=== PATIENT | female | born 1960 | race Caucasian/White ===

== ENCOUNTER 2023-01-17 09:22 | Outpatient (OUT) | payer OTHER, SELFPAY ==
--- NOTE | 2023-01-17 09:57 | XR_ITS ---
[address] [address] Patient Name: PRINCESS LOPEZ MRN: [id number] date: 1960 Sex: F Assigned Patient Location: [facility] Current Patient Location: [facility] Accession/Order Number: [id number] Exam Date: 01/17/2023 09:45 Report Date: 01/17/2023 10:08 At the request of: TINO MCGUIRE Procedure: XR DEXA axial skeleton EXAMINATION: XR DEXA axial skeleton, 01/17/2023 9:45 AM EDT HISTORY: Screening For Osteoporosis Z13.820 COMPARISON: None. TECHNIQUE: Dual-energy X-ray absorptiometry (DEXA) bone density study performed for the axial skeleton. HISTORY: Screening For Osteoporosis Z13.820 FINDINGS: Bone mineral density AP spine L1-L4 measures 0.905 g/sq cm. T score -2.3. WHO classification: Osteopenia Bone mineral density total femurs measures 0.804 g/sq cm. T score -1.6. WHO classification: Osteopenia XR/XR DEXA axial skeleton IMPRESSION: Osteopenia. Moderate fracture risk Electronically authenticated by: PAVITHRA ARTEAGA Date: 01/17/2023 10:08
== END 2023-01-17 09:23 | disposition home or self-care (01) ==
LOC: RAD 09:23
PROVIDERS: PCP Family Medicine; Visit Provider Nurse Practitioner Family
DX: Z13.820 Encounter for screening for osteoporosis (principal); M85.852 Other specified disorders of bone density and structure, left thigh; M85.851 Other specified disorders of bone density and structure, right thigh; C50.919 Malignant neoplasm of unspecified site of unspecified female breast; Z15.01 Genetic susceptibility to malignant neoplasm of breast; Z15.09 Genetic susceptibility to other malignant neoplasm; I82.90 Acute embolism and thrombosis of unspecified vein; L98.9 Disorder of the skin and subcutaneous tissue, unspecified
CPT/HCPCS: 77080

== ENCOUNTER 2023-08-12 16:24 | Emergency (ER) | payer MEDICARE, OTHER, SELFPAY ==
[2023-08-12 16:26] VITALS: BP 137/72; PULSE 84; RESP 20; TEMP 36.6; O2SAT 95; BMI 29.1
--- NOTE | 2023-08-12 16:39 | XR_ITS ---
The [address] [address] Patient Name: PRINCESS LOPEZ MRN: [id number] date: 1960 Sex: F Assigned Patient Location: ER Current Patient Location: Accession/Order Number: [id number] Exam Date: 08/12/2023 17:00 Report Date: 08/12/2023 17:48 At the request of: AMANDA GARVIN Procedure: XR ribs LT min 3V w CXR1V EXAM: XR ribs LT min 3V w CXR1V HISTORY: Fall COMPARISON: No prior chest x-ray or rib x-ray. CT chest 03/04/2022 and earlier TECHNIQUE: PA chest x-ray, AP, oblique x-ray left ribs FINDINGS: Lungs are stable with some minimal scars but no consolidation or edema. Increased density projects over the lower chest from the patient's implants. Normal heart size. No pleural effusion or pneumothorax. Left rib films do not demonstrate evidence of displaced fracture. There is deformity consistent with old fracture in the area of the left sixth rib.. Lower ribs difficult to visualize due to overlying soft tissues. No focal bone lesion. XR/XR ribs LT min 3V w CXR1V IMPRESSION: 1. Chest x-ray without acute abnormality. 2. No acute displaced left rib fracture. Electronically authenticated by: FABI HULL Date: 08/12/2023 17:48
--- NOTE | 2023-08-12 16:39 | ED.FALL1 ---
HPI - Fall General Chief Complaint: Fall Stated Complaint: rib pain, fall on Monday Time Seen by Provider: 08/12/23 16:39 Source: patient Mode of arrival: walk-in Limitations: no limitations History of Present Illness HPI Narrative: This patient is here for evaluation of left sided rib pain. She states earlier this week on Monday she fell onto the floor after stumbling. There is no loss of consciousness or preceding lightheadedness. She did not injure her head or neck. She says she just wanted to come in to get checked today because she is getting increasing pain. She does have a history of COPD but she does not use oxygen or breathing treatments and only occasionally uses a rescue inhaler. She has not had bloody sputum or shortness of breath but it hurts a little bit to twist turn or move or take a deep breath. She has never had previous rib fractures. She has no abdominal injury. She denies specifically any other injuries or head Neck/Thyoid: Given or lower extremities. Related Data Home Medications Medication Instructions Recorded Confirmed sertraline 100 mg tablet 100 mg PO DAILY 08/12/23 08/12/23 Allergies Allergy/AdvReac Type Severity Reaction Status Date / Time Penicillins Allergy Intermediate Verified 08/12/23 16:33 PFSH PFSH Social History Smoking status: Former smoker Exam Narrative Exam Narrative: Awake alert pleasant moving about pulse oximetry and respiratory pattern are normal. Skin are warm and dry there is no pallor or diaphoresis. No evidence of scleral icterus or anemia. Examination lungs discloses both sides have good aeration. There is no pleural rub. There is no rales or rhonchi. There is no subcutaneous emphysema. There is no hematoma. There is no paradoxical movement of the chest wall with palpation. She has no abdominal pain. Heart sounds are normal. Constitutional Vital Signs, click to edit/add: Last Vital Signs Temp 98 F 08/12/23 16:26 Pulse 84 08/12/23 16:26 Resp 20 08/12/23 16:26 BP 137/72 08/12/23 16:26 Pulse Ox 95 08/12/23 16:26 O2 Del Method Room Air 08/12/23 16:26 Course Vital Signs Vital signs: Vital Signs Temperature 98 F 08/12/23 16:26 Pulse Rate 84 08/12/23 16:26 Respiratory Rate 20 08/12/23 16:26 Blood Pressure 137/72 08/12/23 16:26 Pulse Oximetry 95 08/12/23 16:26 Oxygen Delivery Method Room Air 08/12/23 16:26 Temperature 98 F 08/12/23 16:26 Pulse Rate 84 08/12/23 16:26 Respiratory Rate 20 08/12/23 16:26 Blood Pressure 137/72 08/12/23 16:26 Pulse Oximetry 95 08/12/23 16:26 Oxygen Delivery Method Room Air 08/12/23 16:26 MDM - Fall MDM Narrative Medical decision making narrative: Clinically most of his discomfort was over the left lateral fifth rib and that is indeed fractured on her x-ray. I am awaiting radiologist final interpretation see if there is any other injuries. I do not see a pneumothorax. Discharge Plan Discharge Chief Complaint: Fall Clinical Impression: Rib fracture Patient Disposition: Home, Self-Care Time of Disposition Decision: 17:15 Prescriptions / Home Meds: No Action sertraline 100 mg tablet 100 mg PO DAILY Additional Instructions: May use [id number] analgesics or [place] if necessary. Return for any trouble breathing Stand Alone Forms: Portal Instructions Referrals: JOSUE AGUIRRE [Primary Care Provider] - 1 week
[2023-08-12 17:47] VITALS: BP 128/78; PULSE 88; RESP 16; TEMP 36.8; O2SAT 98
== END 2023-08-12 17:35 | disposition home or self-care (01) ==
PROVIDERS: Emergency Provider Emergency Medicine Emergency Medical Services; PCP Family Medicine
DX: S22.32XA Fracture of one rib, left side, initial encounter for closed fracture (principal); W01.198A Fall on same level from slipping, tripping and stumbling with subsequent striking against other object, initial encounter; J44.9 Chronic obstructive pulmonary disease, unspecified; Z87.891 Personal history of nicotine dependence; Z79.899 Other long term (current) drug therapy
CPT/HCPCS: 71101; 99283

== ENCOUNTER 2024-11-19 11:11 | Outpatient (OUT) | payer MEDICARE, OTHER, SELFPAY ==
--- NOTE | 2024-11-19 11:21 | XR_ITS ---
The [place] [id number] Patient Name: PRINCESS LOPEZ MRN: [id number] date: 1960 Sex: F Assigned Patient Location: [facility] Current Patient Location: [facility] Accession/Order Number: [id number] Exam Date: 11/19/2024 12:39 Report Date: 11/19/2024 12:40 At the request of: DUY JETER Procedure: XR knee RT 4V RIGHT KNEE - 4 views COMPARISON: None CLINICAL DATA: Knee pain for the past month with patella and posteriorly. Patient recently gardening. AP, lateral, internal oblique and patellar views were obtained. There is osteopenia. No acute fracture or dislocation is identified. There is slight lateral subluxation of patella. There is mild tricompartment marginal spurring. There is no significant knee effusion or soft tissue swelling. XR/XR knee RT 4V IMPRESSION: OSTEOPENIA AND MILD DEGENERATIVE CHANGES. NO ACUTE BONY FINDINGS. Impression dictated by: Tiffany Thompson M.D. 11/19/2024 12:40 PM Dictation Location: [place] [address] Electronically authenticated by: [id number] Y Date: 11/19/2024 12:40
== END 2024-11-19 11:12 | disposition home or self-care (01) ==
LOC: RAD 11:14
PROVIDERS: PCP Family Medicine; Visit Provider Nurse Practitioner
DX: M25.561 Pain in right knee (principal); M85.80 Other specified disorders of bone density and structure, unspecified site
CPT/HCPCS: 73564

== ENCOUNTER 2024-11-20 13:16 | Inpatient (IN) | payer MEDICARE, OTHER, SELFPAY ==
--- OUTSIDE RECORDS SUMMARY | 2024-11-18 23:59 | XMS_ITS | Continuity of Care Document ---
Author Organization [facility] Address [address] [place] [id number] Care Team Providers Care Sales Support Consultant Name Role Phone Isidra Mota Primary Care Physician Encounter FT_AMBFIN [id number] Date(s): 11/18/24 - 11/18/[address] [address]- Encounter Diagnosis Fatigue(Discharge Diagnosis) - 11/18/24 BMI 28.0-28.9,adult(Discharge Diagnosis) - 11/18/24 Seasonal allergies(Discharge Diagnosis) - 11/18/24 Elevated fasting glucose(Discharge Diagnosis) - 11/18/24 Excessive thirst(Discharge Diagnosis) - 11/18/24 Discharge Disposition: Home (Routine DC) Attending Physician: Isidra Polanco Encounter Type: Clinic Allergies, Adverse Reactions, Alerts Substance Criticality Severity Reaction Reaction Severity Status penicillin Unknown Active Assessment and Plan Future Appointments Appointment Date:12/09/2024 09:40:00 AM Scheduled Provider:Isidra Polanco Location:[facility] Appointment Type: Open Appointment Date:01/13/2025 03:00:00 PM Scheduled Provider:Isidra Polanco Location:[facility] Appointment Type: Open Appointment Date:09/18/2025 11:00:00 AM Scheduled Provider: Location:[facility] Appointment Type:FM Medicare Wellness Subsequent Future Scheduled Tests Radiology* CT Chest, Low Dose Screening 10/28/24 Immunizations Given and Recorded Vaccine Date Status Refusal Reason influenza virus vaccine, inactivated 03/28/24 Arron rded influenza virus vaccine, inactivated 03/23/22 Arron rded influenza virus vaccine, inactivated 04/29/21 Arron rded influenza virus vaccine, inactivated 03/01/20 Arron rded SARS-CoV-2 (COVID-19) Ad26 vaccine 01/18/22 Record ed SARS-CoV-2 (COVID-19) Ad26 vaccine 09/13/20 Record ed zoster vaccine, inactivated 03/01/20 Recorded pneumococcal 23-valent vaccine 03/01/20 Recorded Medications Albuterol (Eqv-ProAir HFA) 90 mcg/inh inhalation aerosol 2 puff(s), Inhalation, q6hr Wheezing, 8.5 gm, Refill(s) 5, [facility], 156, cm, 08/12/24 11:27:00 EST, Height/Length Dosing, 76, kg, 08/12/24 11:27:00 EST, Weight Dosing Start Date: 08/12/24 Status: Ordered Quantity: 8.5 Unit: g Repeat number: 6 alendronate 35 mg Tab 35 mg = 1 tab(s), Oral, q7day, with 6-8 oz plain water, at least 30 minutes before first food, beverage, or medication of the day. Sit up right for 30 minutes after taking medication ( do not lay down), # 4 tab(s), Refills(s) 5, Pharmacy: [facility], 156, cm, 08/12/24 11:27:00 EST, Height/Length Dosing, 76, kg, 08/12/24 11:27:00 EST, Weight Dosing Start Date: 08/12/24 Status: Ordered Quantity: 4.0 Unit: tab(s) Repeat number: 6 Indications: Other specified disorders of bone density and structure, unspecified site; Aspir 81 81 mg, Oral, Daily, Refills(s) 0 Start Date: 04/20/23 Status: Ordered Repeat number: 1 cetirizine 10 mg oral capsule 10 mg = 1 cap(s), Oral, Daily, PRN for allergy symptoms, # 90 cap(s), Refills(s) 0, Pharmacy: [facility], 156, cm, 06/02/23 10:31:00 EST, Height/Length Dosing, 68.6, kg, 06/02/23 10:31:00 EST, Weight Dosing Start Date: 12/07/23 Status: Ordered Quantity: 90.0 Unit: cap(s) Repeat number: 1 Indications: Other seasonal allergic rhinitis; Other specified disorders of bone density and structure, unspecified site; Flonase 0.05 mg/inh [place] 2 spray(s), Nasal, Daily, 16 gram, Refill(s) 0, each nostril, [facility], 156, cm, 11/18/24 8:48:00 EDT, Height/Length Dosing, 69.2, kg, 11/18/24 8:48:00 EDT, Weight Dosing Start Date: 11/18/24 Status: Ordered Quantity: 16.0 Unit: g Repeat number: 1 Indications: Other fatigue; Body mass index [BMI] 28.0-28.9, adult; Glucose Kit Glucose Kit, See Instructions, 1 EA, 0, Glucose meter. Include autolet, matching test strips, lancets, & alcohol wipes, #100 or as allowed by insurance; DX: E11.9, [facility], [facility], 156, cm, 11/18/24 8:48:00 EDT, Height/Length Dosing, 69.2, kg, 11/18/24 8:48:00 EDT, Weight Dosing Start Date: 11/18/24 Status: Ordered Quantity: 1.0 Unit: EA Repeat number: 1 Indications: Other fatigue; Body mass index [BMI] 28.0-28.9, adult; phentermine 37.5 mg oral capsule 37.5 mg = 1 cap(s), Oral, Daily, # 30 cap(s), Refills(s) 0, Pharmacy: [facility], 156, cm, 10/14/24 10:06:00 EDT, Height/Length Dosing, 72.2, kg, 10/14/24 10:06:00 EDT, Weight Dosing Start Date: 10/14/24 Status: Ordered Quantity: 30.0 Unit: cap(s) Repeat number: 1 Indications: Body mass index [BMI] 31.0-31.9, adult; Persons encountering health services in other specified circumstances; Major depressive disorder, recurrent, moderate; sertraline 100 mg Tab 100 mg = 1 tab(s), Oral, Daily, X 90 day(s), # 90 tab(s), Refills(s) 3, Pharmacy: [facility], 156, cm, 08/12/24 11:27:00 EST, Height/Length Dosing, 76, kg, 08/12/24 11:27:00 EST, Weight Dosing Start Date: 08/12/24 Stop Date: 08/07/25 Status: Ordered Quantity: 90.0 Unit: tab(s) Repeat number: 4 Vitamin D3 50,000 intl units oral capsule 1,250 mcg = 1 cap(s), Oral, qWeek, # 12 cap(s), Refills(s) 1, Pharmacy: [facility], 156, cm, 12/14/23 8:07:00 EDT, Height/Length Dosing, 72.9, kg, 12/14/23 8:07:00 EDT, Weight Dosing Start Date: 12/18/23 Status: Ordered Quantity: 12.0 Unit: cap(s) Repeat number: 2 Problem List Condition Confirmation Course Effective Dates Status H ealth Status Informant Asthma Confirmed Active Adult BMI 30.0-30.9 kg/sq m Confirmed Active BMI 30.0-30.9,adult Confirmed Active Breast cancer Confirmed Resolved Excessive dietary caloric intake Confirmed Active Excessive thirst Confirmed Active Fatigue Confirmed Active Elevated fasting glucose Confirmed Active Hyperlipemia Confirmed Active Moderate recurrent major depression Confirmed Active Neuropathy Confirmed Active Osteopenia Confirmed Active Encounter for weight management Confirmed Active Breast cancer, stage 3 Confirmed Active COPD with emphysema Confirmed Active Seasonal allergies Confirmed Active Smoker 1 Confirmed Resolved Low TSH level Confirmed Active 1Added secondary to documentation in Social History. Procedures Procedure Date Related Diagnosis Body Site Status Hysterectomy and bilateral salpingo-oophorectomy sample 01/17/21 Com pleted Colonoscopy normal 2016 Comple ion Cholecystectomy Completed [place] hernia repair Comp leted Mastectomy 1 Completed 1Bilateral Mastectomies Social History Social History Type Response Smoking Status Former smoker, quit more than 30 days ago; Smokeless tobacco use: Former vaping or e-cigarette use; Type: Cigarettes; Type: Vaping; Previous treatment: Hypnosis; Previous treatment: cold turkey; Smoking Cessation Yes 1, 2 entered on: 09/16/24 Sex Female Sex Representation Female (finding) 1quit smoking 2020. Smoked about 1.5 ppd. 2Quit 07/2020 Patient Care team information Care Team Personnel Name: Isidra Polanco Position: FT Ambulatory - Primary Care - [facility] Member Role: Primary Care Physician Address: [address] [place] [address]- Telecom: Care Team Related Persons Name: BRIELLE CABELLO Name: BRIELLE CABELLO Name: BRIELLE CABELLO Name: BRIELLE CABELLO Name: BRIELLE CABELLO Name: JANEL VAUGHAN Insurance Providers Guarantor name: PRINCESS LOPEZ [employer] Plan Information #: 1 Payer: NA Payer Identifier: [id number] Member Number: [id number] Group Number: Part Subscriber Identifier: [id number] Relationship to Subscriber: Self Coverage Type: MEDICARE Coverage Verification Date: 24 Telecom: NA Address: Health Plan Information #: 2 Payer: NA Payer Identifier: [id number] Member Number: [id number] Group Number: Plan Subscriber Identifier: [id number] Relationship to Subscriber: Self Coverage Type: PRIVATE HEALTH INSURANCE Coverage Verification Date: 24 Telecom: NA Address:
--- OUTSIDE RECORDS SUMMARY | 2024-11-19 23:59 | XMS_ITS | Continuity of Care Document ---
Author Organization [facility] Address [address] [place] [address] Care Team Providers Care Telephoto Installer Name Role Phone Isidra Mota Primary Care Physician Encounter FT_AMBFIN [id number] Date(s): 11/19/24 - 11/19/[address] [address]- Encounter Diagnosis BMI 28.0-28.9,adult(Discharge Diagnosis) - 11/19/24 Right knee pain(Discharge Diagnosis) - 11/19/24 Swelling of right knee joint(Discharge Diagnosis) - 11/19/24 Discharge Disposition: Home (Routine DC) Attending Physician: Isidra Polanco Encounter Type: Clinic Allergies, Adverse Reactions, Alerts Substance Criticality Severity Reaction Reaction Severity Status penicillin Unknown Active Assessment and Plan Future Appointments Appointment Date:12/09/2024 09:40:00 AM Scheduled Provider:Isidra Polanco Location:[facility] Appointment Type:FM Open Appointment Date:01/13/2025 03:00:00 PM Scheduled Provider:Isidra Polanco Location:[facility] Appointment Type:FM Open Appointment Date:09/18/2025 11:00:00 AM Scheduled Provider: Location:[facility] Appointment Type:FM Medicare Wellness Subsequent Future Scheduled [...] down), # 4 tab(s), Refills(s) 5, Pharmacy: [facility], 156, cm, 08/12/24 11:27:00 EST, Height/Length [...] symptoms, # 90 cap(s), Refills(s) 0, Pharmacy: [facility], 156, cm, 06/02/23 10:31:00 EST, Height/Length Dosing, 68.6, kg, 06/02/23 10:31:00 EST, Weight Dosing Start Date: 12/07/23 Status: Ordered Quantity: 90.0 Unit: cap(s) Repeat number: 1 Indications: Other seasonal allergic rhinitis; Other specified disorders of bone density and structure, unspecified site; Flonase 0.05 mg/inh [place] 2 spray(s), Nasal, Daily, 16 gram, Refill(s) 0, each nostril, [facility], 156, cm, 11/18/24 8:48:00 EDT, Height/Length [...] as allowed by insurance; DX: E11.9, [facility], Supply, 156, cm, 11/18/24 8:48:00 EDT, Height/Length Dosing, 69.2, kg, 11/18/24 8:48:00 EDT, Weight Dosing Start Date: 11/18/24 Status: Ordered Quantity: 1.0 Unit: EA Repeat number: 1 Indications: Other fatigue; Body mass index [BMI] 28.0-28.9, adult; meloxicam 15 mg Tab 15 mg = 1 tab(s), Oral, Daily, # 30 tab(s), Refills(s) 0, Pharmacy: [facility], 156, cm, 11/19/24 10:12:00 EDT, Height/Length Dosing, 69.4, kg, 11/19/24 10:12:00 EDT, Weight Dosing Start Date: 11/19/24 Status: Ordered Quantity: 30.0 Unit: tab(s) Repeat number: 1 Indications: Pain in right knee; Body mass index [BMI] 28.0-28.9, adult; Effusion, right knee; phentermine 37.5 mg oral capsule 37.5 mg = 1 cap(s), Oral, Daily, # 30 cap(s), Refills(s) 0, Pharmacy: [facility], 156, cm, 10/14/24 10:06:00 EDT, Height/Length Dosing, 72.2, kg, 10/14/24 10:06:00 EDT, Weight Dosing Start Date: 10/14/24 Status: Ordered Quantity: 30.0 Unit: cap(s) Repeat number: 1 Indications: Body mass index [BMI] 31.0-31.9, adult; Persons encountering health services in other specified circumstances; Major depressive disorder, recurrent, moderate; right knee compression brace with velcro right knee compression brace with velcro, See Instructions, 1 EA, 0, use daily on right knee when walking, working, active, [facility], [facility], 156, cm, 11/19/24 10:12:00 EDT, Height/LengthDosing, 69.4, kg, 11/19/24 10:12:00 EDT, Weight Dosing Start Date: 11/19/24 Status: Ordered Quantity: 1.0 Unit: EA Repeat number: 1 Indications: Pain in right knee; Effusion, right knee; sertraline 100 mg Tab 100 mg = 1 tab(s), Oral, Daily, X 90 day(s), # 90 tab(s), Refills(s) 3, Pharmacy: [facility], 156, cm, 08/12/24 11:27:00 EST, Height/Length Dosing, 76, kg, 08/12/24 11:27:00 EST, Weight Dosing Start Date: 08/12/24 Stop Date: 08/07/25 Status: Ordered Quantity: 90.0 Unit: tab(s) Repeat number: 4 Tylenol 325 mg Tab = 1 tab(s), Oral, q4hr, PRN for pain, # 60 tab(s), Refills(s) 0 Start Date: 11/19/24 Status: Ordered Quantity: 60.0 Unit: tab(s) Repeat number: 1 Vitamin D3 50,000 intl units oral capsule 1,250 mcg = 1 cap(s), Oral, qWeek, # 12 cap(s), Refills(s) 1, Pharmacy: [facility], 156, cm, 12/14/23 8:07:00 EDT, Height/Length [...] Active Neuropathy Confirmed Active Osteopenia Confirmed Active BMI 28.0-28.9,adult Confirmed Active Right knee pain Confirmed Active Encounter for weight management Confirmed Active Breast cancer, stage 3 Confirmed Active COPD with emphysema Confirmed Active Seasonal allergies Confirmed Active Smoker 1 Confirmed Resolved Swelling of right knee joint Confirmed Active Low TSH level Confirmed Active 1Added secondary to documentation in Social History. Procedures Procedure Date Related Diagnosis Body Site Status Hysterectomy and bilateral salpingo-oophorectomy sample 01/17/21 Com pleted Colonoscopy normal 2015 Comple ion Cholecystectomy Completed [place] hernia repair Comp leted Mastectomy 1 Completed 1Bilateral Mastectomies Social History Social History Type Response Smoking Status Former smoker, quit more than 30 days ago; Smokeless tobacco use: Former vaping or e-cigarette use; Type: Cigarettes; Type: Vaping; Previous treatment: Hypnosis; Previous treatment: cold turkey; Smoking Cessation Yes 1, 2 entered on: 11/19/24 Sex Female Sex Representation Female (finding) 1quit smoking 2020. Smoked about 1.5 ppd. 2Quit 07/2020 Patient Care team information Care Team Personnel Name: Isidra Polanco Position: FT Ambulatory - Primary Care - [facility] Member Role: Primary Care Physician Address: [address] [place] [address]- Telecom: Care Team Related Persons Name: BRIELLE CABELLO Name: BRIELLE CABELLO Name: BRIELLE CABELLO Name: BRIELLE CABELLO Name: BRIELLE CABELLO Name: JANEL VAUGHAN Insurance Providers Guarantor name: PRINCESS HALLRUFF [employer] Social Plan Information #: 1 Payer: NA Payer Identifier: [id number] Member Number: [id number] Group Number: [id number] Subscriber Identifier: [id number] Relationship to Subscriber: Self Coverage Type: MEDICARE Coverage Verification Date: 24 Telecom: NA Address: [facility] Plan Information #: 2 Payer: NA Payer Identifier: [id number] Member Number: [id number] Group Number: PlanG Subscriber Identifier: [id number] Relationship to Subscriber: Self Coverage Type: PRIVATE HEALTH INSURANCE Coverage Verification Date: 24 Telecom: NA Address:
[2024-11-20] VITALS (22 sets, daily range): BP systolic 97–123; BP diastolic 59–72; PULSE 72–109; TEMP 36.6–37; O2SAT 85–94; BMI 28.0; BMI 28.2
--- OUTSIDE RECORDS SUMMARY | 2024-11-20 13:23 | XMS_ITS | Encounter Summary ---
Author Organization [facility] Address [address] [place] [address] Care Team Providers Care Front End Wheel Loader Operator Name Role Phone Geraldo Pandya MD Unavailable [phone] Mirian Willett RECREATION SPECIALIST.COURT CLERK Unavailable [phone] Lyle Rodriguez MD Primary Care Provider [phone] Source Comments In the event this information is protected by the Federal Confidentiality of Alcohol and Drug AbusePatient Records regulations: The Federal rules restrict any use of the information to criminally investigate or prosecute any alcohol or drug abuse patient.[facility] Encounter Details Date Type Department Care Team (Late st Contact Info) Description 11/17/2024 Patient Msg General Surgery [address] [place] [address] Inessa Bermudez APRN.COURT CLERK [address] [place] [address] Appointment Request Social History Tobacco Use Types Packs/Day Years Used Date Smoking Tobacco: Former Cigarettes 1 43 0 10/26/1977 - 10/26/2020 Smokeless Tobacco: Never Alcohol Use Standard Drinks/Week Comments Not Currently 0 (1 standard drink = 0.6 oz pur e alcohol) PHQ-2 Answer Date Recorded PHQ-2 score 0 03/28/2024 Area Deprivation Index Answer Date Arron rded National Score (1-100), lower number is lower ri sk 61 11/15/2022 State Score (1-10), lower number is lower risk 4 11/15/2022 Data from: https://www.neighborhoodatlas.medicine.[facility]/. Last address used for calculation [address] 11/15/2022 Comments No Sex and Gender Information Value Date Recorded Sex Assigned at Not on file Legal Sex Female 10:12 AM EST Gender Identity Not on file Sexual Orientation Not on file documented as of this encounter Functional Status * Are you deaf or do you have serious difficulty hearing? Answer Date of Assessment Author No 10/23/2013 2:49 PM EDT Pawan Diaz * Are you blind or do you have serious difficulty seeing, even when wearing glasses? Answer Date of Assessment Author No 10/23/2013 2:49 PM EDT Pawan Diaz * Do you have serious difficulty walking or climbing stairs? Answer Date of Assessment Author No 10/23/2013 2:49 PM EDT Pawan Diaz ise * Do you have difficulty dressing or bathing? Answer Date of Assessment Author No 10/23/2013 2:49 PM EDT Pawan Diaz ise * Because of a physical, mental, or emotional condition, do you have difficulty doing errands alone such as visiting a doctor's office or shopping? Answer Date of Assessment Author No 10/23/2013 2:49 PM EDT Pawan Diaz documented as of this encounter Mental Status * Because of a physical, mental, or emotional condition, do you have serious difficulty concentrating, remembering, or making decisions? Answer Entry Date Author No 10/23/2013 2:49 PM EDT Pawan Diaz documented in this encounter Plan of Treatment Upcoming Encounters Date Type Department Care Team (Latest Contact Info) Description 12/26/2024 2:30 PM EDT Office Visit General Surgery [address] [place] [address] Inessa Bermudez APRN.COURT CLERK [address] [place] [address] annual f/u 03/27/2025 10:00 AM EDT Office Visit [facility] Laboratory [address] [place] [address] 1 year follow up with lab 03/27/2025 10:20 AM EDT Visit (SP) Office Hematology/Oncology [address] [place] [address] Geraldo Pandya MD [facility] [place] [address] [place] [address] 1 year follow up with lab documented as of this encounter Visit Diagnoses Not on filedocumented in this encounter Care Teams Front End Wheel Loader Operator Relationship Specialty Start Date End Date Lyle Rodriguez MD [address] [place] [address] PCP - General Family Medicine 03/23/23 Geraldo Pandya MD [facility] [address] [address] Physician Hematology/Oncology 05/20/20 Mirian Willett APRN.COURT CLERK [facility] [place] [address] Nurse Practitioner Hematology/Oncology 05/20/20 documented as of this encounter
--- OUTSIDE RECORDS SUMMARY | 2024-11-20 13:23 | XMS_ITS | Encounter Summary ---
Author Organization [facility] Address [address] [place] [address] Care Team Providers Care Costumed Character Entertainer Name Role Phone Geraldo Pandya MD Unavailable [phone] Mirian Willett APRN.BUS BOY Unavailable [phone] Lyle Rodriguez MD Primary Care Provider [phone] Source Comments In the event this information is protected by the Federal Confidentiality of Alcohol and Drug AbusePatient Records regulations: The Federal rules restrict any use of the information to criminally investigate or prosecute any alcohol or drug abuse patient.[facility] Encounter Details Date Type Department Care Team (Late st Contact Info) Description 11/18/2024 Patient Msg General Surgery [address] [place] [address] Provider, [facility] Breast Health appointment reminder Social History Tobacco Use Types Packs/Day Years [...] is lower risk 4 11/15/2022 Data from: https://www.neighborhoodatlas.[facility]/. Last address used for calculation [address] 11/15/2022 Comments No Sex and Gender Information [...] EDT Pawan Diaz * Do you have difficulty dressing or bathing? Answer Date of Assessment Author No 10/23/2013 2:49 PM EDT Pawan Diaz * Because of a physical, mental, or emotional condition, do you have difficulty doing errands alone such as visiting a doctor's office or shopping? Answer Date of Assessment Author No 10/23/2013 2:49 PM MARCELINOT Pawan Diaz documented as of this encounter [...] 2:30 PM EDT Office Visit General Surgery [address] [place] [address] Inessa Bermudez APRN.BUS BOY [address] [place] [address] annual f/u 03/27/2025 10:00 AM EDT Office Visit [facility] Laboratory [address] [place] [address] [place] [address] 1 year follow up with lab 03/27/2025 10:20 AM EDT Visit (SP) Office Hematology/Oncology [address] [place] [address] [place] [address] Geraldo Pandya MD [address] [place] [address] [place] [address] 1 year follow up with lab documented as of this encounter Visit Diagnoses Not on filedocumented in this encounter Care Teams Costumed Character Entertainer Relationship Specialty Start Date End Date Lyle Rodriguez MD [address] [place] [address] PCP - General Family Medicine 03/23/23 Geraldo Pandya MD [address] [place] [address] [place] [address] Physician Hematology/Oncology 05/20/20 Mirian Willett APRN.BUS BOY [address] [place] [address] [place] [address] Nurse Practitioner Hematology/Oncology 05/20/20 documented as of this encounter
--- OUTSIDE RECORDS SUMMARY | 2024-11-20 13:23 | XMS_ITS | Encounter Summary ---
Author Organization [facility] Address [address] [place] [address] Care Team Providers Care Container Washer Name Role Phone Toña Villagran MD Primary Care Provider [phone] Geraldo Pandya MD Unavailable [phone] Mirian Willett AIR DEFENSE ARTILLERY OFFICER.CAR INSTALLATIONS SUPERVISOR Unavailable [phone] Jo Juarez RN Unavailable [phone] Toña Villagran MD Primary Care Provider [phone] Lyle Rodriguez MD Primary Care Provider [phone] Source Comments In the event this information is protected by the Federal Confidentiality of Alcohol and Drug AbusePatient Records regulations: The Federal rules restrict any use of the information to criminally investigate or prosecute any alcohol or drug abuse patient.[facility] Encounter Details Date Type Department Care Team (Late st Contact Info) Description 04/02/2020 Patient Msg Genetic Healthcare [address] [place] [address] Provider, [facility] Genetic Consult Referral Social History Tobacco Use Types Packs/Day Years Used Date Smoking Tobacco: Every Day Cigarettes 1 25 Smokeless Tobacco: Never Alcohol Use Standard Drinks/Week Comments No 0 (1 standard drink = 0.6 oz pur e alcohol) Comments No Sex and Gender Information Value Date Recorded Sex Assigned at Not on file Legal Sex Female 10:12 AM EST Gender Identity Not on file Sexual Orientation Not on file COVID-19 Exposure Response Date Recorded In the last month, have you been in contact with someone who was confirmed or suspected to have Coronavirus / COVID-19? No / Unsure 04/02/2020 2:07 PM EDT documented as of this encounter Functional Status [...] 2:30 PM EDT Office Visit General Surgery [address] [place] [address] Inessa Bermudez APRN.CAR INSTALLATIONS SUPERVISOR [address] [place] [address] annual f/u 03/27/2025 10:00 AM EDT Office Visit [facility] Laboratory [address] [place] [address] [place] [address] 1 year follow up with lab 03/27/2025 10:20 AM EDT Visit (SP) Office Hematology/Oncology [address] [place] [address] Geraldo Pandya MD [address] [place] [address] [place] [address] 1 year follow up with lab documented as of this encounter Visit Diagnoses Not on filedocumented in this encounter Care Teams Container Washer Relationship Specialty Start Date End Date Toña Villagran MD [address] [place] [address] PCP - General Family Medicine 06/16/11 12/17/20 Toña Villagran MD [address] [place] [address] PCP - General Family Medicine 12/18/20 03/22/23 Lyle Rodriguez MD [address] [place] [address] PCP - General Family Medicine 03/23/23 Geraldo Pandya MD [address] [place] [address] [place] [address] Physician Hematology/Oncology 05/20/20 Mirian Willett APRN.CAR INSTALLATIONS SUPERVISOR [address] [facility] [place] [address] Nurse Practitioner Hematology/Oncology 05/20/20 Jo Juarez, SANDRO [address] [place] [address] Specialty Instructor Warper Hematology/Oncology 05/20/20 04/27/21 documented as of this encounter
--- OUTSIDE RECORDS SUMMARY | 2024-11-20 13:23 | XMS_ITS | Encounter Summary ---
Author Organization [facility] Address [address] [place] [address] Care Team Providers Care Corrosion Control Fitter Name Role Phone Geraldo Pandya MD Unavailable [phone] Mirian Willett APRN.SOFTWARE QUALITY AUTOMATION ENGINEER Unavailable [phone] Lyle Rodriguez MD Primary Care Provider [phone] Source Comments In the event this information is protected by the Federal Confidentiality of Alcohol and Drug AbusePatient Records regulations: The Federal rules restrict any use of the information to criminally investigate or prosecute any alcohol or drug abuse patient.[facility] Encounter Details Date Type Department Care Team (Late st Contact Info) Description 2023 [place] [address] Provider, [facility] Medicare Coverage of Physical Exams Social History Tobacco Use Types Packs/Day Years Used Date Smoking Tobacco: Former Cigarettes 1 43 0 10/26/1977 - 10/26/2020 Smokeless Tobacco: Never Alcohol Use Standard Drinks/Week Comments Not Currently 0 (1 standard drink = 0.6 oz pur e alcohol) PHQ-2 Answer Date Recorded PHQ-2 score 0 03/07/2023 Area Deprivation Index Answer Date Arron rded National Score (1-100), lower number is lower ri sk 61 11/15/2022 State Score (1-10), lower number is lower risk 4 11/15/2022 Data from: https://www.neighborhoodatlas.[facility]/. Last address used for calculation [address] 11/15/2022 Comments No Sex and Gender Information [...] 2:30 PM EDT Office Visit General Surgery [address] [place] [address] Inessa Bermudez APRN.SOFTWARE QUALITY AUTOMATION ENGINEER [address] [place] [address] annual f/u 03/27/2025 10:00 AM EDT Office Visit [facility] Laboratory [address] [place] [address] [place] [address] 1 year follow up with lab 03/27/2025 10:20 AM EDT Visit (SP) Office Hematology/Oncology [address] [place] [address] [place] [address] Geraldo Pandya MD [address] [place] [address] [place] [address] 1 year follow up with lab documented as of this encounter Visit Diagnoses Not on filedocumented in this encounter Care Teams Corrosion Control Fitter Relationship Specialty Start Date End Date Lyle Rodriguez MD [address] [place] [address] PCP - General Family Medicine 03/23/23 Geraldo Pandya MD [facility] [place] [address] Physician Hematology/Oncology 05/20/20 Mirian Willett APRN.SOFTWARE QUALITY AUTOMATION ENGINEER [facility] [place] [address] Nurse Practitioner Hematology/Oncology 05/20/20 documented as of this encounter
--- OUTSIDE RECORDS SUMMARY | 2024-11-20 13:23 | XMS_ITS | Encounter Summary ---
Author Organization [facility] Address [address] [place] [address] Care Team Providers Care Call Or Contact Centre Manager Name Role Phone Toña Villagran MD Primary Care Provider [phone] Geraldo Pandya MD Unavailable [phone] Mirian Willett SKI TOW OPERATOR.PERFORMANCE MAKEUP ARTIST Unavailable [phone] Jo Juarez RN Unavailable [phone] Toña Villagran MD Primary Care Provider [phone] Lyle Rodriguez MD Primary Care Provider [phone] Source Comments In the event this information is protected by the Federal Confidentiality of Alcohol and Drug AbusePatient Records regulations: The Federal rules restrict any use of the information to criminally investigate or prosecute any alcohol or drug abuse patient.[facility] Encounter Details Date Type Department Care Team (Latest Contact Info) Description 03/20/2020 H&P External-NonCCF Provider, External, PAMaiaC Do not enter address information under generic External Provider. Social History Tobacco Use Types Packs/Day Years [...] have Coronavirus / COVID-19? No / Unsure 03/23/2020 1:46 PM EDT documented as of this encounter Functional Status * Are you deaf or do you have serious difficulty hearing? Answer Date of Assessment Author No 10/23/2013 2:49 PM EDT Pawan Diaz isshanon * Are you blind or do you have serious difficulty seeing, even when wearing glasses? Answer Date of Assessment Author No 10/23/2013 2:49 PM EDT Pawan Diaz isshanon * Do you have serious difficulty walking or climbing stairs? Answer Date of Assessment Author No 10/23/2013 2:49 PM EDT Pawan Diaz isshanon * Do you have difficulty dressing or bathing? Answer Date of Assessment Author No 10/23/2013 2:49 PM EDT Pawan Diaz isshanon * Because of a physical, mental, or [...] 2:30 PM EDT Office Visit General Surgery [address] [place] [address] Inessa Bermudez APRN.PERFORMANCE MAKEUP ARTIST [address] [place] [address] annual f/u 03/27/2025 10:00 AM EDT Office Visit [facility] Laboratory [address] [place] [address] [place] [address] 1 year follow up with lab 03/27/2025 10:20 AM EDT Visit (SP) Office Hematology/Oncology [address] [place] [address] [place] [address] Geraldo Pandya MD [address] [place] [address] [place] [address] 1 year follow up with lab documented as of this encounter Visit Diagnoses Not on filedocumented in this encounter Care Teams Call Or Contact Centre Manager Relationship Specialty Start Date End Date Toña Villagran MD [address] [address] [place] [address] PCP - General Family Medicine 06/16/11 12/17/20 Toña Villagran MD [facility] [place] [address] PCP - General Family Medicine 12/18/20 03/22/23 Lyle Rodriguez MD [facility] [place] [address] PCP - General Family Medicine 03/23/23 Geraldo Pandya MD [address] [place] [address] [place] [address] Physician Hematology/Oncology 05/20/20 Mirian Willett APRN.PERFORMANCE MAKEUP ARTIST [address] [place] [address] [place] [address] Nurse Practitioner Hematology/Oncology 05/20/20 Jo Juarez, SANDRO [address] [place] [address] [place] [address] Specialty Corporate Affairs Manager Hematology/Oncology 05/20/20 04/27/21 documented as of this encounter
--- OUTSIDE RECORDS SUMMARY | 2024-11-20 13:23 | XMS_ITS | Encounter Summary ---
Author Organization [facility] Address [address] [place] [address] Care Team Providers Care Broacher Name Role Phone Geraldo Pandya MD Unavailable [phone] Mirian Willett SKATING RINK MANAGER.INSPECTOR WATCH TRAIN Unavailable [phone] Toña Villagran MD Primary Care Provider [phone] Lyle Rodriguez MD Primary Care Provider [phone] Source Comments In the event this information is protected by the Federal Confidentiality of Alcohol and Drug AbusePatient Records regulations: The Federal rules restrict any use of the information to criminally investigate or prosecute any alcohol or drug abuse patient.[facility] Encounter Details Date Type Department Care Team (Late st Contact Info) Description 04/29/2021 Patient Msg Plastic Surgery [address] [id number] Angel Macias MD [address] [place] [address] Questionnaire Submission Social History Tobacco Use Types Packs/Day Years Used Date Smoking Tobacco: Former Cigarettes 1 43 0 10/26/1977 - 10/26/2020 Smokeless Tobacco: Never Alcohol Use Standard Drinks/Week Comments Yes 0 (1 standard drink = 0.6 oz pur e alcohol) rarely PHQ-2 Answer Date Recorded PHQ-2 score 0 03/23/2021 Area Deprivation Index Answer Date Arron rded National Score (1-100), lower number is lower ri sk Not on file 2020 State Score (1-10), lower number is lower risk N ot on file 2020 Data from: https://www.neighborhoodatlas.medicine.[facility]/. Last address used for calculation Not on file 2020 Comments No Sex and Gender Information Value Date Recorded Sex Assigned at Not on file Legal Sex Female 10:12 AM EST Gender Identity Not on file Sexual Orientation Not on file COVID-19 Exposure Response Date Recorded In the last month, have you been in contact with someone who was confirmed or suspected to have Coronavirus / COVID-19? No / Unsure 04/19/2021 1:47 PM EDT documented as of this encounter [...] Assessment Author No 10/23/2013 2:49 PM EDT [place] documented as of this encounter Mental Status * Because of a physical, mental, or emotional condition, do you have serious difficulty concentrating, remembering, or making decisions? Answer Entry Date Author No 10/23/2013 2:49 PM EDT Pawan Diaz documented in this encounter Plan of Treatment Upcoming Encounters Date Type Department Care Team (Latest Contact Info) Description 12/26/2024 2:30 PM EDT Office Visit General Surgery [address] [place] [address] Inessa Bermudez APRN.INSPECTOR WATCH TRAIN [address] [place] [address] annual f/u 03/27/2025 10:00 AM EDT Office Visit [facility] Laboratory [address] [place] [address] 1 year follow up with lab 03/27/2025 10:20 AM EDT Visit (SP) Office Hematology/Oncology [address] [place] [address] Geraldo Pandya MD [address] [place] [address] 1 year follow up with lab documented as of this encounter Visit Diagnoses Not on filedocumented in this encounter Care Teams Broacher Relationship Specialty Start Date End Date Toña Villagran MD [address] [place] [address] PCP - General Family Medicine 12/18/20 03/22/23 Lyle Rodriguez MD [address] [place] [address] PCP - General Family Medicine 03/23/23 Geraldo Pandya MD [address] [place] [address] Physician Hematology/Oncology 05/20/20 Mirian Willett APRN.INSPECTOR WATCH TRAIN [address] [place] [address] Nurse Practitioner Hematology/Oncology 05/20/20 documented as of this encounter
--- OUTSIDE RECORDS SUMMARY | 2024-11-20 13:23 | XMS_ITS ---
Author Organization [facility] Address [address] [place] [address] Care Team Providers Care Cash Management Coordinator Name Role Phone Geraldo Pandya MD Unavailable [phone] Mirian Willett DIETITIAN RESEARCH.AVIATION SUPPORT EQUIPMENT REPAIRER Unavailable [phone] Lyle Rodriguez MD Primary Care Provider [phone] Active Problems Problem Noted Date Diagnosed Date Breast asymmetry following reconstructive surger y 08/12/2021 Assessment & Plan (08/12/2021 9:17 AM EST): -scheduled for surgery History of breast cancer 04/19/2021 Assessment & Plan (04/19/2021 1:40 PM EDT): Assessment: left s/p lumpectomy 2005 and chemo. Right breast 04/2020 that had lumpectomy and chemo. Patient found to have BRCA gene. Then had bilateral mastectomy 12/2020 and MADHAVI 01/2021 Type 2 diabetes 04/19/2021 Assessment & Plan (08/12/2021 9:18 AM EST): -diet and exercise controlled -last A1c 6.3% Assessment & Plan (04/19/2021 1:39 PM EDT): Assessment: diet controlled. A1C 6.5 on labs 12/2020. Will update today Anxiety 04/19/2021 Assessment & Plan (04/19/2021 1:39 PM EDT): Assessment: stable on sertraline daily Emphysema of lung 01/27/2021 Assessment & Plan (08/12/2021 9:17 AM EST): -does not use any inhalers -denies cough or SOB Assessment & Plan (04/19/2021 1:38 PM EDT): Assessment: Noted on CT scan 09/2020. Patient asymptomatic. Lungs clear. Assessment & Plan (01/27/2021 10:55 AM EDT): Assessment per imaging 09/28/2020 No use of inhalers Stable. Former smoker 04/21/2020 Assessment & Plan (08/12/2021 9:18 AM EST): -quit 10/26/20 -43 pack year history Assessment & Plan (04/19/2021 1:38 PM EDT): Assessment: quit 10/2020 (1 ppd x 43 years) Assessment & Plan (01/27/2021 10:47 AM EDT): Assessment: 43 pack year former cigarette smoker Assessment & Plan (12/17/2020 2:30 PM EDT): Assessment: 43 pack year former cigarette smoker Assessment & Plan (04/21/2020 11:22 AM EST): Assessment: 1 ppd x 30 years Malignant neoplasm of upper- inner quadrant of right breast in female, estrogen receptor negative 04/02/2020 Assessment & Plan (08/12/2021 9:20 AM EST): -2006 s/p lumpectomy, chemo, and radiation with 1 year of Herceptin -2019 s/p lumpectomy and chemo -BRCA 1 positive s/p bilateral mastectomy 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 Past Treatment and Therapy Plans NON-CHEMO 1 Plan Name Start Date Discontinue Date Treatment Medications Discontinue Reason Plan Provider Cycles HYDRATION - ONCE 09/07/2020 01/21/2022 No medications scheduled. Other Geraldo Pandya MD 1 of 1 cycle started CENTRAL LINE FLUSH - Weekly x 24 weeks 06/27/2013 07/05/2016 No medications scheduled. Other Efrain Phillips 1 of 2 cycles started CENTRAL LINE FLUSH - ONE TIME 2 07/05/2016 No medications scheduled. Other Efrain Phillips 1 of 1 cycle started ONCOLOGY REGIMEN Plan Name Start Date Discontinue Date Treatment Medications Discontinue Reason Plan Provider Cycles TC - DOCETAXEL 75 CYCLOPHOSPHAMIDE 600 D1 - Q21D 020 09/07/2020 cyclophosphamide iv piggyback (CYTOXAN)DOCEtaxel iv piggyback (TaxoTERE)palonose patricia (ALOXI)pegfilgrast im (NEULASTA ONPRO)pegfilgrasti m (NEULASTA) Treatment Complete Geraldo Pandya MD 4 of 4 cycles started
--- OUTSIDE RECORDS SUMMARY | 2024-11-20 13:24 | XMS_ITS | Encounter Summary ---
Author Organization [facility] Address [address] [place] [address] Care Team Providers Care Rn Transitional Name Role Phone Toña Villagran MD Primary Care Provider [phone] Geraldo Pandya MD Unavailable [phone] Mirian Willett SENIOR TREASURY CONSULTANT.CONSULTING SME Unavailable [phone] Jo Juarez RN Unavailable [phone] Toña Villagran MD Primary Care Provider [phone] Lyle Rodriguez MD Primary Care Provider [phone] Source Comments In the event this information is protected by the Federal Confidentiality of Alcohol and Drug AbusePatient Records regulations: The Federal rules restrict any use of the information to criminally investigate or prosecute any alcohol or drug abuse patient.[facility] Encounter Details Date Type Department Care Team (Late st Contact Info) Description 11/30/2020 Patient Msg Psychology [address] [place] [address] Devika Buck, PhD [address] [place] [address] nicotine results Social History Tobacco Use Types Packs/Day Years Used Date Smoking Tobacco: Former Cigarettes 1 43 0 10/26/1977 - 10/26/2020 Smokeless Tobacco: Never Alcohol Use Standard Drinks/Week Comments Yes 0 (1 standard drink = 0.6 oz pur e alcohol) rarely PHQ-2 Answer Date Recorded PHQ-2 score 0 10/15/2020 Area Deprivation Index Answer Date Arron rded National Score (1-100), lower number is lower ri sk Not on file 2020 State Score (1-10), lower number is lower risk N ot on file 2020 Data from: https://www.neighborhoodatlas.medicine.[facility]/. Last address used for calculation Not [...] have Coronavirus / COVID-19? No / Unsure 11/26/2020 10:51 AM EDT documented as of this encounter Functional Status * Are you deaf or do you have serious difficulty hearing? Answer Date of Assessment Author No 10/23/2013 2:49 PM EDT Pawan Diaz * Are you blind or do you have serious difficulty seeing, even when wearing glasses? Answer Date of Assessment Author No 10/23/2013 2:49 PM MARCELINOT Pawan Diaz * Do you have serious difficulty walking or climbing stairs? Answer Date of Assessment Author No 10/23/2013 2:49 PM EDT Pawan Diaz * Do you have difficulty dressing or bathing? Answer Date of Assessment Author No 10/23/2013 2:49 PM MARCELINOT Pawan Diaz * Because of a physical, mental, or emotional condition, do you have difficulty doing errands alone such as visiting a doctor's office or shopping? Answer Date of Assessment Author No 10/23/2013 2:49 PM Pawan Morgan documented as of this encounter Mental Status * Because of a physical, mental, or emotional condition, do you have serious difficulty concentrating, remembering, or making decisions? Answer Entry Date Author No 10/23/2013 2:49 PM Pawan Morgan documented in this encounter Plan of Treatment Upcoming Encounters Date Type Department Care Team (Latest Contact Info) Description 12/26/2024 2:30 PM EDT Office Visit General Surgery [address] [place] [id number] Inessa Bermudez APRN.CONSULTING SME [address] [place] [address] annual f/u 03/27/2025 10:00 AM EDT Office Visit [facility] [address] [place] [address] 1 year follow up with lab 03/27/2025 10:20 AM EDT Visit (SP) Office Hematology/Oncology [address] [place] [address] Geraldo Pandya MD [address] [place] [address] 1 year follow up with lab documented as of this encounter Visit Diagnoses Not on filedocumented in this encounter Care Teams Rn Transitional Relationship Specialty Start Date End Date Toña Villagran MD [address] [place] [id number] PCP - General Family Medicine 06/16/11 12/17/20 Toña Villagran MD [address] [place] [id number] PCP - General Family Medicine 12/18/20 03/22/23 Lyle Rodriguez MD [address] [place] [id number] PCP - General Family Medicine 03/23/23 Geraldo Pandya MD [address] [place] [address] [place] [address] Physician Hematology/Oncology 05/20/20 Mirian Willett APRN.CONSULTING SME [address] [place] [address] Nurse Practitioner Hematology/Oncology 05/20/20 Jo Juarez, SANDRO [address] [place] [address] Specialty High Energy Forming Equipment Operator Hematology/Oncology 05/20/20 04/27/21 documented as of this encounter
--- OUTSIDE RECORDS SUMMARY | 2024-11-20 13:24 | XMS_ITS | Encounter Summary ---
Author Organization [facility] Address [address] [place] [address] Care Team Providers Care Athletic Events Scorer Name Role Phone Toña Villagran MD Primary Care Provider [phone] Geraldo Pandya MD Unavailable [phone] Mirian Willett AUTOMOTIVE DISMANTLER.SURGICAL DEVICE SALES REPRESENTATIVE Unavailable [phone] Jo Juarez RN Unavailable [phone] Toña Villagran MD Primary Care Provider [phone] Lyle Rodrgiuez MD Primary Care Provider [phone] Source Comments In the event this information is protected by the Federal Confidentiality of Alcohol and Drug AbusePatient Records regulations: The Federal rules restrict any use of the information to criminally investigate or prosecute any alcohol or drug abuse patient.[facility] Encounter Details Date Type Department Care Team (Late st Contact Info) Description 10/28/2020 Patient Msg Psychology [address] [place] [address] Devika Buck, PhD [address] [place] [address] summary Social History Tobacco Use Types Packs/Day Years Used Date Smoking Tobacco: Every Day Cigarettes 1 43 Smokeless Tobacco: Never Alcohol Use Standard Drinks/Week Comments Yes 0 (1 standard drink = 0.6 oz pur e alcohol) rarely PHQ-2 Answer Date Recorded PHQ-2 score 0 10/15/2020 Area Deprivation Index Answer Date Arron rded National Score (1-100), lower number is lower ri sk Not on file 2020 State Score (1-10), lower number is lower risk N ot on file 2020 Data from: https://www.neighborhoodatlas.medicine.[facility]/. Last address used for calculation Not [...] have Coronavirus / COVID-19? No / Unsure 10/22/2020 12:55 PM EDT documented as of this encounter [...] Date Author No 10/23/2013 2:49 PM EDT Pwaan Diaz documented in this encounter Plan of Treatment Upcoming Encounters Date Type Department Care Team (Latest Contact Info) Description 12/26/2024 2:30 PM EDT Office Visit General Surgery [address] [place] [address] Inessa Bermudez APRN.SURGICAL DEVICE SALES REPRESENTATIVE [address] [place] [address] annual f/u 03/27/2025 10:00 AM EDT Office Visit [facility] [address] [place] [address] 1 year follow up with lab 03/27/2025 10:20 AM EDT Visit (SP) Office Hematology/Oncology [address] [place] [place] [address] Geraldo Pandya MD [address] [place] [address] 1 year follow up with lab documented as of this encounter Visit Diagnoses Not on filedocumented in this encounter Care Teams Athletic Events Scorer Relationship Specialty Start Date End Date Toña Villagran MD [address] [place] [phone] PCP - General Family Medicine 06/16/11 12/17/20 Toña Villagran MD [address] [place] [address] PCP - General Family Medicine 12/18/20 03/22/23 Lyle Rodriguez MD [address] [place] [address] PCP - General Family Medicine 03/23/23 Geraldo Pandya MD [address] [place] [address] Physician Hematology/Oncology 05/20/20 Mirian Willett APRN.SURGICAL DEVICE SALES REPRESENTATIVE [address] [place] [address] Nurse Practitioner Hematology/Oncology 05/20/20 Jo Juarez, SANDRO [address] [place] [address] Specialty Strike On Machine Operator Hematology/Oncology 05/20/20 04/27/21 documented as of this encounter
--- OUTSIDE RECORDS SUMMARY | 2024-11-20 13:24 | XMS_ITS | Encounter Summary ---
Author Organization [facility] Address [address] [place] [address] Care Team Providers Care Bush And Vine Farmer Fruit Crops Name Role Phone Toña Villagran MD Primary Care Provider [phone] Geraldo Pandya MD Unavailable [phone] Mirian Willett WEB METHODS DEVELOPER.CONFECTIONERY MAKER Unavailable [phone] Jo Juarez RN Unavailable [phone] Toña Villagran MD Primary Care Provider [phone] Lyle Rodriguez MD Primary Care Provider [phone] Source Comments In the event this information is protected by the Federal Confidentiality of Alcohol and Drug AbusePatient Records regulations: The Federal rules restrict any use of the information to criminally investigate or prosecute any alcohol or drug abuse patient.[facility] Encounter Details Date Type Department Care Team (Late st Contact Info) Description 10/07/2020 Patient Msg Psychology [address] [place] [address] Devika Buck, PhD [address] [place] [address] summary Social History Tobacco Use Types Packs/Day Years Used Date Smoking Tobacco: Every Day Cigarettes 1 43 Smokeless Tobacco: Never Alcohol Use Standard Drinks/Week Comments Yes 0 (1 standard drink = 0.6 oz pur e alcohol) rarely PHQ-2 Answer Date Recorded PHQ-2 score 4 10/06/2020 Area Deprivation Index Answer Date Arron rded National Score (1-100), lower number is lower ri sk Not on file 2020 State Score (1-10), lower number is lower risk N ot on file 2020 Data from: https://www.neighborhoodatlas.medicine.[facility]/. Last address used for calculation Not [...] have Coronavirus / COVID-19? No / Unsure 10/07/2020 9:22 AM EDT documented as of this encounter Functional Status * Are you deaf or do you have serious difficulty hearing? Answer Date of Assessment Author No 10/23/2013 2:49 PM EDT Pawan Diaz * Are you blind or do you have serious difficulty seeing, even when wearing glasses? Answer Date of Assessment Author No 10/23/2013 2:49 PM Pawan Morgan * Do you have serious difficulty walking [...] 2:30 PM EDT Office Visit General Surgery [address] [place] [address] Inessa Bermudez APRN.CONFECTIONERY MAKER [address] [place] [address] annual f/u 03/27/2025 10:00 AM EDT Office Visit [facility] [address] [place] [address] 1 year follow up with lab 03/27/2025 10:20 AM EDT Visit (SP) Office Hematology/Oncology [address] [place] [address] Geraldo Pandya MD [address] [place] [address] 1 year follow up with lab documented as of this encounter Visit Diagnoses Not on filedocumented in this encounter Care Teams Bush And Vine Farmer Fruit Crops Relationship Specialty Start Date End Date Toña Villagran MD [address] [place] [phone] PCP - General Family Medicine 06/16/11 12/17/20 Toña Villagran MD [address] [place] [address] PCP - General Family Medicine 12/18/20 03/22/23 Lyle Rodriguez MD [address] [place] [address] PCP - General Family Medicine 03/23/23 Geraldo Pandya MD [address] [address] Physician Hematology/Oncology 05/20/20 Mirian Willett APRN.CONFECTIONERY MAKER [address] [place] [address] Nurse Practitioner Hematology/Oncology 05/20/20 Jo Juarez, SANDRO [address] [address] Specialty Metal Products Fabricator Assembler Hematology/Oncology 05/20/20 04/27/21 documented as of this encounter
--- OUTSIDE RECORDS SUMMARY | 2024-11-20 13:24 | XMS_ITS | Clinical Summary ---
Author Organization [facility] Address [address] [place] [address] Care Team Providers Care Community Coordinator Name Role Phone Geraldo Pandya MD Unavailable [phone] Mirian Willett SANDWICH ARTIST.INSTRUMENT REPAIR TECHNICIAN Unavailable [phone] Lyle Rodriguez MD Primary Care Provider [phone] Allergies Active Allergy Reactions Criticality Noted Date Comments Penicillins Unknown 04/25/2012 Medications acetaminophen (TYLENOL) 325 mg tablet Take 650 mg by mouth. 7 Active sertraline (ZOLOFT) 100 mg tablet Take 1 tablet by mouth once daily. 90 tablet 3 1 Active acetaminophen/di phenhydramine (TYLENOL PM ORAL) Take by mouth. Activ e cholecalciferol (VITAMIN D3) 50 mcg (2,000 unit) tablet Take 2,000 Units by mouth once daily. Active cyanocobalamin (VITAMIN B-12) 1,000 mcg tab Take 1,000 mcg by mouth once daily. Active Lactobacillus acidophilus (PROBIOTIC) 10 billion cell cap Take by mouth once daily. Active acetaminophen (TYLENOL EXTRA STRENGTH) 500 mg tablet Take 2 tablets by mouth every 6 hours as needed for pain. Two (2) X 500 mg tablets = 1,000 mg 80 tablet 2 Active albuterol HFA (PROVENTIL HFA, VENTOLIN HFA) 90 mcg/actuation inhaler Inhale 2 Puffs as instructed every 4 hours as needed. 2 Active magnesium oxide 400 mg magnesium cap Take by mouth. Activ e Phentermine HCl 37.5 mg tablet Take 1 tablet by mouth every afternoon. 3 Active Active Problems Problem Noted Date Diagnosed Date [...] Assessment: left partial mastectomy, radiation, chemotherapy 2006 Encounters Date Type Department Care Team Description 11/18/2024 [facility] General Surgery [address] [place] [phone] Provider, [facility] Breast Health appointment reminder 11/17/2024 [facility] General Surgery [address] [place] [address] Inessa Bermudez APRN.INSTRUMENT REPAIR TECHNICIAN Appointment Request from Last 3 Months Immunizations Immunization Administration Dates Next Due COVID-19 vaccine (JUANCARLOS) 09/13/2020 influenza (HD-IIV3) vaccine, age 65+ yr, high dose, trivalent, PF (FLUZONE HIGH-DOSE) 03/28/2024 influenza (IIV4) vaccine, ag e 6 mo - 64 yr, quadrivalent, PF (AFLURIA, FLUARIX, FLULAVAL, FLUZONE) 03/01/2020 influenza (ccIIV4) vaccine, age 6+ mo, quadrivalent, PF (FLUCELVAX) 04/29/2021 pneumococcal polysaccharide (PPV23) vaccine, 23 valent (PNEUMOVAX 23) 03/01/2020 zoster (RZV) vaccine, recombinant (SHINGRIX) Family History Medical History Relation Comments Lung Cancer Father Ovarian cancer Maternal Grandmother Cancer Mother Diabetes Mother Stroke Mother Rectal cancer Paternal Grandmother Rectal cancer Paternal Uncle Anesthesia Problems No Family History Relation Status Comments Father (Age 66) Lung Maternal Grandmother ovarian Mother Paternal Grandfather Paternal Grandmother Colon Paternal Uncle Sister 1 Alive Sister 2 Alive Social History Tobacco Use Types Packs/Day Years Used Date Smoking Tobacco: Former Cigarettes 1 43 0 10/26/1977 - 10/26/2020 Smokeless Tobacco: Never Tobacco Cessation:Counseling Given: Not Answered Alcohol Use Standard Drinks/Week Comments Not Currently 0 (1 standard drink = 0.6 oz pur e alcohol) PHQ-2 Answer Date Recorded PHQ-2 score 0 03/28/2024 Area Deprivation Index Answer Date Arron rded National Score (1-100), lower number is lower ri sk 61 11/15/2022 State Score (1-10), lower number is lower risk 4 11/15/2022 Data from: https://www.neighborhoodatlas.medicine.[facility].edu/. Last address used for calculation [address] [place] [address] 11/15/2022 Comments No Sex and Gender Information Value Date Recorded Sex Assigned at Not on file Legal Sex Female 10:12 AM EST Gender Identity Not on file Sexual Orientation Not on file Last Filed Vital Signs Vital Sign Reading Time Taken Comments Blood Pressure 115/68 03/28/2024 9:57 AM EDT Pulse 65 03/28/2024 9:57 AM EDT Temperature 36.8 C (98.2 F) 03/28/2024 9:57 AM EDT Respiratory Rate 16 03/28/2024 9:57 AM EDT Oxygen Saturation 96% 03/28/2024 9:57 AM EDT Inhaled Oxygen Concentration - - Weight 70.8 kg (156 lb 1.4 oz) 03/28/2024 9:57 A M EDT Height 157.5 cm (5' 2.01 ) 03/28/2024 9:57 AM ED T Body Mass Index 28.54 03/28/2024 9:57 AM EDT Plan of Treatment Upcoming Encounters Date Type Department Care Team (Latest Contact Info) Description 12/26/2024 2:30 PM EDT Office Visit General Surgery [address] [place] [address] Inessa Bermudez APRN.INSTRUMENT REPAIR TECHNICIAN [address] [place] [address] annual f/u 03/27/2025 10:00 AM EDT Office Visit [facility] [address] [place] [address] [place] [address] 1 year follow up with lab 03/27/2025 10:20 AM EDT Visit (SP) Office Hematology/Oncology [address] [address] Geraldo Panyda MD [address] [address] 1 year follow up with lab Health Maintenance Due Date Last Done Comments Diabetic Foot Exam 1968 Dilated Retinal Exam 1968 Urine Albumin:Creatinine Ratio 1968 Annual PCP Team Chronic Dise ase Visit 1976 Depression Screening 1976 Hepatitis C Screening 1976 LDL Cholesterol 1976 DTaP,Tdap,Td Vaccine (1 - Tdap) 1977 CT Colonography 2003 Cologuard (FIT-DNA) 2003 Colonoscopy 2003 Colorectal Cancer Screening 2003 Fecal Occult Blood 2003 Sigmoidoscopy 2003 RSV Vaccine (1 - Risk 60-74 years 1-dose series) 2018 Shingrix Vaccine (2 of 2) 04/26/2020 03/01/2020 Pneumococcal Vaccine: 50+ (2 of 2 - PCV) 03/01/2021 03/01/2020 HbA1C 10/17/2021 04/19/2021, 12/17/2020 Bone Density Screening 2023 Covid-19 Vaccine (3 - 2023-2 5 season) 2024 01/18/2022, 09/13/2020 Advance Directive Discussion 06/19/2024 Mammogram Screening Discontinued 04/21/2020 Cervical Cancer Screening Discontinued 12/04/2020 Influenza Vaccine Completed 03/28/2024, , 04/29/2021, Additional history exists Medical Devices Implanted Type Area Men'S And Boys' Clothing Salesperson Device Identifier Shelf Expiration Date Model / Serial / Lot Exp Tiss th Brst 500cc Mv - [id number] Implanted:Qty: 1 on 12/29/2020 at [facility] Kettle Firer - Tissue Right: Breast [employer] 11/01/2024 133S-MV-14 -T / [id number] / Exp Tiss Smth Brst 500cc Mv - [id number] Implanted:Qty: 1 on 12/29/2020 at [facility] Kettle Firer - Tissue Left: Breast [employer] 07/23/2024 133S-MV-14 -T / [id number] / Imp Brst 605cc Ssf Katie Inspr - [id number] Implanted:Qty: 1 on 05/03/2021 by Angel Macias MD at [facility] Mammary / Breast Right: Breast [employer] 02/28/2026 SSF-605 / [id number] / Imp Brst 605cc Ssf Katie Inspr - [id number] Implanted:Qty: 1 on 05/03/2021 by Angel Macias MD at [facility] Mammary / Breast Left: Breast [employer] 02/28/2026 SSF-605 / [id number] / Matrix Alloderm Tissue Medium Rectangular [id number] - [id number] Implanted:Qty: 1 on 12/29/2020 by Angel Macias MD at [facility] Mesh Left: Breast [employer] 04/18/2022 [id number] / [id number] / [id number] Matrix Alloderm Tissue Medium Rectangular [id number] - [id number] Implanted:Qty: 1 on 12/29/2020 by Angel Macias MD at [facility] Mesh Left: Breast [employer] 06/18/2022 [id number] / [id number] / [id number] Procedures Procedure Name Priority Date/Time Associated Diagnosis Comments HEMOGLOBIN A1C Routine 04/19/2021 2:46 PM EDT Preoperative examination Type 2 diabetes (HCC) PAP FLUID CERVICAL SCREENING Routine 12/04/2020 10:10 AM EDT Encounter for Papanicolaou smear for cervical cancer screening from Last 3 Months or Most Recently Relevant to Health Maintenance Results * (ABNORMAL) HGB A1C (04/19/2021 2:46 PM EDT) Hemoglobin A1C 6.3(H) 4.3 - 5.6 % 04/19/2021 7:38 PM EDT [facility] Comment: [place] Diabetes [employer] guidelines indicate that patients with HgbA1c in the range 5.7-6.4% are at increased risk for development of diabetes, and intervention by lifestyle modification may be beneficial. HgbA1c greater or equal to 6.5% is considered diagnostic of diabetes. Estimated Average Glucose 134 mg/dL 04/19/2021 7:38 PM EDT [facility] Comment: eAG: (Estimated average glucose) is a calculated value from HgbA1c and is labor representative of the average blood glucose level in the last 2-3 month period. Blood WHOLE BLOOD SPECIMEN / Unknown 04/19/2021 2:46 PM EDT 04/19/2021 2:48 PM EDT Miranda Shaikh PA-C LABORATORY Final Result [facility] [address] [place] [address] [facility] [address] [place] [address] * PAP FLUID CERVICAL SCREENING (12/04/2020 10:10 AM EDT) Powder Cutting Operator Specimen originated from [facility] Specimen #: [id number] Submitting Physician: DIA DUFF CNP SPECIMEN SUBMITTED A: CERVICAL, SCREENING, FLUID FINAL DIAGNOSIS A. CERVICAL, SCREENING, FLUID Satisfactory for interpretation. No endocervical component. Negative for intraepithelial lesion or malignancy. This specimen has been analyzed by the ThinPrep Imaging System, an automated imaging and review system, which assists the laboratory in evaluating cells on ThinPrep Pap tests. Following automated imaging, selected adams from every slide are reviewed by a upper cutter. LENNY Barrera(ASCP) (Electronic Signature) CLINICAL DATA ROUTINE EXAM HPV TESTING: Yes, Reflex HPV for ASCUS Date of Last Menstrual Period: Postmenopausal STAINS A: CERVICAL, SCREENING, FLUID THIN PREP ROCKET TEST FIRE WORKER Luis A Norton M.D., Lay Out Worker Date of Report: 12/09/2020 Date of Procedure: 12/04/2020 Date of Receipt: 12/07/2020 Submitted by: DIA DUFF CNP Location: [facility] Diagnostic interpretation performed at [facility], [address] [place] [address]. CLIA Number: [id number] The Pap Smear is a screening test for cervical cancer. False negative results occur with all screening tests, emphasizing the need for rescreening at recommended intervals, and clinical correlation. [facility] Cervix SPECIMEN FROM CERVIX OR VAGINA / Unknown 12/04/2020 10:10 AM EDT 12/07/2020 11:54 AM EDT us Dia Duff SANDWICH ARTIST.INSTRUMENT REPAIR TECHNICIAN CYTOLOGY Final Result [facility] [address] [place] [address] from Last 3 Months or Most Recently Relevant to Health Maintenance Insurance MEDICARE [employer] Advance Directives Documents on File Type Date Recorded Patient Maintainability Engineer Expl anation Advance Directive(s) 06/30/2020 9:04 AM Ad amilcar Directives Care Teams Community Coordinator Relationship Specialty Start Date End Date Lyle Rodriguez MD [address] [place] [address] PCP - General Family Medicine 03/23/23 Geraldo Pandya MD [address] [place] [address] Physician Hematology/Oncology 05/20/20 Mirian Willett APRN.MADDIE [address] [place] [address] Nurse Practitioner Hematology/Oncology 05/20/20
--- OUTSIDE RECORDS SUMMARY | 2024-11-20 13:24 | XMS_ITS | Clinical Summary ---
Author Organization [facility] Address [address] [place] [address] Care Team Providers Care Pneumatic Deicer Inspector Name Role Phone Unavailable Primary Care Provider Unavailabl e Allergies Active Allergy Reactions Criticality Noted Date Comments Penicillins Unknown,Other 04/25/2012 Medications albuterol HFA 90 mcg/act inhaler Inhale 2 puffs every 4 (four) hours if needed. 03/04/2022 Active ammonium lactate (Amlactin) 12 % cream APPLY SMALL AMOUNT DAILY NEEDED 03/04/2022 Active cholecalciferol (Vitamin D-3) 50 MCG (2000 UT) tablet Take 2,000 Units by mouth in the morning. Active cyanocobalamin (Vitamin B-12) 1000 MCG tablet Take 1,000 mcg by mouth in the morning. Active Probiotic, Lactobacillus, capsule Take by mouth Daily. Active magnesium oxide 400 MG capsule Take by mouth. Active sertraline (Zoloft) 100 MG tablet Take 100 mg by mouth in the morning. 11/22/2022 Active Active Problems Problem Noted Date Diagnosed Date Current smoker 12/05/2022 Overview (12/05/2022): Added secondary to documentation in Social History. Breast asymmetry following reconstructive surger y 08/12/2021 Overview (12/05/2022): Last Assessment & Plan: -scheduled for surgery Anxiety 04/19/2021 Overview (12/05/2022): Last Assessment & Plan: Assessment: stable on sertraline daily History of breast cancer 04/19/2021 Overview (12/05/2022): Last Assessment & Plan: Assessment: left s/p lumpectomy 2005 and chemo. Right breast 04/2020 that had lumpectomy and chemo. Patient found to have BRCA gene. 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 05/02/2012 Overview (12/05/2022): Last Assessment & Plan: Assessment: left partial mastectomy, radiation, chemotherapy 2006 Family History Medical History Relation Name Comments No Known Problems Daughter 2 Cancer Father Colon cancer Maternal Grandmother Rectal cancer Maternal Grandmother Stroke Mother Colon cancer Mother's Brother Rectal cancer Mother's Brother Relation Name Status Comments Daughter 2 Alive Father Maternal Grandmother Mother Alive Mother's Brother Social History Tobacco Use Types Packs/Day Years Used Date Smoking Tobacco: Former Cigarettes Tobacco Cessation:Counseling Given: Not Answered Alcohol Use Standard Drinks/Week Comments Yes 0 (1 standard drink = 0.6 oz pure alcohol) Caffeine: 1-2 cups/day. Social alcohol consumption Comments Unknown Sex and Gender Information Value Date Recorded Sex Assigned at Female 12/05/2022 12:24 PM EDT Legal Sex Female 7:25 PM EDT Gender Identity Female 12/05/2022 12:24 PM EDT Sexual Orientation Choose not to disclose 2022 12:24 PM EDT Last Filed Vital Signs Vital Sign Reading Time Taken Comments Blood Pressure - - Pulse - - Temperature - - Respiratory Rate - - Oxygen Saturation - - Inhaled Oxygen Concentration - - Weight 67.1 kg (148 lb) 01/16/2020 12:00 PM EDT Height 160 cm (5' 3 ) 01/16/2020 12:00 PM EDT Body Mass Index 26.22 01/16/2020 12:00 PM EDT Plan of Treatment Health Maintenance Due Date Last Done Comments CT Colonography 1960 Colonoscopy 1960 Colorectal Cancer Screening 1960 FIT-DNA 1960 FIT 1960 FOBT 1960 Sigmoidoscopy 1960 Pneumococcal Vaccine: 65+ Ye ars (2 of 2 - PCV) 03/01/2021 03/01/2020 Mammogram 04/21/2021 04/21/2020 Influenza Vaccine (Season Ended) 2025 03/23/2022, 04/29/2021, 03/01/2020 Insurance GENERIC COMMERCIAL
--- OUTSIDE RECORDS SUMMARY | 2024-11-20 13:24 | XMS_ITS | Encounter Summary ---
Author Organization [facility] Address [address] [place] [id number] Care Team Providers Care Biostatistics Manager Name Role Phone Toña Villagran MD Primary Care Provider [phone] Geraldo Pandya MD Unavailable [phone] Mirian Willett PRODUCTION BOW MAKER.TOBACCO WAREHOUSE MANAGER Unavailable [phone] Jo Juarez RN Unavailable [phone] Toña Villagran MD Primary Care Provider [phone] Lyle Rodriguez MD Primary Care Provider [phone] Source Comments In the event this information is protected by the Federal Confidentiality of Alcohol and Drug AbusePatient Records regulations: The Federal rules restrict any use of the information to criminally investigate or prosecute any alcohol or drug abuse patient.[facility] Encounter Details Date Type Department Care Team (Late st Contact Info) Description 10/06/2020 [facility] [address] [place] [address] Devika Buck, PhD [address] [place] [address] virtual visit/consent Social History Tobacco Use Types Packs/Day Years [...] N ot on file 2020 Data from: https://www.neighborhoodatlas.medicine.[facility]/. Last address used for calculation Not on [...] No 10/23/2013 2:49 PM Pawan Morgan * Because of a physical, mental, or [...] 2:30 PM EDT Office Visit General Surgery [address] [place] [address] Inessa Bermudez APRN.TOBACCO WAREHOUSE MANAGER [address] [place] [address] annual f/u 03/27/2025 10:00 AM EDT Office Visit [facility] [address] [place] [address] 1 year follow up with lab 03/27/2025 10:20 AM EDT Visit (SP) Office Hematology/Oncology [address] [place] [address] Geraldo Pandya MD [address] [address] 1 year follow up with lab documented as of this encounter Visit Diagnoses Not on filedocumented in this encounter Care Teams Biostatistics Manager Relationship Specialty Start Date End Date Toña Villagran MD [address] [place] [id number] PCP - General Family Medicine 06/16/11 12/17/20 Toña Villagran MD [address] [place] [address] PCP - General Family Medicine 12/18/20 03/22/23 Lyle Rodriguez MD [address] [place], [place] [id number] PCP - General Family Medicine 03/23/23 Geraldo Pandya MD [address] [place] [address] Physician Hematology/Oncology 05/20/20 Mirian Willett APRN.TOBACCO WAREHOUSE MANAGER [address] [address] Nurse Practitioner Hematology/Oncology 05/20/20 Jo Juarez, RN [address] [address] Specialty Equipment Monitor Phototypesetting Hematology/Oncology 05/20/20 04/27/21 documented as of this encounter
--- NOTE | 2024-11-20 13:29 | XR_ITS ---
The [address] [address] Patient Name: PRINCESS LOPEZ MRN: [id number] date: 1960 Sex: F Assigned Patient Location: ER Current Patient Location: ER Accession/Order Number: [id number] Exam Date: 11/20/2024 14:49 Report Date: 11/20/2024 14:51 At the request of: KENRICK SOLIS NP Procedure: XR chest 1V Plain film chest Single view HISTORY: Acute shortness of breath. Hypoxia. COMPARISON: CT chest on 03/04/2022 FINDINGS: SUPPORT DEVICES: None POSTSURGICAL CHANGES: Breast implantation HEART: Within normal limits PULMONARY OFE: Within normal limits MEDIASTINUM: Unremarkable LUNGS AND PLEURA: Moderate right pleural-parenchymal changes. No pneumothorax. BONY STRUCTURES: Intact ADDITIONAL FINDINGS None XR/XR chest 1V IMPRESSION: Moderate right pleural-parenchymal changes. Consideration for infiltrate. Underlying other etiologies not excluded. follow-up assessment after therapy to ensure resolution recommended. Impression dictated by: Richard Sheriff M.D. 11/20/2024 2:51 PM Dictation Location: [place] [address] Electronically authenticated by: [id number] Y Date: 11/20/2024 14:51
[2024-11-20 13:39] LABS: Hematocrit 35.2 % (36.0-48.0); Mean Corpuscular HGB Conc 34.1 g/dL (29.9-35.2); Mean Corpuscular Hemoglobin 28.5 pg (26.7-34.0); Mean Corpuscular Volume 83.6 fL (81.0-99.0); Mean Platelet Volume 9.2 fL (9.5-13.5); Platelet Count 293 10^3/uL (150-450); Red Blood Count 4.21 10^6/uL (4.20-5.40); Red Cell Distribution Width 14.2 % (11.0-15.0); White Blood Count 19.1 10^3/uL (4.0-11.0)
[2024-11-20] MEDS: IPRATROPIUM/ALBUTEROL SULFATE 3 ML AMPUL.NEB IH ×3 (13:47→23:11)
--- NOTE | 2024-11-20 13:48 | ED.GENADUL1 ---
HPI HPI - General Adult General Chief complaint: Shortness of Breath/Dyspnea Stated complaint: ALLERGIC REACTION TO MEDICATION Time Seen by Provider: 11/20/24 13:28 Source: patient and friend Mode of arrival: Wheelchair History of Present Illness HPI narrative: The patient is a 64-year-old female who presents to the emergency department today for evaluation of concerns for what she believed to be an allergic reaction. She is here with her friend who endorses she has been more weak and short of breath over the past few days. On arrival to the ER nursing noted patient to have resting pulse oxygen of 85% on room air and she was subsequently placed on 3 L via nasal cannula which did normalize her saturations. Patient endorses she has a history of COPD and states she has been short of breath for the past few days and was seen by her primary care provider yesterday and reported normal oxygen saturations at that time. Patient reports tactile temperatures in the past week. She denies any chest pain. No abdominal pain or nausea/vomiting. She mention she used her albuterol inhaler today with no improvement in her shortness of breath so decided to come to the ER. She mentions she has had a rash to the suprapubic region underneath her abdominal fold that she believed to be an allergic reaction that has been ongoing over the past week in addition. Pain at this site. She denies any pruritus. Related Data Home Medications ?Medication ?Instructions ?Recorded ?Confirmed sertraline 100 mg tablet 100 mg PO DAILY 08/12/23 11/20/24 Allergies Allergy/AdvReac Type Severity Reaction Status Date / Time Penicillins Allergy Intermediate Rash Verified 11/20/24 13:21 Opioid HPI Opioid Management Most Recent Opioid Data: Last Pain Scale 8 08/12/23, 17:00 Review of Systems ROS Status of ROS 10 or more systems reviewed and unremarkable except as noted in history and below PFSH PFSH Social History Smoking status: Former smoker Little interest or pleasure in doing things: not at all Feeling down, depressed, or hopeless: not at all Exam Narrative Exam Narrative: Constituational: Awake/ alert, no apparent distress, well hydrated HENMT: normocephalic, external ears normal, moist oral mucous membranes and oropharynx normal Eyes: EOMI and conjunctivae normal Neck: ROM intact Chest: inspection of chest normal Respiratory: Normal respiratory effort, clear to auscultation breath sounds to lower lung adams bilaterally Cardio: regular rate and regular rhythm GI: soft to palpation and non-tender Back: nontender MSK: ROM intact, +NVI Skin: + approx 7cm diameter of circular beefy red erythema with satellite lesions under abdominal fold just above the suprapubic region Neuro: no focal deficits Psych: mental status grossly normal Constitutional Vital Signs, click to edit/add: Last Vital Signs Temp 98.3 F 11/20/24 13:21 Pulse 103 H 11/20/24 14:45 Resp 32 H 11/20/24 14:45 BP 123/61 11/20/24 14:45 Pulse Ox 91 L 11/20/24 14:45 O2 Del Method Nasal Cannula 11/20/24 13:49 O2 Flow Rate 4 11/20/24 13:49 Course Vital Signs Vital signs: Vital Signs Temperature 98.3 F 11/20/24 13:21 Pulse Rate 109 H 11/20/24 13:21 Respiratory Rate 20 11/20/24 13:21 Blood Pressure 116/72 11/20/24 13:21 Pulse Oximetry 85 L 11/20/24 13:21 Oxygen Delivery Method Room Air 11/20/24 13:21 Temperature 98.3 F 11/20/24 13:21 Pulse Rate 103 H 11/20/24 14:45 Respiratory Rate 32 H 11/20/24 14:45 Blood Pressure 123/61 11/20/24 14:45 Pulse Oximetry 91 L 11/20/24 14:45 Oxygen Delivery Method Nasal Cannula 11/20/24 13:49 Oxygen Delivery Flow Rate 4 11/20/24 13:49 Medical Decision Making [facility] Narrative Medical decision making narrative: Patient is a nontoxic appearing 64-year-old female who presented to the emergency department initially for evaluation concerns for an allergic reaction however was noted to be hypoxic with saturations of 85% on room air. Historically she had endorsed feeling short of breath over the past week with tactile temperatures with chills and bodyaches. She was immediately placed on 4 L of oxygen via nasal cannula and on reevaluation oxygen saturations had normalized including heart rate has down trended. X-ray does show right pleural effusion and concern for infiltrate. BNP 1800. patient received additional supportive measures of IV ceftriaxone and azithromycin, IVPB Lasix 40mg x 1 dose. Normal lactate. She otherwise does not appear to be exhibiting any ischemic symptoms and does appear euvolemic on exam. Labs significant for leukocytosis with WBCs 19 otherwise no significant anemia or thrombocytopenia. Labs additionally significant for hyponatremia with NA 129 otherwise electrolytes including renal. Mildly elevated LFTs. Area of concern for possible allergic reaction mother patient does have clinical evidence consistent with candidal infection of the abdomen -> will apply topical nystatin. Patient was reevaluated multiple times while in the emergency department and is otherwise remained stable without any significant changes following initial interventions. Clinical impression acute hypoxic respiratory failure in the setting of pneumonia and pleural effusion. Subsequently discussed patient's condition with Dr. Oshea (hospitalist) 1520p -> accepts patient for admission. Discussed the above findings and recommendations with the patient. She additionally is agreeable to plan to be mated for further care of the above. Medical Records Medical records reviewed: Yes I reviewed the patient's medical records Lab Data Lab results reviewed: Yes I reviewed the patient's lab results Labs: Lab Results 11/20/24 11/20/24 Range/Units 13:32 14:13 WBC 19.1 H (4.0-11.0) 10^3/uL RBC 4.21 (4.20-5.40) 10^6/uL Hgb 12.0 (12.0-16.0) g/dL Hct 35.2 L (36.0-48.0) % MCV 83.6 (81.0-99.0) fL MCH 28.5 (26.7-34.0) pg MCHC 34.1 (29.9-35.2) g/dL RDW 14.2 (11.0-15.0) % Plt Count 293 (150-450) 10^3/uL MPV 9.2 L (9.5-13.5) fL Seg Neuts % (Manual) 73.0 (43.0-75.0) Band Neutrophils % 12.0 H (0-5) % Lymphocytes % (Manual) 7.0 L (20.5-60.0) % Monocytes % (Manual) 7.0 (1.7-12.0) % Eosinophils % (Manual) 1.0 (0.9-7.0) % Basophils % (Manual) 0.0 L (0.2-2.0) % Neutrophils # (Manual) 13.94 H (1.4-6.5) 10^3/uL Band Neutrophils # 2.3 H (0.0-0.3) 10^3/uL Lymphocytes # (Manual) 1.33 (1.20-3.80) 10^3/uL Monocytes # (Manual) 1.33 H (0.30-0.80) 10^3/uL Eosinophils # (Manual) 0.19 (0.00-0.70) 10^3/uL Basophils # (Manual) 0.00 (0.00-0.10) 10^3/uL Sodium 129 L (136-145) mmol/L Potassium 3.6 (3.5-5.1) mmol/L Chloride 92 L (98-107) mmol/L Carbon Dioxide 26.4 (21.0-32.0) mmol/L Anion Gap 14.2 BUN 18.0 (7.0-18.0) mg/dL Creatinine 1.00 (0.55-1.02) mg/dL Est GFR ( Amer) >60 (>=60 mL/min/1.73m^2) Est GFR (Non-Af Amer) 55 L (>=60 mL/min/1.73m^2) BUN/Creatinine Ratio 18.0 Glucose 152 H (74-106) mg/dL Lactate 1.8 (0.4-2.0) mmol/L Calcium 9.0 (8.5-10.1) mg/dL Total Bilirubin 0.8 (0.2-1.0) mg/dL AST 38 H (15-37) U/L ALT 34 (14-59) U/L Alkaline Phosphatase 236 H (46-116) U/L Troponin I High Sens 13.1 (4.0-51.3) pg/mL NT-Pro-B Natriuret Pep 1841.0 H* (<=900.0) pg/mL Total Protein 6.7 (6.4-8.2) g/dL Albumin 1.9 L (3.4-5.0) g/dL Globulin 4.8 g/dL Albumin/Globulin Ratio 0.4 Imaging Data Chest x-ray: Attestation: I have reviewed the pertinent imaging results. Radiologist's impression: ITS Impressions Chest X-Ray 11/20/24 13:29 IMPRESSION: Moderate right pleural-parenchymal changes. Consideration for infiltrate. Underlying other etiologies not excluded. follow-up assessment after therapy to ensure resolution recommended. Impression dictated by: Richard Sheriff M.D. 11/20/2024 2:51 PM Dictation Location: [employer] Electronically authenticated by: [id number] Y Date: 11/20/2024 14:51 ECG Data Attestation: I personally reviewed and interpreted this ECG as follows: (Sinus tachycardia with HR 107, no acute/ischemic changes) Critical Care Time Critical Care Time Critical Care Time: Yes Total Critical Care Time: 31 Attestation: Given that the patient was critically ill and my immediate attention was required upon arrival. Also a significant time was spent directly at the bedside reevaluating the patient, discussing with consults/family, and with documentation. Discharge Plan Discharge Chief Complaint: Shortness of Breath/Dyspnea Clinical Impression: Acute and chronic respiratory failure with hypoxia, Pneumonia, Pleural effusion Patient Disposition: Admitted As Inpatient
[2024-11-20 13:54] LABS: Alanine Aminotransferase 34 U/L (14-59); Albumin Globulin Ratio 0.4; Albumin Level 1.9 g/dL (3.4-5.0); Alkaline Phosphatase 236 U/L (46-116); Anion Gap 14.2; Aspartate Amino Transferase 38 U/L (15-37); Bilirubin Total 0.8 mg/dL (0.2-1.0); Carbon Dioxide 26.4 mmol/L (21.0-32.0); Chloride 92 mmol/L (98-107); Estimated GFR (African America >60 (>=60 mL/min/1.73m^2); Estimated GFR (Non-African Ame 55 (>=60 mL/min/1.73m^2); Globulin 4.8 g/dL; Glucose 152 mg/dL (74-106); Potassium 3.6 mmol/L (3.5-5.1); Sodium 129 mmol/L (136-145); Total Protein 6.7 g/dL (6.4-8.2)
[2024-11-20 14:01] LABS: Troponin I High Sensitivity 13.1 pg/mL (4.0-51.3)
[2024-11-20 14:08] LABS: Band Neutrophils Absolute 2.3 10^3/uL (0.0-0.3); Eosinophils Absolute Manual 0.19 10^3/uL (0.00-0.70); Lymphocytes Absolute Manual 1.33 10^3/uL (1.20-3.80); Monocytes Absolute Manual 1.33 10^3/uL (0.30-0.80); Segmented Neut Absolute Manual 13.94 10^3/uL (1.4-6.5)
[2024-11-20] MEDS: CEFTRIAXONE 2,000 MG in 0.9 % SODIUM CHLORIDE 100 ML 200 MG IV (14:34)
[2024-11-20] MEDS: FUROSEMIDE 40 MG/4 ML VIAL IVP (14:35)
[2024-11-20 14:49] LABS: Lactate/Lactic Acid 1.8 mmol/L (0.4-2.0)
[2024-11-20] MEDS: AZITHROMYCIN 500 MG in 0.9 % SODIUM CHLORIDE 250 ML 250 MG IV (15:21)
--- NOTE | 2024-11-20 15:29 | PC.NURSE ---
assisted pt to bedside commode at this time -- tracking urine output at this time.
--- NOTE | 2024-11-20 17:20 | ECG_ITS ---
The [facility] Test Date: 2024-11-20 Pat Name: PRINCESS LOPEZ Department: Room: 2191 Gender: Female Yarn Dumper: : 1960 Requested By: 1030 Order Number: [id number] Reading MD: JULIENNE GUTHRIE M.D. Measurements Intervals [place] Rate: 107 P: 38 AR: 148 QRS: 61 QRSD: 84 T: 66 QT: 324 QTc: 387 Interpretive Statements 1120 Sinus tachycardia 1474 with frequent supraventricular premature complexes 9140 abnormal rhythm ECG Compared to ECG 08/31/2016 08:38:49 Supraventricular premature complexes are now present Right-axis deviation no longer present Electronically Signed On 11-20-2024 19:19:18 EDT by JULIENNE GUTHRIE M.D.
--- NOTE | 2024-11-20 18:22 | CT_ITS ---
The [address] [address] Patient Name: PRINCESS LOPEZ MRN: [id number] date: 1960 Sex: F Assigned Patient Location: Current Patient Location: Accession/Order Number: [id number] Exam Date: 11/20/2024 18:35 Report Date: 11/20/2024 18:39 At the request of: NUNO FLANAGAN MD Procedure: CT angio chest CTA Chest with PE protocol TECHNIQUE: Axial imaging with 2-D and 3-D reconstruction. 100 cc of Omnipaque [address] exam was performed using one or more the following dose reduction techniques: Automated exposure control, adjustment of the MA and/or Kv according to patient size, or use of the iterative reconstruction technique. History: Hypoxia. Shortness of breath COMPARISON: 03/04/2022 THYROID: Unremarkable TRACHEA AND BRONCHI: Patent ESOPHAGUS: Unremarkable. HEART: Within normal limits PERICARDIAL EFFUSION: None CORONARY ARTERY CALCIFICATION: Present MEDIASTINUM: No adenopathy. No pneumoperitoneum. No mediastinal hematoma. PULMONARY OFE: No hilar mass or adenopathy is seen. THORACIC AORTA Unremarkable PULMONARY EMBOLUS: None LUNG NODULE None LUNGS: The basilar predominant patchy right lung infiltrate. Tiny pleural effusion. PLEURAL EFFUSION: None PNEUMOTHORAX: No pneumothorax seen. CHEST WALL: Breast implantation AXILLA: Unremarkable BONY STRUCTURES Intact UPPER ABDOMEN: Images of the upper abdomen are noncontributory. CT/CT angio chest IMPRESSION: No acute pulmonary embolus. The basilar predominant patchy right lung infiltrate. A tiny layering low-density pleural effusion. Impression dictated by: Richard Sheriff M.D. 11/20/2024 6:39 PM Dictation Location: [employer] Electronically authenticated by: [id number] Y Date: 11/20/2024 18:39
[2024-11-20 18:24] LABS: Internal Control Within Normal Limits; Respiratory Syncytial Virus Not Detected (NOT DETECTE); SARS-CoV-2 Ag NEGATIVE (NEGATIVE)
[2024-11-20 18:25] LABS: Influenza Virus A Antigen Negative; Influenza Virus B Antigen Negative; Internal Control Within Normal Limits
[2024-11-20] MEDS: METHYLPREDNISOLONE SOD SUCC PF 125 MG/2 ML VIAL IVP (18:35)
[2024-11-20] MEDS: NYSTATIN 15 GM POWDER 1 APPLIC TOPICAL (18:36)
--- NOTE | 2024-11-20 19:56 | P.HP_ITS ---
HPI H&P: HPI History of Present Illness Chief complaint: HYPOXIC RESP FAILURE PNEUMONIA Narrative: Patient presented to the emergency room more for a rash but found to have acute hypoxic respiratory distress secondary to right lower lobe pneumonia suspected on chest x-ray and confirmed on CTA. CTA obtained because of the degree of hypoxia not consistent with the mild to moderate findings noted on chest x-ray I saw patient up in the medical surgical floor, mild conversational dyspnea and some cough throughout the evaluation, she has been sick over the last week that is progressively worse in the last 24 hours Opioid HPI Opioid Management Most Recent Pain and Opioid Data: Last Pain Scale 8 08/12/23, 17:00 Last Pain Assessment Today, 17:00 Last ORT Total Score 2 Today, 16:16 Last ORT Risk Category Low Risk Today, 16:16 Review of Systems ROS Status of ROS 10 or more systems reviewed and unremark able except as noted in history and below [facility] Medical History (Updated 11/20/24 @ 15:57 by Alexus Gregory RN) Depression ?F32.A - Depression, unspecified (ICD-10) Anxiety ?F41.9 - Anxiety disorder, unspecified (ICD-10) Breast cancer ?C50.919 - Malignant neoplasm of unspecified site of unspecified female breast (ICD-10) Surgical History (Updated 11/20/24 @ 15:57 by Alexus Gregory RN) H/O inguinal hernia repair ?Z98.890 - Other specified postprocedural states (ICD-10) ?Z87.19 - Personal history of other diseases of the digestive system (ICD-10) H/O bilateral mastectomy ?Z90.13 - Acquired absence of bilateral breasts and nipples (ICD-10) Social History Smoking status: Former smoker Highest level of school completed/degree received: high school graduate Little interest or pleasure in doing things: several days Feeling down, depressed, or hopeless: several days Meds Home Medications and Allergies Home Medications ?Medication ?Instructions ?Recorded ?Confirmed ?Type sertraline 100 mg tablet 100 mg PO DAILY 08/12/2310/11 History albuterol sulfate 90 mcg/actuation 2 inh inhalation Q6 H PRN shortness 11/20/24 11/20/24 History aerosol inhaler of breath or wheezing fluticasone propionate 50 2 spray intranasal Q12H 10/1111/20/24 History mcg/actuation nasal spray,suspension meloxicam 15 mg tablet 15 mg PO DAILY 11/20/24 06/10/11 History phentermine 37.5 mg tablet 37.5 mg PO DAILY 11/20/24 0 11/20/24 History Allergies Allergy/AdvReac Type Severity Reaction Status Date / Time Penicillins Allergy Intermediate Rash Verified 11/20/24 13:21 Exam Constitutional Vital Signs, click to edit/add: Last Vital Signs Temp 97.9 F 11/20/24 19:45 Pulse 98 H 11/20/24 19:45 Resp 20 11/20/24 19:45 BP 109/66 11/20/24 19:45 Pulse Ox 89 L 11/20/24 19:45 O2 Del Method Nasal Cannula 11/20/24 19:45 O2 Flow Rate 6 11/20/24 19:45 Documenting provider has reviewed patient's vital signs: yes Common normals: apparent distress (Mild conversational dyspnea) Chest Common normals: inspection of chest normal Respiratory Common normals: abnormal respiratory effort (Mild conversational dyspnea) Auscultation: rales (Minimally in bases), rhonchi and egophony right lower GI Common normals: Normal to inspection, nondistended, normoactive bowel sounds present Extremity Common normals: normal to inspection and full ROM Results Labs Labs: Short CBC 11/20/24 Range/Units 13:32 WBC 19.1 H (4.0-11.0) 10^3/uL Hgb 12.0 (12.0-16.0) g/dL Hct 35.2 L (36.0-48.0) % Plt Count 293 (150-450) 10^3/uL BMP 11/20/24 13:32 Sodium 129 L Potassium 3.6 Chloride 92 L Carbon Dioxide 26.4 BUN 18.0 Creatinine 1.00 Glucose 152 H Calcium 9.0 Liver Function 11/20/24 Range/Units 13:32 Total Bilirubin 0.8 (0.2-1.0) mg/dL AST 38 H (15-37) U/L ALT 34 (14-59) U/L Alkaline Phosphatase 236 H (46-116) U/L Albumin 1.9 L (3.4-5.0) g/dL Assessment and Plan Assessment and Plan (1) Pleural effusion: (2) Pneumonia: (3) Rib fracture: (4) Acute and chronic respiratory failure with hypoxia: Plan Admission findings: Sinus tachycardia, respiratory distress, acute hypoxia requiring supplemental oxygen, leukocytosis with bandemia secondary to right lower lobe pneumonia and resulting in acute exacerbation of COPD and sepsis Right lower lobe pneumonia resulting in acute exacerbation of COPD and sepsis-aerosol treatments, steroids, IV antibiotics, will try to obtain sputum culture blood cultures obtained, check patient for COVID, RSV, influenza Hyponatremia-May be related to the COPD-will repeat in a.m. consider urine sodium Hyperglycemia-in the past she has had drug-induced hyperglycemia so we will place patient on insulin sliding scale Mildly elevated LFTs repeat in a.m. Mildly elevated BNP with normal high-sensitivity troponin-check echocardiogram and repeat labs in a.m. Severe protein calorie malnutrition-diet supplement Admissions status: Patient evaluated in the emergency room with significant hypoxia and acute exacerbation of COPD with 3 right lower lobe pneumonia, medically necessary treatment will span 2 midnights to inpatient status
[2024-11-20] MEDS: FLUTICASONE PROPIONATE 50 MCG NASAL SPRAY 2 SPRAY NS (21:55)
[2024-11-20] MEDS: PROSTAT 15 GM PROTEIN/100 CAL 30 ML LIQUID PACKET PO (21:55)
[2024-11-20] MEDS: ENSURE HP 237 ML LIQUID PO (21:55)
[2024-11-20] MEDS: INSULIN ASPART 300 UNIT/3 ML PEN SUBQ (21:56)
[2024-11-20 21:58] LABS: Glucometer 220 mg/dL (74-106)
[2024-11-21] VITALS (28 sets, daily range): BP systolic 94–106; BP diastolic 53–66; PULSE 77–103; TEMP 35.8–36.5; O2SAT 76–93
[2024-11-21] MEDS: METHYLPREDNISOLONE SOD SUCC PF 125 MG/2 ML VIAL IVP ×5 (00:39→23:35)
[2024-11-21 00:54] LABS: Glucometer 214 mg/dL (74-106)
[2024-11-21 04:54] LABS: Basophils Percent Auto 0.3 % (0.2-2.0); Hemoglobin 11.5 g/dL (12.0-16.0); Immature Granulocytes Abs Auto 0.57 10^3/uL (0.00-0.03); Immature Granulocytes Pct Auto 3.8 % (0.0-0.5); Lymphocytes Absolute Auto 0.5 10^3/uL (1.2-3.8); Lymphocytes Percent Auto 3.4 % (20.5-60.0); Mean Corpuscular HGB Conc 33.8 g/dL (29.9-35.2); Mean Corpuscular Volume 82.9 fL (81.0-99.0); Monocytes Absolute Auto 0.4 10^3/uL (0.3-0.8); Monocytes Percent Auto 2.3 % (1.7-12.0); Neutrophils Absolute Auto 13.6 10^3/uL (1.4-6.5); Neutrophils Percent Auto 90.2 % (43.0-75.0); Platelet Count 292 10^3/uL (150-450); Red Cell Distribution Width 14.2 % (11.0-15.0)
[2024-11-21] MEDS: IPRATROPIUM/ALBUTEROL SULFATE 3 ML AMPUL.NEB IH ×4 (04:57→20:26)
[2024-11-21 05:23] LABS: Alanine Aminotransferase 38 U/L (14-59); Albumin Globulin Ratio 0.3; Albumin Level 1.7 g/dL (3.4-5.0); Alkaline Phosphatase 217 U/L (46-116); Anion Gap 14.6; Aspartate Amino Transferase 39 U/L (15-37); BUN Creatinine Ratio 23.7; Bilirubin Total 0.4 mg/dL (0.2-1.0); Calcium 9.4 mg/dL (8.5-10.1); Chloride 95 mmol/L (98-107); Estimated GFR (African America >60 (>=60 mL/min/1.73m^2); Estimated GFR (Non-African Ame >60 (>=60 mL/min/1.73m^2); Globulin 5.1 g/dL; Glucose 256 mg/dL (74-106); Potassium 3.6 mmol/L (3.5-5.1); Sodium 135 mmol/L (136-145); Total Protein 6.8 g/dL (6.4-8.2); Troponin I High Sensitivity 6.8 pg/mL (4.0-51.3)
--- NOTE | 2024-11-21 05:43 | P.PN_ITS ---
Progress Note: Subjective Subjective Interval history: Patient states her breathing feels about the same as previous day Exam Constitutional Vital Signs, click to edit/add: Last Vital Signs Temp 97.5 F L 11/21/24 04:00 Pulse 85 11/21/24 05:08 Resp 20 11/21/24 05:08 BP 95/60 11/21/24 04:00 Pulse Ox 92 L 11/21/24 05:08 O2 Del Method Nasal Cannula 11/21/24 05:08 O2 Flow Rate 6 11/21/24 05:08 Documenting provider has reviewed patient's vital signs: yes Common normals: apparent distress (Mild conversational dyspnea-unchanged) Chest Common normals: inspection of chest normal Respiratory Common normals: abnormal respiratory effort (Mild conversational dyspnea) Auscultation: rhonchi (Unchanged) and egophony (Unchanged) right lower; no rales GI Common normals: Normal to inspection, nondistended, normoactive bowel sounds present, soft to palpation and no hepatosplenomegaly Extremity Common normals: normal to inspection and full ROM Progress Note: Objective Labs Labs: Short CBC 11/20/24 11/21/24 Range/Units 13:32 04:36 WBC 19.1 H 15.0 H (4.0-11.0) 10^3/uL Hgb 12.0 11.5 L (12.0-16.0) g/dL Hct 35.2 L 34.0 L (36.0-48.0) % Plt Count 293 292 (150-450) 10^3/uL BMP 11/20/24 11/21/24 13:32 04:36 Sodium 129 L 135 L Potassium 3.6 3.6 Chloride 92 L 95 L Carbon Dioxide 26.4 29.0 BUN 18.0 22.0 H Creatinine 1.00 0.93 Glucose 152 H 256 H Calcium 9.0 9.4 Liver Function 11/20/24 11/21/24 Range/Units 13:32 04:36 Total Bilirubin 0.8 0.4 (0.2-1.0) mg/dL AST 38 H 39 H (15-37) U/L ALT 34 38 (14-59) U/L Alkaline Phosphatase 236 H 217 H (46-116) U/L Albumin 1.9 L 1.7 L (3.4-5.0) g/dL Progress Note: A&P Assessment and Plan (1) Pleural effusion: (2) Pneumonia: (3) Rib fracture: (4) Acute and chronic respiratory failure with hypoxia: Plan Admission findings: Sinus tachycardia, respiratory distress, acute hypoxia requiring supplemental oxygen, leukocytosis with bandemia secondary to right lower lobe pneumonia and resulting in acute exacerbation of COPD and sepsis Right lower lobe pneumonia resulting in acute exacerbation of COPD and sepsis- increased oxygen requirement, try patient on IPV treatments, maintain current steroid antibiotic dosing, consult to pulmonology, white blood cell count improving Hyponatremia-May be related to the COPD-will repeat in a.m. consider urine sodium Hyperglycemia-in the past she has had drug-induced hyperglycemia so we will place patient on insulin sliding scale-increase sliding scale Mildly elevated LFTs repeat in a.m.-improved Acute systolic heart failure with pleural effusion-BNP improved today, checking echocardiogram Severe protein calorie malnutrition-diet supplement Admissions status: Patient evaluated in the emergency room with significant hypoxia and acute exacerbation of COPD with 3 right lower lobe pneumonia, medically necessary treatment will span more than 2 midnights to inpatient status ?
[2024-11-21 07:54] LABS: Glucometer 250 mg/dL (74-106)
[2024-11-21 08:26] LABS: Bilirubin Urine NEGATIVE (NEGATIVE); Blood Urine SMALL (NEGATIVE); Clarity Urine CLEAR (CLEAR); Color Urine YELLOW (YELLOW); Glucose Urine UA 100 mg/dL (NEGATIVE); Ketones Urine NEGATIVE (NEGATIVE); Leukocyte Esterase Urine NEGATIVE (NEGATIVE); Nitrite Urine NEGATIVE (NEGATIVE); Protein Urine TRACE mg/dL (NEG/TRACE); Specific Gravity Urine 1.015 (1.005-1.025); Urobilinogen Urine 0.2 EU/dL (0.2-1.0); pH Urine 5.5 (5.0-9.0)
--- NOTE | 2024-11-21 08:30 | CM.NOTE ---
Rounds made with Dr. Oshea, pt continues to require oxygen @6L NC. Dr. Oshea discussed with pt diagnosis and plan of care. Pulmonology will be consulted for further recommendations. PT and OT will also evaluate for discharge planning.
[2024-11-21 08:36] LABS: WBC Urine 0-2 #/HPF (NONE SEEN)
[2024-11-21 08:37] LABS: Bacteria Urine SMALL #/HPF (NONE SEEN); Cast Seen? SEEN #/LPF (NONE SEEN); Crystals Seen? None Seen #/HPF (None Seen); Hyaline Casts Urine FEW; Mucus Urine TRACE (NONE SEEN); Squamous Epithelial Cell Urine RARE #/LPF (NONE/RARE); Urine Culture Indicated ALREADY ORDERED
[2024-11-21] MEDS: MELOXICAM 7.5 MG TABLET 15 MG PO (09:21)
[2024-11-21] MEDS: PROSTAT 15 GM PROTEIN/100 CAL 30 ML LIQUID PACKET PO ×2 (09:21→21:33)
[2024-11-21] MEDS: INSULIN ASPART 300 UNIT/3 ML PEN SUBQ ×3 (09:21→21:33)
[2024-11-21] MEDS: FLUTICASONE PROPIONATE 50 MCG NASAL SPRAY 2 SPRAY NS ×2 (09:22→21:31)
[2024-11-21] MEDS: SERTRALINE HCL 100 MG TABLET PO (09:22)
[2024-11-21] MEDS: NYSTATIN 15 GM POWDER 1 APPLIC TOPICAL ×2 (09:26→21:38)
--- NOTE | 2024-11-21 10:08 | P.PLCN_ITS ---
History of Present Illness History of Present Illness Consult date: 11/21/24 Requesting physician: Robert Oshea Reason for consult: pneumonia Chief complaint: HYPOXIC RESP FAILURE PNEUMONIA Narrative: 64yo female presents with worsening dyspnea. She is a former patient of mine whom I followed for COPD. She did not remember who I was, despite seeing me multiple times outpatient in the past. She was last seen on 08/09/2022 - she was on Spiriva with some improvement, but not enough. Stiolto was prescribed. Her F/U visit was scheduled for 01/19/2023 - she stopped by the office on 01/17/2023 to cancel that appointment, per the office triage she works 12hr shifts, from [phone]. States that she will give us a call back to reschedule when she goes home and figures out what days she has off. The office made multiple phone calls and even sent out a letter to the patient, but we never received any reply back. She was ultimately lost to F/U. I tried to catch up on her history over the past ~28 months. She is currently only on albuterol - no maintenance inhaler/medication. I asked what happened to the Stiolto? She said it was too expensive. I replied that our office was never informed it was too expensive in order for us to help find an alternative. She did not reply. I asked who is managing her breathing? She said Dr. Rodriguez, but I see the nurse [Isidra Mota NP]. She did not establish with another independent freight agent. She does not really complaint that her breathing has been poor up until several days ago related to the current illness. She was being treated for invasive ductal carcinoma of the right breast. Last CT chest available on [facility] P[facility] was 03/04/2022. She stated that her oncologist was ordering surveillance CT chest - no reports from her oncologist were ever forwarded to our office. I asked her if she were done with chemo/radiation - she said yes. I asked if she were on any maintenance therapy, such as immunomodulators (e.g. Keytruda). She asked should I be? I said that I do not keep up on all the new treatments they have for cancers, but I am just asking as sometimes they can affect the lungs. She presented to the ER yesterday with worsening dyspnea. There was a significant right-sided infiltrate noted on CXR, along with WBC 19k & HR 109. SpO2 wsa 85% on RA. She is not on home O2. She was started on Rocephin + Zithromax. Today, she states she is feeling better. Not as short of breath. She continues to require supplemental O2 to the point she is currently requiring 6L/min O2 with SpO2 maintaining only ~89%. WBC has improved to 15k. Still having difficulty expectorating. Review of Systems ROS Status of ROS 10 or more systems reviewed and unremark able except as noted in history and below [facility] Medical History (Updated 11/21/24 @ 10:23 by Ashwin Walker DO) Depression ?F32.A - Depression, unspecified (ICD-10) Anxiety ?F41.9 - Anxiety disorder, unspecified (ICD-10) Breast cancer ?C50.919 - Malignant neoplasm of unspecified site of unspecified female breas t (ICD-10) Surgical History (Updated 11/20/24 @ 15:57 by Alexus Gregory RN) H/O inguinal hernia repair ?Z98.890 - Other specified postprocedural states (ICD-10) ?Z87.19 - Personal history of other diseases of the digestive system (ICD-10) H/O bilateral mastectomy ?Z90.13 - Acquired absence of bilateral breasts and nipples (ICD-10) Social History Smoking status: Former smoker Highest level of school completed/degree received: high school graduate Little interest or pleasure in doing things: several days Feeling down, depressed, or hopeless: several days Meds Home Medications and Allergies Home Medications ?Medication ?Instructions ?Recorded ?Confirmed ?Type sertraline 100 mg tablet 100 mg PO DAILY 08/12/2310/11 History albuterol sulfate 90 mcg/actuation 2 inh inhalation Q6 H PRN shortness 11/20/24 11/20/24 History aerosol inhaler of breath or wheezing fluticasone propionate 50 2 spray intranasal Q12H 10/1111/20/24 History mcg/actuation nasal spray,suspension meloxicam 15 mg tablet 15 mg PO DAILY 11/20/2410/11 History phentermine 37.5 mg tablet 37.5 mg PO DAILY 11/20/24 0 11/20/24 History ergocalciferol (vitamin D2) 1,250 50,000 unit PO QWEEK 11/21/24 11/21/24 History mcg (50,000 unit) capsule (Vitamin D2) Allergies Allergy/AdvReac Type Severity Reaction Status Date / Time Penicillins Allergy Intermediate Rash Verified 11/20/24 13:21 Exam Narrative Exam Narrative: Constitutional: Appears stated age HEENT: Wearing nasal cannula. No candidiasis Chest: No egophony. No tactile fremitus Lungs: Very diminished breath sounds in right mid to lower lung field posteriorly. More crackles in the upper lung field. Fairly clear on the left side. Heart: RRR Abdomen: Soft Extremities: No edema. No cyanosis. Neuro: No fasciculations Psych: Appropriate affect. Constitutional Vital Signs, click to edit/add: Last Vital Signs Temp 96.5 F L 11/21/24 07:40 Pulse 93 H 11/21/24 09:57 Resp 20 11/21/24 07:40 BP 94/56 11/21/24 07:40 Pulse Ox 89 L 11/21/24 07:40 O2 Del Method Nasal Cannula 11/21/24 07:40 O2 Flow Rate 6 11/21/24 07:40 Results Laboratory Findings Abnormal lab findings: Abnormal Labs 11/20/24 11/20/24 11/21/24 13:32 21:53 00:53 WBC 19.1 H RBC Hgb Hct 35.2 L MPV 9.2 L Neut % (Auto) Lymph % (Auto) Eos % (Auto) Neut # (Auto) Lymph # (Auto) Abs Immat Gran (auto) Band Neutrophils % 12.0 H Lymphocytes % (Manual) 7.0 L Basophils % (Manual) 0.0 L Imm/Tot Granulo (auto) Neutrophils # (Manual) 13.94 H Band Neutrophils # 2.3 H Monocytes # (Manual) 1.33 H Sodium 129 L Chloride 92 L BUN Est GFR (Non-Af Amer) 55 L Glucose 152 H AST 38 H Alkaline Phosphatase 236 H NT-Pro-B Natriuret Pep 1841.0 H* Albumin 1.9 L Urine Glucose (UA) Urine Occult Blood Urine RBC Urine WBC Urine Bacteria Urine Casts Urine Mucus POC Glucose 220 H 214 H 11/21/24 11/21/24 11/21/24 04:36 07:43 07:50 WBC 15.0 H RBC 4.10 L Hgb 11.5 L Hct 34.0 L MPV 9.0 L Neut % (Auto) 90.2 H Lymph % (Auto) 3.4 L Eos % (Auto) 0.0 L Neut # (Auto) 13.6 H Lymph # (Auto) 0.5 L Abs Immat Gran (auto) 0.57 H Band Neutrophils % Lymphocytes % (Manual) Basophils % (Manual) Imm/Tot Granulo (auto) 3.8 H Neutrophils # (Manual) Band Neutrophils # Monocytes # (Manual) Sodium 135 L Chloride 95 L BUN 22.0 H Est GFR (Non-Af Amer) Glucose 256 H AST 39 H Alkaline Phosphatase 217 H NT-Pro-B Natriuret Pep 1153.0 H Albumin 1.7 L Urine Glucose (UA) 100 A Urine Occult Blood Small A Urine RBC 2-5 A Urine WBC 0-2 A Urine Bacteria Small A Urine Casts Seen A Urine Mucus Trace A POC Glucose 250 H Assessment and Plan Assessment and Plan (1) Pneumonia: Assessment and Plan: 1. Pneumonia, RLL. Present on admission. Patient is ill with sepsis. Personally reviewed CXR and CT chest - last CT available for comparison was 03/04/2022 - unknown if there were any subsequent CT chest studies subsequently done by her oncologist (which were never forwarded to our office). To my knowledge, all the abnormal findings are acute, though it remains possible there could be microscopic damage done from prior treatment for her breast cancer that augmented the underlying pneumonia. She is currently on Rocephin and Zithromax - it appears as she is responding to therapy given the decrease in her WBC from 19k to 15k. Need to promote a good pulmonary toilet. Continue PEP, add hypertonic saline nebs. 2. Acute hypoxic respiratory failure. SpO2 85% RA on admission, requiring 6L/min O2 to maintain SpO2 >88% currently. No prior hypoxia history or O2 use at home, so this is not [id number] hypoxic respiratory failure. May need Vapotherm if O2 needs continue to increase. 3. Severe sepsis. Secondary to #1. SIRS criteria on admission + acute respiratory failure. She remains ill. Continue monitoring closely. 4. Acute exacerbation of COPD. Has underlying centrilobular emphysema; normal AAT genotype MM. Last PFT 04/08/2022 FEV1 was moderate reduction at 75%. Currently only using albuterol PRN. Continue bronchodilators and steroids. Patient will need to decide if she wants F/U, and if so, she must be compliant with communication & visits and not ghost the office. 5. Invasive ductal carcinoma of both breasts. Left 2005 s/p chemo & radiation. Right 2019 s/p chemo only (per available records). Was following with [facility] oncology. 6. History of tobacco abuse. 43-pack years, quit 2020. LDCT would have been on hold d/t breast cancer. Qualifiers: Pneumonia type: due to unspecified organism Laterality: right Lung location: lower lobe of lung Qualified Code(s): J18.9 - Pneumonia, unspecified organism
[2024-11-21] MEDS: SODIUM CHLORIDE 3% INHALATION 15 ML NEB 3 ML IH ×2 (11:17→20:26)
[2024-11-21 12:15] LABS: Glucometer 274 mg/dL (74-106)
[2024-11-21] MEDS: CEFTRIAXONE 1,000 MG in 0.9 % SODIUM CHLORIDE 50 ML 100 MG IV (14:16)
[2024-11-21] MEDS: 0.9 % SODIUM CHLORIDE 250 ML 10 ML IV (14:17)
--- NOTE | 2024-11-21 14:18 | CM.NOTE ---
Discussed with pt chronic disease and COPD, pt at this time is not seeing a tank tester. Pt states she was seeing Dr. Walker but insurance was not covering and became very expensive for her to continue. Discussed with pt importance of preventative medicine with her hx and establishing with a tank tester now that she has Medicare. Pt is interested in f/u with Dr. Walker at discharge. Pt also is wanting to change her PCP, requesting to f/u with Dr. Oshea as PCP. Dr. Oshea is accepting patients. Pt also given information regarding Pulmonary rehab and speaking with PCP or tank tester regarding pulmonary rehab. Pt verbalizes understanding. Updated daughter regarding rounds with Dr. Oshea and time he will see pt in AM. Explained to daughter if she other questions for Dr. Oshea, Case Management could reach out. Daughter denies further questions.
--- NOTE | 2024-11-21 14:43 | CM.NOTE ---
Important Message From Medicare discussed with pt, pt verbalizes understanding and signs paper. Original given to pt and copy placed on pt's chart.
[2024-11-21] MEDS: AZITHROMYCIN 500 MG in 0.9 % SODIUM CHLORIDE 250 ML 200 MG IV (15:05)
[2024-11-21] MEDS: SODIUM CHLORIDE 0.9% INHALATION 3 ML NEB 6 ML IH (16:04)
[2024-11-21 16:54] LABS: Glucometer 151 mg/dL (74-106)
--- NOTE | 2024-11-21 19:55 | CA_ITS ---
Patient Name: PRINCESS LOPEZ MR#: [id number] : 1960 Exam Date: 11/21/2024 Ordering Doctor: DR NUNO FLANAGAN . ECHOCARDIOGRAM REPORT PROCEDURE: CA ECHO DOPPLER COMPLETE INDICATIONS: elevated BNP, acute exacerbation of COPD, breast cancer (chemoradiation therapy), double mastectomy COMPARISON: None. DESCRIPTION: COMPLETE ECHOCARDIOGRAM Real-time transthoracic echocardiography with 2D, M-mode, spectral and color flow Doppler performed. QUALITY: Technical quality was good. LEFT VENTRICLE: Normal chamber size. Borderline left ventricular hypertrophy. Normal systolic function. LV EF: Normal left ventricular ejection fraction, (>55%). DIASTOLIC: Normal diastolic function. ATRIAL SEPTUM: Visually appears intact. LEFT ATRIUM: Normal chamber size. RIGHT ATRIUM: Normal chamber size. RIGHT VENTRICLE: Normal chamber size. Normal systolic function. TRICUSPID VALVE: Normal mobility and thickness. No stenosis with trivial regurgitation. Doppler studies reveal mildly (35-45) elevated right sided pressures. RVSP 44 mmHg MITRAL VALVE: Normal mobility and thickness. No evidence of mitral valve stenosis. Mild mitral annular calcification. No mitral regurgitation. AORTIC VALVE: No visible sclerosis. Normal leaflet mobility. No evidence of aortic valve stenosis. No aortic regurgitation. AORTIC ROOT: Normal diameter and appearance, measuring 3.0 cm. PULMONIC VALVE: Normal thickness and mobility. No stenosis. No regurgitation. PERICARDIUM: No evidence of pericardial effusion. IVC: IVC is dilated (2.3 cm), does not fully collapse. PLEURA: CONCLUSION: 1. Normal ventricular size and systolic function. Estimated LVEF is 60 to 65%. 2. No significant valvular dysfunction. 3. Normal diastolic function. 4. Mildly elevated right-sided pressures. RVSP is 44 mmHg. Adult Echocardiography Procedure Report Left Ventricle LVEDD (3.7 - 5.6 cm): 3.73 cm LVESD (2.2 - 4.0 cm): 2.16 cm LVIVS thickness (0.6 - 1.2 cm): 0.94 cm LVPW thickness (0.5 - 1.0 cm): 1.07 cm e': 0.14 m/s E - e': 4.56 LVOT Max Gradient: 3.23 mm[Hg] LVOT Area (cm2): 0.90 m/s Peak Velocity (LVOT): 0.90 m/s LVOT Diameter 2.26 cm Left Atrium LA Volume Index (2D A2C): 24.19 ml/m2 Left Atrium Systolic Dimension: 3.68 cm Mitral Valve MV E to A Ratio: 0.81 Mitral Valve A-Wave Peak Velocity: 0.80 m/s Mitral Valve E-Wave Peak Velocity: 0.65 m/s Right Ventricle Aorta AO Root Diam: 3.01 cm Aortic Valve AoV Area (Peak John): 2.35 cm2, 2.35 cm2 Peak Velocity(Antegrade Flow): 1.53 m/s Peak Gradient(Antegrade Flow): 9.33 mm[Hg] Tricuspid Valve Peak Velocity (Regurgitant Flow): 2.71 m/s Pulmonic Valve Peak Velocity: 0.67 m/s Peak Gradient: 1.82 mm[Hg] Right Atrium Right Atrium Systolic Pressure: 55.44 ml, 55.44 ml Dictated by: Onur Webb M.D. on 11/21/2024 at 19:37 Approved by: Onur Webb M.D. on 11/21/2024 at 19:41
[2024-11-21 21:38] LABS: Glucometer 302 mg/dL (74-106)
[2024-11-22] VITALS (22 sets, daily range): BP systolic 108–146; BP diastolic 66–76; PULSE 81–109; TEMP 36.3–36.5; O2SAT 85–93
[2024-11-22] MEDS: IPRATROPIUM/ALBUTEROL SULFATE 3 ML AMPUL.NEB IH ×5 (04:17→22:43)
[2024-11-22] MEDS: SODIUM CHLORIDE 0.9% INHALATION 3 ML NEB 6 ML IH (04:17)
[2024-11-22] MEDS: METHYLPREDNISOLONE SOD SUCC PF 125 MG/2 ML VIAL IVP ×3 (05:36→17:52)
--- NOTE | 2024-11-22 05:54 | P.PN_ITS ---
Progress Note: Subjective Subjective Interval history: Patient states her breathing does feel better than the previous day but currently on high flow supplemental oxygen at 13 L Exam Constitutional Vital Signs, click to edit/add: Last Vital Signs Temp 97.4 F L 11/22/24 03:00 Pulse 100 H 11/22/24 04:17 Resp 20 11/22/24 04:17 BP 142/76 H 11/22/24 03:00 Pulse Ox 90 L 11/22/24 04:17 O2 Del Method High Flow Nasal Cannula 11/22/24 04:17 O2 Flow Rate 13 11/22/24 04:17 Documenting provider has reviewed patient's vital signs: yes Common normals: apparent distress (Mild conversational dyspnea-unchanged again) Chest Common normals: inspection of chest normal Respiratory Common normals: abnormal respiratory effort (Mild conversational dyspnea - unchanged again) Auscultation: rhonchi (May be slightly better air exchange) and egophony (Unchanged) right lower; no rales GI Common normals: Normal to inspection, nondistended, normoactive bowel sounds present, soft to palpation and no hepatosplenomegaly Extremity Common normals: normal to inspection and full ROM Progress Note: Objective Labs Labs: Urine 11/21/24 Range/Units 07:50 Urine Color Yellow (YELLOW) Urine Clarity Clear (CLEAR) Urine pH 5.5 (5.0-9.0) Ur Specific [place] 1.015 (1.005-1.025) Urine Protein Trace (NEG/TRACE) mg/dL Urine Glucose (UA) 100 A (NEGATIVE) mg/dL Progress Note: A&P Assessment and Plan (1) Pneumonia: Qualifiers: Laterality: right Lung location: lower lobe of lung Pneumonia type: due to unspecified organism Qualified Code(s): J18.9 - Pneumonia, unspecified organism (2) Pleural effusion: (3) Rib fracture: (4) Acute and chronic respiratory failure with hypoxia: (5) Depression: (6) Anxiety: (7) Severe sepsis: (8) Hypothermia: (9) Acute hypoxic respiratory failure: (10) Hyponatremia: (11) Acute systolic heart failure: (12) Hypokalemia: (13) Elevated liver function tests: Plan Admission findings: Sinus tachycardia, respiratory distress, acute hypoxia requiring supplemental oxygen, leukocytosis with bandemia secondary to right lower lobe pneumonia and resulting in acute exacerbation of COPD and sepsis Right lower lobe pneumonia resulting in acute exacerbation of COPD and sepsis now with hypothermia-with acute hypoxic respiratory failure , needing high flow supplemental oxygen, repeat chest x-ray, increased frequency of aerosol treatments, continue with IPV treatments, currently on high flow likely needs Vapotherm, unable to get ABG this evening. Discussed case with pulmonology, Hyponatremia-improved to normal Yeklptkwazigt-byvl-ukgsdqd-continue insulin sliding scale Mildly elevated LFTs repeat in a.m.-improved Iron deficiency anemia-Down slightly today Mild elevation in LFTs-check ultrasound of abdomen Hypokalemia-supplement Acute systolic heart failure with pleural effusion-BNP sl elevated from previous day, repeat diuretic today blood pressure stable to the point of he can try that , unable to complete yesterday Severe protein calorie malnutrition-diet supplement Admissions status: Patient evaluated in the emergency room with significant hypoxia and acute exacerbation of COPD with 3 right lower lobe pneumonia, medically necessary treatment will span more than 2 midnights to inpatient status ?
[2024-11-22 06:28] LABS: Alanine Aminotransferase 75 U/L (14-59); Albumin Globulin Ratio 0.3; Albumin Level 1.6 g/dL (3.4-5.0); Alkaline Phosphatase 198 U/L (46-116); Anion Gap 14.6; Aspartate Amino Transferase 100 U/L (15-37); BUN Creatinine Ratio 51.9; Bilirubin Total 0.3 mg/dL (0.2-1.0); Calcium 9.7 mg/dL (8.5-10.1); Carbon Dioxide 28.6 mmol/L (21.0-32.0); Chloride 97 mmol/L (98-107); Estimated GFR (African America >60 (>=60 mL/min/1.73m^2); Estimated GFR (Non-African Ame >60 (>=60 mL/min/1.73m^2); Globulin 4.9 g/dL; Glucose 224 mg/dL (74-106); Potassium 3.2 mmol/L (3.5-5.1); Sodium 137 mmol/L (136-145); Total Protein 6.5 g/dL (6.4-8.2); Troponin I High Sensitivity 11.4 pg/mL (4.0-51.3)
[2024-11-22 06:30] LABS: Hematocrit 32.3 % (36.0-48.0); Hemoglobin 10.9 g/dL (12.0-16.0); Mean Corpuscular HGB Conc 33.7 g/dL (29.9-35.2); Mean Corpuscular Hemoglobin 28.2 pg (26.7-34.0); Mean Corpuscular Volume 83.5 fL (81.0-99.0); Mean Platelet Volume 9.7 fL (9.5-13.5); Platelet Count 380 10^3/uL (150-450); Red Blood Count 3.87 10^6/uL (4.20-5.40); Red Cell Distribution Width 14.4 % (11.0-15.0); White Blood Count 27.7 10^3/uL (4.0-11.0)
[2024-11-22 07:28] LABS: Glucometer 187 mg/dL (74-106)
[2024-11-22 07:53] LABS: Lymphocytes Absolute Manual 1.38 10^3/uL (1.20-3.80)
[2024-11-22 07:56] LABS: Hypersegmented Neutrophils 1+
[2024-11-22 08:00] LABS: Band Neutrophils Absolute 0.3 10^3/uL (0.0-0.3); Monocytes Absolute Manual 0.55 10^3/uL (0.30-0.80); Segmented Neut Absolute Manual 25.48 10^3/uL (1.4-6.5)
--- NOTE | 2024-11-22 09:02 | US_ITS ---
The [address] [address] Patient Name: PRINCESS LOPEZ MRN: [id number] date: 1960 Sex: F Assigned Patient Location: Current Patient Location: Accession/Order Number: [id number] Exam Date: 11/22/2024 11:13 Report Date: 11/22/2024 11:19 At the request of: NUNO FLANAGAN MD Procedure: US right upper quadrant LIMITED RIGHT UPPER QUADRANT ABDOMINAL ULTRASOUND CLINICAL HISTORY: Elevated LFT - Prior Cholecystectomy. COMPARISON: None The gallbladder is surgically absent. No intra- or extrahepatic biliary dilatation is evident. The common duct measures 4 - 5 mm. The liver is normal in echogenicity. There are 2 hyperechoic nodular areas at the periphery of the right hepatic lobe measuring 15 x 9 x 7 mm and 14 x 8 x 16 mm. Hemangiomas can have this appearance. There is appropriate hepatopetal flow within the main portal vein. The pancreas shows no significant sonographic abnormality. Cursory evaluation of the right kidney reveals no hydronephrosis or fluid within Temple's pouch. US/US right upper quadrant IMPRESSION: HYPERECHOIC RIGHT HEPATIC NODULAR AREAS . HEMANGIOMAS ARE POSSIBLE. NO OTHER SIGNIFICANT RIGHT UPPER QUADRANT FINDINGS Impression dictated by: Tiffany Thompson M.D. 11/22/2024 11:19 AM Dictation Location: [place] [address] Electronically authenticated by: [id number] Y Date: 11/22/2024 11:19
--- NOTE | 2024-11-22 09:02 | XR_ITS ---
The [address] [address] Patient Name: PRINCESS LOPEZ MRN: [id number] date: 1960 Sex: F Assigned Patient Location: Current Patient Location: Accession/Order Number: [id number] Exam Date: 11/22/2024 09:49 Report Date: 11/22/2024 09:50 At the request of: NUNO FLANAGAN MD Procedure: XR chest 2V XR chest 2V 11/22/2024 9:40 AM SIGNS AND SYMPTOMS: ^Rll pneumonia Follow up PROTOCOL: Frontal and lateral radiographs of the chest COMPARISON: 11/20/2024 FINDINGS: The trachea is midline. The heart and mediastinal structures are within normal limits. Similar airspace opacities are noted on the right. There is linear scarring or atelectasis near the left lung base. The bony thorax is intact. XR/XR chest 2V IMPRESSION: Similar right-sided airspace opacities are noted. Impression dictated by: Ryan Barreto M.D. 11/22/2024 9:50 AM Dictation [facility] Electron[facility] authenticated by: [id number] Y Date: 11/22/2024 09:50
--- NOTE | 2024-11-22 09:02 | CM.NOTE ---
Rounds made with Dr. Oshea, pt remains on high flow oxygen. Pt will have ultrasound of abdomen r/t elevated liver test. No discharge today. Continue treatment as ordered.
[2024-11-22] MEDS: SERTRALINE HCL 100 MG TABLET PO (09:52)
[2024-11-22] MEDS: MELOXICAM 7.5 MG TABLET 15 MG PO (09:52)
[2024-11-22] MEDS: NYSTATIN 15 GM POWDER 1 APPLIC TOPICAL ×2 (09:52→21:45)
[2024-11-22] MEDS: POTASSIUM CHLORIDE 10 MEQ ER TABLET 20 MEQ PO ×2 (09:52→21:44)
[2024-11-22] MEDS: PROSTAT 15 GM PROTEIN/100 CAL 30 ML LIQUID PACKET PO ×2 (09:53→21:45)
[2024-11-22] MEDS: FLUTICASONE PROPIONATE 50 MCG NASAL SPRAY 2 SPRAY NS ×2 (09:53→21:43)
[2024-11-22] MEDS: BUMETANIDE 1 MG/4 ML VIAL 2 MG IVP (09:53)
[2024-11-22] MEDS: SODIUM CHLORIDE 3% INHALATION 15 ML NEB 3 ML IH ×2 (11:09→22:43)
[2024-11-22 11:39] LABS: Glucometer 251 mg/dL (74-106)
[2024-11-22] MEDS: INSULIN ASPART 300 UNIT/3 ML PEN SUBQ ×3 (12:03→22:38)
--- NOTE | 2024-11-22 12:03 | PT.DAILY ---
Physical Therapy Daily Note PT Daily Note/Assess Start: 11/22/24 11:59 Freq: Status: Active Protocol: Document 11/22/24 11:59 CORTEZSEBASTIEN (Rec: 11/22/24 12:03 JUANJOSE [id number]) Physical Therapy Daily Note/Assessment Time In/Time Out Time In 11:42 Time Out 11:51 Pain In Pain N/A Pain Out Pain N/A Subjective Subjective Pt supine upon arrival. Agrees to PT. on high flow O2 13L. SPo2 90% with ear probe. Therapeutic Exercise Time Therapeutic Exercise 3 Minutes (minutes) Therapeutic Exercise 0 Units Therapeutic Exercise Treatment Therapeutic Exercise Instructed to complete bilat LE strengthening seated ex Treatment while sitting EOB unsupported without any LOB. Therapeutic Activity Time Therapeutic Activity 5 Minutes (minutes) Therapeutic Activity 1 Units Therapeutic Activity Treatment Bed Mobility Ability Independent Chair Transfer Independent Ability Therapeutic Activity Supine>sit IND. Sits EOB unsupported 3 min without LOB. Comments Spo2 90% using ear probe. Sit>stand IND. Amb 4 laps in room without AD, SBA. Spo2 83% upon completion. Vc to breath in through nose, increased to 88%. Total Physical Therapy Time Total Therapy 8 Minutes Total Physical 1 Therapy Units Summary Daily Note Summary SOB with Amb with Sats dropping to low 80's with exertion.
[2024-11-22] MEDS: CEFTRIAXONE 1,000 MG in 0.9 % SODIUM CHLORIDE 50 ML 100 MG IV (13:55)
[2024-11-22] MEDS: AZITHROMYCIN 500 MG in 0.9 % SODIUM CHLORIDE 250 ML 250 MG IV (13:59)
[2024-11-22 16:52] LABS: Glucometer 295 mg/dL (74-106)
[2024-11-22 20:43] LABS: Glucometer 331 mg/dL (74-106)
[2024-11-23] VITALS (77 sets, daily range): BP systolic 121–136; BP diastolic 55–78; PULSE 74–102; RESP 12; TEMP 36.4–36.8; O2SAT 83–100
[2024-11-23] MEDS: METHYLPREDNISOLONE SOD SUCC PF 125 MG/2 ML VIAL IVP ×4 (02:32→21:56)
[2024-11-23] MEDS: IPRATROPIUM/ALBUTEROL SULFATE 3 ML AMPUL.NEB IH ×6 (03:57→23:49)
[2024-11-23 06:08] LABS: PCO2 VBG 46.1 mmHg (40.0-52.0); pH VBG 7.443 (7.330-7.430)
[2024-11-23 06:16] LABS: Hematocrit 30.4 % (36.0-48.0); Hemoglobin 10.3 g/dL (12.0-16.0); Mean Corpuscular HGB Conc 33.9 g/dL (29.9-35.2); Mean Corpuscular Hemoglobin 28.3 pg (26.7-34.0); Mean Corpuscular Volume 83.5 fL (81.0-99.0); Mean Platelet Volume 9.4 fL (9.5-13.5); Platelet Count 434 10^3/uL (150-450); Red Blood Count 3.64 10^6/uL (4.20-5.40); Red Cell Distribution Width 14.5 % (11.0-15.0); White Blood Count 19.6 10^3/uL (4.0-11.0)
[2024-11-23 06:35] LABS: Band Neutrophils Absolute 0.2 10^3/uL (0.0-0.3); Lymphocytes Absolute Manual 0.19 10^3/uL (1.20-3.80); Monocytes Absolute Manual 0.19 10^3/uL (0.30-0.80); Segmented Neut Absolute Manual 19.01 10^3/uL (1.4-6.5)
[2024-11-23 06:40] LABS: Alanine Aminotransferase 122 U/L (14-59); Albumin Globulin Ratio 0.4; Albumin Level 1.6 g/dL (3.4-5.0); Alkaline Phosphatase 158 U/L (46-116); Anion Gap 13.9; Aspartate Amino Transferase 117 U/L (15-37); Bilirubin Total 0.3 mg/dL (0.2-1.0); Calcium 9.5 mg/dL (8.5-10.1); Carbon Dioxide 30.6 mmol/L (21.0-32.0); Chloride 101 mmol/L (98-107); Estimated GFR (African America >60 (>=60 mL/min/1.73m^2); Estimated GFR (Non-African Ame >60 (>=60 mL/min/1.73m^2); Globulin 4.2 g/dL; Glucose 192 mg/dL (74-106); Potassium 3.5 mmol/L (3.5-5.1); Sodium 142 mmol/L (136-145); Total Protein 5.8 g/dL (6.4-8.2)
[2024-11-23] MEDS: INSULIN ASPART 300 UNIT/3 ML PEN SUBQ ×3 (08:09→21:58)
[2024-11-23] MEDS: SERTRALINE HCL 100 MG TABLET PO (08:09)
[2024-11-23] MEDS: POTASSIUM CHLORIDE 10 MEQ ER TABLET 20 MEQ PO ×2 (08:09→21:56)
[2024-11-23] MEDS: NYSTATIN 15 GM POWDER 1 APPLIC TOPICAL ×2 (08:10→21:57)
[2024-11-23] MEDS: MELOXICAM 7.5 MG TABLET 15 MG PO (08:10)
[2024-11-23] MEDS: FLUTICASONE PROPIONATE 50 MCG NASAL SPRAY 2 SPRAY NS ×2 (08:10→21:58)
--- NOTE | 2024-11-23 09:36 | PM.PN ---
Progress Note: Subjective Subjective Interval history: Patient currently on Vapotherm. She gets short of breath with conversing and resting in bed. She denies any coughing, any fever or chills. She wishes to get a bath today. No other complaints. Exam Narrative Exam Narrative: General: Patient is alert, and oriented to person, place and time short of breath with conversing Skin: no visible rashes, or ulcers Head: atraumatic, acephalic Eyes: PERRLA, no nystagmus present, conjunctiva clear, no scleral icterus Heart: Normal rate and rhythm, no murmurs/rubs/gallops Lungs: diminished breath sounds bilateral bases Abdomen: Normal audible bowel sounds, no distension, No palpable masses, no organomegaly, no rebound/guarding/ or rigidity Musculoskeletal: no swelling bilateral lower extremities Neuro: CN II-X grossly intact Constitutional Vital Signs, click to edit/add: Last Vital Signs Temp 97.5 F L 11/23/24 08:06 Pulse 90 11/23/24 08:06 Resp 22 H 11/23/24 08:06 BP 127/70 11/23/24 08:06 Pulse Ox 89 L 11/23/24 08:06 O2 Del Method Vapotherm 11/23/24 08:06 O2 Flow Rate 40 11/23/24 07:49 FiO2 60 11/23/24 08:06 Progress Note: Objective Labs Labs: Short CBC 11/23/24 Range/Units 05:28 WBC 19.6 H (4.0-11.0) 10^3/uL Hgb 10.3 L (12.0-16.0) g/dL Hct 30.4 L (36.0-48.0) % Plt Count 434 (150-450) 10^3/uL BMP 11/23/24 05:28 Sodium 142 Potassium 3.5 Chloride 101 Carbon Dioxide 30.6 BUN 47.0 H Creatinine 0.81 Glucose 192 H Calcium 9.5 Liver Function 11/23/24 Range/Units 05:28 Total Bilirubin 0.3 (0.2-1.0) mg/dL AST 117 H (15-37) U/L ALT 122 H (14-59) U/L Alkaline Phosphatase 158 H (46-116) U/L Albumin 1.6 L (3.4-5.0) g/dL Progress Note: A&P Assessment and Plan (1) Pneumonia: Assessment and Plan: Patient has been doing well with IV solumedrol, Azithromycin and Rocephin, pulmonary toilet and nebs. Pulse ox still declining on 60% Fio2, Did get ABG today with oxygen saturation of 56. She is amendable to trying BIPAP. Qualifiers: Laterality: right Lung location: lower lobe of lung Pneumonia type: due to unspecified organism Qualified Code(s): J18.9 - Pneumonia, unspecified organism (2) Acute hypoxic respiratory failure: Assessment and Plan: not on home oxygen, is requiring vapotherm and will place on BIPAP when napping, bedtime (3) Acute systolic heart failure: Assessment and Plan: elevated proBNP, has received IV bumex daily, fluid restriction, monitor I&O's, echo reviewed (4) Severe sepsis: Assessment and Plan: on admission secondary to #1, is resolving (5) Pleural effusion: Assessment and Plan: from Acute CHF, continue treatment; BIPAP may help (6) Depression: Assessment and Plan: continue sertraline Qualifiers: Depression Type: unspecified Qualified Code(s): F32.A - Depression, unspecified (7) Anxiety: Assessment and Plan: continue sertraline (8) Hypokalemia: Assessment and Plan: continue PO replacement and monitoring (9) Elevated liver function tests: Assessment and Plan: RUQ ultrasound was normal with exception to hemangioma's seen. I have decreased IV solumedrol and stopped Oral Mobic (10) Breast cancer: Assessment and Plan: history of recent chemo and bilateral mastectomy for invasive ductal cell carcinoma Qualifiers: Breast location: unspecified site of breast Estrogen receptor status: unspecified Laterality: unspecified laterality Patient sex: female Qualified Code(s): C50.919 - Malignant neoplasm of unspecified site of unspecified female breast Plan Patient is a full code Patient is slowly improving, still requiring vapotherm, make adjustments to neb treatments today, ABG and Trial of BIPAP
--- NOTE | 2024-11-23 10:18 | PT.DAILY ---
Physical Therapy Daily Note PT Daily Note/Assess Start: 11/22/24 11:59 Freq: Status: Active Protocol: Document 11/23/24 10:08 [id number] (Rec: 11/23/24 10:17 [id number]) Physical Therapy Daily Note/Assessment Time In/Time Out Time In 08:21 Time Out 08:40 Pain In Pain Level 0 Pain Out Pain Level 0 Subjective Subjective Patient is now on Vapotherm, 13L O2. Agreeable to participate with PT. Therapeutic Exercise Time Therapeutic Exercise 15 Minutes (minutes) Therapeutic Exercise 1 Units Therapeutic Exercise Treatment Therapeutic Exercise SPO 86% prior to treatment. Performed supine BRYAN LE Treatment ther ex for ankle pumps, quad/glut sets, SLR and hip ABD x 10 reps. SPO 81% after supine ther ex. SPO 81% after bed mobility. Sat EOB prior to completing seated ther ex - SPO 82%. Performed seated ther ex for toe/ heel raises, LAQ, marching, MRE for hip ABD/ADD x 10 reps. SPO 82% post seated ther ex. Therapeutic Activity Time Therapeutic Activity 4 Minutes (minutes) Therapeutic Activity 0 Units Therapeutic Activity Treatment Bed Mobility Ability Contact Guard Assist Therapeutic Activity SPO 81% after supine to sit on EOB. Patient able to Comments sit EOB without UE support and complete seated ther ex. Sit to stand to 2WW CGA +1. Patient completed 3 small steps to L towards HOB. Stand to sit with 1 UE on bed rail is CGA +1. Patient is able to transfer into supine modified independent. SPO @ 80% post treatment. Nursing and respiratory present at end of treatment. SPO levels provided. CBWR and needs met. Total Physical Therapy Time Total Therapy 19 Minutes Total Physical 1 Therapy Units Summary Daily Note Summary Patient now on Vapotherm, ambulation distance limited. Patient O2 sats dropped with exertion and returned at rest.
[2024-11-23] MEDS: SODIUM CHLORIDE 3% INHALATION 15 ML NEB 3 ML IH ×2 (11:34→23:49)
[2024-11-23] MEDS: BUDESONIDE 0.5 MG/2 ML AMPULE NEB IH ×2 (11:34→23:49)
[2024-11-23 12:01] LABS: Glucometer 235 mg/dL (74-106)
[2024-11-23 13:10] LABS: pH ABG 7.469 (7.350-7.450)
[2024-11-23 13:11] LABS: Allen Test POSITIVE (POSITIVE); Base Excess ABG 5.3 mmol/L (-2.0-2.0); Fractionated Inspired Oxygen 60 %; Liters per Minute 40; O2 Mode HIGH FLOW; Puncture Site RB
[2024-11-23 13:12] LABS: PO2 ABG 56.8 mmHg (80.0-100.0)
[2024-11-23] MEDS: CEFTRIAXONE 1,000 MG in 0.9 % SODIUM CHLORIDE 50 ML 100 MG IV (14:00)
[2024-11-23] MEDS: AZITHROMYCIN 500 MG in 0.9 % SODIUM CHLORIDE 250 ML 250 MG IV (14:03)
[2024-11-23] MEDS: SODIUM CHLORIDE 0.9% INHALATION 3 ML NEB 6 ML IH ×2 (15:46→19:39)
[2024-11-23 17:12] LABS: Glucometer 84 mg/dL (74-106)
[2024-11-23 21:50] LABS: Glucometer 383 mg/dL (74-106)
[2024-11-23] MEDS: PROSTAT 15 GM PROTEIN/100 CAL 30 ML LIQUID PACKET PO (21:56)
[2024-11-23] MEDS: ENSURE HP 237 ML LIQUID PO (21:56)
[2024-11-24] VITALS (26 sets, daily range): BP systolic 102–129; BP diastolic 66–80; PULSE 73–95; RESP 12; TEMP 36.3–36.6; O2SAT 0–96
[2024-11-24] MEDS: LORAZEPAM 0.5 MG TABLET PO ×2 (00:05→22:15)
[2024-11-24] MEDS: IPRATROPIUM/ALBUTEROL SULFATE 3 ML AMPUL.NEB IH ×6 (03:57→22:50)
[2024-11-24] MEDS: METHYLPREDNISOLONE SOD SUCC PF 125 MG/2 ML VIAL IVP ×3 (05:48→22:07)
[2024-11-24 06:34] LABS: Mean Corpuscular HGB Conc 33.3 g/dL (29.9-35.2); Mean Corpuscular Hemoglobin 28.6 pg (26.7-34.0); Mean Corpuscular Volume 85.7 fL (81.0-99.0); Mean Platelet Volume 9.1 fL (9.5-13.5); Platelet Count 513 10^3/uL (150-450); Red Blood Count 3.85 10^6/uL (4.20-5.40); Red Cell Distribution Width 14.7 % (11.0-15.0); White Blood Count 21.9 10^3/uL (4.0-11.0)
[2024-11-24 06:49] LABS: Alanine Aminotransferase 150 U/L (14-59); Albumin Globulin Ratio 0.5; Albumin Level 1.9 g/dL (3.4-5.0); Alkaline Phosphatase 151 U/L (46-116); Anion Gap 12.9; Aspartate Amino Transferase 75 U/L (15-37); BUN Creatinine Ratio 58.3; Bilirubin Total 0.4 mg/dL (0.2-1.0); Carbon Dioxide 31.9 mmol/L (21.0-32.0); Chloride 105 mmol/L (98-107); Estimated GFR (African America >60 (>=60 mL/min/1.73m^2); Estimated GFR (Non-African Ame >60 (>=60 mL/min/1.73m^2); Glucose 134 mg/dL (74-106); Potassium 4.8 mmol/L (3.5-5.1); Sodium 145 mmol/L (136-145); Total Protein 5.9 g/dL (6.4-8.2)
[2024-11-24 06:50] LABS: Lymphocytes Absolute Manual 1.09 10^3/uL (1.20-3.80); Monocytes Absolute Manual 2.19 10^3/uL (0.30-0.80); Segmented Neut Absolute Manual 18.61 10^3/uL (1.4-6.5)
[2024-11-24 08:29] LABS: Glucometer 171 mg/dL (74-106)
[2024-11-24] MEDS: SERTRALINE HCL 100 MG TABLET PO (08:57)
[2024-11-24] MEDS: FLUTICASONE PROPIONATE 50 MCG NASAL SPRAY 2 SPRAY NS ×2 (08:57→22:11)
[2024-11-24] MEDS: POTASSIUM CHLORIDE 10 MEQ ER TABLET 20 MEQ PO ×2 (08:57→22:07)
[2024-11-24] MEDS: NYSTATIN 15 GM POWDER 1 APPLIC TOPICAL ×2 (08:58→22:10)
[2024-11-24] MEDS: INSULIN ASPART 300 UNIT/3 ML PEN SUBQ ×3 (08:58→17:42)
--- NOTE | 2024-11-24 09:19 | PM.PN ---
Progress Note: Subjective Subjective Interval history: Patient currently on Vapotherm. She tolerated BiPAP overnight and feels much less short of breath today. She is able to have a conversation with less shortness of breath today. She is currently on 45%Fio2 Exam Narrative Exam Narrative: General: Patient is alert, and oriented to person, place and time Skin: no visible rashes, or ulcers Head: atraumatic, acephalic Eyes: PERRLA, no nystagmus present, conjunctiva clear, no scleral icterus Heart: Normal rate and rhythm, no murmurs/rubs/gallops Lungs: diminished breath sounds bilateral bases Abdomen: Normal audible bowel sounds, no distension, No palpable masses, no organomegaly, no rebound/guarding/ or rigidity Musculoskeletal: no swelling bilateral lower extremities Neuro: CN II-X grossly intact Constitutional Vital Signs, click to edit/add: Last Vital Signs Temp 97.4 F L 11/24/24 03:34 Pulse 81 11/24/24 08:07 Resp 18 11/24/24 03:57 BP 127/76 11/24/24 03:34 Pulse Ox 93 L 11/24/24 08:07 O2 Del Method Vapotherm 11/24/24 08:07 O2 Flow Rate 40 11/24/24 08:07 FiO2 45 11/24/24 08:07 Progress Note: Objective Labs Labs: Short CBC 11/24/24 Range/Units 06:10 WBC 21.9 H (4.0-11.0) 10^3/uL Hgb 11.0 L (12.0-16.0) g/dL Hct 33.0 L (36.0-48.0) % Plt Count 513 H (150-450) 10^3/uL BMP 11/24/24 06:10 Sodium 145 Potassium 4.8 Chloride 105 Carbon Dioxide 31.9 BUN 35.0 H Creatinine 0.60 Glucose 134 H Calcium 9.0 Liver Function 11/24/24 Range/Units 06:10 Total Bilirubin 0.4 (0.2-1.0) mg/dL AST 75 H (15-37) U/L ALT 150 H (14-59) U/L Alkaline Phosphatase 151 H (46-116) U/L Albumin 1.9 L (3.4-5.0) g/dL Progress Note: A&P Assessment and Plan (1) Pneumonia: Assessment and Plan: patient has been doing well with IV solumedrol, Azithromycin and Rocephin, pulmonary toilet and nebs. Pulse ox on 45% Fio2, continue BIPAP while sleeping. I will switch Azith to Levaquin today given elevation of white blood cell count Qualifiers: Laterality: right Lung location: lower lobe of lung Pneumonia type: due to unspecified organism Qualified Code(s): J18.9 - Pneumonia, unspecified organism (2) Acute hypoxic respiratory failure: Assessment and Plan: not on home oxygen, is requiring vapotherm continue on BIPAP when napping, bedtime (3) Acute systolic heart failure: Assessment and Plan: elevated proBNP, has received IV bumex daily, fluid restriction, monitor I&O's, echo reviewed, recheck chest X-ray tomorrow (4) Severe sepsis: Assessment and Plan: on admission secondary to #1, is resolving (5) Pleural effusion: Assessment and Plan: from Acute CHF, continue treatment; BIPAP (6) Depression: Assessment and Plan: continue sertraline Qualifiers: Depression Type: unspecified Qualified Code(s): F32.A - Depression, unspecified (7) Anxiety: Assessment and Plan: continue sertraline (8) Hypokalemia: Assessment and Plan: continue PO replacement and monitoring (9) Elevated liver function tests: Assessment and Plan: RUQ ultrasound was normal with exception to hemangioma's seen. I have decreased IV solumedrol and stopped Oral Mobic (10) Breast cancer: Assessment and Plan: history of recent chemo and bilateral mastectomy for invasive ductal cell carcinoma Qualifiers: Breast location: unspecified site of breast Estrogen receptor status: unspecified Laterality: unspecified laterality Patient sex: female Qualified Code(s): C50.919 - Malignant neoplasm of unspecified site of unspecified female breast Plan Patient is a full code
[2024-11-24] MEDS: SODIUM CHLORIDE 0.9% INHALATION 3 ML NEB 6 ML IH ×3 (11:37→19:41)
[2024-11-24] MEDS: BUDESONIDE 0.5 MG/2 ML AMPULE NEB IH ×2 (11:37→22:50)
[2024-11-24] MEDS: SODIUM CHLORIDE 3% INHALATION 15 ML NEB 3 ML IH ×2 (11:38→22:50)
[2024-11-24 12:03] LABS: Glucometer 212 mg/dL (74-106)
[2024-11-24] MEDS: LEVOFLOXACIN IN DEXTROSE 5 % 750 MG/150 ML PREMIX 100 MG IV (13:27)
[2024-11-24] MEDS: 0.9 % SODIUM CHLORIDE 250 ML 25 ML IV (13:28)
[2024-11-24] MEDS: CEFTRIAXONE 1,000 MG in 0.9 % SODIUM CHLORIDE 50 ML 100 MG IV (15:34)
[2024-11-24 16:56] LABS: Glucometer 318 mg/dL (74-106)
[2024-11-24 22:20] LABS: Glucometer 108 mg/dL (74-106)
[2024-11-25] VITALS (26 sets, daily range): BP systolic 114–142; BP diastolic 66–78; PULSE 74–86; RESP 12; TEMP 36.4–36.7; O2SAT 85–98
[2024-11-25] MEDS: IPRATROPIUM/ALBUTEROL SULFATE 3 ML AMPUL.NEB IH ×4 (03:56→15:14)
[2024-11-25 05:35] LABS: Basophils Absolute Auto 0.1 10^3/uL (0.0-0.1); Basophils Percent Auto 0.4 % (0.2-2.0); Hematocrit 34.7 % (36.0-48.0); Hemoglobin 11.4 g/dL (12.0-16.0); Immature Granulocytes Abs Auto 1.54 10^3/uL (0.00-0.03); Lymphocytes Percent Auto 3.3 % (20.5-60.0); Mean Corpuscular HGB Conc 32.9 g/dL (29.9-35.2); Mean Corpuscular Hemoglobin 28.4 pg (26.7-34.0); Mean Corpuscular Volume 86.5 fL (81.0-99.0); Mean Platelet Volume 9.1 fL (9.5-13.5); Monocytes Absolute Auto 0.6 10^3/uL (0.3-0.8); Monocytes Percent Auto 1.8 % (1.7-12.0); Neutrophils Absolute Auto 27.6 10^3/uL (1.4-6.5); Neutrophils Percent Auto 89.5 % (43.0-75.0); Platelet Count 553 10^3/uL (150-450); Red Blood Count 4.01 10^6/uL (4.20-5.40); Red Cell Distribution Width 14.6 % (11.0-15.0)
[2024-11-25] MEDS: METHYLPREDNISOLONE SOD SUCC PF 125 MG/2 ML VIAL IVP (05:50)
[2024-11-25 05:55] LABS: Alanine Aminotransferase 130 U/L (14-59); Albumin Globulin Ratio 0.5; Albumin Level 1.9 g/dL (3.4-5.0); Alkaline Phosphatase 139 U/L (46-116); Anion Gap 11.4; Aspartate Amino Transferase 46 U/L (15-37); BUN Creatinine Ratio 43.8; Bilirubin Total 0.5 mg/dL (0.2-1.0); Calcium 8.9 mg/dL (8.5-10.1); Carbon Dioxide 32.3 mmol/L (21.0-32.0); Chloride 102 mmol/L (98-107); Estimated GFR (African America >60 (>=60 mL/min/1.73m^2); Estimated GFR (Non-African Ame >60 (>=60 mL/min/1.73m^2); Globulin 3.7 g/dL; Glucose 234 mg/dL (74-106); Potassium 5.7 mmol/L (3.5-5.1); Sodium 140 mmol/L (136-145); Total Protein 5.6 g/dL (6.4-8.2)
[2024-11-25 06:17] LABS: White Blood Count 30.9 10^3/uL (4.0-11.0)
--- NOTE | 2024-11-25 07:00 | XR_ITS ---
The [address] [address] Patient Name: PRINCESS LOPEZ MRN: [id number] date: 1960 Sex: F Assigned Patient Location: [place] Current Patient Location: [place] Accession/Order Number: [id number] Exam Date: 11/25/2024 06:34 Report Date: 11/25/2024 06:37 At the request of: MARCELLO REDDY DO Procedure: XR chest 1V Plain film chest Single view HISTORY: Cough COMPARISON: 11/22/2024 FINDINGS: SUPPORT DEVICES: None POSTSURGICAL CHANGES: None HEART: Within normal limits PULMONARY OFE: Within normal limits MEDIASTINUM: Unremarkable LUNGS AND PLEURA: Mild improvement of right airspace opacity. Similar right pleural reaction. Similar left basilar linear scarring. BONY STRUCTURES: Intact ADDITIONAL FINDINGS None XR/XR chest 1V IMPRESSION: Mild improvement of right airspace opacity/pleural reaction and continued left basilar linear scarring. Impression dictated by: Richard Sheriff M.D. 11/25/2024 6:37 AM Dictation Location: [employer] Electronically authenticated by: [id number] Y Date: 11/25/2024 06:37
[2024-11-25 07:51] LABS: Glucometer 235 mg/dL (74-106)
--- NOTE | 2024-11-25 08:10 | PM.PN ---
Progress Note: Subjective Subjective Interval history: Patient was resting well on BiPAP this morning. Chest X-ray showed mild improvement in the right opacity. When she was taken off BIPAP, her oxygen saturations having a difficult time staying above 90% who FiO2 had to be titrated up to 50%. I plan to recheck CT chest this morning. She was showing improvement yesterday but this seems like a decline or step back. WBC's 30, I have stopped the solumedrol and placed her on Oral prednisone. I also switched her IV antibiotics to Levaquin yesterday from Azithromycin. PrOBNP 1077 and potassium 5.7, plan to stop steroids IV and give Lasix 20mg x 1. I appreciate Pulmonary note. If continues to require more oxygen and BIPAP I plan [facility]. Exam Narrative Exam Narrative: General: Patient is alert, and oriented to person, place and time and seems short of breath with conversing today Skin: no visible rashes, or ulcers Head: atraumatic, acephalic Eyes: PERRLA, no nystagmus present, conjunctiva clear, no scleral icterus Heart: Normal rate and rhythm, no murmurs/rubs/gallops Lungs: diminished breath sounds bilateral bases Abdomen: Normal audible bowel sounds, no distension, No palpable masses, no organomegaly, no rebound/guarding/ or rigidity Musculoskeletal: no swelling bilateral lower extremities Neuro: CN II-X grossly intact Constitutional Vital Signs, click to edit/add: Last Vital Signs Temp 97.5 F L 11/25/24 07:52 Pulse 82 11/25/24 08:00 Resp 18 11/25/24 07:52 BP 142/78 H 11/25/24 07:52 Pulse Ox 93 L 11/25/24 08:07 O2 Del Method BIPAP 11/25/24 07:52 O2 Flow Rate 40 11/25/24 05:55 FiO2 40 11/25/24 07:47 Progress Note: Objective Labs Labs: Short CBC 11/25/24 Range/Units 05:11 WBC 30.9 H* (4.0-11.0) 10^3/uL Hgb 11.4 L (12.0-16.0) g/dL Hct 34.7 L (36.0-48.0) % Plt Count 553 H (150-450) 10^3/uL BMP 11/25/24 05:11 Sodium 140 Potassium 5.7 H Chloride 102 Carbon Dioxide 32.3 H BUN 28.0 H Creatinine 0.64 Glucose 234 H Calcium 8.9 Liver Function 11/25/24 Range/Units 05:11 Total Bilirubin 0.5 (0.2-1.0) mg/dL AST 46 H (15-37) U/L ALT 130 H (14-59) U/L Alkaline Phosphatase 139 H (46-116) U/L Albumin 1.9 L (3.4-5.0) g/dL Progress Note: A&P Assessment and Plan (1) Pneumonia: Assessment and Plan: continue Levaquin, Rocephin, pulmonary toilet and nebs. Pulse ox on 45% Fio2, continue BIPAP while sleeping. I have stopped IV Solumedrol due to Leukocytosis and placed on oral prednisone Qualifiers: Laterality: right Lung location: lower lobe of lung Pneumonia type: due to unspecified organism Qualified Code(s): J18.9 - Pneumonia, unspecified organism (2) Acute hypoxic respiratory failure: Assessment and Plan: CXR shows improvement today; however, clinically declining. I plan to get CT of the Chest. (3) Acute systolic heart failure: Assessment and Plan: elevated proBNP today but improved from admission; stop IV steroids will help; given Lasix 20mg IV x 1 (4) Severe sepsis: Assessment and Plan: on admission secondary to #1, is resolving (5) Pleural effusion: Assessment and Plan: recheck CT (6) Depression: Assessment and Plan: continue sertraline Qualifiers: Depression Type: unspecified Qualified Code(s): F32.A - Depression, unspecified (7) Anxiety: Assessment and Plan: continue sertraline (8) Hypokalemia: Assessment and Plan: Hyperkalemia today, stop oral replacements, give IV lasix (9) Elevated liver function tests: Assessment and Plan: Had RUQ ultrasound, LFT s improving (10) Breast cancer: Assessment and Plan: history of recent chemo and bilateral mastectomy for invasive ductal cell carcinoma Qualifiers: Breast location: unspecified site of breast Estrogen receptor status: unspecified Laterality: unspecified laterality Patient sex: female Qualified Code(s): C50.919 - Malignant neoplasm of unspecified site of unspecified female breast Plan Patient is a full code Patient will require 2-3 more days of hospital necessary stay, check CT chest today, if patient continues to decline, low threshold of transfer for higher level of care.
--- NOTE | 2024-11-25 08:25 | P.PLPN_ITS ---
Progress Note: A&P Assessment and Plan (1) Pneumonia: Assessment and Plan: 1. Pneumonia, RLL. No identifiable cause - cultures remain negative. Worsened from admission, antibiotics changed 11/21/2024 to current Rocephin + Levaquin regimen. Afebrile, but leukocytosis present. WBC increased from 21.9 to 30.9, but she remains afebrile with CXR showing improvement in right base. ? associated with steroids - but they were stopped (and subsequently restarted). Need to monitor patient closely - repeat CXR tomorrow. 2. Acute hypoxic respiratory failure. Remains hypoxic. Failed NC and Vapotherm, now currently on BiPAP 14/7 with FiO2 40% - slight improvement in O2 demands over the past day. No hypercapnia on ABG. Continue to wean FiO2 as able, goal is to maintain SpO2 90% or greater. 3. Severe sepsis. Secondary to #1. She remains quite ill, continues to require BiPAP support. 4. Acute exacerbation of COPD. Continue current pulmonary regimen. Continue pulmonary toilet. 5. Pleural effusion, right. Suspect parapneumonia. Small on CT chest 11/20/2024. CXR 11/25/2024 shows improvement (I personally reviewed imaging). Patient denies any pleuritic pain or right-chest pressure. If patient worsens, may need to re- evaluate pleural effusion and need for thoracentesis. 6. Hyperkalemia. K+ increased to 5.7. Defer to hospitalist for management. 7. Elevated LFT. Associated with severe sepsis. LFTs have been trending down. 8. Invasive ductal carcinoma of both breasts. Left 2005 s/p chemo & radiation. Right 2019 s/p chemo only (per available records). 9. History of tobacco abuse. 43-pack years, quit 2020. Qualifiers: Laterality: right Lung location: lower lobe of lung Pneumonia type: due to unspecified organism Qualified Code(s): J18.9 - Pneumonia, unspecified organism Plan Patient remains ill. Subjective Subjective Interval history: Patient has worsened clinically since last seen on 11/20/2024. O2 demands increased, was changed from NC to Vapotherm, and then to BiPAP. Reviewed chart notes, labs, imaging, cultures over the past 4 days. Updated data: -No growth on any cultures -Azithromycin changed to levofloxacin on -Remains afebrile -SoluMedrol stopped, changed to prednisone -WBC increased from 21.9 yesterday to 30.9 today. -ABG showed no hypercapnia -Currently on BiPAP, FiO2 weaned down to 40% -CXR 11/25/2024 shows some improvement in RLL infiltrate -LFT increased but are now trending down Patient states she feels better compared to yesteerday. Breathing improved with BiPAP compared to NC or Vapotherm. She denies any issues with the mask or pressures (currently 30/12). She is not expectorating, feels it gets caught in her laryngeal area. She denies any pain or pressure in the right chest. Exam Narrative Exam Narrative: Exam Narrative: Constitutional: Laying in bed, does not appear to be in any respiratory distress HEENT: Wearing iPAP mask Lungs: Continues to have diminished breath sounds in the right base. No crackles or wheezes today Heart: RRR Abdomen: Soft Extremities: No edema. No cyanosis. Neuro: No fasciculations Psych: Appropriate affect. Constitutional Vital Signs, click to edit/add: Last Vital Signs Temp 97.5 F L 11/25/24 07:52 Pulse 82 11/25/24 08:00 Resp 18 11/25/24 07:52 BP 142/78 H 11/25/24 07:52 Pulse Ox 93 L 11/25/24 08:07 O2 Del Method BIPAP 11/25/24 07:52 O2 Flow Rate 40 11/25/24 05:55 FiO2 40 11/25/24 07:47
--- NOTE | 2024-11-25 09:00 | CM.NOTE ---
Rounds made with Dr. Harrell, pt on BIPAP at this time. RN takes pt off BIPAP and put on Vapotherm for Dr. Harrell to communicate with pt. Updated pt on labs and would like to repeat CT of chest today. Dr. Harrell also requested for Dr. Walker to see pt again today for any further recommendations. No discharge.
[2024-11-25] MEDS: SERTRALINE HCL 100 MG TABLET PO (10:15)
[2024-11-25] MEDS: FUROSEMIDE 20 MG/2 ML VIAL IVP (10:15)
[2024-11-25] MEDS: PREDNISONE 20 MG TABLET PO (10:15)
[2024-11-25] MEDS: NYSTATIN 15 GM POWDER 1 APPLIC TOPICAL (10:17)
[2024-11-25] MEDS: FLUTICASONE PROPIONATE 50 MCG NASAL SPRAY 2 SPRAY NS (10:17)
[2024-11-25 11:22] LABS: Glucometer 216 mg/dL (74-106)
[2024-11-25] MEDS: INSULIN ASPART 300 UNIT/3 ML PEN SUBQ ×2 (11:23→17:10)
[2024-11-25] MEDS: SODIUM CHLORIDE 3% INHALATION 15 ML NEB 3 ML IH (11:33)
[2024-11-25] MEDS: BUDESONIDE 0.5 MG/2 ML AMPULE NEB IH (11:33)
--- NOTE | 2024-11-25 11:53 | CM.NOTE ---
2nd Important Message From Medicare discussed with pt, pt denies any questions or concerns.
--- NOTE | 2024-11-25 11:59 | PT.DAILY ---
Physical Therapy Daily Note PT Daily Note/Assess Start: 11/22/24 11:59 Freq: Status: Active Protocol: Document 11/25/24 11:45 [id number] (Rec: 11/25/24 11:59 [id number]) Physical Therapy Daily Note/Assessment Time In/Time Out Time In 10:18 Time Out 10:35 Pain In Pain Level 0 Pain Out Pain Level 0 Subjective Subjective Patient on Vapotherm. Patient received supine in bed with HOB elevated. Patient agreeable to participate with PT. Patient on 60% 02. Therapeutic Exercise Time Therapeutic Exercise 10 Minutes (minutes) Therapeutic Exercise 1 Units Therapeutic Exercise Treatment Therapeutic Exercise SPO2 @ 92% prior to treatment. Patient performed Treatment supine BRYAN LE ther ex for ankle pumps, quad sets, SLR and hip ABD/ADD x 10 reps for strengthening. SPO2 @ 87 % post supine ther ex. Seated ther ex BRYAN LE for marching, heel/toe raises, MRE hip ABD/ADD x 10 reps with SPO2 @ 83%. Patient provided seated therapeutic rest break with VC's for breathing. Standing ther ex for BRYAN marching x 10 reps and hip flexion 6 reps with SPO2 @ 77%. Patient seated immediately with verbal cues for breathing technique. Patient was checked on by nursing due to drop in 02 with increase of 02 to 70% . Therapeutic Activity Time Therapeutic Activity 7 Minutes (minutes) Therapeutic Activity 0 Units Therapeutic Activity Treatment Bed Mobility Ability Standby Assistance Chair Transfer Standby Assistance Ability Therapeutic Activity Transfer supine to L sit EOB with use of L hand rail is Comments SBA +1. SPO2 after bed mobility was 85%. Patient sat EOB for therapeutic rest break. Patient performed seated ther ex, see above. Transfer: sit to stand to 2WW SBA +1. SPO2 prior to transfer @ 90%. Patient performed standing ther ex @ 2WW with SPO2 dropping to 77%. Patient immediately seated EOB and VC's for breathing. Transfer: sit to supine SBA +1. CBWR and all needs met. Total Physical Therapy Time Total Therapy 17 Minutes Total Physical 1 Therapy Units Summary Daily Note Summary Patient experiences drop in SPO2 level with exertion. Therapeutic rest break with breathing assists return to SPO2 levels. Patients breathing currently is limiting progression for functional mobility. Patient would benefit from skilled care upon D/C to address functional deficits.
--- NOTE | 2024-11-25 12:01 | CT_ITS ---
[address] [address] Patient Name: PRINCESS LOPEZ MRN: [id number] date: 1960 Sex: F Assigned Patient Location: Current Patient Location: Accession/Order Number: [id number] Exam Date: 11/25/2024 13:23 Report Date: 11/25/2024 13:41 At the request of: MARCELLO REDDY DO Procedure: CT chest wo con CT Chest without contrast TECHNIQUE: Axial imaging with 2-D reconstruction. The CT exam was performed using one or more the following dose reduction techniques: Automated exposure control, adjustment of the MA and/or Kv according to patient size, or use of the iterative reconstruction technique. History: Worsening hypoxia. Weakness. COMPARISON: None THYROID: Unremarkable TRACHEA AND BRONCHI: Patent ESOPHAGUS: Unremarkable. HEART: Within normal limits PERICARDIAL EFFUSION: None CORONARY ARTERY CALCIFICATION: Present MEDIASTINUM: No adenopathy. No pneumoperitoneum. No mediastinal hematoma. PULMONARY OFE: No hilar mass or adenopathy is seen. THORACIC AORTA Unremarkable LUNG NODULE None LUNGS: Patchy groundglass opacities involving the right lower lobe posteriorly, right upper lobe posteriorly. Emphysematous changes. Right middle lobe atelectasis/scarring. The left basilar linear atelectasis/scarring. PLEURAL EFFUSION: Pleural thickening of the right major fissure and lung base. PNEUMOTHORAX: No pneumothorax seen. CHEST WALL: No abnormality AXILLA:Unremarkable BONY STRUCTURES Intact UPPER ABDOMEN: Images of the upper abdomen are noncontributory. Breast implantation CT/CT chest wo con IMPRESSION: Groundglass opacification posterior portions of the right upper and right lower lobe. Consider infiltrate/aspiration pneumonitis. Bibasilar atelectasis/scarring. Marked emphysematous changes. Impression dictated by: Richard Sheriff M.D. 11/25/2024 1:41 PM Dictation Location: [place] [address] Electronically authenticated by: [id number] Y Date: 11/25/2024 13:41
--- NOTE | 2024-11-25 14:09 | CM.NOTE ---
Dr. Harrell given final urine culture results.
[2024-11-25] MEDS: SODIUM CHLORIDE 0.9% INHALATION 3 ML NEB 6 ML IH (15:14)
[2024-11-25 16:45] LABS: Glucometer 183 mg/dL (74-106)
--- NOTE | 2024-11-25 16:56 | P.DS_ITS ---
DS: Providers Provider Date of admission: 11/20/24 16:05 Primary care physician: JOSUE AGUIRRE Attending physician on admission: Robert Oshea Consults: 11/20/24 17:40 Consult to Pharmacy Routine Consulting Provider: Reason for consultation: Please [place] me when Med Rec is Updated Has provider been notified: No Occupational Therapy Eval and Treat Routine Reason for consultation: Only if needed for Rehab Has provider been notified: No Physical Therapy Eval and Treat Routine Reason for consultation: Eval and Treat Has provider been notified: No 11/21/24 05:34 Consult to Pulmonology Routine Consulting Provider: Ashwin Walker Reason for consultation: Prog Pneumonia Has provider been notified: No Discharging clinician: Miranda Harrell DS: Diagnosis Discharge Diagnosis (1) Pneumonia: Qualifiers: Laterality: right Lung location: lower lobe of lung Pneumonia type: due to unspecified organism Qualified Code(s): J18.9 - Pneumonia, unspecified organism (2) Acute hypoxic respiratory failure: (3) Acute systolic heart failure: (4) Severe sepsis: (5) Pleural effusion: (6) Depression: Qualifiers: Depression Type: unspecified Qualified Code(s): F32.A - Depression, unspecified (7) Anxiety: (8) Hypokalemia: (9) Elevated liver function tests: (10) Breast cancer: Qualifiers: Breast location: unspecified site of breast Estrogen receptor status: unspecified Laterality: unspecified laterality Patient sex: female Qualified Code(s): C50.919 - Malignant neoplasm of unspecified site of unspecified female breast DS: Summary Hospital Course Hospital Course: Patient is a 64-year-old female who presented to the emergency department on 11/20/24 with weakness and short of breath over the past few days. On arrival to the ER nursing noted patient to have resting pulse oxygen of 85% on room air and she was subsequently placed on 3 L via nasal cannula which did normalize her saturations. Patient endorses she has a history of COPD and states she has been short of breath for the past few days. Patient reports tactile temperatures in the past week. She denies any chest pain. No abdominal pain or nausea/vomiting. She mention she used her albuterol inhaler with no improvement in her shortness of breath. Patient had a chest Xray consistent with RLL pneumonia. Also had a CTA chest negative for PE and showed R sided pneumo bernie. She was started on Rocephin and Azithromycin and IV Solumedrol. LFT's also elevated and RUQ showed and ProBNP elevated to 1400. Echo obtained which showed normal EF 50-60% with some mild right sided pressures but otherwise normal. She was treated with bumex IV push. Respiratory status continued to worsen, she was placed on high flow/Vapotherm. Pulmonary added additional saline nebs to her pul monary toilet and nebs. Continued to be up to 80% FIO2 so based on oxygen 58 on blood gas she was placed BIPAP while sleeping. Yesterday, Azithromycin was changed to Levaquin and Rocephin was continued. Blood and urine cultures negative. We have been unsuccessful at obtaining sputum culture. Patient tolerated BIPAP while sleeping. Today, patient become more short of breath with conversing. FiO2 was 80%, CT without contrast of the chest showed pneumonitis vs infiltrate but improved pleural effusion. WBC's 30, I decreased Solumedrol from 125 to 40mg q6 hours. She's been getting vest therapy as well. Had discussion with patient and we have exhausted all limited resources here. I have arranged transfer to Acute Care facility for Pulmonary/Critical care, cardiology consults and possible Bronch due to her respiratory decompensation today. Patient amendable with plan. She will be transferred to [facility]. Status at Discharge Functional status at discharge: bed bound Overall status at discharge: patient is not back to baseline Time Spent with Patient Time attestation: Total time spent providing and/or coordinating discharge services: Time spent: greater than 30 minutes Exam Narrative Exam Narrative: no change in exam from progress note dated 11/25/24 Constitutional Vital Signs, click to edit/add: Last Vital Signs Temp 97.7 F 11/25/24 16:41 Pulse 85 11/25/24 16:41 Resp 18 11/25/24 16:41 BP 114/69 11/25/24 16:41 Pulse Ox 91 L 11/25/24 16:41 O2 Del Method Vapotherm 11/25/24 16:41 O2 Flow Rate 40 11/25/24 16:41 FiO2 80 11/25/24 16:41 DS: Data Data Completed and Pending Labs on day of discharge: Labs from last 24 hours 11/25/24 11/25/2425 16:44 11:21 07:50 WBC RBC Hgb Hct MCV MCH MCHC RDW Plt Count MPV Neut % (Auto) Lymph % (Auto) [place] % (Auto) Eos % (Auto) Baso % (Auto) Neut # (Auto) Lymph # (Auto) [place] # (Auto) Eos # (Auto) Baso # (Auto) Abs Immat Gran (auto) Imm/Tot Granulo (auto) Sodium Potassium Chloride Carbon Dioxide Anion Gap BUN Creatinine Est GFR ( Amer) Est GFR (Non-Af Amer) BUN/Creatinine Ratio Glucose Calcium Total Bilirubin AST ALT Alkaline Phosphatase NT-Pro-B Natriuret Pep Total Protein Albumin Globulin Albumin/Globulin Ratio POC Glucose 183 H 216 H 235 H 11/25/24 11/24/24 11/24/24 05:11 22:09 16:54 WBC 30.9 H* RBC 4.01 L Hgb 11.4 L Hct 34.7 L MCV 86.5 MCH 28.4 MCHC 32.9 RDW 14.6 Plt Count 553 H MPV 9.1 L Neut % (Auto) 89.5 H Lymph % (Auto) 3.3 L [place] % (Auto) 1.8 Eos % (Auto) 0.0 L Baso % (Auto) 0.4 Neut # (Auto) 27.6 H Lymph # (Auto) 1.0 L [place] # (Auto) 0.6 Eos # (Auto) 0.0 Baso # (Auto) 0.1 Abs Immat Gran (auto) 1.54 H Imm/Tot Granulo (auto) 5.0 H Sodium 140 Potassium 5.7 H Chloride 102 Carbon Dioxide 32.3 H Anion Gap 11.4 BUN 28.0 H Creatinine 0.64 Est GFR ( Amer) >60 Est GFR (Non-Af Amer) >60 BUN/Creatinine Ratio 43.8 Glucose 234 H Calcium 8.9 Total Bilirubin 0.5 AST 46 H ALT 130 H Alkaline Phosphatase 139 H NT-Pro-B Natriuret Pep 1077.0 H Total Protein 5.6 L Albumin 1.9 L Globulin 3.7 Albumin/Globulin Ratio 0.5 POC Glucose 108 H 318 H Discharge Plan Discharge Disposition: [facility] Discharge location: Transfer to [facility]- Dr. Rosales accepting
[2024-11-25] MEDS: CEFTRIAXONE 1,000 MG in 0.9 % SODIUM CHLORIDE 50 ML 100 MG IV (17:10)
[2024-11-25] MEDS: METHYLPREDNISOLONE SOD SUCC PF 40 MG/ML VIAL IVP (17:10)
== END 2024-11-25 17:30 | disposition short-term general hospital (02) | DRG 871 ==
LOC: ER 15:07 → MS 16:09
PROVIDERS: Family Medicine; Nurse Practitioner; Admitting Provider Family Medicine; Emergency Provider Emergency Medicine; PCP Family Medicine; Visit Provider Family Medicine
DX: A41.9 Sepsis, unspecified organism (principal); E43 Unspecified severe protein-calorie malnutrition; J18.9 Pneumonia, unspecified organism; J96.21 Acute and chronic respiratory failure with hypoxia; I50.21 Acute systolic (congestive) heart failure; J44.0 Chronic obstructive pulmonary disease with (acute) lower respiratory infection; J44.1 Chronic obstructive pulmonary disease with (acute) exacerbation; E87.1 Hypo-osmolality and hyponatremia; Z87.891 Personal history of nicotine dependence; F32.A Depression, unspecified; F41.9 Anxiety disorder, unspecified; Z90.13 Acquired absence of bilateral breasts and nipples; Z79.899 Other long term (current) drug therapy; R73.9 Hyperglycemia, unspecified; R79.89 Other specified abnormal findings of blood chemistry; R65.20 Severe sepsis without septic shock; E87.6 Hypokalemia; R68.0 Hypothermia, not associated with low environmental temperature; D50.9 Iron deficiency anemia, unspecified; T50.905A Adverse effect of unspecified drugs, medicaments and biological substances, initial encounter; Z79.60 Long term (current) use of unspecified immunomodulators and immunosuppressants; E87.5 Hyperkalemia; C50.919 Malignant neoplasm of unspecified site of unspecified female breast; R21 Rash and other nonspecific skin eruption; Z68.28 Body mass index [BMI] 28.0-28.9, adult; S22.32XD Fracture of one rib, left side, subsequent encounter for fracture with routine healing; M85.80 Other specified disorders of bone density and structure, unspecified site; M25.561 Pain in right knee
CPT/HCPCS: 36415; 36600; 71045; 71046; 71250; 71275; 73564; 76705; 80053; 81001; 82800; 82805; 82948; 83605; 83880; 84484; 85007; 85025; 85027; 87040; 87070; 87086; 87205; 87420; 87804; 87811; 93005; 93306; 94640; 94660; 94667; 94668; 94761; 94799; 96365; 96367; 96375; 97110; 97161; 97165; 97530; 99285; J0456; J0696; J1938; J2919; J7512; Q9967

== ENCOUNTER 2025-02-05 10:55 | Outpatient (OUT) | payer MEDICARE, OTHER, SELFPAY ==
--- OUTSIDE RECORDS SUMMARY | 2025-02-05 10:58 | XMS_ITS | Encounter Summary ---
Author Organization [facility] Address [address] [place] [address] Care Team Providers Care Crm Marketing Executive Name Role Phone Geraldo Pandya MD Unavailable [phone] Mirian Willett BYPRODUCTS EXTRACTOR.PROJECT CONTROL MANAGER Unavailable [phone] Lyle Rodriguez MD Primary Care Provider [phone] Source Comments In the event this information is protected by the Federal Confidentiality of Alcohol and Drug AbusePatient Records regulations: The Federal rules restrict any use of the information to criminally investigate or prosecute any alcohol or drug abuse patient.[facility] Encounter Details Date Type Department Care Team (Late st Contact Info) Description 11/17/2024 Patient Msg General Surgery [address] [place] [id number] Inessa Bermudez APRN.PROJECT CONTROL MANAGER [address] [place] [address] Appointment Request Social History Tobacco Use Types [...] is lower risk 4 11/15/2022 Data from: https://www.neighborhoodatlas.medicine.[facility]/. Last address used for calculation [address] 11/15/2022 Comments No Sex and [...] No 10/23/2013 2:49 PM Pawan Morgan * Are you blind or do you [...] Author No 10/23/2013 2:49 PM Pawan Morgan ise * Because of a physical, mental, [...] Department Care Team (Latest Contact Info) Description 03/27/2025 10:00 AM EDT Office Visit [facility] [address] [place] [address] [place] [address] 1 year follow up with lab 03/27/2025 10:20 AM EDT Visit (SP) Office Hematology/Oncology [address] [facility] [address] Geraldo Pandya MD [address] [facility] [place] [address] 1 year follow up with lab documented as of this encounter Visit Diagnoses Not on filedocumented in this encounter Care Teams Crm Marketing Executive Relationship Specialty Start Date End Date Lyle Rodriguez MD [address] [place] [address] PCP - General Family Medicine 03/23/23 Geraldo Pandya MD [address] [facility] [place] [address] Physician Hematology/Oncology 05/20/20 Mirian Willett APRN.PROJECT CONTROL MANAGER [address] [place] [address] Nurse Practitioner Hematology/Oncology 05/20/20 documented as of this encounter
--- OUTSIDE RECORDS SUMMARY | 2025-02-05 10:58 | XMS_ITS | Encounter Summary ---
Author Organization [facility] Address [address] [place] [address] Care Team Providers Care Edge Bonder Name Role Phone Toña Villagran MD Primary Care Provider [phone] Geraldo Pandya MD Unavailable [phone] Mirian Willett SUPERVISOR FILM PROCESSING.VALUATION CONSULTANT Unavailable [phone] Jo Juarez RN Unavailable [phone] Toña Villagran MD Primary Care Provider [phone] Lyle Rodriguez MD Primary Care Provider [phone] Source Comments In the event this information is protected by the Federal Confidentiality of Alcohol and Drug AbusePatient Records regulations: The Federal rules restrict any use of the information to criminally investigate or prosecute any alcohol or drug abuse patient.[facility] Encounter Details Date Type Department Care Team (Late st Contact Info) Description 11/30/2020 Patient Msg Psychology [address] [place] [address] Devika Buck, PhD [address] [place] [address] nicotine results Social History Tobacco [...] N ot on file 2020 Data from: https://www.neighborhoodatlas.medicine.[facility]/. Last address used for calculation Not [...] Description 03/27/2025 10:00 AM EDT Office Visit [facility] [address] [place] [address] 1 year follow up with lab 03/27/2025 10:20 AM EDT Visit (SP) Office Hematology/Oncology [address] [place] [address] Geraldo Pandya MD [address] [place] [address] 1 year follow up with lab documented as of this encounter Visit Diagnoses Not on filedocumented in this encounter Care Teams Edge Bonder Relationship Specialty Start Date End Date Toña Villagran MD [address] [place] [address] PCP - General Family Medicine 06/16/11 12/17/20 Toña Villagran MD [address] [place] [address] PCP - General Family Medicine 12/18/20 03/22/23 Lyle Rodriguez MD [address] [place] [address] PCP - General Family Medicine 03/23/23 Geraldo Pandya MD [address] [place] [address] Physician Hematology/Oncology 05/20/20 Mirian Willett APRN.VALUATION CONSULTANT [address] [place] [address] Nurse Practitioner Hematology/Oncology 05/20/20 Jo Juarez, SANDRO [address] [place] [address] Specialty Process Engineering Intern Hematology/Oncology 05/20/20 04/27/21 documented as of this encounter
--- OUTSIDE RECORDS SUMMARY | 2025-02-05 10:58 | XMS_ITS | Encounter Summary ---
Author Organization [facility] Address [address] [place] [address] Care Team Providers Care Roof Bolter Operator Name Role Phone Geraldo Pandya MD Unavailable [phone] Mirian Willett APRN.HEALTH CLINICIAN Unavailable Lyle Rodriguez MD Primary Care Provider [phone] Source Comments In the event this information is protected by the Federal Confidentiality of Alcohol and Drug AbusePatient Records regulations: The Federal rules restrict any use of the information to criminally investigate or prosecute any alcohol or drug abuse patient.[facility] Encounter Details Date Type Department Care Team (Late st Contact Info) Description 11/18/2024 Patient Msg General Surgery [address] [place] [address] Provider, [facility] appointment [...] is lower risk 4 11/15/2022 Data from: https://www.neighborhoodatlas.[facility]/. Last address used for calculation [address] 11/15/2022 Comments No Sex and Gender Information [...] Description 03/27/2025 10:00 AM EDT Office Visit [facility] [address] [facility] [place] [address] 1 year follow up with lab 03/27/2025 10:20 AM EDT Visit (SP) Office Hematology/Oncology [address] [place] [address] Geraldo Pandya MD [address] [facility] [place] [address] 1 year follow up with lab documented as of this encounter Visit Diagnoses Not on filedocumented in this encounter Care Teams Roof Bolter Operator Relationship Specialty Start Date End Date Lyle Rodriguez MD [address] [place] [address] PCP - General Family Medicine 03/23/23 Geraldo Pandya MD [address] [facility] [place] [address] Physician Hematology/Oncology 05/20/20 Mirian Willett APRN.HEALTH CLINICIAN [address] [place] [address] [place] [address] Nurse Practitioner Hematology/Oncology 05/20/20 documented as of this encounter
--- OUTSIDE RECORDS SUMMARY | 2025-02-05 10:58 | XMS_ITS | Encounter Summary ---
Author Organization [facility] Address [address] [place] [address] Care Team Providers Care News Videotape Editor Name Role Phone Toña Villagran MD Primary Care Provider [phone] Geraldo Pandya MD Unavailable [phone] Mirian Willett ENERGY AND SUSTAINABILITY MANAGER.UNIX SYSTEMS ADMINISTRATOR Unavailable [phone] Jo Juarez RN Unavailable [phone] Toña Villagran MD Primary Care Provider [phone] Lyle Rodriguez MD Primary Care Provider [phone] Source Comments In the event this information is protected by the Federal Confidentiality of Alcohol and Drug AbusePatient Records regulations: The Federal rules restrict any use of the information to criminally investigate or prosecute any alcohol or drug abuse patient.[facility] Encounter Details Date Type Department Care Team (Late st Contact Info) Description 10/06/2020 Patient [facility] [address] [place] [address] Devika Buck, PhD [address] [place] [address] virtual visit/consent Social History Tobacco [...] on file 2020 Data from: https://www.neighborhoodatlas.medicine.[facility]/. Last address used for calculation Not on [...] Author No 10/23/2013 2:49 PM EDT Pawan iDaz * Are you blind or do you [...] Description 03/27/2025 10:00 AM EDT Office Visit [facility] [address] [place] [address] 1 year follow up with lab 03/27/2025 10:20 AM EDT Visit (SP) Office Hematology/Oncology [address] [place] [address] Geraldo Pandya MD [address] [facility] [place] [address] 1 year follow up with lab documented as of this encounter Visit Diagnoses Not on filedocumented in this encounter Care Teams News Videotape Editor Relationship Specialty Start Date End Date Toña Villagran MD [address] [place] [address] PCP - General Family Medicine 06/16/11 12/17/20 Toña Villagran MD [facility] [place] [address] PCP - General Family Medicine 12/18/20 03/22/23 Lyle Rodriguez MD [address] [place] [address] PCP - General Family Medicine 03/23/23 Geraldo Pandya MD [address] [place] [address] [place] [address] Physician Hematology/Oncology 05/20/20 Mirian Willett APRN.UNIX SYSTEMS ADMINISTRATOR [address] [facility] [place] [address] Nurse Practitioner Hematology/Oncology 05/20/20 Jo Juarez, SANDRO [address] [facility] [place] [address] Specialty Collar Closer Lockstitch Hematology/Oncology 05/20/20 04/27/21 documented as of this encounter
--- OUTSIDE RECORDS SUMMARY | 2025-02-05 10:58 | XMS_ITS | Encounter Summary ---
Author Organization [facility] Address [address] [place] [address] Care Team Providers Care Roving Sizer Name Role Phone Toña Villagran MD Primary Care Provider [phone] Geraldo Pandya MD Unavailable [phone] Mirian Willett SOIL SPECIALIST.LEADERSHIP DEVELOPMENT MANAGER Unavailable [phone] Jo Juarez RN Unavailable [phone] Toña Villagran MD Primary Care Provider [phone] Lyle Rodriguez MD Primary Care Provider [phone] Source Comments In the event this information is protected by the Federal Confidentiality of Alcohol and Drug AbusePatient Records regulations: The Federal rules restrict any use of the information to criminally investigate or prosecute any alcohol or drug abuse patient.[facility] Encounter Details Date Type Department Care Team (Late st Contact Info) Description 04/02/2020 Patient Msg Genetic Healthcare [address] [place] [address] Provider, [facility] Genetic Consult Referral [...] Description 03/27/2025 10:00 AM EDT Office Visit [facility] [address] [facility] [place] [address] 1 year follow up with lab 03/27/2025 10:20 AM EDT Visit (SP) Office Hematology/Oncology [address] [place] [address] Geraldo Pandya MD [address] [facility] [place] [address] 1 year follow up with lab documented as of this encounter Visit Diagnoses Not on filedocumented in this encounter Care Teams Roving Sizer Relationship Specialty Start Date End Date Toña Villagran MD [address] [place] [address] PCP - General Family Medicine 06/16/11 12/17/20 Toña Villagran MD [address] [place] [address] PCP - General Family Medicine 12/18/20 03/22/23 Lyle Rodriguez MD [address] [place] [address] PCP - General Family Medicine 03/23/23 Geraldo Pandya MD [address] [facility] [place] [address] Physician Hematology/Oncology 05/20/20 Mirian Willett APRN.LEADERSHIP DEVELOPMENT MANAGER [address] [place] [address] [place] [address] Nurse Practitioner Hematology/Oncology 05/20/20 Jo Juarez, SANDRO [address] [facility] [place] [address] Specialty Continuous Improvement Engineer Hematology/Oncology 05/20/20 04/27/21 documented as of this encounter
--- OUTSIDE RECORDS SUMMARY | 2025-02-05 10:58 | XMS_ITS ---
Author Organization [facility] Address [address] [place] [address] Care Team Providers Care Lead Customer Service Representative Name Role Phone Geraldo Pandya MD Unavailable [phone] Mirian Willett CYBER SYSTEMS OPERATIONS SPECIALIST.FISH FROG OR OYSTER FARMER Unavailable [phone] Lyle Rodriguez MD Primary Care Provider [phone] Active Problems Problem Noted Date Diagnosed Date [...]
--- OUTSIDE RECORDS SUMMARY | 2025-02-05 10:58 | XMS_ITS | Encounter Summary ---
Author Organization [facility] Address [address] [place] [address] Care Team Providers Care Manager Outpatient Name Role Phone Geraldo Pandya MD Unavailable [phone] Mirian Willett CIRCULAR CLERK.ELECTRIC MOTOR REPAIRING SUPERVISOR Unavailable [phone] Toña Villagran MD Primary Care Provider [phone] Lyle Rodriguez MD Primary Care Provider [phone] Source Comments In the event this information is protected by the Federal Confidentiality of Alcohol and Drug AbusePatient Records regulations: The Federal rules restrict any use of the information to criminally investigate or prosecute any alcohol or drug abuse patient.[facility] Encounter Details Date Type Department Care Team (Late st Contact Info) Description 04/29/2021 Patient Msg Plastic Surgery [address] [place] [id number] Angel Macias MD [address] [place] [address] Questionnaire Submission Social History Tobacco Use [...] N ot on file 2020 Data from: https://www.neighborhoodatlas.medicine.[facility]/. Last address used for calculation Not [...] Entry Date Author No 10/23/2013 2:49 PM MARCELINOT Pawan Diaz documented in this encounter Plan of Treatment Upcoming Encounters Date Type Department Care Team (Latest Contact Info) Description 03/27/2025 10:00 AM EDT Office Visit [facility] [address] [place] [address] 1 year follow up with lab 03/27/2025 10:20 AM EDT Visit (SP) Office Hematology/Oncology [address] [place] [address] Geraldo Pandya MD [address] [place] [address] 1 year follow up with lab documented as of this encounter Visit Diagnoses Not on filedocumented in this encounter Care Teams Manager Outpatient Relationship Specialty Start Date End Date Toña Villagran MD [address] [place] [address] PCP - General Family Medicine 12/18/20 03/22/23 Lyle Rodriguez MD [address] [place] [address] PCP - General Family Medicine 03/23/23 Geraldo Pandya MD [facility] [address] [place] [address] Physician Hematology/Oncology 05/20/20 Mirian Willett APRN.ELECTRIC MOTOR REPAIRING SUPERVISOR [facility] [place] [address] Nurse Practitioner Hematology/Oncology 05/20/20 documented as of this encounter
--- OUTSIDE RECORDS SUMMARY | 2025-02-05 10:58 | XMS_ITS | Encounter Summary ---
Author Organization [facility] Address [address] [place] [address] Care Team Providers Care Passenger Coach Driver Name Role Phone Toña Villagran MD Primary Care Provider [phone] Geraldo Pandya MD Unavailable [phone] Mirian Willett EYELETTER.VP BUSINESS DEVELOPMENT Unavailable [phone] Jo Juarez RN Unavailable [phone] Toña Villagran MD Primary Care Provider [phone] Lyle Rodriguez MD Primary Care Provider [phone] Source Comments In the event this information is protected by the Federal Confidentiality of Alcohol and Drug AbusePatient Records regulations: The Federal rules restrict any use of the information to criminally investigate or prosecute any alcohol or drug abuse patient.[facility] Encounter Details Date Type Department [...] 2:49 PM EDT Pawan Diaz ise * Are you blind or do you have serious difficulty seeing, even when wearing glasses? Answer Date of Assessment Author No 10/23/2013 2:49 PM EDT Pawan Diaz ise * Do you have serious difficulty walking [...] Description 03/27/2025 10:00 AM EDT Office Visit [facility] [address] [facility] [place] [address] 1 year follow up with lab 03/27/2025 10:20 AM EDT Visit (SP) Office Hematology/Oncology [address] [place] [address] Geraldo Pandya MD [address] [facility] [place] [address] 1 year follow up with lab documented as of this encounter Visit Diagnoses Not on filedocumented in this encounter Care Teams Passenger Coach Driver Relationship Specialty Start Date End Date Toña Villagran MD [facility] [address] [place] [facility] [place] [address] PCP - General Family Medicine 06/16/11 12/17/20 Toña Villagran MD [facility] [address] [facility] [place] [address] PCP - General Family Medicine 12/18/20 03/22/23 Lyle Rodriguez MD [address] [place] [address] PCP - General Family Medicine 03/23/23 Geraldo Pandya MD [address] [place] [address] [place] [address] Physician Hematology/Oncology 05/20/20 Mirian Willett APRN.VP BUSINESS DEVELOPMENT [address] [place] [address] [place] [address] Nurse Practitioner Hematology/Oncology 05/20/20 Jo Juarez, SANDRO [address] [facility] [place] [address] Specialty Wind Energy Project Manager Hematology/Oncology 05/20/20 04/27/21 documented as of this encounter
--- OUTSIDE RECORDS SUMMARY | 2025-02-05 10:58 | XMS_ITS | Encounter Summary ---
Author Organization [facility] Address [address] [place] [address] Care Team Providers Care Red Lead Burner Name Role Phone Geraldo Pandya MD Unavailable [phone] Mirian Willett APRN.MASTIC MAN Unavailable [phone] Lyle Rodriguez MD Primary Care Provider [phone] Source Comments In the event this information is protected by the Federal Confidentiality of Alcohol and Drug AbusePatient Records regulations: The Federal rules restrict any use of the information to criminally investigate or prosecute any alcohol or drug abuse patient.[facility] Encounter Details Date Type Department Care Team (Late st Contact Info) Description 2023 [place] [address] Provider, [facility] Medicare Coverage of Physical Exams [...] is lower risk 4 11/15/2022 Data from: https://www.neighborhoodatlas.[facility]/. Last address used for calculation [address] 11/15/2022 Comments No Sex and Gender Information [...] Description 03/27/2025 10:00 AM EDT Office Visit [facility] [address] [place] [address] 1 year follow up with lab 03/27/2025 10:20 AM EDT Visit (SP) Office Hematology/Oncology [address] [place] [address] Geraldo Pandya MD [address] [facility] [place] [address] 1 year follow up with lab documented as of this encounter Visit Diagnoses Not on filedocumented in this encounter Care Teams Red Lead Burner Relationship Specialty Start Date End Date Lyle Rodriguez MD [address] [place] [address] PCP - General Family Medicine 03/23/23 Geraldo Pandya MD [address] [place] [address] Physician Hematology/Oncology 05/20/20 Mirian Willett APRN.MASTIC MAN [address] [place] [address] Nurse Practitioner Hematology/Oncology 05/20/20 documented as of this encounter
--- OUTSIDE RECORDS SUMMARY | 2025-02-05 10:58 | XMS_ITS | Clinical Summary ---
Author Organization [facility] Address [address] [place] [address] Care Team Providers Care Forestry Aid Technician Name Role Phone Unavailable Primary Care Provider [...] 03/01/2021 03/01/2020 Mammogram 04/21/2021 04/21/2020 Influenza Vaccine (#1) 2025 2, 04/29/2021, 03/01/2020 Insurance GENERIC COMMERCIAL
--- OUTSIDE RECORDS SUMMARY | 2025-02-05 10:58 | XMS_ITS | Clinical Summary ---
Author Organization [facility] Address [address] [place] [address] Care Team Providers Care Hand Tube Winder Name Role Phone Geraldo Pandya MD Unavailable [phone] Mirian Willett HAZARDOUS WASTE TECHNICIAN.OUTSOLE CASER Unavailable [phone] Lyle Rodriguez MD Primary Care Provider [phone] Allergies Active Allergy Reactions Criticality Noted Date [...] Type Department Care Team Description 11/18/2024 Patient [facility] [address] [id number] Provider, [facility] Breast Health appointment reminder 11/17/2024 Patient [facility] [address] [place] [address] Inessa Bermudez APRN.OUTSOLE CASER Appointment Request from Last 3 Months Immunizations [...] is lower risk 4 11/15/2022 Data from: https://www.neighborhoodatlas.medicine.[facility].edu/. Last address used for calculation [address] [place] [address] 11/15/2022 Comments No Sex and Gender Information [...] Description 03/27/2025 10:00 AM EDT Office Visit [facility] [address] [place] [address] 1 year follow up with lab 03/27/2025 10:20 AM EDT Visit (SP) Office Hematology/Oncology [address] [place] [place] [address] Geraldo Pandya MD [address] [place] [address] 1 year follow up with lab Health [...] PCV) 03/01/2021 03/01/2020 HbA1C 10/17/2021 04/19/2021, 12/17/2020 Medicare Annual Wellness Visit 05/19/2023 Bone Density Screening 2023 Advance Directive Discussion 06/19/2024 Influenza Vaccine (#1) 2025 4, 03/23/2022, 04/29/2021, Additional history exists Mammogram Screening Discontinued 04/21/2020 Cervical Cancer Screening Discontinued 12/04/2020 Medical Devices Implanted Type Area Ems Driver Device Identifier Shelf Expiration Date Model / Serial / Lot Exp Tiss [facility] Brst 500cc Mv - [id number] Implanted:Qty: 1 on 12/29/2020 at [facility] 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: Breast [employer] 11/01/2024 133S-MV-14 -T / [id number] / Exp Tiss Smth Brst 500cc Mv - [id number] Implanted:Qty: 1 on 12/29/2020 at [facility] Entry Level Project Engineer - Tissue Left: Breast [employer] 07/23/2024 133S-MV-14 -T / [id number] / Imp Brst 605cc [facility] Katie Inspr - [id number] Implanted:Qty: 1 on 05/03/2021 by Angel Macias MD at [facility] Mammary / Breast Right: Breast [employer] 02/28/2026 [facility]-605 / [id number] / Imp Brst 605cc [facility] Katie Inspr - [id number] Implanted:Qty: 1 on 05/03/2021 by Angel Macias MD at [facility] Mammary / Breast Left: Breast [employer] 02/28/2026 [facility]-605 / [id number] / Matrix Alloderm Tissue Medium Rectangular [id number] - [id number] Implanted:Qty: 1 on 12/29/2020 by Angel Macias MD at [facility] Mesh Left: Breast [employer] 04/18/2022 [id number] / [id number] / [id number] Matrix Alloderm Tissue Medium Rectangular [id number] - [id number] Implanted:Qty: 1 on 12/29/2020 by Angel Macias MD at [facility] Mesh Left: Breast [employer] 06/18/2022 [id number] / [id number] / [id number] Procedures Procedure Name Priority Date/Time Associated [...] - 5.6 % 04/19/2021 7:38 PM EDT [facility] Comment: [place] Diabetes Association guidelines indicate that patients with HgbA1c in the range 5.7-6.4% are at increased risk for development of diabetes, and intervention by lifestyle modification may be beneficial. HgbA1c greater or equal to 6.5% is considered diagnostic of diabetes. Estimated Average Glucose 134 mg/dL 04/19/2021 7:38 PM EDT [facility] Comment: eAG: (Estimated average glucose) is a calculated value from HgbA1c and is sales representative supervisor of the average blood glucose level in the last 2-3 month period. Blood WHOLE BLOOD SPECIMEN / Unknown 04/19/2021 2:46 PM EDT 04/19/2021 2:48 PM EDT Miranda Shaikh PA-C LABORATORY Final Result [facility] [address] [facility] [place] [place] [address] [facility] [address] [place] [address] * PAP FLUID CERVICAL SCREENING (12/04/2020 10:10 AM EDT) Upholstery Bundler Specimen originated from [facility] Specimen #: [id number] Submitting Physician: DIA DUFF CNP SPECIMEN SUBMITTED [...] from every slide are reviewed by a backhaul driver. LENNY Barrera(ASCP) (Electronic Signature) CLINICAL DATA ROUTINE EXAM HPV TESTING: Yes, Reflex HPV for ASCUS Date of Last Menstrual Period: Postmenopausal STAINS A: CERVICAL, SCREENING, FLUID THIN PREP SLOT ROUTER Luis A Norton M.D., Biostatistics Professor Date of Report: 12/09/2020 Date of Procedure: 12/04/2020 Date of Receipt: 12/07/2020 Submitted by: DIA DUFF CNP Location: [facility] Diagnostic interpretation performed at [facility], [address] [place] [address]. [place] Number: [id number] The Pap Smear is a screening test for cervical cancer. False negative results occur with all screening tests, emphasizing the need for rescreening at recommended intervals, and clinical correlation. 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
--- OUTSIDE RECORDS SUMMARY | 2025-02-05 10:58 | XMS_ITS | Encounter Summary ---
Author Organization [facility] Address [address] [place] [address] Care Team Providers Care Director Business Travel Name Role Phone Toña Villagran MD Primary Care Provider [phone] Geraldo Pandya MD Unavailable [phone] Mirian Willett BOILER MECHANIC.CARRIER OPERATOR Unavailable [phone] Jo Juarez RN Unavailable [phone] Toña Villagran MD Primary Care Provider [phone] Lyle Rodriguez MD Primary Care Provider [phone] Source Comments In the event this information is protected by the Federal Confidentiality of Alcohol and Drug AbusePatient Records regulations: The Federal rules restrict any use of the information to criminally investigate or prosecute any alcohol or drug abuse patient.[facility] Encounter Details Date Type Department Care Team (Late st Contact Info) Description 10/07/2020 Patient Msg Psychology [address] [place] [address] Devika Buck, PhD [address] [place] [address] summary Social History Tobacco Use [...] N ot on file 2020 Data from: https://www.neighborhoodatlas.medicine.[facility]/. Last address used for calculation Not [...] of Assessment Author No 10/23/2013 2:49 PM EDPawan Price * Because of a physical, mental, or [...] Description 03/27/2025 10:00 AM EDT Office Visit [facility] [address] [place] [address] 1 year follow up with lab 03/27/2025 10:20 AM EDT Visit (SP) Office Hematology/Oncology [address] [place] [address] Geraldo Pandya MD [address] [facility] [place] [address] 1 year follow up with lab documented as of this encounter Visit Diagnoses Not on filedocumented in this encounter Care Teams Director Business Travel Relationship Specialty Start Date End Date Toña Villagran MD [address] [place] [address] PCP - General Family Medicine 06/16/11 12/17/20 Toña Villagran MD [facility] [place] [address] PCP - General Family Medicine 12/18/20 03/22/23 Lyle Rodriguez MD [facility] [place] [address] PCP - General Family Medicine 03/23/23 Geraldo Pandya MD [address] [place] [address] [place] [address] Physician Hematology/Oncology 05/20/20 Mirian Willett APRN.CARRIER OPERATOR [facility] [place] [address] Nurse Practitioner Hematology/Oncology 05/20/20 Jo Juarez, SANDRO [address] [facility] [place] [address] Specialty Training Officer Hematology/Oncology 05/20/20 04/27/21 documented as of this encounter
--- OUTSIDE RECORDS SUMMARY | 2025-02-05 10:58 | XMS_ITS | Encounter Summary ---
Author Organization [facility] Address [address] [place] [address] Care Team Providers Care Forensics Analyst Name Role Phone Toña Villagran MD Primary Care Provider [phone] Geraldo Pandya MD Unavailable [phone] Mirian Willett RN CHILD.SEARCHLIGHT OPERATOR Unavailable [phone] Jo Juarez RN Unavailable [phone] Toña Villagran MD Primary Care Provider [phone] Lyle Rodriguez MD Primary Care Provider [phone] Source Comments In the event this information is protected by the Federal Confidentiality of Alcohol and Drug AbusePatient Records regulations: The Federal rules restrict any use of the information to criminally investigate or prosecute any alcohol or drug abuse patient.[facility] Encounter Details Date Type Department Care Team (Late st Contact Info) Description 10/28/2020 Patient Msg Psychology [address] [place] [address] Devika Buck, PhD [address] [place] [address] summary Social History Tobacco Use [...] N ot on file 2020 Data from: https://www.neighborhoodatlas.medicine.[facility]/. Last address used for calculation Not on [...] Description 03/27/2025 10:00 AM EDT Office Visit [facility] [address] [place] [address] 1 year follow up with lab 03/27/2025 10:20 AM EDT Visit (SP) Office Hematology/Oncology [address] [place] [address] Geraldo Pandya MD [address] [facility] [place] [address] 1 year follow up with lab documented as of this encounter Visit Diagnoses Not on filedocumented in this encounter Care Teams Forensics Analyst Relationship Specialty Start Date End Date Toña Villagran MD [address] [place] [address] PCP - General Family Medicine 06/16/11 12/17/20 Toña Villagran MD [facility] [address] PCP - General Family Medicine 12/18/20 03/22/23 Lyle Rodriguez MD [facility] [place] [address] PCP - General Family Medicine 03/23/23 Geraldo Pandya MD [address] [place] [address] [place] [address] Physician Hematology/Oncology 05/20/20 Mirian Willett APRN.SEARCHLIGHT OPERATOR [facility] [place] [address] Nurse Practitioner Hematology/Oncology 05/20/20 Jo Juarez, SANDRO [address] [facility] [place] [address] Specialty Biophysics Scientist Hematology/Oncology 05/20/20 04/27/21 documented as of this encounter
[2025-02-05 11:08] LABS: Hemoglobin 13.4 g/dL (12.0-16.0)
--- OUTSIDE RECORDS SUMMARY | 2025-02-05 11:13 | XMS_ITS | CCD ---
Author Organization [facility] Care Team Providers Care Booker Name Role Phone Geraldo Bernal MD Unavailable [phone] Brennon LOGISTICS SOLUTION MANAGER.STEEL CUTTER, Tino Unavailable [phone] Jacquelyn Villagran MD Primary Care Provider TRINY, DR JACQUELYN Cardozo Attending Unavailable TRINY, DR JACQUELYN Cardozo Admitting Unavailable TRINY, DR JACQUELYN Cardozo Primary Care Unavailable TRINY, DR JACQUELYN Cardozo Consulting Unavailable TRINY, DR JACQUELYN Cardozo Admitting Unavailable TRINY, DR JACQUELYN Cardozo Primary Care Unavailable TRINY, DR JACQUELYN Cardozo Consulting Unavailable TRINY, DR JACQUELYN Cardozo Attending Unavailable Geraldo Bernal MD Unavailable [phone] Brennon LOGISTICS SOLUTION MANAGER.STEEL CUTTER, Tino Unavailable Jacquelyn Villagran MD Primary Care Provider [phone] Isidra Mota Primary Care Physician [phone] Josue Aguirre MD Primary Care Provider Jacquelyn Villagran MD Primary Care Provider INESSA ANDREW Attending Unavailable JACQUELYN VILLAGRAN Referring Unavailable JOSUE AGUIRRE Primary Care Unavailable Josue Aguirre MD Primary Care Provider Jacquelyn Villagran MD Primary Care Provider [phone] GERALDO BERNAL Referring Unavailable JOSUE AGUIRRE Primary Care Unavailable TINO MCGUIRE Attending Unavailable GERALDO BERNAL Referring Unavailable JOSUE AGUIRRE Primary Care Unavailable Jacquelyn Villagran MD Primary Care Provider Isidra Mota Admitting Unavailable Isidra Mota Attending Unavailable Isidra Mota Attending Unavailable Svetlana, Isidra L Attending Unavailable Svetlana, Isidra L Attending Unavailable Svetlana, Isidra L Attending Unavailable Svetlana, Isidra L Attending Unavailable Svetlana, Isidra L Attending Unavailable Svetlana, Isidra L Attending Unavailable Svetlana, Isidra L Attending Unavailable Svetlana, Isidra L Attending Unavailable Svetlana, Isidra L Attending Unavailable Svetlana, Isidra L Admitting Unavailable Svetlana, Isidra L Attending Unavailable Robert Oshea MD Attending Provider Svetlana, SENIOR JAVA SOFTWARE ENGINEER Isidra L Attending Unavailable Svetlana, SENIOR JAVA SOFTWARE ENGINEER Isidra L Attending Unavailable Svetlana, SENIOR JAVA SOFTWARE ENGINEER Isidra L Attending Unavailable Svetlana, SENIOR JAVA SOFTWARE ENGINEER Isidra L Attending Unavailable Svetlana, SENIOR JAVA SOFTWARE ENGINEER Isidra L Admitting Unavailable Svetlana, SENIOR JAVA SOFTWARE ENGINEER Isidra Marie Attending Unavailable Robert Oshea Admitting Unavailable Robert Oshea Attending Unavailable Svetlana, Isidra Rayo Primary Care Unavailable Adria Malin Consulting Unavailable Bobby, Pepper Admitting Unavailable Bobby, Pepper Attending Unavailable Zeb Riggs Consulting Unavaila ble Allergies Allergy Classification Reported Allergen(s) Allergy Type Date of Onset Reaction(s) Facility (8 sources) Penicillins; Translations: [PENICILLINS] Drug Allergy 2 Unknown [facility] (17 sources) Penicillins Drug Allergy 2 Unknown [facility] (1 source) Penicillins Drug allergy (disorder) 5 [facility] (5 sources) Penicillin; Translations: [penicillin] Drug Allergy Unknown (qualifier value) [facility] (1 source) Penicillins Drug allergy (disorder) 5 [facility] Repository Medications Current Medications Medication Drug Class(es) Dates Sig (Normalized) Sig (Original) acetaminophen 500 mg oral tablet (20 sources) Start: 08-27-2021 take 2 tablets by mouth every six hours as needed acetaminophen (TYLENOL EXTRA STRENGTH) 500 mg tablet Take 2 tablets by mouth every 6 hours as needed for pain. Two (2) X 500 mg tablets = 1,000 mg 80 tablet 08/27/2021 Active Start: 03-23-2017 acetaminophen (TYLENOL) 325 mg tablet Take 650 mg by mouth. 03/23/2017 Active Comment on above: Take 650 mg by mouth . Take 2 tablets by mo uth every 6 hours as needed for pain. Two (2) X 500 mg tablets = 1,000 mg Acetaminophen / diphenhydrAM INE (20 sources) Histamine-1 Receptor Antagonist acetaminophen/diphen hy dramine (TYLENOL PM ORAL) Take by mouth. Active acetaminophen/di phenhydramine (TYLENOL PM ORAL) Take by mouth. 0 Active Comment on above: Take by mouth. [id number] 200 actuat albuterol 0.09 mg/actuat metered dose inhaler (13 sources) beta2-Adrenergic Agonist Start: 2021 take 2 puff(s) by inhalation every four hours as needed albuterol HFA (PROVENTIL HFA, VENTOLIN HFA) 90 mcg/actuation inhaler Inhale 2 Puffs as instructed every 4 hours as needed. 03/04/2022 Active Comment on above: Inhale 2 Puffs as in structed every 4 hours as needed. Albuterol (Eqv-ProAir HFA) 90 mcg/inh inhalation aerosol (2 sources) Start: 2022 take 2 puff(s) by inhalation every six hours Albuterol (Eqv-ProAir HFA) 90 mcg/inh inhalation aerosol 2 puff(s), Inhalation, q6hr Wheezing, 8.5 gm, Refill(s) 1, [facility], 156.5, cm, 02/02/23 9:30:00 EDT, Height/Length Dosing, 75, kg, 02/02/23 9:30:00 EDT, Weight Dosing Start Date: 02/02/23 Status: Ordered Aspir 81 (1 source) Start: 2022 take 81 mg by mouth once daily Aspir 81 81 mg, Oral, Daily, Refills(s) 0 Start Date: 04/20/23 Status: Ordered cholecalciferol 0.05 mg oral tablet (20 sources) Vitamin D take 1 tablet by mouth once daily cholecalciferol (VITAMIN D3) 50 mcg (2,000 unit) tablet Take 2,000 Units by mouth once daily. Active Comment on above: Take 2,000 Units by mouth once daily. lactobacillus acidophilus [id number] unt oral capsule (20 sources) Lactobacillus acidophilus (PROBIOTIC) 10 billion cell cap Take by mouth once daily. Active Comment on above: Take by mouth once d aily. magnesium oxide 400 mg oral capsule (9 sources) magnesium oxide 400 mg magnesium cap Take by mouth. Active Comment on above: Take by mouth. phentermine hydrochloride 37.5 mg oral tablet (8 sources) Sympathomimetic Amine Anorectic Start: 2022 take 1 tablet by mouth once Phentermine HCl 37.5 mg tablet Take 1 tablet by mouth every afternoon. 03/16/2023 Active Start: 02-02-2023 take 1 tablet by jovanny th once daily phentermine 37.5 mg Tab 37.5 mg = 1 tab(s), Oral, Daily, # 30 tab(s), Refills(s) 0, Pharmacy: [facility], 156.5, cm, 02/02/23 9:30:00 EDT, Height/Length Dosing, 75, kg, 02/02/23 9:30:00 EDT, Weight Dosing Start Date: 02/02/23 Status: Ordered Comment on above: Take 1 tablet by jovanny th every afternoon. rivaroxaban 10 mg oral tablet (3 sources) Factor Xa Inhibitor Start: 2 End: 3 take 1 tablet by mouth once daily rivaroxaban (XARELTO) 10 mg tablet Indications: Acute deep vein thrombosis (DVT) of non-extremity vein Take 1 tablet by mouth once daily. 90 tablet 1 03/11/2022 09/07/2022 Active Comment on above: Take 1 tablet by jovanny th once daily. sertraline 100 mg oral tablet (20 sources) Serotonin Reuptake Inhibitor Start: 1 End: 2 take 1 tablet by mouth once daily sertraline (ZOLOFT) 100 mg tablet Take 1 tablet by mouth once daily. 90 tablet 3 10/07/2020 Active Start: 06-27-2013 End: 07-20-2020 take 1 tablet by mouth once daily sertraline (ZOLOFT) 50 mg tablet Indications: Breast CA (HCC) Take 1 tablet by mouth once daily. 90 tablet 3 06/27/2013 07/20/2020 Discontinued (Discontinued by Patient) Comment on above: Take 1 tablet by jovanny th once daily. vitamin b12 1 mg oral tablet (20 sources) Vitamin B12 take 1 tablet by mouth once daily cyanocobalamin (VITAMIN B-12) 1,000 mcg tab Take 1,000 mcg by mouth once daily. Active Comment on above: Take 1,000 mcg by mo uth once daily. Vitamin D3 50,000 intl units oral capsule (2 sources) Start: 02-02-2023 take 1 capsule by mouth once daily Vitamin D3 50,000 intl units oral capsule 1,250 mcg = 1 cap(s), Oral, Daily, Refills(s) 0 Start Date: 02/02/23 Status: Ordered Completed/Discontinued Medications Medication Drug Class(es) Dates Sig (Normalized) Sig (Original) alendronic acid 35 mg oral tablet (2 sources) Bisphosphonate Start: 02-02-2023 take 6-8 [oz_av] by mouth once daily alendronate 35 mg Tab 35 mg = 1 tab(s), Oral, q7day, with 6-8 oz plain water, at least 30 minutes before first food, beverage, or medication of the day. Sit up right for 30 minutes after taking medication ( do not lay down), # 4 tab(s), Refills(s) 5, Pharmacy: [place] [id number] Start Date: 02/02/23 Status: Ordered ibuprofen 600 mg oral tablet (10 sources) Nonsteroidal Anti-inflammatory Drug Start: 02-10-2021 End: 09-09-2022 take 1 tablet by mouth every six hours as needed ibuprofen (MOTRIN) 600 mg tablet Take 1 tablet by mouth every 6 hours as needed for pain. 20 tablet 0 02/10/2021 09/09/2022 Discontinued (Discontinued by another Health Care Provider) Comment on above: Take 1 tablet by jovanny th every 6 hours as needed for pain. sennosides, [facility] 8.6 mg oral tablet (4 sources) Start: 08-27-2021 End: 09-26-2021 take 1 tablet by mouth twice daily senna (SENNA) 8.6 mg tab Take 1 tablet by mouth twice daily. 60 tablet 0 08/27/2021 09/26/2021 Comment on above: Take 1 tablet by jovanny th twice daily. Problems Active Problems Problem Classification Problem Date Documented Da te Episodic/Chronic Administrative/social admission (1 source) Counseling procedure with explicit context; Translations: [Dietary counseling and surveillance] Episodic Anxiety disorders (20 sources) Anxiety; Translations: [Anxiety disorder, unspecified] Onset: 04-19-2021 04-19-2021 Chronic Asthma (3 sources) Asthma 01-26-2023 Chronic Cancer of breast (20 sources) Malignant neoplasm of female breast; Translations: [Malignant neoplasm of nipple and areola, right female breast] Onset: 05-02-2012 06-29-2020 Chronic Chronic obstructive pulmonary disease and bronchiectasis (20 sources) Pulmonary emphysema; Translations: [Emphysema, unspecified] Onset: 01-27-2021 01-27-2021 Chronic Diabetes mellitus without complication (20 sources) Type 2 diabetes mellitus; Translations: [Type 2 diabetes mellitus without complications] Onset: 04-19-2021 04-19-2021 Chronic Diabetes mellitus without complication (3 sources) Hyperglycemia 02-02-2023 Episodic Disorders of lipid metabolism (3 sources) Hyperlipidemia 01-26-2023 Chronic Immunizations and screening for infectious disease (1 source) Vaccination needed; Translations: [Encounter for immunization] 03-28-2024 Episodic Malaise and fatigue (4 sources) Fatigue; Translations: [Other fatigue] Episodic Mood disorders (1 source) Moderate recurrent major depression 08-12-2024 Chronic Neoplasms of unspecified nature or uncertain behavior (1 source) Neoplasm of breast; Translations: [Neoplasm of unspecified behavior of breast] 04-21-2020 Episodic Nutritional deficiencies (1 source) Vitamin D deficiency; Translations: [Vitamin D deficiency, unspecified] 03-28-2024 Chronic Osteoporosis (3 sources) Osteoporosis; Translations: [Age-related osteoporosis without current pathological fracture] Chronic Other bone disease and musculoskeletal deformities (4 sources) Osteopenia; Translations: [Other specified disorders of bone density and structure, unspecified site] 02-02-2023 Episodic Other bone disease and musculoskeletal deformities (1 source) Other specified disorders of bone density and structure, unspecified site; Translations: [Osteopenia, unspecified location] Onset: 11-20-2023 Episodic Other gastrointestinal disorders (1 source) Abdominal bloating; Translations: [Abdominal distension (gaseous)] Episodic Other gastrointestinal disorders (1 source) Abdominal mass; Translations: [Intra-abdominal and pelvic swelling, mass and lump, unspecified site] 03-04-2022 Episodic Other lower respiratory disease (1 source) Interstitial lung disease; Translations: [Interstitial pulmonary disease, unspecified] 03-04-2022 Chronic Other lower respiratory disease (4 sources) Shortness of breath; Translations: [SHORTNESS OF BREATH] Onset: 04-08-2022 Episodic Other lower respiratory disease (2 sources) Multiple nodules of lung; Translations: [Other nonspecific abnormal finding of lung field] 03-04-2022 Episodic Other nervous system disorders (3 sources) Neuropathy 01-26-2023 Chronic Other nutritional; endocrine; and metabolic disorders (3 sources) Calorie overload 02-02-2023 Chronic Other nutritional; endocrine; and metabolic disorders (2 sources) Body mass index 30+ - obesity 12-14-2023 Chronic Other nutritional; endocrine; and metabolic disorders (1 source) Unintentional weight gain; Translations: [Abnormal weight gain] Episodic Other nutritional; endocrine; and metabolic disorders (2 sources) Overweight in adulthood with body mass index of 25 or more but less than 30; Translations: [Body mass index (BMI) 28.0-28.9, adult] Episodic Other nutritional; endocrine; and metabolic disorders (1 source) Overweight; Translations: [Excess weight] Onset: 11-20-2023 Episodic Other nutritional; endocrine; and metabolic disorders (1 source) Overweight; Translations: [Overweight] 11-20-2023 Episodic Other screening for suspected conditions (not mental disorders or infectious disease) (5 sources) Patient encounter status; Translations: [Encounter for screening for osteoporosis] Onset: 11-25-2024 Episodic Other skin disorders (1 source) Skin lesion; Translations: [Disorder of the skin and subcutaneous tissue, unspecified] Episodic Other upper respiratory disease (1 source) Seasonal allergy 12-07-2023 Chronic Phlebitis; thrombophlebitis and thromboembolism (2 sources) Acute deep venous thrombosis; Translations: [Acute embolism and thrombosis of unspecified vein] Episodic Pneumonia (except that caused by tuberculosis or sexually transmitted disease) (1 source) Pneumonia, unspecified organism; Translations: [Pneumonia, unspecified organism] Onset: 11-25-2024 Episodic Residual codes; unclassified (2 sources) Postoperative state; Translations: [Other specified postprocedural states] Episodic Residual codes; unclassified (10 sources) BRCA1 gene mutation positive; Translations: [Genetic susceptibility to malignant neoplasm of breast] Episodic Residual codes; unclassified (1 source) Tobacco use and exposure - finding; Translations: [Tobacco use] 04-21-2020 Episodic Residual codes; unclassified (1 source) Genetic susceptibility to malignant neoplasm of breast; Translations: [BRCA1 gene mutation positive in female] Onset: 11-20-2023 Episodic Residual codes; unclassified (1 source) Genetic susceptibility to malignant neoplasm of ovary; Translations: [BRCA1 gene mutation positive in female] Onset: 11-20-2023 Episodic Residual codes; unclassified (1 source) Genetic susceptibility to other malignant neoplasm; Translations: [BRCA1 gene mutation positive in female] Onset: 11-20-2023 Episodic Residual codes; unclassified (1 source) Acquired absence of bilateral breasts and nipples; Translations: [S/P mastectomy, bilateral] Onset: 11-20-2023 Episodic Respiratory failure; insufficiency; arrest (adult) (2 sources) Acute respiratory failure with hypoxia; Translations: [Respiratory failure, unspecified, unspecified whether with hypoxia or hypercapnia] Onset: 11-25-2024 Episodic Septicemia (except in labor) (1 source) Sepsis, unspecified organism; Translations: [Sepsis, unspecified organism] Onset: 11-25-2024 Episodic Substance-related disorders (3 sources) Smoker 01-26-2023 Chronic Comment on above: Added secondary to d ocumentation in Social History. Unclassified (2 sources) Patient encounter status 03-16-2023 Past or Other Problems Problem Classification Problem Date Documented Date Episodic/Chronic Cancer of breast (20 sources) History of malignant neoplasm of breast; Translations: [Personal history of malignant neoplasm of breast] Onset: 04-19-2021 04-19-2021 Episodic Nonmalignant breast conditions (20 sources) Breasts asymmetrical; Translations: [Disproportion of reconstructed breast] Onset: 08-12-2021 08-12-2021 Episodic Residual codes; unclassified (1 source) Estrogen receptor negative status [ER-]; Translations: [Malignant neoplasm 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, estrogen receptor negative (HCC)] Onset: 04-02-2020 Episodic Screening and history of mental health and substance abuse codes (20 sources) Ex-smoker; Translations: [Personal history of nicotine dependence] Onset: 04-21-2020 12-17-2020 Episodic Results Test Name Value Interpretation Reference Range Facility Complete Blood Count Auto Di ffon 11-30-2024 Basophils (Bld) [#/Vol] 0.0 10*3/uL Normal 0.0-0.2 [facility] Comment on above: Result Comment: PERF ORMED BY: [place] [id number] PATHOLOGIST [employer] CONSULTANT KARINA ANGLIN M.D. Performed By: #### P ROCALCITONIN, HBSAB, M PNEUM M, HCV RX PCR, HBSAG #### [facility] , #### ESR #### [address] Basophils/100 WBC (Bld) 0.3 % Normal . [facility] Comment on above: Performed By: #### P ROCALCITONIN, HBSAB, M PNEUM M, HCV RX PCR, HBSAG #### [facility] , #### ESR #### [address] Eosinophils (Bld) [#/Vol] 0.3 10*3/uL Normal 0.0-0.45 [facility] Comment on above: Performed By: #### P ROCALCITONIN, HBSAB, M PNEUM M, HCV RX PCR, HBSAG #### [facility] , #### ESR #### [address] Eosinophils/100 WBC (Bld) 2.7 % Normal . [facility] Comment on above: Performed By: #### P ROCALCITONIN, HBSAB, M PNEUM M, HCV RX PCR, HBSAG #### [facility] , #### ESR #### [address] Erythrocyte distribution width (RBC) [Ratio] 14.4 % Normal 11.9-15.3 [facility] Comment on above: Performed By: #### P ROCALCITONIN, HBSAB, M PNEUM M, HCV RX PCR, HBSAG #### [facility] , #### ESR #### [address] Hematocrit (Bld) [Volume fraction] 32.1 % Low 34.0-46.4 [facility] Comment on above: Performed By: #### P ROCALCITONIN, HBSAB, M PNEUM M, HCV RX PCR, HBSAG #### [facility] , #### ESR #### [address] Hemoglobin (Bld) [Mass/Vol] 10.7 g/dL Low 11.8-15.4 [facility] Comment on above: Performed By: #### P ROCALCITONIN, HBSAB, M PNEUM M, HCV RX PCR, HBSAG #### [facility] , #### ESR #### [address] Lymphocytes (Bld) [#/Vol] 1.8 10*3/uL Normal 1.00-4.8 [facility] Comment on above: Performed By: #### P ROCALCITONIN, HBSAB, M PNEUM M, HCV RX PCR, HBSAG #### [facility] , #### ESR #### [address] Lymphocytes/100 WBC (Bld) 15.7 % Normal . [facility] Comment on above: Performed By: #### P ROCALCITONIN, HBSAB, M PNEUM M, HCV RX PCR, HBSAG #### [facility] , #### ESR #### [address] MCH (RBC) [Entitic mass] 28.7 pg Normal 24.7-34.3 [facility] Comment on above: Performed By: #### P ROCALCITONIN, HBSAB, M PNEUM M, HCV RX PCR, HBSAG #### [facility] , #### ESR #### [address] MCV (RBC) [Entitic vol] 85.7 fL Normal 80-100 [facility] Comment on above: Performed By: #### P ROCALCITONIN, HBSAB, M PNEUM M, HCV RX PCR, HBSAG #### [facility] , #### ESR #### [address] Mean Corpuscular HGB Conc 33.5 g/dL Normal 32.0-35.0 [facility] Comment on above: Performed By: #### P ROCALCITONIN, HBSAB, M PNEUM M, HCV RX PCR, HBSAG #### [facility] , #### ESR #### [place] [address] [place] Monocytes (Bld) [#/Vol] 0.8 10*3/uL Normal 0.0-0.8 [facility] Comment on above: Performed By: #### P ROCALCITONIN, HBSAB, M PNEUM M, HCV RX PCR, HBSAG #### [facility] , #### ESR #### [place] [address] [place] Monocytes/100 WBC (Bld) 6.8 % Normal . [facility] Comment on above: Performed By: #### P ROCALCITONIN, HBSAB, M PNEUM M, HCV RX PCR, HBSAG #### [facility] , #### ESR #### [place] [address] [place] Neutrophils (Bld) [#/Vol] 8.4 10*3/uL High 1.8-7.7 [facility] Comment on above: Performed By: #### P ROCALCITONIN, HBSAB, M PNEUM M, HCV RX PCR, HBSAG #### [facility] , #### ESR #### [place] [address] [place] Neutrophils/100 WBC (Bld) 74.5 % Normal . [facility] Comment on above: Performed By: #### P ROCALCITONIN, HBSAB, M PNEUM M, HCV RX PCR, HBSAG #### [facility] , #### ESR #### [address] NRBC% 0.1 /100{WBC} Normal 0-0.5 [facility] Comment on above: Performed By: #### P ROCALCITONIN, HBSAB, M PNEUM M, HCV RX PCR, HBSAG #### [facility] , #### ESR #### [address] Platelet mean volume (Bld) [Entitic vol] 6.5 fL Normal 6.3-10.7 [facility] Comment on above: Performed By: #### P ROCALCITONIN, HBSAB, M PNEUM M, HCV RX PCR, HBSAG #### [facility] , #### ESR #### [address] Platelets (Bld) [#/Vol] 681 10*3/uL High 150-450 [facility] Comment on above: Performed By: #### P ROCALCITONIN, HBSAB, M PNEUM M, HCV RX PCR, HBSAG #### [facility] , #### ESR #### [address] RBC (Bld) [#/Vol] 3.74 10*6/uL Normal 3.60-5.00 [facility] Comment on above: Performed By: #### P ROCALCITONIN, HBSAB, M PNEUM M, HCV RX PCR, HBSAG #### [facility] , #### ESR #### [address] WBC (Bld) [#/Vol] 11.3 10*3/uL Normal 3.8-11.6 [facility] Comment on above: Performed By: #### P ROCALCITONIN, HBSAB, M PNEUM M, HCV RX PCR, HBSAG #### [facility] , #### ESR #### [address] Comprehensive Metabolic Pane justin 11-30-2024 Albumin [Mass/Vol] 3.0 g/dL Low 3.5-5.7 [facility] Comment on above: Performed By: #### P ROCALCITONIN, HBSAB, M PNEUM M, HCV RX PCR, HBSAG #### [facility] , #### ESR #### [address] Albumin/Globulin [Mass ratio] 1.4 {ratio} Normal [facility] Comment on above: Performed By: #### P ROCALCITONIN, HBSAB, M PNEUM M, HCV RX PCR, HBSAG #### [facility] , #### ESR #### [address] ALP [Catalytic activity/Vol] 82 U/L Normal 34-104 [facility] Comment on above: Performed By: #### P ROCALCITONIN, HBSAB, M PNEUM M, HCV RX PCR, HBSAG #### [facility] , #### ESR #### [address] ALT [Catalytic activity/Vol] 51 U/L Normal 7-52 [facility] Comment on above: Performed By: #### P ROCALCITONIN, HBSAB, M PNEUM M, HCV RX PCR, HBSAG #### [facility] , #### ESR #### [address] Anion gap [Moles/Vol] 9.1 mmol/L Normal 6.0-15.0 [facility] Comment on above: Performed By: #### P ROCALCITONIN, HBSAB, M PNEUM M, HCV RX PCR, HBSAG #### [facility] , #### ESR #### [address] AST [Catalytic activity/Vol] 26 U/L Normal 13-39 [facility] Comment on above: Performed By: #### P ROCALCITONIN, HBSAB, M PNEUM M, HCV RX PCR, HBSAG #### [facility] , #### ESR #### [place] [address] [place] Bilirubin [Mass/Vol] 0.5 mg/dL Normal 0.3-1.0 [facility] Comment on above: Performed By: #### P ROCALCITONIN, HBSAB, M PNEUM M, HCV RX PCR, HBSAG #### [facility] , #### ESR #### [place] [address] [place] Calcium [Mass/Vol] 8.6 mg/dL Normal 8.6-10.3 [facility] Comment on above: Performed By: #### P ROCALCITONIN, HBSAB, M PNEUM M, HCV RX PCR, HBSAG #### [facility] , #### ESR #### [place] [address] [place] Chloride [Moles/Vol] 102 mmol/L Normal 98-107 [facility] Comment on above: Performed By: #### P ROCALCITONIN, HBSAB, M PNEUM M, HCV RX PCR, HBSAG #### [facility] , #### ESR #### [place] [address] [place] CO2 [Moles/Vol] 30.2 mmol/L Normal 21.0-31.0 [facility] Comment on above: Performed By: #### P ROCALCITONIN, HBSAB, M PNEUM M, HCV RX PCR, HBSAG #### [facility] , #### ESR #### [facility] [address] [place] [address] [place] Creatinine [Mass/Vol] 0.64 mg/dL Normal 0.60-1.20 [facility] Comment on above: Performed By: #### P ROCALCITONIN, HBSAB, M PNEUM M, HCV RX PCR, HBSAG #### [facility] , #### ESR #### [address] Creatinine Clr Calc Pharmacy 62.97 Normal [facility] Comment on above: Performed By: #### P ROCALCITONIN, HBSAB, M PNEUM M, HCV RX PCR, HBSAG #### [facility] , #### ESR #### [address] GFR/1.73 sq M.predicted MDRD (S/P/Bld) [Vol rate/Area] mL/min/{1.73_m2} Normal [facility] Comment on above: Performed By: #### P ROCALCITONIN, HBSAB, M PNEUM M, HCV RX PCR, HBSAG #### [facility] , #### ESR #### [address] Globulin (S) [Mass/Vol] 2.2 g/dL Normal [facility] Comment on above: Performed By: #### P ROCALCITONIN, HBSAB, M PNEUM M, HCV RX PCR, HBSAG #### [facility] , #### ESR #### [address] Glucose [Mass/Vol] 135 mg/dL High 70-100 [facility] Comment on above: Result Comment: [place] Glucose Reference Range is dependent on time and content of last meal. Glucose of more than 200 mg/dL in a nonstressed, ambulatory subject supports the diagnosis of Diabetes Mellitus. ADA recommended reference range Performed By: #### P ROCALCITONIN, HBSAB, M PNEUM M, HCV RX PCR, HBSAG #### [facility] , #### ESR #### [address] Potassium [Moles/Vol] 4.3 mmol/L Normal 3.5-5.1 [facility] Comment on above: Performed By: #### P ROCALCITONIN, HBSAB, M PNEUM M, HCV RX PCR, HBSAG #### [facility] , #### ESR #### [address] Protein [Mass/Vol] 5.2 g/dL Low 6.4-8.9 [facility] Comment on above: Performed By: #### P ROCALCITONIN, HBSAB, M PNEUM M, HCV RX PCR, HBSAG #### [facility] , #### ESR #### [address] Sodium [Moles/Vol] 137 mmol/L Normal 136-145 [facility] Comment on above: Performed By: #### P ROCALCITONIN, HBSAB, M PNEUM M, HCV RX PCR, HBSAG #### [facility] , #### ESR #### [address] Urea nitrogen [Mass/Vol] 19 mg/dL Normal 7-25 [facility] Comment on above: Performed By: #### P ROCALCITONIN, HBSAB, M PNEUM M, HCV RX PCR, HBSAG #### [facility] , #### ESR #### [address] Magnesiumon 11-30-2024 Magnesium [Mass/Vol] 1.9 mg/dL Normal 1.9-2.7 [facility] Comment on above: Result Comment: PERF ORMED BY: [place] [address] PATHOLOGIST [employer] CONSULTANT KARINA ANGLIN M.D. Performed By: #### P ROCALCITONIN, HBSAB, M PNEUM M, HCV RX PCR, HBSAG #### [facility] , #### ESR #### [address] Comprehensive Metabolic Pane justin 11-29-2024 Albumin [Mass/Vol] 2.9 g/dL Low 3.5-5.7 [facility] Comment on above: Performed By: #### C MP, MG, DIFF CBC #### [facility] [address] [place] [address] [place] Albumin/Globulin [Mass ratio] 1.5 {ratio} Normal [facility] Comment on above: Performed By: #### C MP, MG, DIFF CBC #### [facility] [address] ALP [Catalytic activity/Vol] 91 U/L Normal 34-104 [facility] Comment on above: Performed By: #### C MP, MG, DIFF CBC #### [facility] [address] ALT [Catalytic activity/Vol] 51 U/L Normal 7-52 [facility] Comment on above: Performed By: #### C MP, MG, DIFF CBC #### [address] Anion gap [Moles/Vol] 9.5 mmol/L Normal 6.0-15.0 [facility] Comment on above: Performed By: #### C MP, MG, DIFF CBC #### [address] AST [Catalytic activity/Vol] 21 U/L Normal 13-39 [facility] Comment on above: Performed By: #### C MP, MG, DIFF CBC #### [place] [address] [place] Bilirubin [Mass/Vol] 0.5 mg/dL Normal 0.3-1.0 [facility] Comment on above: Performed By: #### C MP, MG, DIFF CBC #### [facility] [address] [place] [address] [place] Calcium [Mass/Vol] 8.4 mg/dL Low 8.6-10.3 [facility] Comment on above: Performed By: #### C MP, MG, DIFF CBC #### [facility] [address] [place] [address] [place] Chloride [Moles/Vol] 102 mmol/L Normal 98-107 [facility] Comment on above: Performed By: #### C MP, MG, DIFF CBC #### [address] CO2 [Moles/Vol] 30.6 mmol/L Normal 21.0-31.0 [facility] Comment on above: Performed By: #### C MP, MG, DIFF CBC #### [address] Creatinine [Mass/Vol] 0.68 mg/dL Normal 0.60-1.20 [facility] Comment on above: Performed By: #### C MP, MG, DIFF CBC #### [place] [address] [place] Creatinine Clr Calc Pharmacy 63.31 Normal [facility] Comment on above: Performed By: #### C MP, MG, DIFF CBC #### [address] GFR/1.73 sq M.predicted MDRD (S/P/Bld) [Vol rate/Area] mL/min/{1.73_m2} Normal [facility] Comment on above: Performed By: #### C MP, MG, DIFF CBC #### [address] Globulin (S) [Mass/Vol] 2.0 g/dL Normal [facility] Comment on above: Performed By: #### C MP, MG, DIFF CBC #### [address] Glucose [Mass/Vol] 117 mg/dL High 70-100 [facility] Comment on above: Result Comment: [place] Glucose Reference Range is dependent on time and content of last meal. Glucose of more than 200 mg/dL in a nonstressed, ambulatory subject supports the diagnosis of Diabetes Mellitus. ADA recommended reference range Performed By: #### C MP, MG, DIFF CBC #### [address] Potassium [Moles/Vol] 5.1 mmol/L Normal 3.5-5.1 [facility] Comment on above: Performed By: #### C MP, MG, DIFF CBC #### [place] [address] [place] Protein [Mass/Vol] 4.9 g/dL Low 6.4-8.9 [facility] Comment on above: Performed By: #### C MP, MG, DIFF CBC #### [address] Sodium [Moles/Vol] 137 mmol/L Normal 136-145 [facility] Comment on above: Performed By: #### C MP, MG, DIFF CBC #### [address] Urea nitrogen [Mass/Vol] 19 mg/dL Normal 7-25 [facility] Comment on above: Performed By: #### C MP, MG, DIFF CBC #### [address] Diff and CBCon 11-29-2024 Basophils/100 WBC (Bld) 1 % Normal 0-2 [facility] Comment on above: Performed By: #### C MP, MG, DIFF CBC #### [address] Eosinophils/100 WBC (Bld) 3 % Normal 1-3 [facility] Comment on above: Performed By: #### C MP, MG, DIFF CBC #### [address] Erythrocyte distribution width (RBC) [Ratio] 14.1 % Normal 11.9-15.3 [facility] Comment on above: Performed By: #### C MP, MG, DIFF CBC #### [address] Hematocrit (Bld) [Volume fraction] 33.2 % Low 34.0-46.4 [facility] Comment on above: Performed By: #### C MP, MG, DIFF CBC #### [address] Hemoglobin (Bld) [Mass/Vol] 11.0 g/dL Low 11.8-15.4 [facility] Comment on above: Performed By: #### C MP, MG, DIFF CBC #### [address] [place] [address] [place] Lymphocytes/100 WBC (Bld) 8 % Low 18-42 [facility] Comment on above: Performed By: #### C MP, MG, DIFF CBC #### [address] MCH (RBC) [Entitic mass] 28.8 pg Normal 24.7-34.3 [facility] Comment on above: Performed By: #### C MP, MG, DIFF CBC #### [address] MCV (RBC) [Entitic vol] 86.7 fL Normal 80-100 [facility] Comment on above: Performed By: #### C MP, MG, DIFF CBC #### [address] Mean Corpuscular HGB Conc 33.2 g/dL Normal 32.0-35.0 [facility] Comment on above: Performed By: #### C MP, MG, DIFF CBC #### [address] Metamyelocytes 2 % High 0-0 [facility] Comment on above: Performed By: #### C MP, MG, DIFF CBC #### [address] Monocytes/100 WBC (Bld) 3 % Normal 2-11 [facility] Comment on above: Performed By: #### C MP, MG, DIFF CBC #### [address] Myelocytes 2 % High 0-0 [facility] Comment on above: Performed By: #### C MP, MG, DIFF CBC #### [address] Platelet Estimate Increased Normal Normal [facility] Comment on above: Performed By: #### C MP, MG, DIFF CBC #### [address] Platelet mean volume (Bld) [Entitic vol] 6.7 fL Normal 6.3-10.7 [facility] Comment on above: Performed By: #### C MP, MG, DIFF CBC #### [address] Platelet Morphology Normal Normal Normal [facility] Comment on above: Result Comment: PERF ORMED BY: [place] [address] PATHOLOGIST [employer] CONSULTANT KARINA ANGLIN M.D. Performed By: #### C MP, MG, DIFF CBC #### [address] Platelets (Bld) [#/Vol] 711 10*3/uL High 150-450 [facility] Comment on above: Performed By: #### C MP, MG, DIFF CBC #### [address] Poikilocytosis Slight Normal [facility] Comment on above: Performed By: #### C MP, MG, DIFF CBC #### [address] Promyelocytes 1 % High 0-0 [facility] Comment on above: Performed By: #### C MP, MG, DIFF CBC #### [address] RBC (Bld) [#/Vol] 3.82 10*6/uL Normal 3.60-5.00 [facility] Comment on above: Performed By: #### C MP, MG, DIFF CBC #### [address] Segmented neutrophils/100 WBC (Bld) 81 % High 50-70 [facility] Comment on above: Performed By: #### C MP, MG, DIFF CBC #### [address] Stomatocytes Slight Normal [facility] Comment on above: Performed By: #### C MP, MG, DIFF CBC #### [address] WBC (Bld) [#/Vol] 10.7 10*3/uL Normal 3.8-11.6 [facility] Comment on above: Performed By: #### C MP, MG, DIFF CBC #### [facility] [address] Magnesiumon 11-29-2024 Magnesium [Mass/Vol] 1.9 mg/dL Normal 1.9-2.7 [facility] Comment on above: Result Comment: PERF ORMED BY: [place] [address] PATHOLOGIST [employer] CONSULTANT KARINA ANGLIN M.D. Performed By: #### C MP, MG, DIFF CBC #### [facility] [address] XR chest 2V*on 11-29-2024 XR chest 2V* [facility] Kathleen [address] [place] [address] XRay Report Signed Patient: Gloria Lopez MR#: [id number] : 1960 Acct:[id number] Age/Sex: 64 / F ADM Date: 11/25/24 Loc: Room: [address] [place] [address] Type: DIS IN Attending Dr: Pepper Rosales MD Copies to: MD Pepper Robles MD Ordering Provider: Zeb Riggs MD Date of Service: 11/29/24 XR/XR chest 2V*: pneumonia; parapneumonic effusion vs abscess PA AND LATERAL CHEST: CLINICAL HISTORY: Shortness of breath. Follow-up right-sided pleural-parenchymal changes. COMPARISON: 11/27/[address] 11/25/2024 There is obstructive lung disease. There is minimal linear scarring or atelectasis at the left base. There are continued mild atelectatic and/or infiltrative change at the right midlung and medial base that are similar to yesterday's chest x-ray though improving from the comparison CT. The costophrenic angles are now clear suggesting resolving effusion on that side. No pneumothorax is seen. The cardiac, hilar and mediastinal silhouettes are within normal limits. There is no vascular congestion. There is endplate spurring at the spine. XR/XR chest 2V* IMPRESSION: OBSTRUCTIVE LUNG DISEASE WITH CONTINUED PARENCHYMAL CHANGES SIMILAR TO YESTERDAY'S COMPARISON. NO SIGNIFICANT RESIDUAL PLEURAL EFFUSION. Impression dictated by: Tiffnay Thompson M.D. 11/29/2024 2:22 PM Dictation Location: [place] [address] Transcribed By: [facility] 11/29/24 1422 Dictated By: Tiffany Thompson MD 11/29/24 1417 Signed By: 11/29/24 1422 Normal [facility] Comprehensive Metabolic Pane justin 11-28-2024 Albumin [Mass/Vol] 2.8 g/dL Low 3.5-5.7 [facility] Comment on above: Performed By: #### P ROCALCITONIN, HBSAB, M PNEUM M, HCV RX PCR, HBSAG #### [facility] , #### ESR #### [address] Albumin/Globulin [Mass ratio] 1.2 {ratio} Normal [facility] Comment on above: Performed By: #### P ROCALCITONIN, HBSAB, M PNEUM M, HCV RX PCR, HBSAG #### [facility] , #### ESR #### [address] ALP [Catalytic activity/Vol] 93 U/L Normal 34-104 [facility] Comment on above: Performed By: #### P ROCALCITONIN, HBSAB, M PNEUM M, HCV RX PCR, HBSAG #### [facility] , #### ESR #### [place] [address] [place] ALT [Catalytic activity/Vol] 54 U/L High 7-52 [facility] Comment on above: Performed By: #### P ROCALCITONIN, HBSAB, M PNEUM M, HCV RX PCR, HBSAG #### [facility] , #### ESR #### [place] [address] [place] Anion gap [Moles/Vol] 8.3 mmol/L Normal 6.0-15.0 [facility] Comment on above: Performed By: #### P ROCALCITONIN, HBSAB, M PNEUM M, HCV RX PCR, HBSAG #### [facility] , #### ESR #### [address] AST [Catalytic activity/Vol] 15 U/L Normal 13-39 [facility] Comment on above: Performed By: #### P ROCALCITONIN, HBSAB, M PNEUM M, HCV RX PCR, HBSAG #### [facility] , #### ESR #### [address] Bilirubin [Mass/Vol] 0.5 mg/dL Normal 0.3-1.0 [facility] Comment on above: Performed By: #### P ROCALCITONIN, HBSAB, M PNEUM M, HCV RX PCR, HBSAG #### [facility] , #### ESR #### [address] Calcium [Mass/Vol] 7.9 mg/dL Low 8.6-10.3 [facility] Comment on above: Performed By: #### P ROCALCITONIN, HBSAB, M PNEUM M, HCV RX PCR, HBSAG #### [facility] , #### ESR #### [place] [address] [place] Chloride [Moles/Vol] 99 mmol/L Normal 98-107 [facility] Comment on above: Performed By: #### P ROCALCITONIN, HBSAB, M PNEUM M, HCV RX PCR, HBSAG #### [facility] , #### ESR #### [place] [address] [place] CO2 [Moles/Vol] 32.4 mmol/L High 21.0-31.0 [facility] Comment on above: Performed By: #### P ROCALCITONIN, HBSAB, M PNEUM M, HCV RX PCR, HBSAG #### [facility] , #### ESR #### [address] Creatinine [Mass/Vol] 0.64 mg/dL Normal 0.60-1.20 [facility] Comment on above: Performed By: #### P ROCALCITONIN, HBSAB, M PNEUM M, HCV RX PCR, HBSAG #### [facility] , #### ESR #### [place] [address] [place] Creatinine Clr Calc Pharmacy 63.31 Normal [facility] Comment on above: Performed By: #### P ROCALCITONIN, HBSAB, M PNEUM M, HCV RX PCR, HBSAG #### [facility] , #### ESR #### [address] GFR/1.73 sq M.predicted MDRD (S/P/Bld) [Vol rate/Area] mL/min/{1.73_m2} Normal [facility] Comment on above: Performed By: #### P ROCALCITONIN, HBSAB, M PNEUM M, HCV RX PCR, HBSAG #### [facility] , #### ESR #### [address] Globulin (S) [Mass/Vol] 2.3 g/dL Normal [facility] Comment on above: Performed By: #### P ROCALCITONIN, HBSAB, M PNEUM M, HCV RX PCR, HBSAG #### [facility] , #### ESR #### [facility] [address] [place] [address] [place] Glucose [Mass/Vol] 133 mg/dL High 70-100 [facility] Comment on above: Result Comment: [place] Glucose Reference Range is dependent on time and content of last meal. Glucose of more than 200 mg/dL in a nonstressed, ambulatory subject supports the diagnosis of Diabetes Mellitus. ADA recommended reference range Performed By: #### P ROCALCITONIN, HBSAB, M PNEUM M, HCV RX PCR, HBSAG #### [facility] , #### ESR #### [address] Potassium [Moles/Vol] 4.7 mmol/L Normal 3.5-5.1 [facility] Comment on above: Performed By: #### P ROCALCITONIN, HBSAB, M PNEUM M, HCV RX PCR, HBSAG #### [facility] , #### ESR #### [address] Protein [Mass/Vol] 5.1 g/dL Low 6.4-8.9 [facility] Comment on above: Performed By: #### P ROCALCITONIN, HBSAB, M PNEUM M, HCV RX PCR, HBSAG #### [facility] , #### ESR #### [address] Sodium [Moles/Vol] 135 mmol/L Low 136-145 [facility] Comment on above: Performed By: #### P ROCALCITONIN, HBSAB, M PNEUM M, HCV RX PCR, HBSAG #### [facility] , #### ESR #### [address] Urea nitrogen [Mass/Vol] 22 mg/dL Normal 7-25 [facility] Comment on above: Performed By: #### P ROCALCITONIN, HBSAB, M PNEUM M, HCV RX PCR, HBSAG #### [facility] , #### ESR #### [address] Diff and CBCon 11-28-2024 Band form neutrophils/100 WBC (Bld) 1 % Normal 0-5 [facility] Comment on above: Performed By: #### P ROCALCITONIN, HBSAB, M PNEUM M, HCV RX PCR, HBSAG #### [facility] , #### ESR #### [place] [address] [place] Basophils/100 WBC (Bld) 1 % Normal 0-2 [facility] Comment on above: Performed By: #### P ROCALCITONIN, HBSAB, M PNEUM M, HCV RX PCR, HBSAG #### [facility] , #### ESR #### [place] [address] [place] Eosinophils/100 WBC (Bld) 2 % Normal 1-3 [facility] Comment on above: Performed By: #### P ROCALCITONIN, HBSAB, M PNEUM M, HCV RX PCR, HBSAG #### [facility] , #### ESR #### [address] Erythrocyte distribution width (RBC) [Ratio] 14.6 % Normal 11.9-15.3 [facility] Comment on above: Performed By: #### P ROCALCITONIN, HBSAB, M PNEUM M, HCV RX PCR, HBSAG #### [facility] , #### ESR #### [address] Hematocrit (Bld) [Volume fraction] 34.0 % Normal 34.0-46.4 [facility] Comment on above: Performed By: #### P ROCALCITONIN, HBSAB, M PNEUM M, HCV RX PCR, HBSAG #### [facility] , #### ESR #### [address] Hemoglobin (Bld) [Mass/Vol] 11.3 g/dL Low 11.8-15.4 [facility] Comment on above: Performed By: #### P ROCALCITONIN, HBSAB, M PNEUM M, HCV RX PCR, HBSAG #### [facility] , #### ESR #### [place] [address] [place] Lymphocytes/100 WBC (Bld) 5 % Low 18-42 [facility] Comment on above: Performed By: #### P ROCALCITONIN, HBSAB, M PNEUM M, HCV RX PCR, HBSAG #### [facility] , #### ESR #### [address] MCH (RBC) [Entitic mass] 28.4 pg Normal 24.7-34.3 [facility] Comment on above: Performed By: #### P ROCALCITONIN, HBSAB, M PNEUM M, HCV RX PCR, HBSAG #### [facility] , #### ESR #### [address] MCV (RBC) [Entitic vol] 85.5 fL Normal 80-100 [facility] Comment on above: Performed By: #### P ROCALCITONIN, HBSAB, M PNEUM M, HCV RX PCR, HBSAG #### [facility] , #### ESR #### [address] Mean Corpuscular HGB Conc 33.3 g/dL Normal 32.0-35.0 [facility] Comment on above: Performed By: #### P ROCALCITONIN, HBSAB, M PNEUM M, HCV RX PCR, HBSAG #### [facility] , #### ESR #### [address] Metamyelocytes 2 % High 0-0 [facility] Comment on above: Performed By: #### P ROCALCITONIN, HBSAB, M PNEUM M, HCV RX PCR, HBSAG #### [facility] , #### ESR #### [place] [address] [place] Monocytes/100 WBC (Bld) 0 % Low 2-11 [facility] Comment on above: Performed By: #### P ROCALCITONIN, HBSAB, M PNEUM M, HCV RX PCR, HBSAG #### [facility] , #### ESR #### [address] Myelocytes 3 % High 0-0 [facility] Comment on above: Performed By: #### P ROCALCITONIN, HBSAB, M PNEUM M, HCV RX PCR, HBSAG #### [facility] , #### ESR #### [address] Platelet Estimate Increased Normal Normal [facility] Comment on above: Performed By: #### P ROCALCITONIN, HBSAB, M PNEUM M, HCV RX PCR, HBSAG #### [facility] , #### ESR #### [address] Platelet mean volume (Bld) [Entitic vol] 6.9 fL Normal 6.3-10.7 [facility] Comment on above: Result Comment: PERF ORMED BY: [place] [address] PATHOLOGIST [employer]LE [employer] CONSULTANT KARINA ANGLIN M.D. Performed By: #### P ROCALCITONIN, HBSAB, M PNEUM M, HCV RX PCR, HBSAG #### [facility] , #### ESR #### [address] Platelet Morphology Normal Normal Normal [facility] Comment on above: Result Comment: PERF ORMED BY: [place] [address] PATHOLOGIST [employer]ACLE [employer]MS CONSULTANT KARINA ANGLIN M.D. Performed By: #### P ROCALCITONIN, HBSAB, M PNEUM M, HCV RX PCR, HBSAG #### [facility] , #### ESR #### [address] Platelets (Bld) [#/Vol] 695 10*3/uL High 150-450 [facility] Comment on above: Performed By: #### P ROCALCITONIN, HBSAB, M PNEUM M, HCV RX PCR, HBSAG #### [facility] , #### ESR #### [address] RBC (Bld) [#/Vol] 3.97 10*6/uL Normal 3.60-5.00 [facility] Comment on above: Performed By: #### P ROCALCITONIN, HBSAB, M PNEUM M, HCV RX PCR, HBSAG #### [facility] , #### ESR #### [address] RBC morphology finding Nom (Bld) Normal Normal Normal [facility] Comment on above: Performed By: #### P ROCALCITONIN, HBSAB, M PNEUM M, HCV RX PCR, HBSAG #### [facility] , #### ESR #### [address] Segmented neutrophils/100 WBC (Bld) 87 % High 50-70 [facility] Comment on above: Performed By: #### P ROCALCITONIN, HBSAB, M PNEUM M, HCV RX PCR, HBSAG #### [facility] , #### ESR #### [address] WBC (Bld) [#/Vol] 11.9 10*3/uL High 3.8-11.6 [facility] Comment on above: Performed By: #### P ROCALCITONIN, HBSAB, M PNEUM M, HCV RX PCR, HBSAG #### [facility] , #### ESR #### [address] Magnesiumon 11-28-2024 Magnesium [Mass/Vol] 2.0 mg/dL Normal 1.9-2.7 [facility] Comment on above: Result Comment: PERF ORMED BY: [place] [address] PATHOLOGIST [employer]ACLE [employer] CONSULTANT KARINA ANGLIN M.D. Performed By: #### P ROCALCITONIN, HBSAB, M PNEUM M, HCV RX PCR, HBSAG #### [facility] , #### ESR #### [address] Comprehensive Metabolic Pane justin 11-27-2024 Albumin [Mass/Vol] 2.7 g/dL Low 3.5-5.7 [facility] Comment on above: Performed By: #### P ROCALCITONIN, HBSAB, M PNEUM M, HCV RX PCR, HBSAG #### [facility] , #### ESR #### [address] Albumin/Globulin [Mass ratio] 1.1 {ratio} Normal [facility] Comment on above: Performed By: #### P ROCALCITONIN, HBSAB, M PNEUM M, HCV RX PCR, HBSAG #### [facility] , #### ESR #### [address] ALP [Catalytic activity/Vol] 103 U/L Normal 34-104 [facility] Comment on above: Performed By: #### P ROCALCITONIN, HBSAB, M PNEUM M, HCV RX PCR, HBSAG #### [facility] , #### ESR #### [address] ALT [Catalytic activity/Vol] 73 U/L High 7-52 [facility] Comment on above: Performed By: #### P ROCALCITONIN, HBSAB, M PNEUM M, HCV RX PCR, HBSAG #### [facility] , #### ESR #### [address] Anion gap [Moles/Vol] 10.0 mmol/L Normal 6.0-15.0 [facility] Comment on above: Performed By: #### P ROCALCITONIN, HBSAB, M PNEUM M, HCV RX PCR, HBSAG #### [facility] , #### ESR #### [address] AST [Catalytic activity/Vol] 20 U/L Normal 13-39 [facility] Comment on above: Performed By: #### P ROCALCITONIN, HBSAB, M PNEUM M, HCV RX PCR, HBSAG #### [facility] , #### ESR #### [address] Bilirubin [Mass/Vol] 0.6 mg/dL Normal 0.3-1.0 [facility] Comment on above: Performed By: #### P ROCALCITONIN, HBSAB, M PNEUM M, HCV RX PCR, HBSAG #### [facility] , #### ESR #### [place] [address] [place] Calcium [Mass/Vol] 7.9 mg/dL Low 8.6-10.3 [facility] Comment on above: Performed By: #### P ROCALCITONIN, HBSAB, M PNEUM M, HCV RX PCR, HBSAG #### [facility] , #### ESR #### [place] [address] [place] Chloride [Moles/Vol] 98 mmol/L Normal 98-107 [facility] Comment on above: Performed By: #### P ROCALCITONIN, HBSAB, M PNEUM M, HCV RX PCR, HBSAG #### [facility] , #### ESR #### [place] [address] [place] CO2 [Moles/Vol] 32.7 mmol/L High 21.0-31.0 [facility] Comment on above: Performed By: #### P ROCALCITONIN, HBSAB, M PNEUM M, HCV RX PCR, HBSAG #### [facility] , #### ESR #### [place] [address] [place] Creatinine [Mass/Vol] 0.82 mg/dL Normal 0.60-1.20 [facility] Comment on above: Performed By: #### P ROCALCITONIN, HBSAB, M PNEUM M, HCV RX PCR, HBSAG #### [facility] , #### ESR #### [place] [address] [place] Creatinine Clr Calc Pharmacy 61.60 Normal [facility] Comment on above: Performed By: #### P ROCALCITONIN, HBSAB, M PNEUM M, HCV RX PCR, HBSAG #### [facility] , #### ESR #### [place] [address] [place] GFR/1.73 sq M.predicted MDRD (S/P/Bld) [Vol rate/Area] mL/min/{1.73_m2} Normal [facility] Comment on above: Performed By: #### P ROCALCITONIN, HBSAB, M PNEUM M, HCV RX PCR, HBSAG #### [facility] , #### ESR #### [address] Globulin (S) [Mass/Vol] 2.4 g/dL Normal [facility] Comment on above: Performed By: #### P ROCALCITONIN, HBSAB, M PNEUM M, HCV RX PCR, HBSAG #### [facility] , #### ESR #### [address] Glucose [Mass/Vol] 112 mg/dL Invalid Interpretation Code 70-100 [facility] Comment on above: Result Comment: [place] Glucose Reference Range is dependent on time and content of last meal. Glucose of more than 200 mg/dL in a nonstressed, ambulatory subject supports the diagnosis of Diabetes Mellitus. ADA recommended reference range Performed By: #### P ROCALCITONIN, HBSAB, M PNEUM M, HCV RX PCR, HBSAG #### [facility] , #### ESR #### [address] Potassium [Moles/Vol] 4.7 mmol/L Normal 3.5-5.1 [facility] Comment on above: Performed By: #### P ROCALCITONIN, HBSAB, M PNEUM M, HCV RX PCR, HBSAG #### [facility] , #### ESR #### [address] Protein [Mass/Vol] 5.1 g/dL Low 6.4-8.9 [facility] Comment on above: Performed By: #### P ROCALCITONIN, HBSAB, M PNEUM M, HCV RX PCR, HBSAG #### [facility] , #### ESR #### [address] Sodium [Moles/Vol] 136 mmol/L Normal 136-145 [facility] Comment on above: Performed By: #### P ROCALCITONIN, HBSAB, M PNEUM M, HCV RX PCR, HBSAG #### [facility] , #### ESR #### [address] Urea nitrogen [Mass/Vol] 27 mg/dL High 7-25 [facility] Comment on above: Performed By: #### P ROCALCITONIN, HBSAB, M PNEUM M, HCV RX PCR, HBSAG #### [facility] , #### ESR #### [address] Diff and CBCon 11-27-2024 Eosinophils/100 WBC (Bld) 1 % Normal 1-3 [facility] Comment on above: Performed By: #### P ROCALCITONIN, HBSAB, M PNEUM M, HCV RX PCR, HBSAG #### [facility] , #### ESR #### [address] Erythrocyte distribution width (RBC) [Ratio] 14.3 % Normal 11.9-15.3 [facility] Comment on above: Performed By: #### P ROCALCITONIN, HBSAB, M PNEUM M, HCV RX PCR, HBSAG #### [facility] , #### ESR #### [address] Hematocrit (Bld) [Volume fraction] 34.5 % Normal 34.0-46.4 [facility] Comment on above: Performed By: #### P ROCALCITONIN, HBSAB, M PNEUM M, HCV RX PCR, HBSAG #### [facility] , #### ESR #### [address] Hemoglobin (Bld) [Mass/Vol] 11.4 g/dL Low 11.8-15.4 [facility] Comment on above: Performed By: #### P ROCALCITONIN, HBSAB, M PNEUM M, HCV RX PCR, HBSAG #### [facility] , #### ESR #### [address] Lymphocytes/100 WBC (Bld) 5 % Low 18-42 [facility] Comment on above: Performed By: #### P ROCALCITONIN, HBSAB, M PNEUM M, HCV RX PCR, HBSAG #### [facility] , #### ESR #### [address] MCH (RBC) [Entitic mass] 28.2 pg Normal 24.7-34.3 [facility] Comment on above: Performed By: #### P ROCALCITONIN, HBSAB, M PNEUM M, HCV RX PCR, HBSAG #### [facility] , #### ESR #### [address] MCV (RBC) [Entitic vol] 85.0 fL Normal 80-100 [facility] Comment on above: Performed By: #### P ROCALCITONIN, HBSAB, M PNEUM M, HCV RX PCR, HBSAG #### [facility] , #### ESR #### [address] Mean Corpuscular HGB Conc 33.2 g/dL Normal 32.0-35.0 [facility] Comment on above: Performed By: #### P ROCALCITONIN, HBSAB, M PNEUM M, HCV RX PCR, HBSAG #### [facility] , #### ESR #### [place] [address] [place] Metamyelocytes 1 % High 0-0 [facility] Comment on above: Performed By: #### P ROCALCITONIN, HBSAB, M PNEUM M, HCV RX PCR, HBSAG #### [facility] , #### ESR #### [address] Monocytes/100 WBC (Bld) 6 % Normal 2-11 [facility] Comment on above: Performed By: #### P ROCALCITONIN, HBSAB, M PNEUM M, HCV RX PCR, HBSAG #### [facility] , #### ESR #### [place] [address] [place] Myelocytes 3 % High 0-0 [facility] Comment on above: Performed By: #### P ROCALCITONIN, HBSAB, M PNEUM M, HCV RX PCR, HBSAG #### [facility] , #### ESR #### [address] Platelet Estimate Increased Normal Normal [facility] Comment on above: Performed By: #### P ROCALCITONIN, HBSAB, M PNEUM M, HCV RX PCR, HBSAG #### [facility] , #### ESR #### [address] Platelet mean volume (Bld) [Entitic vol] 6.8 fL Normal 6.3-10.7 [facility] Comment on above: Result Comment: PERF ORMED BY: [place] [address] PATHOLOGIST [employer]ACLE HRMS CONSULTANT KARINA ANGLIN M.D. Performed By: #### P ROCALCITONIN, HBSAB, M PNEUM M, HCV RX PCR, HBSAG #### [facility] , #### ESR #### [address] Platelet Morphology Normal Normal Normal [facility] Comment on above: Result Comment: PERF ORMED BY: [place] [address] PATHOLOGIST ORACLE HRMS CONSULTANT KARINA ANGLIN M.D. Performed By: #### P ROCALCITONIN, HBSAB, M PNEUM M, HCV RX PCR, HBSAG #### [facility] , #### ESR #### [address] Platelets (Bld) [#/Vol] 727 10*3/uL High 150-450 [facility] Comment on above: Performed By: #### P ROCALCITONIN, HBSAB, M PNEUM M, HCV RX PCR, HBSAG #### [facility] , #### ESR #### [place] [address] [place] RBC (Bld) [#/Vol] 4.06 10*6/uL Normal 3.60-5.00 [facility] Comment on above: Performed By: #### P ROCALCITONIN, HBSAB, M PNEUM M, HCV RX PCR, HBSAG #### [facility] , #### ESR #### [address] RBC morphology finding Nom (Bld) Normal Normal Normal [facility] Comment on above: Performed By: #### P ROCALCITONIN, HBSAB, M PNEUM M, HCV RX PCR, HBSAG #### [facility] , #### ESR #### [address] Segmented neutrophils/100 WBC (Bld) 85 % High 50-70 [facility] Comment on above: Performed By: #### P ROCALCITONIN, HBSAB, M PNEUM M, HCV RX PCR, HBSAG #### [facility] , #### ESR #### [address] WBC (Bld) [#/Vol] 13.8 10*3/uL High 3.8-11.6 [facility] Comment on above: Performed By: #### P ROCALCITONIN, HBSAB, M PNEUM M, HCV RX PCR, HBSAG #### [facility] , #### ESR #### [address] Magnesiumon 11-27-2024 Magnesium [Mass/Vol] 1.9 mg/dL Normal 1.9-2.7 [facility] Comment on above: Result Comment: PERF ORMED BY: [place] [address] PATHOLOGIST ORACLE HRMS CONSULTANT KARINA ANGLIN M.D. Performed By: #### P ROCALCITONIN, HBSAB, M PNEUM M, HCV RX PCR, HBSAG #### [facility] , #### ESR #### [address] XR chest 1V portableon 11-27 XR chest 1V portable [facility] [place] [address] XRay Report Signed Patient: Gloria Lopez MR#: [id number] : 1960 Acct:[id number] Age/Sex: 64 / F ADM Date: 11/25/24 Loc: Room: [address] [place] [address] Type: DIS IN Attending Dr: Pepper Rosales MD Copies to: Pepper Rosales MD Ordering Provider: Pepper Rosales MD Date of Service: 11/27/24 XR/XR chest 1V portable: Follow up PORTABLE AP ERECT CHEST 1111 hours CLINICAL HISTORY: Follow-up right-sided parenchymal changes. Shortness of breath. History of breast cancer. COMPARISON: 11/25/2024 CT and chest x-ray There is artifact from bilateral breast implants. There is obstructive lung disease. Parenchymal change centered around the lateral right major fissure and at the medial right base shows slight int erval improvement. Mild blunting of the left lateral costophrenic angle could relate to a pericardial fat pad and/or residual lower lobe atelectasis seen on the comparison CT. There is no sizable effusion or pneumothorax. The heart is within normal limits. There is no suspected vascular congestion. The bony structures are osteopenic. Mild degenerative changes are present at the spine. XR/XR chest 1V portable IMPRESSION: OBSTRUCTIVE LUNG DISEASE. SLIGHT INTERVAL IMPROVEMENT OF PARENCHYMAL CHANGES. Impression dictated by: Tiffany Thompson M.D. 11/27/2024 12:08 PM Dictation Location: [place] [address] Transcribed By: [facility] 11/27/24 1208 Dictated By: Tiffany Thompson MD 11/27/24 1202 Signed By: 11/27/24 1208 Normal [facility] BioFire Not Detectedon 11-26 BioFire Not Detected Not detected Normal Not Detecte T [facility] Comment on above: Result Comment: This is a duplicate RP2.1 COVID (PCR) result to be used for statistical tracking purpose only. PERFORMED BY: [place] [address] PATHOLOGIST ORACLE HRMS CONSULTANT KARINA ANGLIN M.D. Performed By: #### P ROCALCITONIN, HBSAB, M PNEUM M, HCV RX PCR, HBSAG #### [facility] , #### ESR #### [address] Comprehensive Metabolic Pane [facility] 11-26-2024 Albumin [Mass/Vol] 2.7 g/dL Low 3.5-5.7 [facility] Comment on above: Performed By: #### P ROCALCITONIN, HBSAB, M PNEUM M, HCV RX PCR, HBSAG #### [facility] , #### ESR #### [address] Albumin/Globulin [Mass ratio] 1.1 {ratio} Normal [facility] Comment on above: Performed By: #### P ROCALCITONIN, HBSAB, M PNEUM M, HCV RX PCR, HBSAG #### [facility] , #### ESR #### [address] ALP [Catalytic activity/Vol] 111 U/L High 34-104 [facility] Comment on above: Performed By: #### P ROCALCITONIN, HBSAB, M PNEUM M, HCV RX PCR, HBSAG #### [facility] , #### ESR #### [address] ALT [Catalytic activity/Vol] 87 U/L High 7-52 [facility] Comment on above: Performed By: #### P ROCALCITONIN, HBSAB, M PNEUM M, HCV RX PCR, HBSAG #### [facility] , #### ESR #### [address] Anion gap [Moles/Vol] 11.2 mmol/L Normal 6.0-15.0 [facility] Comment on above: Performed By: #### P ROCALCITONIN, HBSAB, M PNEUM M, HCV RX PCR, HBSAG #### [facility] , #### ESR #### [address] AST [Catalytic activity/Vol] 24 U/L Normal 13-39 [facility] Comment on above: Performed By: #### P ROCALCITONIN, HBSAB, M PNEUM M, HCV RX PCR, HBSAG #### [facility] , #### ESR #### [address] Bilirubin [Mass/Vol] 0.5 mg/dL Normal 0.3-1.0 [facility] Comment on above: Performed By: #### P ROCALCITONIN, HBSAB, M PNEUM M, HCV RX PCR, HBSAG #### [facility] , #### ESR #### [address] Calcium [Mass/Vol] 8.4 mg/dL Low 8.6-10.3 [facility] Comment on above: Performed By: #### P ROCALCITONIN, HBSAB, M PNEUM M, HCV RX PCR, HBSAG #### [facility] , #### ESR #### [address] Chloride [Moles/Vol] 97 mmol/L Low 98-107 [facility] Comment on above: Performed By: #### P ROCALCITONIN, HBSAB, M PNEUM M, HCV RX PCR, HBSAG #### [facility] , #### ESR #### [address] CO2 [Moles/Vol] 32.0 mmol/L High 21.0-31.0 [facility] Comment on above: Performed By: #### P ROCALCITONIN, HBSAB, M PNEUM M, HCV RX PCR, HBSAG #### [facility] , #### ESR #### [place] [address] [place] Creatinine [Mass/Vol] 0.64 mg/dL Normal 0.60-1.20 [facility] Comment on above: Performed By: #### P ROCALCITONIN, HBSAB, M PNEUM M, HCV RX PCR, HBSAG #### [facility] , #### ESR #### [facility] [address] [place] [address] [place] Creatinine Clr Calc Pharmacy 63.14 Normal [facility] Comment on above: Performed By: #### P ROCALCITONIN, HBSAB, M PNEUM M, HCV RX PCR, HBSAG #### [facility] , #### ESR #### [place] [address] [place] GFR/1.73 sq M.predicted MDRD (S/P/Bld) [Vol rate/Area] mL/min/{1.73_m2} Normal [facility] Comment on above: Performed By: #### P ROCALCITONIN, HBSAB, M PNEUM M, HCV RX PCR, HBSAG #### [facility] , #### ESR #### [address] Globulin (S) [Mass/Vol] 2.4 g/dL Normal [facility] Comment on above: Performed By: #### P ROCALCITONIN, HBSAB, M PNEUM M, HCV RX PCR, HBSAG #### [facility] , #### ESR #### [address] Glucose [Mass/Vol] 235 mg/dL High 70-100 [facility] Comment on above: Result Comment: [place] Glucose Reference Range is dependent on time and content of last meal. Glucose of more than 200 mg/dL in a nonstressed, ambulatory subject supports the diagnosis of Diabetes Mellitus. ADA recommended reference range Performed By: #### P ROCALCITONIN, HBSAB, M PNEUM M, HCV RX PCR, HBSAG #### [facility] , #### ESR #### [place] [address] [place] Potassium [Moles/Vol] 5.2 mmol/L High 3.5-5.1 [facility] Comment on above: Performed By: #### P ROCALCITONIN, HBSAB, M PNEUM M, HCV RX PCR, HBSAG #### [facility] , #### ESR #### [address] Protein [Mass/Vol] 5.1 g/dL Low 6.4-8.9 [facility] Comment on above: Performed By: #### P ROCALCITONIN, HBSAB, M PNEUM M, HCV RX PCR, HBSAG #### [facility] , #### ESR #### [address] Sodium [Moles/Vol] 135 mmol/L Low 136-145 [facility] Comment on above: Performed By: #### P ROCALCITONIN, HBSAB, M PNEUM M, HCV RX PCR, HBSAG #### [facility] , #### ESR #### [address] Urea nitrogen [Mass/Vol] 30 mg/dL High 7-25 [facility] Comment on above: Performed By: #### P ROCALCITONIN, HBSAB, M PNEUM M, HCV RX PCR, HBSAG #### [facility] , #### ESR #### [address] Gram Stainon 11-26-2024 Microscopic observation Gram stain Nom (Unsp spec) Gram Stain Result 2+ Epithelial Cells 2+ Yeast Like Elements Rare White Blood Cells Rare Gram Positive Cocci Sputum screening indicates excessive oral contamination and mandates specimen rejection for bacterial culture. @Called [employer]/Arun @at [phone] on 11/26/24 @by Jo Rosario to request new sample. @ PLEASE ADD MARKER [email or web address] PERFORMED BY: [place] [address] PATHOLOGIST ORACLE HRMS CONSULTANT KARINA ANGLIN M.D. Normal [facility] Comment on above: Performed By: #### P ROCALCITONIN, HBSAB, M PNEUM M, HCV RX PCR, HBSAG #### [facility] , #### ESR #### [address] Magnesiumon 11-26-2024 Magnesium [Mass/Vol] 2.0 mg/dL Normal 1.9-2.7 [facility] Comment on above: Result Comment: PERF ORMED BY: [place] [address] PATHOLOGIST ORACLE HRMS CONSULTANT KARINA ANGLIN M.D. Performed By: #### P ROCALCITONIN, HBSAB, M PNEUM M, HCV RX PCR, HBSAG #### [facility] , #### ESR #### [address] Respiratory (Upper) Panel, [facility] 11-26-2024 Respiratory (Upper) Panel, PCR Adenovirus Not detected Bordetella parapertussis Not detected Chlamydia pneumoniae Not detected Coronavirus 229E Not detected Coronavirus HKU1 Not detected Coronavirus NL63 Not detected Coronavirus OC43 Not detected Influenza A Not detected Influenza B Not detected Human Metapneumovirus Not detected Mycoplasma pneumoniae Not detected Parainfluenza Virus 1 Not detected Parainfluenza Virus 2 Not detected Parainfluenza Virus 3 Not detected Parainfluenza Virus 4 Not detected Bordetella pertussis-ptxP Not detected Human Rhino/Enterovirus Not detected Resp. Syncytial Virus Not detected COVID-19 Detected/Not Detected Not detected Blank Space -- FLUA TEST INCLUDES Influenza A tests for the following clinically FLUA TEST INCLUDES significant subtypes: FLUA TEST INCLUDES - Influenza A FLUA TEST INCLUDES - Influenza A H1 FLUA TEST INCLUDES - Influenza A H1 2009 FLUA TEST INCLUDES - Influenza A H3 Blank Space -- PERFORMED BY: [place] [address] PATHOLOGIST ORACLE HRMS CONSULTANT KARINA ANGLIN M.D. Normal [facility] Comment on above: Performed By: #### P ROCALCITONIN, HBSAB, M PNEUM M, HCV RX PCR, HBSAG #### [facility] , #### ESR #### [address] Scan and CBCon 11-26-2024 Basophils (Bld) [#/Vol] 0.0 10*3/uL Normal 0.0-0.2 [facility] Comment on above: Performed By: #### P ROCALCITONIN, HBSAB, M PNEUM M, HCV RX PCR, HBSAG #### [facility] , #### ESR #### [address] Basophils/100 WBC (Bld) 0.1 % Normal . [facility] Comment on above: Performed By: #### P ROCALCITONIN, HBSAB, M PNEUM M, HCV RX PCR, HBSAG #### [facility] , #### ESR #### [address] Eosinophils (Bld) [#/Vol] 0.0 10*3/uL Normal 0.0-0.45 [facility] Comment on above: Performed By: #### P ROCALCITONIN, HBSAB, M PNEUM M, HCV RX PCR, HBSAG #### [facility] , #### ESR #### [place] [address] [place] Eosinophils/100 WBC (Bld) 0.1 % Normal . [facility] Comment on above: Performed By: #### P ROCALCITONIN, HBSAB, M PNEUM M, HCV RX PCR, HBSAG #### [facility] , #### ESR #### [address] Erythrocyte distribution width (RBC) [Ratio] 14.1 % Normal 11.9-15.3 [facility] Comment on above: Performed By: #### P ROCALCITONIN, HBSAB, M PNEUM M, HCV RX PCR, HBSAG #### [facility] , #### ESR #### [address] [place] [address] [place] Hematocrit (Bld) [Volume fraction] 34.0 % Normal 34.0-46.4 [facility] Comment on above: Performed By: #### P ROCALCITONIN, HBSAB, M PNEUM M, HCV RX PCR, HBSAG #### [facility] , #### ESR #### [address] Hemoglobin (Bld) [Mass/Vol] 11.3 g/dL Low 11.8-15.4 [facility] Comment on above: Performed By: #### P ROCALCITONIN, HBSAB, M PNEUM M, HCV RX PCR, HBSAG #### [facility] , #### ESR #### [address] Lymphocytes (Bld) [#/Vol] 1.3 10*3/uL Normal 1.00-4.8 [facility] Comment on above: Performed By: #### P ROCALCITONIN, HBSAB, M PNEUM M, HCV RX PCR, HBSAG #### [facility] , #### ESR #### [address] Lymphocytes/100 WBC (Bld) 5.1 % Normal . [facility] Comment on above: Performed By: #### P ROCALCITONIN, HBSAB, M PNEUM M, HCV RX PCR, HBSAG #### [facility] , #### ESR #### [address] MCH (RBC) [Entitic mass] 27.9 pg Normal 24.7-34.3 [facility] Comment on above: Performed By: #### P ROCALCITONIN, HBSAB, M PNEUM M, HCV RX PCR, HBSAG #### [facility] , #### ESR #### [address] MCV (RBC) [Entitic vol] 84.1 fL Normal 80-100 [facility] Comment on above: Performed By: #### P ROCALCITONIN, HBSAB, M PNEUM M, HCV RX PCR, HBSAG #### [facility] , #### ESR #### [address] Mean Corpuscular HGB Conc 33.2 g/dL Normal 32.0-35.0 [facility] Comment on above: Performed By: #### P ROCALCITONIN, HBSAB, M PNEUM M, HCV RX PCR, HBSAG #### [facility] , #### ESR #### [place] [address] [place] Monocytes (Bld) [#/Vol] 0.9 10*3/uL High 0.0-0.8 [facility] Comment on above: Performed By: #### P ROCALCITONIN, HBSAB, M PNEUM M, HCV RX PCR, HBSAG #### [facility] , #### ESR #### [place] [address] [place] Monocytes/100 WBC (Bld) 3.9 % Normal . [facility] Comment on above: Performed By: #### P ROCALCITONIN, HBSAB, M PNEUM M, HCV RX PCR, HBSAG #### [facility] , #### ESR #### [place] [address] [place] Neutrophils (Bld) [#/Vol] 22.2 10*3/uL High 1.8-7.7 [facility] Comment on above: Performed By: #### P ROCALCITONIN, HBSAB, M PNEUM M, HCV RX PCR, HBSAG #### [facility] , #### ESR #### [place] [address] [place] Neutrophils/100 WBC (Bld) 90.8 % Normal . [facility] Comment on above: Performed By: #### P ROCALCITONIN, HBSAB, M PNEUM M, HCV RX PCR, HBSAG #### [facility] , #### ESR #### [address] NRBC% 0.0 /100{WBC} Normal 0-0.5 [facility] Comment on above: Performed By: #### P ROCALCITONIN, HBSAB, M PNEUM M, HCV RX PCR, HBSAG #### [facility] , #### ESR #### [address] Platelet Estimate Increased Normal Normal [facility] Comment on above: Performed By: #### P ROCALCITONIN, HBSAB, M PNEUM M, HCV RX PCR, HBSAG #### [facility] , #### ESR #### [address] Platelet mean volume (Bld) [Entitic vol] 7.0 fL Normal 6.3-10.7 [facility] Comment on above: Performed By: #### P ROCALCITONIN, HBSAB, M PNEUM M, HCV RX PCR, HBSAG #### [facility] , #### ESR #### [address] Platelet Morphology Normal Normal Normal [facility] Comment on above: Result Comment: PERF ORMED BY: [place] [address] PATHOLOGIST [employer]ACLE HRMS CONSULTANT KARINA ANGLIN M.D. Performed By: #### P ROCALCITONIN, HBSAB, M PNEUM M, HCV RX PCR, HBSAG #### [facility] , #### ESR #### [address] Platelets (Bld) [#/Vol] 706 10*3/uL High 150-450 [facility] Comment on above: Performed By: #### P ROCALCITONIN, HBSAB, M PNEUM M, HCV RX PCR, HBSAG #### [facility] , #### ESR #### [address] RBC (Bld) [#/Vol] 4.04 10*6/uL Normal 3.60-5.00 [facility] Comment on above: Performed By: #### P ROCALCITONIN, HBSAB, M PNEUM M, HCV RX PCR, HBSAG #### [facility] , #### ESR #### [address] RBC morphology finding Nom (Bld) Normal Normal Normal [facility] Comment on above: Performed By: #### P ROCALCITONIN, HBSAB, M PNEUM M, HCV RX PCR, HBSAG #### [facility] , #### ESR #### [address] WBC (Bld) [#/Vol] 24.4 10*3/uL High 3.8-11.6 [facility] Comment on above: Performed By: #### P ROCALCITONIN, HBSAB, M PNEUM M, HCV RX PCR, HBSAG #### [facility] , #### ESR #### [address] C-Reactive Proteinon 025 C-Reactive Protein 3.4 mg/dL High 0.0-0.5 [facility] Comment on above: Result Comment: PERF ORMED BY: [place] [address] PATHOLOGIST ORACLE HRMS CONSULTANT KARINA ANGLIN M.D. Performed By: #### P ROCALCITONIN, HBSAB, M PNEUM M, HCV RX PCR, HBSAG #### [facility] , #### ESR #### [address] Creatinineon 11-25-2024 Creatinine [Mass/Vol] 0.67 mg/dL Normal 0.60-1.20 [facility] Comment on above: Performed By: #### C REAT #### [address] Creatinine Clr Calc Pharmacy 62.92 Normal [facility] Comment on above: Result Comment: PERF ORMED BY: [place] [address] PATHOLOGIST ORACLE HRMS CONSULTANT KARINA ANGLIN M.D. Performed By: #### C REAT #### [address] GFR/1.73 sq M.predicted MDRD (S/P/Bld) [Vol rate/Area] mL/min/{1.73_m2} Normal [facility] Comment on above: Performed By: #### C REAT #### [address] Erythrocyte Sedimentation Ra maude 11-25-2024 ESR (Bld) [Velocity] 54 mm/h High 0-29 [facility] Comment on above: Result Comment: PERF ORMED BY: [place] [address] PATHOLOGIST ORACLE HRMS CONSULTANT KARINA ANGLIN M.D. Performed By: #### P ROCALCITONIN, HBSAB, M PNEUM M, HCV RX PCR, HBSAG #### [facility] , #### ESR #### [address] Hep C Ab wRfx to Qnt PCRon 0 11-25-2024 Hepatitis C Virus Antibody Non-Reactive Normal Non Reactive [facility] Comment on above: Performed By: #### P ROCALCITONIN, HBSAB, M PNEUM M, HCV RX PCR, HBSAG #### [facility] , #### ESR #### [address] Interpretation Hepatitis C Comment Normal . [facility] Comment on above: Result Comment: Not infected with HCV unless early or acute infection is suspected (which may be delayed in an immunocompromised individual), or other evidence exists to indicate HCV infection. Performed By: #### P ROCALCITONIN, HBSAB, M PNEUM M, HCV RX PCR, HBSAG #### [facility] , #### ESR #### [address] Hepatitis B Surface Antibody on 11-25-2024 Hepatitis B Surface Antibody Non-Reactive Normal . [facility] Comment on above: Result Comment: Non Reactive: Not immune to HBV infection. Equivocal: Unable to determine if anti-HBs is present at levels consistent with immunity. Reactive: Anti-HBs concentration detected at greater than 10 mIU/mL. Individual is considered to be immune to infection with HBV. Performed By: #### P ROCALCITONIN, HBSAB, M PNEUM M, HCV RX PCR, HBSAG #### [facility] , #### ESR #### [address] Hepatitis B Surface Antigeno n 11-25-2024 HBsAg Screen Negative Normal Negative [facility] Comment on above: Result Comment: Perf ormed at: - [facility] [id number] Vp Ancillary: Zackary Mcmillan PhD, Phone: [phone] PERFORMED BY: [place] [address] PATHOLOGIST [employer]ACLE [employer] CONSULTANT KARINA ANGLIN M.D. Performed By: #### P ROCALCITONIN, HBSAB, M PNEUM M, HCV RX PCR, HBSAG #### [facility] , #### ESR #### [address] Legionella Pneumophilia Ag, Uron 11-25-2024 Legionella Pneumophilia Ag, Ur Negative Normal Negative [facility] Comment on above: Order Comment: SOURC E OF SPECIMEN: urine Result Comment: Pres umptive negative for L. pneumophila serogroup 1 antigen in urine, suggesting no recent or current infection. Legionnaires' disease cannot be ruled out since other serogroups and species may also cause disease. Performed at: - [facility] [id number] Vp Ancillary: Jose Sigala MD, Phone: [phone] Performed By: #### P ROCALCITONIN, HBSAB, M PNEUM M, HCV RX PCR, HBSAG #### [facility] , #### ESR #### [address] M Pneumoniae, IgM Abon 11-25 M Pneumoniae, IgM Ab <770 Normal 0-769 [facility] Comment on above: Result Comment: Nega tive <770 Clinically significant amount of M. pneumoniae antibody not detected. Low Positive 770 - 950 M. pneumoniae specific IgM presumptively detected. It is recommended that another sample be collected 1-2 weeks later to assure reactivity. Positive >950 Highly significant amount of M. pneumoniae specific IgM antibody detected. Performed at: [facility] [address] [id number] Vp Ancillary: Zackary Mcmillan PhD, Phone: [phone] PERFORMED BY: [place] [address] PATHOLOGIST [employer]ACLE [employer]MS CONSULTANT KARINA ANGLIN M.D. Performed By: #### P ROCALCITONIN, HBSAB, M PNEUM M, HCV RX PCR, HBSAG #### [facility] , #### ESR #### [address] MRSA - MSSA Nasal PCRon MRSA - MSSA Nasal PCR MRSA Result MRSA Negative MSSA Result MSSA Negative Real-time PCR Test performed by real-time PCR Reference Range Reference Range for all targets = Neg / Not Detected Reference Note 20 -- Reference Note 26 -- PERFORMED BY: [place] [id number] PATHOLOGIST ORACLE HRMS CONSULTANT KARINA ANGLIN M.D. Normal [facility] Comment on above: Performed By: #### P ROCALCITONIN, HBSAB, M PNEUM M, HCV RX PCR, HBSAG #### [facility] , #### ESR #### [address] Procalcitoninon 11-25-2024 Procalcitonin 0.13 ng/mL High 0.00-0.08 [facility] Comment on above: Result Comment: A pr ocalcitonin (PCT) level above 2.0 ng/mL on the first day of ICU admission is associated with a high risk for progression to severe sepsis and/or septic shock. A PCT level below 0.5 ng/mL on the first day of ICU admission is associated with a low risk for progression to severe sepsis and/or septic shock. Note: Concentrations <0.5 ng/mL do not exclude an infection, on account of localized infections (without systemic signs) which can be associated with such low concentrations, or a systemic infection in its initial stages (<6 hours). Furthermore, increased procalcitonin can occur without infection. PCT concentrations between 0.5 and 2.0 ng/mL should be interpreted taking into account the patient's history. It is recommended to retest PCT within 6-24 hours if any concentrations <2 ng/mL are obtained. Performed at: [address] [id number] Vp Ancillary: Jose Sigala MD, Phone: [phone] PERFORMED BY: [address] [address] PATHOLOGIST [employer]ACLE HRMS CONSULTANT KARINA ANGLIN M.D. Performed By: #### P ROCALCITONIN, HBSAB, M PNEUM M, HCV RX PCR, HBSAG #### [facility] , #### ESR #### [place] [id number] [facility] Strep Pneumoniae Ag, Uron Body Fluid Culture Not indicated. Normal . [facility] Comment on above: Order Comment: SOURC E OF SPECIMEN: urine Performed By: #### P ROCALCITONIN, HBSAB, M PNEUM M, HCV RX PCR, HBSAG #### [facility] , #### ESR #### [address] Organism ID Not indicated. Normal . [facility] Comment on above: Order Comment: SOURC E OF SPECIMEN: urine Performed By: #### P ROCALCITONIN, HBSAB, M PNEUM M, HCV RX PCR, HBSAG #### [facility] , #### ESR #### [address] Please Note: Comment Normal . [facility] Comment on above: Order Comment: SOURC E OF SPECIMEN: urine Result Comment: Tammy ege of [employer] standards require a culture to be performed on CSF specimens submitted for bacterial antigen testing. (CAP MARSHALL.[id number]) Urine specimens will not be cultured. Performed at: [facility] [address] [id number] Vp Ancillary: Jose Sigala MD, Phone: [phone] PERFORMED BY: [place] [address] PATHOLOGIST ORACLE HRMS CONSULTANT KARINA ANGLIN M.D. Performed By: #### P ROCALCITONIN, HBSAB, M PNEUM M, HCV RX PCR, HBSAG #### [facility] , #### ESR #### [address] Specimen source Nom (Unsp spec) Urine Normal . [facility] Comment on above: Order Comment: SOURC E OF SPECIMEN: urine Performed By: #### P ROCALCITONIN, HBSAB, M PNEUM M, HCV RX PCR, HBSAG #### [facility] , #### ESR #### [address] Streptococcus Pneumoniae Ag Negative Normal Negative [facility] Comment on above: Order Comment: SOURC E OF SPECIMEN: urine Performed By: #### P ROCALCITONIN, HBSAB, M PNEUM M, HCV RX PCR, HBSAG #### [facility] , #### ESR #### [facility] [address] [place] [id number] [facility] Urine Cultureon 11-21-2024 Bacteria identified Cx Nom (U) No Growth 2 Days PERFORMED BY: [place] [address] PATHOLOGIST [employer]ACLE [employer]MS CONSULTANT KARINA ANGLIN M.D. Normal [facility] Comment on above: Performed By: #### P ROCALCITONIN, HBSAB, M PNEUM M, HCV RX PCR, HBSAG #### [facility] , #### ESR #### [facility] [address] Ambulatory Visit Summaryon 0 11-19-2024 Ambulatory Visit Summary Ambulatory Visit Summary GLORIA LOPEZ :1960 Visit Date:11/19/2024 Ambulatory Visit Instructions Your Diagnosis Right knee pain Swelling of right knee joint BMI 28.0-28.9,adult Tests Performed XR Knee Complete 4+ Views Right -- Results Pending -- Please visit your patient portal for your results or contact your primary care physician. Your Care Team Attending Physician - Isidra Polanco Primary Care Physician - Isidra Polanco This Is Your Medications List Misc Prescription (Glucose Kit) Misc Prescription (right knee compression brace with velcro) acetaminophen (Tylenol 325 mg Tab) albuterol (Albuterol (Eqv-ProAir HFA) 90 mcg/inh inhalation aerosol) alendronate (alendronate 35 mg Tab) aspirin (Aspir 81) cetirizine (cetirizine 10 mg oral capsule) cholecalciferol (Vitamin D3 50,000 intl units oral capsule) fluticasone nasal (Flonase 0.05 mg/inh [place]) phentermine (phentermine 37.5 mg oral capsule) sertraline (sertraline 100 mg Tab) Procedures Performed Hysterectomy and bilateral salpingo-oophorectomy sample (01/17/2021), Colonoscopy normal (2015), Cholecystectomy, Hiatus hernia repair, Mastectomy. Discharge Vitals Temperature (Temporal Artery) 36.2 ???C Heart Rate (Peripheral) 88 Respiratory Rate 16 Blood Pressure 122/62 Height 156 cm Height 61 in Weight 69.4 kg Weight 153.001 lb BMI 28.52 What to do next Scheduled Follow-Up Appointments Monday 9:40 AM EDT With: Isidra Polanco Where: [address] [id number]- Monday 3:00 PM EDT With: Isidra Polanco Where: [address] [id number]- 2025 11:00 AM EDT With: Where: [address] [address]- Medications What How Much When Why Instructions [facility] Prescription (right knee compression brace with velcro) See instructions Right knee pain Swelling of right knee joint use daily on right knee when walking, working, active Pickup at [facility] Unchanged acetaminophen (Tylenol 325 mg Tab) 1 Tablets By Mouth Every 4 hours as needed for for pain Unchanged albuterol (Albuterol (Eqv-ProAir HFA) 90 mcg/ inh inhalation aerosol) 2 Puffs Inhalation Every 6 hours as needed for Wheezing Unchanged alendronate (alendronate 35 mg Tab) 1 Tablets By Mouth Every 7 days Osteopenia with 6-8 oz plain water, at least 30 minutes before first food, beverage, or medication of the day. Sit up right for 30 minutes after taking medication ( do not lay down) Unchanged aspirin (Aspir 81) 81 Milligram By Mouth Every day Unchanged cetirizine (cetirizine 10 mg oral capsule) 1 Capsules By Mouth Every day as needed for for allergy symptoms Seasonal allergies Osteopenia, unspecified location Unchanged cholecalciferol (Vitamin D3 50,000 intl units oral capsule) 1 Capsules By Mouth Every week Unchanged fluticasone nasal (Flonase 0.05 mg/ inh [place]) 2 Sprays Nasal Inhalation Every day BMI 28.0-28.9,adult Fatigue each nostril Unchanged Misc Prescription (Glucose Kit) See instructions BMI 28.0-28.9,adult Fatigue Glucose meter. Include autolet, matching test strips, lancets, & alcohol wipes, #100 or as allowed by insurance; DX: E11.9 Unchanged phentermine (phentermine 37.5 mg oral capsule) 1 Capsules By Mouth Every day Moderate recurrent major depression Encounter for weight management BMI 31.0-31.9,adult Unchanged sertraline (sertraline 100 mg Tab) 1 Tablets By Mouth Every day Duration: 90 Days Pharmacy Information [facility]: [address] [place], [place] [phone] Allergies penicillin (Unknown) Problems Ongoing - Any problem that you are currently receiving treatment for. Adult BMI 30.0-30.9 kg/sq m Asthma BMI 28.0-28.9,adult BMI 30.0-30.9,adult Breast cancer, stage 3 COPD with emphysema Elevated fasting glucose Encounter for weight management Excessive dietary caloric intake Excessive thirst Fatigue Hyperlipemia Low TSH level Moderate recurrent major depression Neuropathy Osteopenia Right knee pain Seasonal allergies Swelling of right knee joint Historical - Any problem that you are no longer receiving treatment for. Breast cancer Smoker Patient Survey You may receive a survey via text or e-mail asking about your office visit. Please share your experience with us by completing your survey. We appreciate your feedback and thank you for choosing us for your care. Normal [facility] Family Medicine Office/Clini c Noteon 11-19-2024 Family Medicine Office/Clinic Note Family Medicine Office/Clinic Note HPI Staff Gloria is a 64 year old female presenting with pain in R knee, decribes it as stabbing when standing but a dull ache when at rest. Pain location: R knee Intensity:02/26 Onset: about a month ago Medication used: Tylenol History of Present Illness pt c/o right knee pain and swelling Review of Systems PHQ Score Initial Depression Screen Score: 0 SCORE Physical Exam Vitals & Measurements T: 36.2 ???C(Temporal Artery) HR: 88(Peripheral) RR: 16 BP: 122/62 HT: 156 cm HT: 61 in WT: 69.4 kg WT: 153.001 lb BMI: 28.52 General: alert, no acute distress ENMT: oral mucosa moist, no pharyngeal erythema or exudate Cardiovascular: regular rate and rhythm, normal peripheral perfusion Respiratory: Lungs CTA, respirations non labored Extremities: no deformity, no trauma Neurological: oriented x 4, LOC appropriate for age, CN II-XII intact, motor strength equal & normal bilaterally, speech normal Assessment/Plan 1. Right knee pain (M25.561: Pain in right knee) pt c/o pain and swelling of right knee., pain started about 1 month ago back of knee. now it is wrapping around and shoots up and down front of leg. x ray order provided. will go to [facility]. kenalog 40mg given IM in office today. will order meloxicam. RTC 1 month Ordered: meloxicam, 15 mg = 1 tab(s), Oral, Daily, # 30 tab(s), Refills(s) 0, Pharmacy: [facility], 156, cm, 11/19/24 10:12:00 EDT, Height/Length Dosing, 69.4, kg, 11/19/24 10:12:00 EDT, Weight Dosing Misc Prescription, right knee compression brace with velcro, See Instructions, 1 EA, 0, use daily on right knee when walking, working, active, [facility], Supply, 156, cm, 11/19/24 10:12:00 EDT, Height/Length Dosing, 69.4, kg, 11/19/24 10:12:00 EDT, Weight Dosing triamcinolone, 40 mg = 1 mL, Injection, IntraMuscular, Once, Stop date 11/19/24 12:54:00 EDT, Routine, Start date 11/19/24 12:54:00 EDT, 11/19/24 12:54:00 EDT XR Knee Complete 4+ Views Right 2. Swelling of right knee joint (M25.461: Effusion, right knee) see above Ordered: meloxicam, 15 mg = 1 tab(s), Oral, Daily, # 30 tab(s), Refills(s) 0, Pharmacy: [facility], 156, cm, 11/19/24 10:12:00 EDT, Height/Length Dosing, 69.4, kg, 11/19/24 10:12:00 EDT, Weight Dosing Misc Prescription, right knee compression brace with velcro, See Instructions, 1 EA, 0, use daily on right knee when walking, working, active, [email or web address], Supply, 156, cm, 11/19/24 10:12:00 EDT, Height/Length Dosing, 69.4, kg, 11/19/24 10:12:00 EDT, Weight Dosing triamcinolone, 40 mg = 1 mL, Injection, IntraMuscular, Once, Stop date 11/19/24 12:54:00 EDT, Routine, Start date 11/19/24 12:54:00 EDT, 11/19/24 12:54:00 EDT XR Knee Complete 4+ Views Right 3. BMI 28.0-28.9,adult (Z68.28: Body mass index [BMI] 28.0-28.9, adult) BMI education Ordered: meloxicam, 15 mg = 1 tab(s), Oral, Daily, # 30 tab(s), Refills(s) 0, Pharmacy: [facility], 156, cm, 11/19/24 10:12:00 EDT, Height/Length Dosing, 69.4, kg, 11/19/24 10:12:00 EDT, Weight Dosing triamcinolone, 40 mg = 1 mL, Injection, IntraMuscular, Once, Stop date 11/19/24 12:54:00 EDT, Routine, Start date 11/19/24 12:54:00 EDT, 11/19/24 12:54:00 EDT Follow-up No qualifying data available Problem List/Past Medical History Ongoing Adult BMI 30.0-30.9 kg/sq m Asthma BMI 28.0-28.9,adult BMI 30.0-30.9,adult Breast cancer, stage 3 COPD with emphysema Elevated fasting glucose Encounter for weight management Excessive dietary caloric intake Excessive thirst Fatigue Hyperlipemia Low TSH level Moderate recurrent major depression Neuropathy Osteopenia Right knee pain Seasonal allergies Swelling of right knee joint Historical Breast cancer Smoker Procedure/Surgical History Hysterectomy and bilateral salpingo-oophorectomy sample (01/17/2021), Colonoscopy normal (2016), Cholecystectomy, Hiatus hernia repair, Mastectomy. Medications Albuterol (Eqv-ProAir HFA) 90 mcg/inh inhalation aerosol, 2 puff(s), Inhalation, q6hr, PRN, 5 refills alendronate 35 mg Tab, 35 mg= 1 tab(s), Oral, q7day, 5 refills Aspir 81, 81 mg, Oral, Daily cetirizine 10 mg oral capsule, 10 mg= 1 cap(s), Oral, Daily, PRN Flonase 0.05 mg/inh [place], 2 spray(s), Nasal, Daily Glucose Kit, See Instructions meloxicam 15 mg Tab, 15 mg= 1 tab(s), Oral, Daily phentermine 37.5 mg oral capsule, 37.5 mg= 1 cap(s), Oral, Daily right knee compression brace with velcro, See Instructions sertraline 100 mg Tab, 100 mg= 1 tab(s), Oral, Daily, 3 refills triamcinolone acetonide 40 mg/mL Inj Susp, 40 mg= 1 mL, IntraMuscular, Once Tylenol 325 mg Tab, 1 tab(s), Oral, q4hr, PRN Vitamin D3 50,000 intl units oral capsule, 1250 mcg= 1 cap(s), Oral, qWeek, 1 refills Allergies penicillin (Unknown) Social History Alcohol - Low Risk, 03/22/2017 Never., 10/14/2024 Substance Abuse - Denies Substance Abuse, 03/22/2017 Never, 09/16/2024 Tobacco Former smoker, quit more th (more content not included)... Normal [facility] Comment on above: Result Comment: Elec tronically Signed By: Isidra Polanco\.br\Date and Time Signed: 11/19/24 13:01 EDT Family Medicine Office/Clini c Noteon 11-18-2024 Family Medicine Office/Clinic Note Family Medicine Office/Clinic Note HPI Staff complaints of _ headaches, fatigue, weak , body aches pt stats always has sinus issues pt states was exposed by a friend to bronchitis , pt states always thirsty cant get enough to drink Onset: 5 days Characteristics: weak, headaches OTC tried: none due for mamm History of Present Illness pt c/o fatigue, weakness, head ache and body aches and is very thirsty Review of Systems PHQ Score Initial Depression Screen Score: 0 SCORE Physical Exam Vitals & Measurements T: 36.4 ???C(Oral) HR: 48(Peripheral) RR: 16 BP: 108/62 SpO2: 97% HT: 61 in HT: 156 cm WT: 152.56 lb WT: 69.2 kg BMI: 28.44 General: alert, no acute distress ENMT: oral mucosa moist, no pharyngeal erythema or exudate Cardiovascular: regular rate and rhythm, normal peripheral perfusion Respiratory: Lungs CTA, respirations non labored Extremities: no deformity, no trauma Neurological: oriented x 4, LOC appropriate for age, CN II-XII intact, motor strength equal & normal bilaterally, speech normal Assessment/Plan 1. Type 2 diabetes mellitus (E11.9: Type 2 diabetes mellitus without complications) In September HGBA1C was 6.2. pt wanted to make dietary changes before starting medication. she is c/o excessive thirst and fatigue. fasting glucose in office today is 170. pt will return in 3 weeks and bring in BS log. Will most likely start metformin depending on BS log results. Ordered: [facility] Internal Ambulatory Referral 2. Elevated fasting glucose (R73.01: Impaired fasting glucose) In September HGBA1C was 6.2. checked BS in office today it was 170 and she is fasting. will send pt for diabetic education. Glucose monitor order was sent to [facility]. 3. Fatigue (R53.83: Other fatigue) see above Ordered: fluticasone nasal, 2 spray(s), Nasal, Daily, 16 gram, Refill(s) 0, each nostril, [facility], 156, cm, 11/18/24 8:48:00 EDT, Height/Length Dosing, 69.2, kg, 11/18/24 8:48:00 EDT, Weight Dosing [facility] Prescription, Glucose Kit, See Instructions, 1 EA, 0, Glucose meter. Include autolet, matching test strips, lancets, & alcohol wipes, #100 or as allowed by insurance; DX: E11.9, [facility], Supply, 156, cm, 11/18/24 8:48:00 EDT, Height/Length Dosing, 69.2... Fasting Blood Glucose POC [address] [facility] Internal Ambulatory Referral 4. Excessive thirst (R63.1: Polydipsia) see above 5. Seasonal allergies (J30.2: Other seasonal allergic rhinitis) pt c/o allergy symptoms as well, but with her Blood sugar already being elevated I do not feel comfortable giving kenalog. will send in flonase. 6. BMI 28.0-28.9,adult (Z68.28: Body mass index [BMI] 28.0-28.9, adult) BMIK education given Ordered: fluticasone nasal, 2 spray(s), Nasal, Daily, 16 gram, Refill(s) 0, each nostril, [facility], 156, cm, 11/18/24 8:48:00 EDT, Height/Length Dosing, 69.2, kg, 11/18/24 8:48:00 EDT, Weight Dosing Misc Prescription, Glucose Kit, See Instructions, 1 EA, 0, Glucose meter. Include autolet, matching test strips, lancets, & alcohol wipes, #100 or as allowed by insurance; DX: E11.9, [facility], Supply, 156, cm, 11/18/24 8:48:00 EDT, Height/Length Dosing, 69.2... 1126F Pain severity quantified; no pain present Depression Screening Negative 3352F [facility] Internal Ambulatory Referral Functional status assessed 1170F Medication list documented in medical record 1159F Most recent diastolic blood pressure <80 mm Hg 3078F No evidence of retinopathy in the prior year 3072F Patient screen for fall risk: no falls in last year or 1 fall with no injury in last year 1101F Review of all meds by a prescribing practitioner or clinical pharmacist documented in EHR 1160F Systolic BP <130 mm Hg (Most Recent) 3074F Follow-up No qualifying data available Problem List/Past Medical History Ongoing Adult BMI 30.0-30.9 kg/sq m Asthma BMI 30.0-30.9,adult Breast cancer, stage 3 COPD with emphysema Elevated fasting glucose Encounter for weight management Excessive dietary caloric intake Excessive thirst Fatigue Hyperlipemia Low TSH level Moderate recurrent major depression Neuropathy Osteopenia Seasonal allergies Historical Breast cancer Smoker Procedure/Surgical History Hysterectomy and bilateral salpingo-oophorectomy sample (01/17/2021), Colonoscopy normal (2015), Cholecystectomy, Hiatus hernia repair, Mastectomy. Medications Albuterol (Eqv-ProAir HFA) 90 mcg/inh inhalation aerosol, 2 puff(s), Inhalation, q6hr, PRN, 5 refills alendronate 35 mg Tab, 35 mg= 1 tab(s), Oral, q7day, 5 refills Aspir 81, 81 mg, Oral, Daily cetirizine 10 mg oral capsule, 10 mg= 1 cap(s), Oral, Daily, PRN Flonase 0.05 mg/inh [place], 2 spray(s), Nasal, Daily Glucose Kit, See Instructions phentermine 37.5 mg oral capsule, 37.5 mg= 1 cap(s), Oral, Daily sertraline 100 mg Tab, 100 mg= 1 tab(s), Oral, Daily, 3 refills Vitamin D3 50,000 intl units oral capsule, 1250 mcg= 1 cap(s), Oral, qWeek, 1 refi (more content not included)... Normal [facility] Comment on above: Result Comment: Elec tronically Signed By: Isidra Polanco\.br\Date and Time Signed: 11/18/24 10:13 EDT Ambulatory Visit Summaryon 0 10-14-2024 Ambulatory Visit Summary Ambulatory Visit Summary GLORIA LOPEZ :1960 Visit Date:10/14/2024 Ambulatory Visit Instructions Your Diagnosis Encounter for weight management Moderate recurrent major depression Former smoker BMI 29.0-29.9,adult Your Care Team Attending Physician - Isidra Polanco Primary Care Physician - Isidra Polanco This Is Your Medications List albuterol (Albuterol (Eqv-ProAir HFA) 90 mcg/inh inhalation aerosol) alendronate (alendronate 35 mg Tab) aspirin (Aspir 81) cetirizine (cetirizine 10 mg oral capsule) cholecalciferol (Vitamin D3 50,000 intl units oral capsule) phentermine (phentermine 37.5 mg oral capsule) sertraline (sertraline 100 mg Tab) Procedures Performed Hysterectomy and bilateral salpingo-oophorectomy sample (01/17/2021), Colonoscopy normal (2015), Cholecystectomy, Hiatus hernia repair, Mastectomy. Discharge Vitals Heart Rate (Peripheral) 72 Respiratory Rate 16 Blood Pressure 110/68 Height 156.0 cm Height 61 in Weight 72.2 kg Weight 159.174 lb BMI 29.67 What to do next Scheduled Follow-Up Appointments 2024 3:00 PM EDT With: Where: [facility] Monday 3:00 PM EDT With: Isidra Polanco Where: [address] [address] 2025 11:00 AM EDT With: Where: [address] [address]- Medications What How Much When Why Instructions New phentermine (phentermine 37.5 mg oral capsule) 1 Capsules By Mouth Every day Moderate recurrent major depression Encounter for weight management BMI 31.0-31.9,adult Pickup at [facility] Unchanged albuterol (Albuterol (Eqv-ProAir HFA) 90 mcg/ inh inhalation aerosol) 2 Puffs Inhalation Every 6 hours as needed for Wheezing Unchanged alendronate (alendronate 35 mg Tab) 1 Tablets By Mouth Every 7 days Osteopenia with 6-8 oz plain water, at least 30 minutes before first food, beverage, or medication of the day. Sit up right for 30 minutes after taking medication ( do not lay down) Unchanged aspirin (Aspir 81) 81 Milligram By Mouth Every day Unchanged cetirizine (cetirizine 10 mg oral capsule) 1 Capsules By Mouth Every day as needed for for allergy symptoms Seasonal allergies Osteopenia, unspecified location Unchanged cholecalciferol (Vitamin D3 50,000 intl units oral capsule) 1 Capsules By Mouth Every week Unchanged sertraline (sertraline 100 mg Tab) 1 Tablets By Mouth Every day Duration: 90 Days Pharmacy Information [facility]: [address] [place], [place] [phone] - 6520 Allergies penicillin (Unknown) Problems Ongoing - Any problem that you are currently receiving treatment for. Adult BMI 30.0-30.9 kg/sq m Asthma BMI 30.0-30.9,adult Breast cancer, stage 3 COPD with emphysema Elevated fasting glucose Encounter for weight management Excessive dietary caloric intake Fatigue Hyperlipemia Low TSH level Moderate recurrent major depression Neuropathy Osteopenia Seasonal allergies Historical - Any problem that you are no longer receiving treatment for. Breast cancer Smoker Patient Survey You may receive a survey via text or e-mail asking about your office visit. Please share your experience with us by completing your survey. We appreciate your feedback and thank you for choosing us for your care. Francie Cummings [facility] Medicine Office/Clini c Noteon 10-14-2024 Family Medicine Office/Clinic Note Family Medicine Office/Clinic Note HPI Staff Gloria is a 64 year old female presenting for 1 month follow up Weight management: Started Phentermine on Sleeping well:Yes, 6-8 hours Chest pain:No Tremors:No Headaches:No Heart fluttering:No Blurred Vision:No Beginning weight: 167.55 Previous weight: 162.70 Today's weight: 159.0 Questions/Concerns: pt does have some constipation and would take stool softener as needed. History of Present Illness pt presents today for weight management Review of Systems PHQ Score Initial Depression Screen Score: 0 SCORE Physical Exam Vitals & Measurements HR: 72(Peripheral) RR: 16 BP: 110/68 SpO2: 99% HT: 156.0 cm HT: 61 in WT: 159.174 lb WT: 72.2 kg BMI: 29.67 General: alert, no acute distress ENMT: oral mucosa moist, no pharyngeal erythema or exudate Cardiovascular: regular rate and rhythm, normal peripheral perfusion Respiratory: Lungs CTA, respirations non labored Extremities: no deformity, no trauma Neurological: oriented x 4, LOC appropriate for age, CN II-XII intact, motor strength equal & normal bilaterally, speech normal Assessment/Plan 1. Encounter for weight management (Z76.89: Persons encountering health services in other specified circumstances) pt is down another 3 pounds. doing well. has constipation and has used stool softener that she takes. RTC 3 months Ordered: phentermine, 37.5 mg = 1 cap(s), Oral, Daily, # 30 cap(s), Refills(s) 0, Pharmacy: [facility], 156, cm, 10/14/24 10:06:00 EDT, Height/Length Dosing, 72.2, kg, 10/14/24 10:06:00 EDT, Weight Dosing phentermine, 37.5 mg = 1 cap(s), Oral, Daily, # 30 cap(s), Refills(s) 0, Pharmacy: [facility], 156, cm, 09/16/24 10:08:00 EDT, Height/Length Dosing, 73.8, kg, 09/16/24 10:08:00 EDT, Weight Dosing 2. Moderate recurrent major depression (F33.1: Major depressive disorder, recurrent, moderate) continues sertraline Ordered: phentermine, 37.5 mg = 1 cap(s), Oral, Daily, # 30 cap(s), Refills(s) 0, Pharmacy: [facility], 156, cm, 10/14/24 10:06:00 EDT, Height/Length Dosing, 72.2, kg, 10/14/24 10:06:00 EDT, Weight Dosing phentermine, 37.5 mg = 1 cap(s), Oral, Daily, # 30 cap(s), Refills(s) 0, Pharmacy: [facility], 156, cm, 09/16/24 10:08:00 EDT, Height/Length Dosing, 73.8, kg, 09/16/24 10:08:00 EDT, Weight Dosing 3. Former smoker (Z87.891: Personal history of nicotine dependence) continue not smoking 4. BMI 29.0-29.9,adult (Z68.29: Body mass index [BMI] 29.0-29.9, adult) BMI education given Follow-up No qualifying data available Problem List/Past Medical History Ongoing Adult BMI 30.0-30.9 kg/sq m Asthma BMI 30.0-30.9,adult Breast cancer, stage 3 COPD with emphysema Elevated fasting glucose Encounter for weight management Excessive dietary caloric intake Fatigue Hyperlipemia Low TSH level Moderate recurrent major depression Neuropathy Osteopenia Seasonal allergies Historical Breast cancer Smoker Procedure/Surgical History Hysterectomy and bilateral salpingo-oophorectomy sample (01/17/2021), Colonoscopy normal (2015), Cholecystectomy, Hiatus hernia repair, Mastectomy. Medications Albuterol (Eqv-ProAir HFA) 90 mcg/inh inhalation aerosol, 2 puff(s), Inhalation, q6hr, PRN, 5 refills alendronate 35 mg Tab, 35 mg= 1 tab(s), Oral, q7day, 5 refills Aspir 81, 81 mg, Oral, Daily cetirizine 10 mg oral capsule, 10 mg= 1 cap(s), Oral, Daily, PRN phentermine 37.5 mg oral capsule, 37.5 mg= 1 cap(s), Oral, Daily sertraline 100 mg Tab, 100 mg= 1 tab(s), Oral, Daily, 3 refills Vitamin D3 50,000 intl units oral capsule, 1250 mcg= 1 cap(s), Oral, qWeek, 1 refills Allergies penicillin (Unknown) Social History Alcohol - Low Risk, 03/22/2017 Never., 10/14/2024 Substance Abuse - Denies Substance Abuse, 03/22/2017 Never, 09/16/2024 Tobacco Former smoker, quit more than 30 days ago Tobacco Use:. Former vaping or e-cigarette use Smokeless Tobacco Use:. Cigarettes, Vaping, Previous treatment: Hypnosis, cold turkey. Yes, 09/16/2024 Family History Diabetes mellitus type 2: Mother. Hypertension: Sister. Primary malignant neoplasm of colon: Grandparent and Uncle. Stroke: Mother. Immunizations Vaccine Date Status influenza virus vaccine, inactivated 03/28/2024 Recorded influenza virus vaccine, inactivated 03/23/2022 Recorded SARS-CoV-2 (COVID-19) Ad26 vaccine 01/18/2022 Recorded influenza virus vaccine, inactivated 04/29/2021 Recorded SARS-CoV-2 (COVID-19) Ad26 vaccine 09/13/2020 Recorded zoster vaccine, inactivated 03/01/2020 Recorded pneumococcal 23-valent vaccine 03/01/2020 Recorded influenza virus vaccine, inactivated 03/01/2020 Recorded Normal [facility] Comment on above: Result Comment: Elec tronically Signed By: Isidra Polanco\.br\Date and Time Signed: 10/14/24 10:25 EDT Reminderson 09-24-2024 Reminders Reminders From: Isidra Polanco To: [facility] - Clinical; Sent: 09/24/2024 08:01:48 EDT Show up: 09/24/2024 08:00:00 EDT Subject: Ambulatory Reminder Due Date/Time: 09/25/2024 07:59:00 EDT cholesterol and triglycerides were elevated. HGBA1C is 6.2. She needs to make some diet changes. decrease sugary foods and drinks as well as carbs like breads, pastas, pizza. Also decrease greasy, fatty foods. will need to recheck HGBA1C in 3 months. Would she like a referral to a electrical systems engineer? Results: Date Result Name Ind Value Ref Range 09/19/2024 8:42 Glucose Lvl 132 mg/dL (55 - 199) 09/19/2024 8:42 BUN 21 mg/dL (5 - 21) 09/19/2024 8:42 Creatinine 0.7 mg/dL (0.5 - 1.3) 09/19/2024 8:42 eGFR 95 mL/min/1.73 m2 (>=59 - ) 09/19/2024 8:42 BUN/Creat Ratio (H) 30 (10 - 20) 09/19/2024 8:42 Sodium Lvl (L) 132 mmol/L (135 - 145) 09/19/2024 8:42 Potassium Lvl 5.0 mmol/L (3.5 - 5.3) 09/19/2024 8:42 Chloride (L) 99 mmol/L (101 - 111) 09/19/2024 8:42 CO2 25 mmol/L (21 - 31) 09/19/2024 8:42 AGAP 13 mEq/L (6 - 16) 09/19/2024 8:42 Calcium Lvl 9.3 mg/dL (8.9 - 11.1) 09/19/2024 8:42 Alk Phos 67 Int._Unit/L (21 - 98) 09/19/2024 8:42 ALT 18 Int._Unit/L (6 - 46) 09/19/2024 8:42 AST 22 Int._Unit/L (5 - 43) 09/19/2024 8:42 Total Protein 7.1 gm/dL (6.0 - 7.8) 09/19/2024 8:42 Albumin Lvl 4.3 gm/dL (3.3 - 5.0) 09/19/2024 8:42 Globulin 2.8 gm/dL (1.4 - 4.0) 09/19/2024 8:42 A/G Ratio 1.5 (1.1 - 2.2) 09/19/2024 8:42 Bili Total 0.4 mg/dL (0.0 - 1.1) 09/19/2024 8:42 Hgb A1C % (H) 6.2 % ( - <=5.9) 09/19/2024 8:42 Chol (H) 259 mg/dL (120 - 200) 09/19/2024 8:42 Trig (H) 169 mg/dL ( - <=149) 09/19/2024 8:42 HDL 65 mg/dL 09/19/2024 8:42 LDL Direct (H) 188 mg/dL ( - <=129) 09/19/2024 8:42 VLDL 34 mg/dL (7 - 40) 09/19/2024 8:42 HCV Ab Non Reactive (Non Reactive - ) 09/19/2024 8:42 Interpretation: Comment From: Lolis Saldana (B - Clinical) To: Isidra Polanco; Sent: 09/24/2024 08:12:19 EDT Show up: 09/24/2024 08:12:00 EDT Subject: RE: Ambulatory Reminder pt notified, pt would like wait on the electrical systems engineer. Pt stated she will set up the lab draw at her next appt when she is here. Normal [facility] .Interpretation:on HCV Ab IA Ql Comment Invalid Interpretation Code [facility] Comment on above: Result Comment: Not infected with HCV unless early or acute infection is suspected (which may be delayed in an immunocompromised individual), or other evidence exists to indicate HCV infection. Performed at: [facility] [address] [id number] PhD Deyanira Raymundo Performed By: #### 2 [id number] #### [facility] [address] [place] [address] HCV Antibody RFX to Quant PC Jose 09-21-2024 HCV Ab IA Ql Non-Reactive Invalid Interpretation Code Non Reactive [facility] Comment on above: Result Comment: Perf ormed at: [facility] [address] [id number] PhD Deyanira Raymundo Performed By: #### 2 [id number] #### [facility] [address] [place] [id number] CHEMISTRYOrdered By: SYSTEM SYSTEM on 09-19-2024 Albumin [Mass/Vol] 4.3 g/dL Normal 3.3 - 5.0 gm/dL Remisol Chem Albumin/Globulin [Mass ratio] 1.5 {ratio} Normal 1.1 - 2.2 Remisol Chem ALP [Catalytic activity/Vol] 67 [iU]/d Normal 21 - 98 Int._Unit/L Remisol Chem ALT No additional P-5'-P [Catalytic activity/Vol] 18 [iU]/d Normal 6 - 46 Int._Unit/L [facility] Chem Anion gap [Moles/Vol] 13 mmol/L Normal 6 - 16 mEq/L [facility] AST [Catalytic activity/Vol] 22 [iU]/d Normal 5 - 43 Int._Unit/L [facility] Bilirubin [Mass/Vol] 0.4 mg/dL Normal 0.0 - 1 .1 mg/dL [facility] Calcium [Mass/Vol] 9.3 mg/dL Normal 8.9 - 11. 1 mg/dL [facility] Chloride [Moles/Vol] 99 mmol/L Low 101 - 1 11 mmol/L [facility] Cholesterol [Mass/Vol] 259 mg/dL High 120 - 200 mg/dL [facility] Cholesterol in HDL [Mass/Vol] 65 mg/dL Invalid Interpretation Code [facility] Comment on above: Result Comment: '>= 60 LOW RISK' '<= 40 HIGH RISK' Cholesterol in LDL [Mass/Vol] 188 mg/dL High <=129mg/dL [facility] Cholesterol in VLDL [Mass/Vol] 34 mg/dL Normal 7 - 40 mg/dL [facility] CO2 [Moles/Vol] 25 mmol/L Normal 21 - 31 mmol/L [facility] Creatinine [Mass/Vol] 0.7 mg/dL Normal 0.5 - 1.3 mg/dL [facility] eGFR 95 mL/min/1.73 m2 Normal >=59mL/min / 1.73 m2 [facility] Globulin (S) [Mass/Vol] 2.8 g/dL Normal 1.4 - 4.0 gm/dL [facility] Glucose [Mass/Vol] 132 mg/dL Normal 55 - 199 mg/dL [facility] Potassium [Moles/Vol] 5.0 mmol/L Normal 3.5 - 5.3 mmol/L [facility] Protein [Mass/Vol] 7.1 g/dL Normal 6.0 - 7.8 gm/dL [facility] Sodium [Moles/Vol] 132 mmol/L Low 135 - 145 mmol/L [facility] Triglyceride [Mass/Vol] 169 mg/dL High <=149mg/dL [facility] Urea nitrogen [Mass/Vol] 21 mg/dL Normal 5 - 21 mg/dL [facility] Urea nitrogen/Creatinine [Mass ratio] 30 mg/mg High 10 - 20 [facility] CHEMISTRYOrdered By: Brittnee Zabala on 09-19-2024 HbA1c (Bld) [Mass fraction] 6.2 % High <=5.9% [facility] ChemAutoSS CMPon 09-19-2024 Albumin [Mass/Vol] 4.3 g/dL Normal 3.3-5.0 [facility] Comment on above: Performed By: #### 2 [id number] #### [facility] [address] [place] [address] Albumin/Globulin (S) [Mass conc ratio] 1.5 Normal 1.1-2.2 [facility] Comment on above: Performed By: #### 2 [id number] #### [facility] [address] [place] [address] ALP [Catalytic activity/Vol] 67 Int._Unit/L Normal 21-98 [facility] Comment on above: Performed By: #### 2 [id number] #### [facility] [address] [place] [address] ALT No additional P-5'-P [Catalytic activity/Vol] 18 Int._Unit/L Normal 6-46 [facility] Comment on above: Performed By: #### 2 [id number] #### [facility] [address] [place] [address] Anion gap [Moles/Vol] 13 mmol/L Normal 6-16 [facility] Comment on above: Performed By: #### 2 [id number] #### [facility] [address] [place] [address] AST [Catalytic activity/Vol] 22 Int._Unit/L Normal 5-43 [facility] Comment on above: Performed By: #### 2 [id number] #### [facility] [address] [place] [address] Bilirubin [Mass/Vol] 0.4 mg/dL Normal 0.0-1.1 [facility] Comment on above: Performed By: #### 2 [id number] #### [facility] [address] [place] [address] Calcium [Mass/Vol] 9.3 mg/dL Normal 8.9-11.1 [facility] Comment on above: Performed By: #### 2 [id number] #### [facility] [address] [place] [address] Chloride [Moles/Vol] 99 mmol/L Low 101-111 [facility] Comment on above: Performed By: #### 2 [id number] #### [facility] [address] [place] [address] CO2 [Moles/Vol] 25 mmol/L Normal 21-31 [facility] Comment on above: Performed By: #### 2 [id number] #### [facility] [address] [place] [address] Creatinine [Mass/Vol] 0.7 mg/dL Normal 0.5-1.3 [facility] Comment on above: Performed By: #### 2 [id number] #### [facility] [address] [place] [address] Globulin (S) [Mass/Vol] 2.8 g/dL Normal 1.4-4.0 [facility] Comment on above: Performed By: #### 2 [id number] #### [facility] [address] [place] [address] Glucose [Mass/Vol] 132 mg/dL Normal 55-199 [facility] Comment on above: Performed By: #### 2 [id number] #### [facility] [address] [place] [address] Potassium [Moles/Vol] 5.0 mmol/L Normal 3.5-5.3 [facility] Comment on above: Performed By: #### 2 [id number] #### [facility] [address] [place] [address] Protein [Mass/Vol] 7.1 g/dL Normal 6.0-7.8 [facility] Comment on above: Performed By: #### 2 [id number] #### [facility] [address] [place] [address] Sodium [Moles/Vol] 132 mmol/L Low 135-145 [facility] Comment on above: Performed By: #### 2 [id number] #### [facility] [address] [place] [address] Urea nitrogen [Mass/Vol] 21 mg/dL Normal 5-21 [facility] Comment on above: Performed By: #### 2 [id number] #### [facility] [address] [place] [address] Urea nitrogen/Creatinine [Mass ratio] 30 No Units High 10-20 [facility] Comment on above: Performed By: #### 2 [id number] #### [facility] [address] [place] [address] [id number] 09-19-2024 HbA1c (Bld) [Mass fraction] 6.2 % High <=5.9 [facility] Comment on above: Performed By: #### [id number] #### [facility] [address] [place] [address] Lipid Panelon 09-19-2024 Cholesterol [Mass/Vol] 259 mg/dL High 120-200 [facility] Comment on above: Performed By: #### 2 [id number] #### [facility] [address] [place] [address] Cholesterol in HDL [Mass/Vol] 65 mg/dL Invalid Interpretation Code [facility] Comment on above: Result Comment: '>= 60 LOW RISK' '<= 40 HIGH RISK' Performed By: #### 2 [id number] #### [facility] [address] [place] [address] Cholesterol in LDL [Mass/Vol] 188 mg/dL High <=129 [facility] Comment on above: Performed By: #### 2 [id number] #### [facility] [address] [place] [address] Cholesterol in VLDL [Mass/Vol] 34 mg/dL Normal 7-40 [facility] Comment on above: Performed By: #### 2 [id number] #### [facility] [address] [place] [address] Triglyceride [Mass/Vol] 169 mg/dL High <=149 [facility] Comment on above: Performed By: #### 2 [id number] #### [facility] [address] [place] [address] eGFRon 09-19-2024 eGFR 95 mL/min/1.73 m2 Normal >=59 [facility] Comment on above: Performed By: #### 1 [id number] #### [facility] [address] [place] [address] Ambulatory Visit Summaryon 0 09-16-2024 Ambulatory Visit Summary Ambulatory Visit Summary JESSICA GLORIA Jewell :1960 Visit Date:09/16/2024 Ambulatory Visit Instructions Your Diagnosis Encounter for initial annual wellness visit (AWV) in Medicare patient Moderate recurrent major depression Osteopenia Advanced directives, counseling/discussion Elevated fasting glucose Family history of diabetes mellitus (DM) Hyperlipemia Screening for ischemic heart disease Encounter for hepatitis C screening test for low risk patient History of smoking greater than 50 pack years, Former smoker Obesity due to excess calories Your Care Team Attending Physician - Isidra Polanco Primary Care Physician - Isidra Polanco This Is Your Medications List albuterol (Albuterol (Eqv-ProAir HFA) 90 mcg/inh inhalation aerosol) alendronate (alendronate 35 mg Tab) aspirin (Aspir 81) cetirizine (cetirizine 10 mg oral capsule) cholecalciferol (Vitamin D3 50,000 intl units oral capsule) phentermine (phentermine 37.5 mg oral capsule) sertraline (sertraline 100 mg Tab) Procedures Performed Hysterectomy and bilateral salpingo-oophorectomy sample (01/17/2021), Colonoscopy normal (2015), Cholecystectomy, Hiatus hernia repair, Mastectomy. Discharge Vitals Heart Rate (Peripheral) 72 Blood Pressure 136/68 Height 156 cm Height 61 in Weight 73.8 kg Weight 162.701 lb BMI 30.33 What to do next Scheduled Follow-Up Appointments 2024 8:40 AM EDT With: Where: [address] [address]- Monday 10:00 AM EDT With: Isidra Polanco Where: [address] [address] 2025 11:00 AM EDT With: Where: [address] [address]- You Need to Complete the Following Comprehensive Metabolic Panel, Blood, Routine collect, 09/16/24, Order for future visit, Lab Collect, Screening for ischemic heart disease, Not Required, Print Label By Order Location HCV Antibody RFX to Quant PCR, Blood, Routine collect, 09/16/24, Order for future visit, Lab Collect, Obesity due to excess calories, Not Required, Print Label By Order Location HgbA1c, Blood, Routine collect, 09/16/24, Order for future visit, Lab Collect, Elevated fasting glucose, Required & Missing, Print Label By Order Location Lipid Panel, Blood, Routine collect, 09/16/24, Order for future visit, Lab Collect, Hyperlipemia, Required & Missing, Print Label By Order Location Medications What How Much When Why Instructions Unchanged albuterol (Albuterol (Eqv-ProAir HFA) 90 mcg/ inh inhalation aerosol) 2 Puffs Inhalation Every 6 hours as needed for Wheezing Unchanged alendronate (alendronate 35 mg Tab) 1 Tablets By Mouth Every 7 days Osteopenia with 6-8 oz plain water, at least 30 minutes before first food, beverage, or medication of the day. Sit up right for 30 minutes after taking medication ( do not lay down) Unchanged aspirin (Aspir 81) 81 Milligram By Mouth Every day Unchanged cetirizine (cetirizine 10 mg oral capsule) 1 Capsules By Mouth Every day as needed for for allergy symptoms Seasonal allergies Osteopenia, unspecified location Unchanged cholecalciferol (Vitamin D3 50,000 intl units oral capsule) 1 Capsules By Mouth Every week Unchanged phentermine (phentermine 37.5 mg oral capsule) 1 Capsules By Mouth Every day Moderate recurrent major depression Encounter for weight management BMI 31.0-31.9,adult Unchanged sertraline (sertraline 100 mg Tab) 1 Tablets By Mouth Every day Duration: 90 Days Allergies penicillin (Unknown) Problems Ongoing - Any problem that you are currently receiving treatment for. Adult BMI 30.0-30.9 kg/sq m Asthma BMI 30.0-30.9,adult Breast cancer, stage 3 COPD with emphysema Elevated fasting glucose Encounter for weight management Excessive dietary caloric intake Fatigue Hyperlipemia Low TSH level Moderate recurrent major depression Neuropathy Osteopenia Seasonal allergies Historical - Any problem that you are no longer receiving treatment for. Breast cancer Smoker Patient Survey You may receive a survey via text or e-mail asking about your office visit. Please share your experience with us by completing your survey. We appreciate your feedback and thank you for choosing us for your care. Education Materials BMI for Adults Body mass index (BMI) is a number found using a person's weight and height. BMI can help tell how much of a person's weight is made up of fat. BMI does not measure body fat directly. It is used instead of tests that directly measure body fat, which can be difficult and expensive. What are BMI measurements used for? BMI is useful to: ??? Find out if your weight puts you at higher risk for medical problems. ??? (more content not included)... Normal [facility] Ambulatory Visit Summary Ambulatory Visit Summary GLORIA LOPEZ :1960 Visit Date:09/16/2024 Ambulatory Visit Instructions Your Diagnosis Encounter for weight management BMI 31.0-31.9,adult Former smoker Moderate recurrent major depression Your Care Team Attending Physician - Isidra Polanco Primary Care Physician - Isidra Polanco This Is Your Medications List albuterol (Albuterol (Eqv-ProAir HFA) 90 mcg/inh inhalation aerosol) alendronate (alendronate 35 mg Tab) aspirin (Aspir 81) cetirizine (cetirizine 10 mg oral capsule) cholecalciferol (Vitamin D3 50,000 intl units oral capsule) phentermine (phentermine 37.5 mg oral capsule) sertraline (sertraline 100 mg Tab) Procedures Performed Hysterectomy and bilateral salpingo-oophorectomy sample (01/17/2021), Colonoscopy normal (2015), Cholecystectomy, Hiatus hernia repair, Mastectomy. Discharge Vitals Heart Rate (Peripheral) 85 Respiratory Rate 18 Blood Pressure 136/68 Height 156 cm Height 61 in Weight 73.8 kg Weight 162.701 lb BMI 30.33 What to do next Scheduled Follow-Up Appointments Monday 10:00 AM EDT With: Isidra Polanco Where: [place] [id number]- Medications What How Much When Why Instructions New phentermine (phentermine 37.5 mg oral capsule) 1 Capsules By Mouth Every day Moderate recurrent major depression Encounter for weight management BMI 31.0-31.9,adult Pickup at [facility] Unchanged albuterol (Albuterol (Eqv-ProAir HFA) 90 mcg/ inh inhalation aerosol) 2 Puffs Inhalation Every 6 hours as needed for Wheezing Unchanged alendronate (alendronate 35 mg Tab) 1 Tablets By Mouth Every 7 days Osteopenia with 6-8 oz plain water, at least 30 minutes before first food, beverage, or medication of the day. Sit up right for 30 minutes after taking medication ( do not lay down) Unchanged aspirin (Aspir 81) 81 Milligram By Mouth Every day Unchanged cetirizine (cetirizine 10 mg oral capsule) 1 Capsules By Mouth Every day as needed for for allergy symptoms Seasonal allergies Osteopenia, unspecified location Unchanged cholecalciferol (Vitamin D3 50,000 intl units oral capsule) 1 Capsules By Mouth Every week Unchanged sertraline (sertraline 100 mg Tab) 1 Tablets By Mouth Every day Duration: 90 Days Pharmacy Information [facility]: [address] [place], [place] [id number] [phone] Allergies penicillin (Unknown) Problems Ongoing - Any problem that you are currently receiving treatment for. Adult BMI 30.0-30.9 kg/sq m Asthma BMI 28.0-28.9,adult Breast cancer, stage 3 COPD with emphysema Elevated fasting glucose Encounter for weight management Excessive dietary caloric intake Fatigue Hyperlipemia Low TSH level Moderate recurrent major depression Neuropathy Osteopenia Seasonal allergies Historical - Any problem that you are no longer receiving treatment for. Breast cancer Smoker Patient Survey You may receive a survey via text or e-mail asking about your office visit. Please share your experience with us by completing your survey. We appreciate your feedback and thank you for choosing us for your care. Normal [facility] Family Medicine Office/Clini c Noteon 09-16-2024 Family Medicine Office/Clinic Note Family Medicine Office/Clinic Note Chief Complaint Initial Medicare Wellness Review of Systems PHQ Score Initial Depression Screen Score: 0 SCORE Physical Exam Vitals & Measurements HR: 72(Peripheral) BP: 136/68 SpO2: 93% HT: 156 cm HT: 61 in WT: 73.8 kg WT: 162.701 lb BMI: 30.33 Assessment/Plan 1. Encounter for initial annual wellness visit (AWV) in Medicare patient (Z00.00: Encounter for general adult medical examination without abnormal findings) The patient was given a customized and personalized print out of all the current AHRQ USPSTF???s recommendations for preventative services and all current CDC recommended immunizations, relevant risk recommendations and the following patient brochures were given. Reviewed Medicare Prevention Services checklist. CDC-Falls Prevention and home safety screening reviewed. Patient reports 1 injury fall in last 12 months, voices worry about falling. Exhibits no problems with sitting, standing or ambulation. Patient aware with keeping walk way area free of clutter to prevent tripping and/or falling. [place] Advance Directives reviewed. See #4. Patient denies any problems with ADL???s and Instrumental ADL???s. Cognitive screening completed with memory and clock face drawing. Patient did not do the clock face correctly, but did recite 3/3 memory words correctly. Immunization record reviewed, discussed Shingrix vaccine with educational handout and availability. 2 COVID vaccines have been administered. Allergies and medications reviewed and up to date. No concerns with taking medication as prescribed. Reviewed OTC medications, medication list up to date. Blood tests were reviewed: Discussed what tests need to be updated. Labs were ordered, will have completed prior to next PCP visit. Labs to be completed with [facility]. Patient no longer does screening mammograms as she has had a double mastectomy. No concerns with bowel/ bladder. Colonoscopy last completed with Dr. Oden 2015 with a 10 year repeat. Reviewed pain symptoms: patient denies pain. Reviewed all outside providers that patient follows. Last visit summary notes available in chart and/or have been requested. Patient declines any signs or symptoms of depression at this time. 8 minutes spent with screening and documentation. PHQ2 screening score 0. Patient drinks alcohol monthly or less, 1-2 drinks, denies concerns. 8 minutes spent with screening and documentation. Audit score 1. Follow up scheduled with PCP, 10/14/2024 AWV has been scheduled, 09/18/2025 Medicare provides yearly screening for alcohol and depression concerns. This is completed during our Medicare wellness visit for those who do not have a current diagnosis of depression or concerns with alcohol use. I spent a total of 17 minutes on this date of service which included preparing to see the patient, face to face patient care, completing clinical documentation, obtaining and/or reviewing separately obtained history, counseling and educating the patient with handouts. Explanations were provided with reviewing questionnaires. AUDIT risk assessment screening completed, risk score (1) with patient denying concerns with use. Completed PHQ-2 risk assessment for depression with risk score (0), negative findings. Patient has been reminded to notify the provider if there would be a change or concerns with symptoms with fear, unable to sleep, worrying too much or feeling down and/or sad with lost of interest with daily activities. Will continue to monitor with screening yearly during Medicare wellness visits. 2. Moderate recurrent major depression (F33.1: Major depressive disorder, recurrent, moderate) Patient taking Sertraline daily, voices medication is effective. Follows up with PCP with medication management and symptom control. PHQ-9 risk assessment completed with negative findings. Total risk score is 2. Patient denies any suicidal ideations at this time. Reviewed additional signs/symptoms to monitor for and report to provider. 3. Osteopenia (M85.80: Other specified disorders of bone density and structure, unspecified site) Patient takes alendronate and Vitamin D3 daily for management of her Osteopenia. Denies any bone pain or discomfort. Patient has reports one fracture of a left rib due to a fall. Reviewed recommended bone mineral density testing for women who are 65 years of age or older. Patient has routine DEXA scans, last was 01/17/2023. Next DEXA will be do 01/17/2026. Educational handout for Bone Health reviewed and provided to the patient during today's Medicare Wellness visit. Encouraged bone healthy diet, eating a well-balanced diet with plenty of Calcium and Vitamin D will help to protect your bones. Daily weight-bearing physical activity can help build strong bones, improve bone amounts, and decrease the risk of further bone decline. 4. Advanced directives, counseling/discussion (Z71.89: Other specified counseling) Spent 18 minutes with patient. Mare explanation of [facility] P (more content not included)... Normal [facility] Comment on above: Result Comment: Elec tronically Signed By: Isidra Polanco\.br\Date and Time Signed: 09/16/24 15:19 EDT\.br\Electronically Co-Signed By: Nayana Mittal\.br\Date and Time Co-Signed: 09/16/24 14:53 EDT Family Medicine Office/Clinic Note Family Medicine Office/Clinic Note HPI Staff Gloria is a 64 year old female presenting for 1 month follow up Weight management: Started Phentermine on 08/12/24 Sleeping well:Yes, 6-8 hours Chest pain:No Tremors:No Headaches:Yes mainly sinus headaches Heart fluttering:No Blurred Vision:Yes someitmes Beginning weight: 167.55 Previous weight: Today's weight: Questions/Concerns: none. History of Present Illness pt presents today for 1 month weight management Review of Systems PHQ Score Initial Depression Screen Score: 0 SCORE Physical Exam Vitals & Measurements HR: 85(Peripheral) RR: 18 BP: 136/68 HT: 156 cm HT: 61 in WT: 73.8 kg WT: 162.701 lb BMI: 30.33 General: alert, no acute distress ENMT: oral mucosa moist, no pharyngeal erythema or exudate Cardiovascular: regular rate and rhythm, normal peripheral perfusion Respiratory: Lungs CTA, respirations non labored Extremities: no deformity, no trauma Neurological: oriented x 4, LOC appropriate for age, CN II-XII intact, motor strength equal & normal bilaterally, speech normal Assessment/Plan 1. Encounter for weight management (Z76.89: Persons encountering health services in other specified circumstances) pt presents today for 1 month med check. was restarted on adipex last month. pt is down 5 pounds doing well. denies side effects. RTC 4 weeks Ordered: phentermine, 37.5 mg = 1 cap(s), Oral, Daily, # 30 cap(s), Refills(s) 0, Pharmacy: [facility], 156, cm, 08/12/24 11:27:00 EST, Height/Length Dosing, 76, kg, 08/12/24 11:27:00 EST, Weight Dosing phentermine, 37.5 mg = 1 cap(s), Oral, Daily, # 30 cap(s), Refills(s) 0, Pharmacy: [facility], 156, cm, 09/16/24 10:08:00 EDT, Height/Length Dosing, 73.8, kg, 09/16/24 10:08:00 EDT, Weight Dosing phentermine, 37.5 mg = 1 tab(s), Oral, Daily, # 30 tab(s), Refills(s) 0, Pharmacy: [facility], 156, cm, 12/14/23 8:07:00 EDT, Height/Length Dosing, 72.9, kg, 12/14/23 8:07:00 EDT, Weight Dosing E&M of Est. Patient Straight Fwd 10-19 Min [id number] 2. BMI 31.0-31.9,adult (Z68.31: Body mass index [BMI] 31.0-31.9, adult) BMI education gvien Ordered: phentermine, 37.5 mg = 1 cap(s), Oral, Daily, # 30 cap(s), Refills(s) 0, Pharmacy: [facility], 156, cm, 08/12/24 11:27:00 EST, Height/Length Dosing, 76, kg, 08/12/24 11:27:00 EST, Weight Dosing phentermine, 37.5 mg = 1 cap(s), Oral, Daily, # 30 cap(s), Refills(s) 0, Pharmacy: [facility], 156, cm, 09/16/24 10:08:00 EDT, Height/Length Dosing, 73.8, kg, 09/16/24 10:08:00 EDT, Weight Dosing 3. Former smoker (Z87.891: Personal history of nicotine dependence) continue not smoking Moderate recurrent major depression (F33.1: Major depressive disorder, recurrent, moderate) stable on current dose Ordered: phentermine, 37.5 mg = 1 cap(s), Oral, Daily, # 30 cap(s), Refills(s) 0, [facility]acy: [email or web address], 156, cm, 08/12/24 11:27:00 EST, Height/Length Dosing, 76, kg, 08/12/24 11:27:00 EST, Weight Dosing phentermine, 37.5 mg = 1 cap(s), Oral, Daily, # 30 cap(s), Refills(s) 0, Pharmacy: [facility], 156, cm, 09/16/24 10:08:00 EDT, Height/Length Dosing, 73.8, kg, 09/16/24 10:08:00 EDT, Weight Dosing Follow-up No qualifying data available Problem List/Past Medical History Ongoing Adult BMI 30.0-30.9 kg/sq m Asthma BMI 28.0-28.9,adult Breast cancer, stage 3 COPD with emphysema Elevated fasting glucose Encounter for weight management Excessive dietary caloric intake Fatigue Hyperlipemia Low TSH level Moderate recurrent major depression Neuropathy Osteopenia Seasonal allergies Historical Breast cancer Smoker Procedure/Surgical History Hysterectomy and bilateral salpingo-oophorectomy sample (01/17/2021), Colonoscopy normal (2015), Cholecystectomy, Hiatus hernia repair, Mastectomy. Medications Albuterol (Eqv-ProAir HFA) 90 mcg/inh inhalation aerosol, 2 puff(s), Inhalation, q6hr, PRN, 5 refills alendronate 35 mg Tab, 35 mg= 1 tab(s), Oral, q7day, 5 refills Aspir 81, 81 mg, Oral, Daily cetirizine 10 mg oral capsule, 10 mg= 1 cap(s), Oral, Daily, PRN phentermine 37.5 mg oral capsule, 37.5 mg= 1 cap(s), Oral, Daily sertraline 100 mg Tab, 100 mg= 1 tab(s), Oral, Daily, 3 refills Vitamin D3 50,000 intl units oral capsule, 1250 mcg= 1 cap(s), Oral, qWeek, 1 refills Allergies penicillin (Unknown) Social History Alcohol - Low Risk, 03/22/2017 Never., 08/09/2024 Substance Abuse - Denies Substance Abuse, 03/22/2017 Never., 08/09/2024 Tobacco Former smoker, quit more than 30 days ago Tobacco Use:., 08/09/2024 Family History Hypertension: Sister. Stroke: Mother. Immunizations Vaccine Date Status influenza virus vaccine, inactivated 03/28/2024 Recorded influenza virus vaccine, inactivated 03/23/2022 Recorded SARS-CoV-2 (COVID-19) Ad26 vaccine 01/18/2022 Recorded influenza virus vaccine, inactivated 04/29/2021 Recorded SARS-CoV-2 (COVID-19) Ad26 vaccine 09/13/2020 Arron (more content not included)... Normal [facility] Comment on above: Result Comment: Elec tronically Signed By: Isidra Polanco\.br\Date and Time Signed: 09/16/24 10:24 EDT Ambulatory Visit Summaryon 0 08-12-2024 Ambulatory Visit Summary Ambulatory Visit Summary GLORIA LOPEZ :1960 Visit Date:08/12/2024 Ambulatory Visit Instructions Your Diagnosis Moderate recurrent major depression Encounter for weight management BMI 31.0-31.9,adult Osteopenia Your Care Team Attending Physician - Isidra Polanco Primary Care Physician - Isidra Polanco This Is Your Medications List albuterol (Albuterol (Eqv-ProAir HFA) 90 mcg/inh inhalation aerosol) alendronate (alendronate 35 mg Tab) aspirin (Aspir 81) cetirizine (cetirizine 10 mg oral capsule) cholecalciferol (Vitamin D3 50,000 intl units oral capsule) phentermine (phentermine 37.5 mg Tab) phentermine (phentermine 37.5 mg oral capsule) sertraline (sertraline 100 mg Tab) Procedures Performed Hysterectomy and bilateral salpingo-oophorectomy sample (01/17/2021), Colonoscopy normal (2015), Cholecystectomy, Hiatus hernia repair, Mastectomy. Discharge Vitals Heart Rate (Peripheral) 80 Respiratory Rate 18 Blood Pressure 122/80 Height 156.0 cm Height 61 in Weight 76 kg Weight 167.551 lb BMI 31.23 What to do next Scheduled Follow-Up Appointments Monday 1:00 PM EDT With: Where: [place] [address]- Monday 1:40 PM EDT With: Isidra Polanco Where: [address] [id number]- Medications What How Much When Why Instructions New albuterol (Albuterol (Eqv-ProAir HFA) 90 mcg/ inh inhalation aerosol) 2 Puffs Inhalation Every 6 hours as needed for Wheezing Refills: 5 Pickup at [email or web address] New alendronate (alendronate 35 mg Tab) 1 Tablets By Mouth Every 7 days Osteopenia Refills: 5 with 6-8 oz plain water, at least 30 minutes before first food, beverage, or medication of the day. Sit up right for 30 minutes after taking medication ( do not lay down) Pickup at [facility] New sertraline (sertraline 100 mg Tab) 1 Tablets By Mouth Every day Duration: 90 Days Refills: 3 [facility] Changed phentermine (phentermine 37.5 mg oral capsule) 1 Capsules By Mouth Every day Moderate recurrent major depression Encounter for weight management BMI 31.0-31.9,adult [facility] Changed phentermine (phentermine 37.5 mg Tab) 1 Tablets By Mouth Every day Encounter for weight management Osteopenia Adult BMI 30.0-30.9 kg/sq m Unchanged aspirin (Aspir 81) 81 Milligram By Mouth Every day Unchanged cetirizine (cetirizine 10 mg oral capsule) 1 Capsules By Mouth Every day as needed for for allergy symptoms Seasonal allergies Osteopenia, unspecified location Unchanged cholecalciferol (Vitamin D3 50,000 intl units oral capsule) 1 Capsules By Mouth Every week Pharmacy Information [facility]: [address] [place], [place] [phone] Allergies penicillin (Unknown) Problems Ongoing - Any problem that you are currently receiving treatment for. Adult BMI 30.0-30.9 kg/sq m Asthma BMI 28.0-28.9,adult Breast cancer, stage 3 COPD with emphysema Elevated fasting glucose Encounter for weight management Excessive dietary caloric intake Fatigue Hyperlipemia Low TSH level Moderate recurrent major depression Neuropathy Osteopenia Seasonal allergies Historical - Any problem that you are no longer receiving treatment for. Breast cancer Smoker Patient Survey You may receive a survey via text or e-mail asking about your office visit. Please share your experience with us by completing your survey. We appreciate your feedback and thank you for choosing us for your care. Normal [facility] Family Medicine Office/Clini c Noteon 08-12-2024 Family Medicine Office/Clinic Note Family Medicine Office/Clinic Note HPI Staff Gloria is a 64 year old female presenting for medication refill Follow up for Mental Status: Medication adherence- Yes, takes medication as prescribed Medication refill needed: _ Suicidal thoughts-Not at this time Most recent PHQ: 10 Would like to discuss re starting Adipex. Pt not taking Alendronate has been out for over a month and states when she did have it she was only taking it maybe once a month because she would forget to take it. History of Present Illness pt presents today to follow up on depression, needs refills on meds Review of Systems PHQ Score Initial Depression Screen Score: 2 SCORE Physical Exam Vitals & Measurements HR: 80(Peripheral) RR: 18 BP: 122/80 SpO2: 98% HT: 61 in HT: 156.0 cm WT: 76 kg WT: 167.551 lb BMI: 31.23 General: alert, no acute distress ENMT: oral mucosa moist, no pharyngeal erythema or exudate Cardiovascular: regular rate and rhythm, normal peripheral perfusion Respiratory: Lungs CTA, respirations non labored Extremities: no deformity, no trauma Neurological: oriented x 4, LOC appropriate for age, CN II-XII intact, motor strength equal & normal bilaterally, speech normal Assessment/Plan 1. Moderate recurrent major depression (F33.1: Major depressive disorder, recurrent, moderate) pt presents today for follow up on depression. pt requesting refills on meds. denies need to adjust dose or add another med. is managing ok on current dose. Ordered: phentermine, 37.5 mg = 1 cap(s), Oral, Daily, # 30 cap(s), Refills(s) 0, Pharmacy: [facility], 156, cm, 08/12/24 11:27:00 EST, Height/Length Dosing, 76, kg, 08/12/24 11:27:00 EST, Weight Dosing 2. Encounter for weight management (Z76.89: Persons encountering health services in other specified circumstances) would like to restart on adipex. RTC 1 month. medication agreement updated Ordered: phentermine, 37.5 mg = 1 cap(s), Oral, Daily, # 30 cap(s), Refills(s) 0, Pharmacy: [facility], 156, cm, 08/12/24 11:27:00 EST, Height/Length Dosing, 76, kg, 08/12/24 11:27:00 EST, Weight Dosing 3. BMI 31.0-31.9,adult (Z68.31: Body mass index [BMI] 31.0-31.9, adult) BMI education Ordered: phentermine, 37.5 mg = 1 cap(s), Oral, Daily, # 30 cap(s), Refills(s) 0, Pharmacy: [facility], 156, cm, 08/12/24 11:27:00 EST, Height/Length Dosing, 76, kg, 08/12/24 11:27:00 EST, Weight Dosing Osteopenia (M85.80: Other specified disorders of bone density and structure, unspecified site) educated pt on the importance of taking Andronate to prevent further bone loss. refill send Ordered: alendronate, 35 mg = 1 tab(s), Oral, q7day, with 6-8 oz plain water, at least 30 minutes before first food, beverage, or medication of the day. Sit up right for 30 minutes after taking medication ( do not lay down), # 4 tab(s), Refills(s) 5, [facility] alendronate, 35 mg = 1 tab(s), Oral, q7day, with 6-8 oz plain water, at least 30 minutes before first food, beverage, or medication of the day. Sit up right for 30 minutes after taking medication ( do not lay down), # 4 tab(s), Refills(s) 5, Pharmacy: [facility] Orders: albuterol, 2 puff(s), Inhalation, q6hr Wheezing, 8.5 gm, Refill(s) 1, [facility], 156.5, cm, 02/02/23 9:30:00 EDT, Height/Length Dosing, 75, kg, 02/02/23 9:30:00 EDT, Weight Dosing albuterol, 2 puff(s), Inhalation, q6hr Wheezing, 8.5 gm, Refill(s) 5, [facility], 156, cm, 08/12/24 11:27:00 EST, Height/Length Dosing, 76, kg, 08/12/24 11:27:00 EST, Weight Dosing sertraline, 100 mg = 1 tab(s), Oral, Daily, # 90 tab(s), Refills(s) 1, Pharmacy: [email or web address], 156, cm, 06/02/23 10:31:00 EST, Height/Length Dosing, 68.6, kg, 06/02/23 10:31:00 EST, Weight Dosing sertraline, 100 mg = 1 tab(s), Oral, Daily, X 90 day(s), # 90 tab(s), Refills(s) 3, Pharmacy: [facility], 156, cm, 08/12/24 11:27:00 EST, Height/Length Dosing, 76, kg, 08/12/24 11:27:00 EST, Weight Dosing Follow-up No qualifying data available Problem List/Past Medical History Ongoing Adult BMI 30.0-30.9 kg/sq m Asthma BMI 28.0-28.9,adult Breast cancer, stage 3 COPD with emphysema Elevated fasting glucose Encounter for weight management Excessive dietary caloric intake Fatigue Hyperlipemia Low TSH level Moderate recurrent major depression Neuropathy Osteopenia Seasonal allergies Historical Breast cancer Smoker Procedure/Surgical History Hysterectomy and bilateral salpingo-oophorectomy sample (01/17/2021), Colonoscopy normal (2015), Cholecystectomy, Hiatus hernia repair, Mastectomy. Medications Albuterol (Eqv-ProAir HFA) 90 mcg/inh inhalation aerosol, 2 puff(s), Inhalation, q6hr, PRN, 5 refills alendronate 35 mg Tab, 35 mg= 1 tab(s), Oral, q7day, 5 refills Aspir 81, 81 mg, Oral, Daily cetirizine 10 mg oral capsule, 10 mg= 1 cap(s), Oral, Daily, PRN phentermine 37.5 mg oral capsule, 37.5 mg= 1 cap(s), Oral, Daily phentermine 37.5 (more content not included)... Normal [facility] Comment on above: Result Comment: Elec tronically Signed By: Isidra Polanco\.br\Date and Time Signed: 08/12/24 11:40 EST Pre-Visit Planningon 025 Pre-Visit Planning Pre-Visit Planning From: Dang JO, Carol To: Isidra Polanco; Sent: 08/09/2024 10:33:25 EST Subject: Pre-Visit Planning Due Date/Time: 08/09/2024 10:33:00 EST Caller Name: GLORIA LOPEZ; Caller Number: Luc , M Luis Miner During a pre-visit planning chart review, I noted the following documentation in the medical record: Current Medication List: Sertraline since 03/29/[address] Villagran. Last fill date was 05/02/2024 prescribed by Carley Mota 02/02/2023 office note-TRANG: 10 pgq-7: 7 Review of Systems PHQ Score Initial Depression Screen Score: 3 Detailed Depression Screen Score: 7 Total Depression Screen Score: 10 03/28/2024 CC consult note has Depression Based on your medical judgment, can you please clarify which, if any, of the following conditions are present? Major Depressive Disorder, Recurrent ??? Major depressive disorder, recurrent, mild ??? Major depressive disorder, recurrent, moderate ??? Major depressive disorder, recurrent, severe without mention of psychotic behavior ??? Major depressive disorder, recurrent, severe specified as with psychotic behavior ??? Major depressive disorder, recurrent, in partial remission ??? Major depressive disorder, recurrent, in full remission Major Depressive Disorder, Single Episode ??? Major depressive disorder, single episode, mild ??? Major depressive disorder, single episode, moderate ??? Major depressive disorder, single episode, severe without mention of psychotic behavior ??? Major depressive disorder, single episode, severe specified as with psychotic behavior ??? Major depressive disorder, single episode, in partial remission ??? Major depressive disorder, single episode in full remission -Other (Please Specify): I can update the problem list with your specified response if you would like. In responding to this request, please exercise your independent professional judgment. The fact that a question is asked does not imply that any particular answer is desired or expected. If you have any questions, please feel free to contact me at extension [phone]. Thank you! Carol Leong, RAMAKRISHNA, RN, CCM, CCDS, CCDS-O [facility] [place] [address] P: [phone] F: [phone] [email or web address] From: Isidra Polanco To: Dang JO, Carol; Sent: 08/12/2024 10:55:37 EST Subject: RE: Pre-Visit Planning Caller Name: GLORIA LOPEZ; Caller Number: Luc , M major depressive disorder, recurrent Normal [facility] CBC W Auto Differential pane l (Bld)on 03-28-2024 Basophils (Bld) [#/Vol] 0.06 10*3/uL [facility] Basophils/100 WBC (Bld) 0.9 % [facility] Differential cell count method Nom (Bld) Auto [facility] Eosinophils (Bld) [#/Vol] 0.18 10*3/uL [facility] Eosinophils/100 WBC (Bld) 2.7 % [facility] Erythrocyte distribution width (RBC) [Ratio] 12.8 % 11.5 - 15.0 % [facility] Hematocrit (Bld) [Volume fraction] 43.5 % 36.0 - 46.0 % [facility] Hemoglobin (Bld) [Mass/Vol] 13.8 g/dL 11.5 - 15.5 g/dL [facility] Immature granulocytes (Bld) [#/Vol] 0.04 10*3/[facility] Immature granulocytes/100 WBC (Bld) 0.6 % [facility] Lymphocytes (Bld) [#/Vol] 1.96 10*3/uL [facility] Lymphocytes/100 WBC (Bld) 29.6 % [facility] MCH (RBC) [Entitic mass] 28.6 pg 26.0 - 34.0 pg [facility] MCHC (RBC) [Mass/Vol] 31.7 g/dL 30.5 - 36.0 g/dL [facility] MCV (RBC) [Entitic vol] 90.2 fL 80.0 - 100.0 fL [facility] Monocytes (Bld) [#/Vol] 0.62 10*3/uL [facility] Monocytes/100 WBC (Bld) 9.4 % [facility] Neutrophils (Bld) [#/Vol] 3.76 10*3/uL [facility] Neutrophils/100 WBC (Bld) 56.8 % [facility] Nucleated RBC (Bld) [#/Vol] [facility] Nucleated RBC/100 WBC (Bld) [Ratio] 0.0 % /100 WBC [facility] Platelet mean volume (Bld) [Entitic vol] 9.0 fL 9.0 - 12.7 fL [facility] Platelets (Bld) [#/Vol] 334 10*3/uL [facility] RBC (Bld) [#/Vol] 4.82 10*6/uL 3.90 - 5.2 0 m/uL [facility] WBC (Bld) [#/Vol] 6.62 10*3/uL [facility] Basophils (Bld) [#/Vol] 0.06 10*3/uL Normal <0.11 [facility] Comment on above: Order Comment: Speci men Type: BLOOD SPECIMEN Ordering Facility: [facility] Address: [address] [place] [address] Performed By: #### 5 7021-8 #### [facility] CLIA [id number] [address] [place] [id number] Basophils/100 WBC (Bld) 0.9 % Normal [facility] Comment on above: Order Comment: Speci men Type: BLOOD SPECIMEN Ordering Facility: [facility] Address: [facility] [place] [address] Performed By: #### 5 7021-8 #### [facility] CLIA [id number] [address] [place] [place] [id number] Differential cell count method Nom (Bld) Auto Normal [facility] Comment on above: Order Comment: Speci men Type: BLOOD SPECIMEN Ordering Facility: [facility] Address: [address] [place], [place] [address] Performed By: #### 5 7021-8 #### [facility] CLIA [id number] [address] [place] [address] 27002 Eosinophils (Bld) [#/Vol] 0.18 10*3/uL Normal <0.46 [facility] Comment on above: Order Comment: Speci men Type: BLOOD SPECIMEN Ordering Facility: [facility] Address: [address] [place] [address] Performed By: #### 5 7021-8 #### [facility] CLIA [id number] [address] [place] [address] 66305 Eosinophils/100 WBC (Bld) 2.7 % Normal [facility] Comment on above: Order Comment: Speci men Type: BLOOD SPECIMEN Ordering Facility: [facility] Address: [address] [place] [address] Performed By: #### 5 7021-8 #### [facility] CLIA [id number] [address] [place] [address] 87875 Erythrocyte distribution width (RBC) [Ratio] 12.8 % Normal 11.5-15.0 [facility] Comment on above: Order Comment: Speci men Type: BLOOD SPECIMEN Ordering Facility: [facility] Address: [address] [place] [address] Performed By: #### 5 7021-8 #### [facility] CLIA [id number] [address] [place] [address] 35850 Hematocrit (Bld) [Volume fraction] 43.5 % Normal 36.0-46.0 [facility] Comment on above: Order Comment: Speci men Type: BLOOD SPECIMEN Ordering Facility: [facility] Address: [address] [place], [place] [address] Performed By: #### 5 7021-8 #### [facility] CLIA [id number] [address] [place] [address] 08133 Hemoglobin (Bld) [Mass/Vol] 13.8 g/dL Normal 11.5-15.5 [facility] Comment on above: Order Comment: Speci men Type: BLOOD SPECIMEN Ordering Facility: [facility] Address: [address] [place] [address] Performed By: #### 5 7021-8 #### [facility] CLIA [id number] [address] [place] [address] 55939 Immature granulocytes (Bld) [#/Vol] 0.04 10*3/uL Normal <0.10 [facility] Comment on above: Order Comment: Speci men Type: BLOOD SPECIMEN Ordering Facility: [facility] Address: [address] [place] [address] Performed By: #### 5 7021-8 #### [facility] CLIA [id number] [address] [place] [address] 18755 Immature granulocytes/100 WBC (Bld) 0.6 % Normal [facility] Comment on above: Order Comment: Speci men Type: BLOOD SPECIMEN Ordering Facility: [facility] Address: [address] [place] [address] Performed By: #### 5 7021-8 #### [facility] CLIA [id number] [address] [place] [address] 80568 Lymphocytes (Bld) [#/Vol] 1.96 10*3/uL Normal 1.00-4.00 [facility] Comment on above: Order Comment: Speci men Type: BLOOD SPECIMEN Ordering Facility: [facility] Address: [address] [place] [address] [place] [address] Performed By: #### 5 7021-8 #### [facility] CLIA [id number] [address] [place] [address] 17580 Lymphocytes/100 WBC (Bld) 29.6 % Normal [facility] Comment on above: Order Comment: Speci men Type: BLOOD SPECIMEN Ordering Facility: [facility] Address: [address] [place] [address] Performed By: #### 5 7021-8 #### [facility] CLIA [id number] [address] [address] 52197 MCH (RBC) [Entitic mass] 28.6 pg Normal 26.0-34.0 [facility] Comment on above: Order Comment: Speci men Type: BLOOD SPECIMEN Ordering Facility: [facility] Address: [address] [place] [address] Performed By: #### 5 7021-8 #### [facility] CLIA [id number] [address] [address] 54739 MCHC (RBC) [Mass/Vol] 31.7 g/dL Normal 30.5-36.0 [facility] Comment on above: Order Comment: Speci men Type: BLOOD SPECIMEN Ordering Facility: [facility] Address: [address] [place] [address] Performed By: #### 5 7021-8 #### [facility] CLIA [id number] [address] [address] 60674 MCV (RBC) [Entitic vol] 90.2 fL Normal 80.0-100.0 [facility] Comment on above: Order Comment: Speci men Type: BLOOD SPECIMEN Ordering Facility: [facility] Address: [address] [place] [address] Performed By: #### 5 7021-8 #### [facility] CLIA [id number] [address] [address] 88014 Monocytes (Bld) [#/Vol] 0.62 10*3/uL Normal <0.87 [facility] Comment on above: Order Comment: Speci men Type: BLOOD SPECIMEN Ordering Facility: [facility] Address: [address] [place] [address] Performed By: #### 5 7021-8 #### [facility] CLIA [id number] [address] [place] [address] 38852 Monocytes/100 WBC (Bld) 9.4 % Normal [facility] Comment on above: Order Comment: Speci men Type: BLOOD SPECIMEN Ordering Facility: [facility] Address: [address] [place] [phone] Performed By: #### 5 7021-8 #### [facility] CLIA [id number] [address] [address] 42618 Neutrophils (Bld) [#/Vol] 3.76 10*3/uL Normal 1.45-7.50 [facility] Comment on above: Order Comment: Speci men Type: BLOOD SPECIMEN Ordering Facility: [facility] Address: [address] [place] [address] Performed By: #### 5 7021-8 #### [facility] CLIA [id number] [address] [place] [address] 71598 Neutrophils/100 WBC (Bld) 56.8 % Normal [facility] Comment on above: Order Comment: Speci men Type: BLOOD SPECIMEN Ordering Facility: [facility] Address: [address] [place] [address] Performed By: #### 5 7021-8 #### [facility] CLIA [id number] [address] [address] 63281 Nucleated RBC (Bld) [#/Vol] 10*3/uL Normal <0.01 [facility] Comment on above: Order Comment: Speci men Type: BLOOD SPECIMEN Ordering Facility: [facility] Address: [address] [place] [phone] Performed By: #### 5 7021-8 #### [facility] CLIA [id number] [address] [address] 98409 Nucleated RBC/100 WBC (Bld) [Ratio] 0.0 /100 WBC Normal [facility] Comment on above: Order Comment: Speci men Type: BLOOD SPECIMEN Ordering Facility: [facility] Address: [address] [place] [address] Performed By: #### 5 7021-8 #### [facility] CLIA [id number] [address] [place] [address] Platelet mean volume (Bld) [Entitic vol] 9.0 fL Normal 9.0-12.7 [facility] Comment on above: Order Comment: Speci men Type: BLOOD SPECIMEN Ordering Facility: [facility] Address: [address] [place] [address] Performed By: #### 5 7021-8 #### [facility] CLIA [id number] [address] [place] [address] 31953 Platelets (Bld) [#/Vol] 334 10*3/uL Normal 150-400 [facility] Comment on above: Order Comment: Speci men Type: BLOOD SPECIMEN Ordering Facility: [facility] Address: [address] [place] [address] Performed By: #### 5 7021-8 #### [facility] CLIA [id number] [address] [place] [address] 61179 RBC (Bld) [#/Vol] 4.82 10*6/uL Normal 3.90-5.20 [facility] Comment on above: Order Comment: Speci men Type: BLOOD SPECIMEN Ordering Facility: [facility] Address: [address] [place] [address] 23353 Performed By: #### 5 7021-8 #### [facility] CLIA [id number] [address] [place] [address] 14333 WBC (Bld) [#/Vol] 6.62 10*3/uL Normal 3.70-11.00 [facility] Comment on above: Order Comment: Speci men Type: BLOOD SPECIMEN Ordering Facility: [facility] Address: [address] [place] [address] 08099 Performed By: #### 5 7021-8 #### [facility] CLIA [id number] [address] [place] [address] 16609 CNOVSPon 03-28-2024 CNOVSP Visit (SP) Office (H EMASA) -- GLORIA LOPEZ ([id number]) 1960 F Date Time Provider Department 03/28/24 10:00 AM TINO MCGUIRE During your visit today, we recorded the following information about you: Temperature Pulse Respiration Blood pressure 98.2 degrees 65/minute 16/minute 115/68 Weight Height 70.8 kg 1.575 m Tino Mcguire APRN.CNP 03/28/2024 12:20 PM Signed NAME: Gloria Lopez CLINIC NO.: [id number] DATE OF SERVICE: March 28, 2024 (Brennon) Some elements in this clinic note that are critical to medical decision making have been carefully reviewed and included from a prior clinic note dated: March 23, 2023 (Mumtaz) Referring Provider: Dr. Jacquelyn Villgaran Additional Clinicians involved in Gloria Lopez's care: Dr. Gabe Garcia, Dr. Saji Suarez CC: Follow up. 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 She underwent breast conserving surgery on 04/22/2020. Pathologic stage T1b N0 M0, grade 3 with associated high-grade DCIS. Stage IB. She completed 4 cycles of adjuvant chemotherapy. (TC) through 08/10/2021 She has a previous history of left-sided infiltrating ductal carcinoma ER WI negative HER-2/sabas positive diagnosed in 2005 T2N0 for which she had a lumpectomy followed by radiation with chemotherapy and Herceptin for 1 year. She completed treatment January 2008. CT chest shows left reticulonodular changes that will need to be followed. 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 01/2021 - 02/2021 completed bilateral mastectomy and MADHAVI/BSO Ovarian vein thrombus - unclear etiology - Now resolved on low dose Xarelto. PLAN: Continue taking BASA No need for CT scans at this time. Patient agrees Will check vitamin D level today. Spoke to dietitian regarding absorption of vitamin D Follow up in 12 months with labs same day. Flu shot today Continue following with PCP for management of osteopenia on DXA HPI: Updated Visit, March 28, 2024: Gloria Lopez returns for scheduled follow-up. Overall she is feeling good. There has been no significant medical changes since her last visit. She had her gallbladder removed several years ago and expressed concern that she may not be absorbing vitamin D. She does take in oral bone strengthener. She continues high-dose weekly vitamin D. Patient was concerned with weight gain and this is managed by her PCP/LOGISTICS SOLUTION MANAGER. She was started on a medication for weight loss and is being monitored for diabetes. She denies any chest/breast implant lumps or bumps. She denies any enlarged lymph nodes. She has occasional shortness of breath mainly related to the weather and exertional shortness of breath with stairs. She has an inhaler she uses if necessary. She denies any unusual pain. Updated Visit, March 23, 2023: Gloria is doing well. Retiring soon (July) Looks and feels wonderful but gets tired at times unless she keeps busy. CMP pending CBC normal. Updated Visit, September 09, 2022: Gloria Lopez returns for follow-up. She admits to not starting to take a baby aspirin as recommended. She has exertional shortness of breath. 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 She states that the vice president global advertising sales is trying multiple different inhalers. She denies cough. She denies bilateral leg/calf pain. She denies breast/chest lumps or bumps. She has bilateral implants. She has a follow-up scheduled with the breast specialist in October. She has deferred the breast exam for today. Overall, she is doing well. She has some concerns regarding a lesion to her upper chest and has requested to be referred back to dermatology. Updated Visit, June 03, 2022: Gloria returns - reviewed labs and CT Abd/Pelvis. Ovarian vein non-occlusive thrombus resolved Continues follow up at [facility]. Weight gain with associated fatigue and dyspnea. Possibly developed apnea. Also has underlying emphysema. Labs stable. Updated Visit, March 11, 2022: Gloria returns and is experiencing fatigue which may most likely be related to her emphysema. Also has a clot in her right ovarian vein - non- occlusive but new upon review of her Ctscan. No other evidence of metastatic or local recurrence. Updated Visit, September 10, 2021: Had her implants revision 3 weeks ago and is still sore. CT reviewed and will get CT abd/Pelvis next visit for better evaluation of hypodensity noted in spleen. Labs stable. She is otherwise doing well. Her sister Lazaro was not present. Updated Visit, D (more content not included)... [facility] GLOR[facility] ([id number]) 1960 F Date Time Provider Department 03/28/24 TINO MCGUIRE During your visit today, we recorded the following information about you: Rachael Greenberg 03/28/2024 11:21 AM Signed Triage to call patient with lab results from 03-28-24 including tumor markers. Dev Ch RN 03/29/2024 9:00 AM Signed VM left with normal/stable lab results. Encouraged to call with any questions or concerns. Dev Ch RN Allergies As of Date: 03/28/2024 Noted Allergy Reaction PENICILLINS 04/25/2012 16 - Unknown Date Reviewed: 03/28/2024 Reviewed by: Tino Mcguire APRN.STEEL CUTTER - Fully Assessed Reason for Visit: Results [95] Prescriptions as of 03/29/2024 - Phentermine HCl 37.5 mg tablet Take 1 tablet by mouth every afternoon. - magnesium oxide 400 mg magnesium cap Take by mouth. - albuterol HFA (PROVENTIL HFA, VENTOLIN HFA) 90 mcg/actuation inhaler Inhale 2 Puffs as instructed every 4 hours as needed. - acetaminophen (TYLENOL EXTRA STRENGTH) 500 mg tablet Take 2 tablets by mouth every 6 hours as needed for pain. Two (2) X 500 mg tablets = 1,000 mg - cholecalciferol (VITAMIN D3) 50 mcg (2,000 unit) tablet Take 2,000 Units by mouth once daily. - cyanocobalamin (VITAMIN B-12) 1,000 mcg tab Take 1,000 mcg by mouth once daily. - Lactobacillus acidophilus (PROBIOTIC) 10 billion cell cap Take by mouth once daily. - acetaminophen/diphenhydram ine (TYLENOL PM ORAL) Take by mouth. - sertraline (ZOLOFT) 100 mg tablet Take 1 tablet by mouth once daily. - acetaminophen (TYLENOL) 325 mg tablet Take 650 mg by mouth. Problem List As Of Date 03/28/2024 Noted Resolved Malignant neoplasm of nipple of right breast in*05/02/2012 Malignant neoplasm of upper-inner quadrant of r*04/02/2020 Former smoker [Z87.891] 04/21/2020 Emphysema of lung (HCC) [J43.9] 01/27/2021 History of breast cancer [Z85.3] 04/19/2021 Type 2 diabetes (HCC) [E11.9] 04/19/2021 Anxiety [F41.9] 04/19/2021 Breast asymmetry following reconstructive surge*08/12/2021 Encounter Status:Closed by DEV CH on 03/29/24 Normal [facility] Cancer Ag15-3 SerPl-aCncon 1 Cancer Ag 15-3 Qn 6.8 U/mL Normal <26.0 [facility] Comment on above: Order Comment: Speci men Type: BLOOD SPECIMEN Ordering Facility: [facility] Address: [address] [place] [address] Result Comment: The CA 15-3 test methodology used is the Electrochemiluminescence Immunoassay by [employer]. Results obtained with different methods or kits cannot be used interchangeably. Performed By: #### 6 875-9 #### [facility] CLIA [id number] [address] [place] [address] [place] Cancer Ag27-29 SerPl-aCncon 03-28-2024 Cancer Ag 27-29 Qn 10.3 [arb'U]/mL Normal <38.6 [facility] Comment on above: Order Comment: Speci men Type: BLOOD SPECIMEN Ordering Facility: [facility] Address: [address] [place] [address] Result Comment: The CA27.29 test was performed using the Siemens Notehallaur XP chemiluminometric immunoassay method. Results obtained with different assay methods or kits cannot be used interchangeably. Performed By: #### 1 7842-6 #### [facility] CLIA [id number] [address] [place] [address] OF [facility] Comprehensive metabolic 2000 panelOrdered By: Gloria Valera on 03-28-2024 Albumin [Mass/Vol] 4.5 g/dL 3.9 - 4.9 g/dL [facility] ALP [Catalytic activity/Vol] 97 U/L 34 - 123 U/L [facility] ALT [Catalytic activity/Vol] 16 U/L 7 - 38 U/L [facility] Anion gap [Moles/Vol] 14 mmol/L 8 - 15 mmol/L [facility] AST [Catalytic activity/Vol] 21 U/L 13 - 35 U/L [facility] Bilirubin [Mass/Vol] 0.3 mg/dL 0.2 - 1 .3 mg/dL [facility] Calcium [Mass/Vol] 9.2 mg/dL 8.5 - 10. 2 mg/dL [facility] Chloride [Moles/Vol] 101 mmol/L 98 - 10 7 mmol/L [facility] CO2 [Moles/Vol] 25 mmol/L 22 - 30 mmol/L [facility] Creatinine [Mass/Vol] 0.74 mg/dL 0.58 - 0.96 mg/dL [facility] GFR/1.73 sq M.predicted among non-blacks MDRD (S/P/Bld) [Vol rate/Area] 90 mL/min/{1.73_m2} - PINF [facility] Comment on above: Estimated Glomerular Filtration Rate (eGFR) is calculated using the 2020 CKD-EPI creatinine equation. This equation utilizes serum creatinine, sex, and age as parameters. The creatinine assay has traceable calibration to isotope dilution-mass spectrometry. Refer to KDIGO guidelines for clinical interpretation. In patients with unstable renal function, e.g. those with acute kidney injury, the eGFR may not accurately reflect actual GFR. Glucose [Mass/Vol] 123 mg/dL High 74 - 99 mg/dL [facility] Comment on above: The [place] Diabete s Association (ADA) provides guidance for cutoff values for fasting glucose and random glucose. The ADA defines fasting as no caloric intake for at least 8 hours. Fasting plasma glucose results between 100 to 125 mg/dL indicate increased risk for diabetes (prediabetes). Fasting plasma glucose results greater than or equal to 126 mg/dL meet the criteria for diagnosis of diabetes. In the absence of unequivocal hyperglycemia, results should be confirmed by repeat testing. In a patient with classic symptoms of hyperglycemia or hyperglycemic crisis, random plasma glucose results greater than or equal to 200 mg/dL meet the criteria for diagnosis of diabetes. Reference: Standards of Medical Care in Diabetes 2016, [place] Diabetes Association. Diabetes Care. 2016.39(Suppl 1). Interpretation and review of laboratory results Abnormal [facility] Potassium [Moles/Vol] 5.1 mmol/L 3.7 - 5.1 mmol/L [facility] Protein [Mass/Vol] 7.2 g/dL 6.3 - 8.0 g/dL [facility] Sodium [Moles/Vol] 140 mmol/L 136 - 144 mmol/L [facility] Urea nitrogen [Mass/Vol] 16 mg/dL 7 - 21 mg/dL [facility] Comprehensive metabolic 2000 panelon 03-28-2024 Albumin [Mass/Vol] 4.5 g/dL Normal 3.9-4.9 [facility] Comment on above: Order Comment: Speci men Type: BLOOD SPECIMEN Ordering Facility: [facility] Address: [address] [place] [address] Performed By: #### 2 4323-8 #### [facility] CLIA [id number] [address] [place] [address]00 ALP [Catalytic activity/Vol] 97 U/L Normal 34-123 [facility] Comment on above: Order Comment: Speci men Type: BLOOD SPECIMEN Ordering Facility: [facility] Address: [address] [place] [address] Performed By: #### 2 4323-8 #### [facility] CLIA [id number] [address] [place] [address] ALT [Catalytic activity/Vol] 16 U/L Normal 7-38 [facility] Comment on above: Order Comment: Speci men Type: BLOOD SPECIMEN Ordering Facility: [facility] Address: [address] [place] [address] Performed By: #### 2 4323-8 #### [facility] CLIA [id number] [address] [place] [address]263 Anion gap [Moles/Vol] 14 mmol/L Normal 8-15 [facility] Comment on above: Order Comment: Speci men Type: BLOOD SPECIMEN Ordering Facility: [facility] Address: [address] [place] [address] Performed By: #### 2 4323-8 #### [facility] CLIA [id number] [address] [address] 67625 AST [Catalytic activity/Vol] 21 U/L Normal 13-35 [facility] Comment on above: Order Comment: Speci men Type: BLOOD SPECIMEN Ordering Facility: [facility] Address: [address] [place] [address] Performed By: #### 2 4323-8 #### [facility] CLIA [id number] [address] [place] [address] 54539 Bilirubin [Mass/Vol] 0.3 mg/dL Normal 0.2-1.3 [facility] Comment on above: Order Comment: Speci men Type: BLOOD SPECIMEN Ordering Facility: [facility] Address: [address] [place] [address] Performed By: #### 2 4323-8 #### [facility] CLIA [id number] [address] [place] [address] [place] [address] Calcium [Mass/Vol] 9.2 mg/dL Normal 8.5-10.2 [facility] Comment on above: Order Comment: Speci men Type: BLOOD SPECIMEN Ordering Facility: [facility] Address: [address] [place] [id number] Performed By: #### 2 4323-8 #### [facility] CLIA [id number] [address] [place] [address] 87664 Chloride [Moles/Vol] 101 mmol/L Normal 98-107 [facility] Comment on above: Order Comment: Speci men Type: BLOOD SPECIMEN Ordering Facility: [facility] Address: [address] [place] [address] Performed By: #### 2 4323-8 #### [facility] CLIA [id number] [address] [address]01 CO2 [Moles/Vol] 25 mmol/L Normal 22-30 [facility] Comment on above: Order Comment: Speci men Type: BLOOD SPECIMEN Ordering Facility: [facility] Address: [address] [place] [address] Performed By: #### 2 4323-8 #### [facility] CLIA [id number] [address] [place] [address]2394 Creatinine [Mass/Vol] 0.74 mg/dL Normal 0.58-0.96 [facility] Comment on above: Order Comment: Speci men Type: BLOOD SPECIMEN Ordering Facility: [facility] Address: [address] [place] [address] Performed By: #### 2 4323-8 #### [facility] CLIA [id number] [address] [place] [address]94 Creatinine and Glomerular filtration rate.predicted panel (S/P/Bld) 90 mL/min/1.73m??? Normal >=60 [facility] Comment on above: Order Comment: Speci men Type: BLOOD SPECIMEN Ordering Facility: [facility] Address: [address] [place] [address] Result Comment: Rhonda mated Glomerular Filtration Rate (eGFR) is calculated using the 2020 CKD-EPI creatinine equation. This equation utilizes serum creatinine, sex, and age as parameters. The creatinine assay has traceable calibration to isotope dilution-mass spectrometry. Refer to KDIGO guidelines for clinical interpretation. In patients with unstable renal function, e.g. those with acute kidney injury, the eGFR may not accurately reflect actual GFR. Performed By: #### 2 4323-8 #### [facility] CLIA [id number] [address] [place] [address] Glucose [Mass/Vol] 123 mg/dL High 74-99 [facility] Comment on above: Order Comment: Yahaira walker Type: BLOOD SPECIMEN Ordering Facility: [facility] Address: [address] [place], [place] [id number] Result Comment: The [place] Diabetes Association (ADA) provides guidance for cutoff values for fasting glucose and random glucose. The ADA defines fasting as no caloric intake for at least 8 hours. Fasting plasma glucose results between 100 to 125 mg/dL indicate increased risk for diabetes (prediabetes). Fasting plasma glucose results greater than or equal to 126 mg/dL meet the criteria for diagnosis of diabetes. In the absence of unequivocal hyperglycemia, results should be confirmed by repeat testing. In a patient with classic symptoms of hyperglycemia or hyperglycemic crisis, random plasma glucose results greater than or equal to 200 mg/dL meet the criteria for diagnosis of diabetes. Reference: Standards of Medical Care in Diabetes 2016, [place] Diabetes Association. Diabetes Care. 2016.39(Suppl 1). Performed By: #### 2 4323-8 #### [facility] CLIA [id number] [address] [place] [address]221 Potassium [Moles/Vol] 5.1 mmol/L Normal 3.7-5.1 [facility] Comment on above: Order Comment: Yahaira walker Type: BLOOD SPECIMEN Ordering Facility: [facility] Address: [address] [place] [address] Performed By: #### 2 4323-8 #### [facility] CLIA [id number] [address] [place] [address] Protein [Mass/Vol] 7.2 g/dL Normal 6.3-8.0 [facility] Comment on above: Order Comment: Speci men Type: BLOOD SPECIMEN Ordering Facility: [facility] Address: [address] [place] [address] Performed By: #### 2 4323-8 #### [facility] CLIA [id number] [address] [place] [address] Sodium [Moles/Vol] 140 mmol/L Normal 136-144 [facility] Comment on above: Order Comment: Speci men Type: BLOOD SPECIMEN Ordering Facility: [facility] Address: [address] [place] [address] Performed By: #### 2 4323-8 #### [facility] CLIA [id number] [address] [place] [address]69 Urea nitrogen [Mass/Vol] 16 mg/dL Normal 7-21 [facility] Comment on above: Order Comment: Speci men Type: BLOOD SPECIMEN Ordering Facility: [facility] Address: [address] [place], [place] [address] Performed By: #### 2 4323-8 #### [facility] CLIA [id number] [address] [place] [place] [address]348 Ambulatory Visit Summaryon 0 12-14-2023 Ambulatory Visit Summary Ambulatory Visit Summary GLORIA LOPEZ :1960 Visit Date:12/14/2023 Ambulatory Visit Instructions Your Diagnosis Encounter for weight management Your Care Team Attending Physician - Isidra Polanco Primary Care Physician - Isidra Polanco This Is Your Medications List albuterol (Albuterol (Eqv-ProAir HFA) 90 mcg/inh inhalation aerosol) alendronate (alendronate 35 mg Tab) aspirin (Aspir 81) cetirizine (cetirizine 10 mg oral capsule) cholecalciferol (Vitamin D3 50,000 intl units oral capsule) sertraline (sertraline 100 mg Tab) Procedures Performed Hysterectomy and bilateral salpingo-oophorectomy sample (01/17/2021), Colonoscopy normal (2015), Cholecystectomy, Hiatus hernia repair, Mastectomy. Discharge Vitals Temperature (Tympanic) 36.3 ?C Heart Rate (Peripheral) 78 Respiratory Rate 18 Blood Pressure 122/80 Height 156.0 cm Height 61 in Weight 72.9 kg Weight 160.38 lb BMI 29.96 What to do next Scheduled Follow-Up Appointments 2023 10:20 AM EDT With: Isidra Polanco Where: [facility] Normal [facility] Family Medicine Office/Clini c Noteon 12-14-2023 Family Medicine Office/Clinic Note Family Medicine Office/Clinic Note HPI Staff Gloria is a 63 year old female presenting for acute sick visit Respiratory C/O: Onset: 1-2 weeks Eye itching/watering: yes Nasal discharge: yes post nasal drainage Sinus pain/pressure: yes but not bad Sneezing: yes Remedies tried: Cetirizine Questions/Concerns: 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 pt needs refill on Alendronate and Vitamin D History of Present Illness pt presents today for weight management Review of Systems PHQ Score Initial Depression Screen Score: 0 SCORE Physical Exam Vitals & Measurements T: 36.3 ?C(Tympanic) HR: 78(Peripheral) RR: 18 BP: 122/80 SpO2: 96% HT: 156 cm WT: 73.5 kg BMI: 30.2 General: alert, no acute distress ENMT: oral mucosa moist, no pharyngeal erythema or exudate Cardiovascular: regular rate and rhythm, normal peripheral perfusion Respiratory: Lungs CTA, respirations non labored Extremities: no deformity, no trauma Neurological: oriented x 4, LOC appropriate for age, CN II-XII intact, motor strength equal & normal bilaterally, speech normal Assessment/Plan 1. Encounter for weight management (Z76.89: Persons encountering health services in other specified circumstances) pt would like to start back on adipex. medication agreement signed. RTC 4 weeks Ordered: phentermine, 37.5 mg = 1 tab(s), Oral, Daily, # 30 tab(s), Refills(s) 0, Pharmacy: [facility], 156, cm, 12/14/23 8:07:00 EDT, Height/Length Dosing, 72.9, kg, 12/14/23 8:07:00 EDT, Weight Dosing 2. Osteopenia (M85.80: Other specified disorders of bone density and structure, unspecified site) meds refilled Ordered: alendronate, 35 mg = 1 tab(s), Oral, q7day, with 6-8 oz plain water, at least 30 minutes before first food, beverage, or medication of the day. Sit up right for 30 minutes after taking medication ( do not lay down), # 4 tab(s), Refills(s) 5, [facility]acy: [facility] alendronate, 35 mg = 1 tab(s), Oral, q7day, with 6-8 oz plain water, at least 30 minutes before first food, beverage, or medication of the day. Sit up right for 30 minutes after taking medication ( do not lay down), # 4 tab(s), Refills(s) 5, Pharmacy: [facility] phentermine, 37.5 mg = 1 tab(s), Oral, Daily, # 30 tab(s), Refills(s) 0, Pharmacy: [facility], 156, cm, 04/20/23 9:36:00 EDT, Height/Length Dosing, 70.3, kg, 04/20/23 9:36:00 EDT, Weight Dosing phentermine, 37.5 mg = 1 tab(s), Oral, Daily, # 30 tab(s), Refills(s) 0, Pharmacy: [facility], 156, cm, 12/14/23 8:07:00 EDT, Height/Length Dosing, 72.9, kg, 12/14/23 8:07:00 EDT, Weight Dosing 3. Adult BMI 30.0-30.9 kg/sq m (Z68.30: Body mass index [BMI] 30.0-30.9, adult) BMI education given Ordered: phentermine, 37.5 mg = 1 tab(s), Oral, Daily, # 30 tab(s), Refills(s) 0, Pharmacy: [facility], 156, cm, 04/20/23 9:36:00 EDT, Height/Length Dosing, 70.3, kg, 04/20/23 9:36:00 EDT, Weight Dosing phentermine, 37.5 mg = 1 tab(s), Oral, Daily, # 30 tab(s), Refills(s) 0, [facility]: [email or web address], 156, cm, 12/14/23 8:07:00 EDT, Height/Length Dosing, 72.9, kg, 12/14/23 8:07:00 EDT, Weight Dosing Orders: cholecalciferol, 1,250 mcg = 1 cap(s), Oral, Daily, # 90 cap(s), Refills(s) 1, Pharmacy: [facility], 156, cm, 12/14/23 8:07:00 EDT, Height/Length Dosing, 72.9, kg, 12/14/23 8:07:00 EDT, Weight Dosing Follow-up No qualifying data available Problem List/Past Medical History Ongoing Adult BMI 30.0-30.9 kg/sq m Asthma BMI 28.0-28.9,adult Breast cancer, stage 3 COPD with emphysema Elevated fasting glucose Encounter for weight management Excessive dietary caloric intake Fatigue Hyperlipemia Low TSH level Neuropathy Osteopenia Seasonal allergies Historical Breast cancer Smoker Procedure/Surgical History Hysterectomy and bilateral salpingo-oophorectomy sample (01/17/2021), Colonoscopy normal (2015), Cholecystectomy, Hiatus hernia repair, Mastectomy. Medications Albuterol (Eqv-ProAir HFA) 90 mcg/inh inhalation aerosol, 2 puff(s), Inhalation, q6hr, PRN, 1 refills alendronate 35 mg Tab, 35 mg= 1 tab(s), Oral, q7day, 5 refills Aspir 81, 81 mg, Oral, Daily cetirizine 10 mg oral capsule, 10 mg= 1 cap(s), Oral, Daily, PRN phentermine 37.5 mg Tab, 37.5 mg= 1 tab(s), Oral, Daily sertraline 100 mg Tab, 100 mg= 1 tab(s), Oral, Daily, 1 refills Vitamin D3 50,000 intl units oral capsule, 1250 mcg= 1 cap(s), Oral, Daily, 1 refills Allergies penicillin (Unknown) Social History Alcohol - Low Risk, 03/22/2017 Substance Abuse - Denies Substance Abuse, 03/22/2017 Tobacco Former smoker, quit more than 30 days ago Tobacco Use:. Cigarettes, Household tobacco concerns: No., 12/14/2023 Family History Hypertension: Sister. Stroke: Mother. Immunizations Vaccine Date Status influenza virus vaccine, inactivated 03/23/2022 Recorded SARS-CoV-2 (COV (more content not included)... Normal [facility] Comment on above: Result Comment: Elec tronically Signed By: Isidra Polanco.aida\Date and Time Signed: 12/14/23 08:30 EDT CNOVon 11-20-2023 CNOV Office Visit (GENSF) -- GLORIA LOPEZ ([id number]) 1960 F Date Time Provider Department 11/20/23 8:00 AM INESSA ANDREW During your visit today, we recorded the following information about you: Temperature Pulse Blood pressure Weight 97.8 degrees 66/minute 131/74 74.1 kg Height 1.575 m Inessa Andrew APRN.CNP 11/20/2023 8:55 AM Signed MEDICAL BREAST PATIENT NAME: Gloria Lopez HISTORY of PRESENT ILLNESS: Gloria Lopez is a 63 year old 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 She denies any chest wall masses or skin changes. She did have a mechanical fall at home in 07/2023 and reports she broke a left rib with the fall, but has since recovered. Last visit she was not feeling very well but she saw her PCP and began Phentermine and lost 15-20 lbs and felt significantly better. She has since gained some of that weight back and hopes to go back on the medication soon. She presented with an abnormal mammogram in 2019. Core biopsy performed 03/11/2020 (reviewed at [facility]) at 1pm on the right showed IDC associated with chondromyxoid matrix, consistent with metaplastic carcinoma, grade 3, triple negative. She sought second opinion at [facility] with Dr. Garcia and 04/22/2020 had right partial mastectomy for a 10mm IDC, grade 3, with 0/1 SLN. T1cN0. She completed [address] TC [address] Dr[address] Bernal in 08/2020. 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 She completed treatment January 2008 Has Patient had Genetic Testing? 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 Reason for testing: Personal history of TNBC. She has two daughters; Dhiraj who is 29 and lives in [place] and has tested positive; and Danielle, who has yet to test and is 39 years old. They both have young children. She has had a complete hysterectomy with negative pathology. Date of surgery: 02/10/[address] Casanova She is status post bilateral risk-reducing nipple sparing mastectomy with prepectoral silicone implant reconstruction. Date of surgery: 12/29/20 and 05/03/21 (TE exchange to implant) with negative pathology. History pertaining to prior breast biopsies, genetic reports, pathology reports, treatment summaries, personal, social and family history has been extracted from my note dated 11/15/22. Her last Vitamin D level: No results found for: VITD She takes vitamin D3 2000 units and MVI daily BMD: 01/2023 - osteopenia at OSH (-2.3); she takes an oral weekly bone agent from her PCP PERSONAL BREAST HISTORY: Past breast history (prior to this encounter) is as follows: Breast biopsy: Yes, for cancer diagnosis as above Breast cysts: No Breast surgery: Yes, as above Breast cancer: Yes, as above CANCER SURVEILLANCE: Mammograms: N/A - she is s/p bilateral mastectomy Breast MRI: Yes, 10/07/20 prior to mastectomies Colonoscopy: Yes, per patient report (? 2016), normal RISK FACTORS FOR BREAST CANCER: Age at the onset of menses: 10 years of age. P: 2 Age at the of first child: 23 years of age. She did not breast feed. Age at menopause: Not stated. Post-menopausal hormone therapy: No She is s/p hysterectomy and BSO History of Mantle Radiation prior to the age of 28: No Obesity: Body mass index is 29.87 kg/m?. Current Weight: 163 lbs (down 8 lbs) Mammographic density: Not applicable - she is s/p bilateral mastectomy Personal History of Benign Atypical Breast Biopsy: No Alcohol use: Rare PAST MEDICAL HISTORY: PAST MEDICAL HISTORY Diagnosis Date Anxiety Breast asymmetry following reconstructive surgery 08/12/2021 Breast CA (HCC) Left; [place]-; HER2 + Depression Menopause Overweight Patient specifically denies history of: DVT, PE, migraine headaches WITH AURA, migraine headaches without aura, abnormal uterine bleeding and abnormal uterine biopsies. She has hyperlipidemia and osteoporosis. 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 PAST SURGICAL HISTORY: PAST SURGICAL HISTORY Procedure Laterality Date ABDOMINAL SURGERY HX 2016 hernia repair CHOLECYSTECTOMY HX COLONOSCOPY FRACTURE SURGERY femur fracture right as child HYSTERECTOMY Bilateral 01/2021 LUMPECTOMY/RADIOTHERAPY DIAG MAMM/A10 Left 2005 LUMPECTOMY/RADIOTHERAPY DIAG MAMM/A10 Right 04/22/2020 PAST SURGICAL HISTORY OF Insertion of MED-PORT PAST SURGICAL HISTORY OF (more content not included)... Normal [facility] CA 27.29 BLOODon 03-24-2023 Cancer Ag 27-29 Qn 11.8 [arb'U]/mL <38.6 U/mL [facility] 15-3 BLDon 03-23-2023 Cancer Ag 15-3 Qn 6.1 U/mL <26.0 U/mL [facility] CHEMISTRYOrdered By: SYSTEM SYSTEM on 02-02-2023 Free T4 [Mass/Vol] 0.87 ng/dL Normal 0.58 - 1. 64 ng/dL [facility] Remisol CHEMISTRYOrdered By: Rodney rodriguez on 02-02-2023 HbA1c (Bld) [Mass fraction] 6.5 % High <=5.9% [facility] ChemAutoSS CBC W Auto Differential pane l (Bld)on 05-27-2022 Basophils (Bld) [#/Vol] 0.07 10*3/uL [facility] Basophils/100 WBC (Bld) 0.9 % [facility] Differential cell count method Nom (Bld) Auto [facility] Eosinophils (Bld) [#/Vol] 0.20 10*3/uL [facility] Eosinophils/100 WBC (Bld) 2.7 % [facility] Erythrocyte distribution width (RBC) [Ratio] 12.7 % 11.5 - 15.0 % [facility] Hematocrit (Bld) [Volume fraction] 40.8 % 36.0 - 46.0 % [facility] Hemoglobin (Bld) [Mass/Vol] 13.0 g/dL 11.5 - 15.5 g/dL [facility] Immature granulocytes (Bld) [#/Vol] 0.03 10*3/uL [facility] Immature granulocytes/100 WBC (Bld) 0.4 % [facility] Lymphocytes (Bld) [#/Vol] 1.91 10*3/uL [facility] Lymphocytes/100 WBC (Bld) 25.4 % [facility] MCH (RBC) [Entitic mass] 29.1 pg 26.0 - 34.0 pg [facility] MCHC (RBC) [Mass/Vol] 31.9 g/dL 30.5 - 36.0 g/dL [facility] MCV (RBC) [Entitic vol] 91.3 fL 80.0 - 100.0 fL [facility] Monocytes (Bld) [#/Vol] 0.60 10*3/uL [facility] Monocytes/100 WBC (Bld) 8.0 % [facility] Neutrophils (Bld) [#/Vol] 4.70 10*3/uL [facility] Neutrophils/100 WBC (Bld) 62.6 % [facility] Nucleated RBC (Bld) [#/Vol] [facility] Nucleated RBC/100 WBC (Bld) [Ratio] 0.0 % /100 WBC [facility] Platelet mean volume (Bld) [Entitic vol] 9.5 fL 9.0 - 12.7 fL [facility] Platelets (Bld) [#/Vol] 321 10*3/uL [facility] RBC (Bld) [#/Vol] 4.47 10*6/uL 3.90 - 5.2 0 m/uL [facility] WBC (Bld) [#/Vol] 7.51 10*3/uL [facility] This is an appended report. These results have been appended to a previously verified report. [facility] CT Abdomen and Pelvis W cont anahi Magdalena 05-27-2022 IMPRESSION: 1. No acute process noted in the abdomen or pelvis. No evidence of abdominal or pelvic metastatic disease. 2. Interval resolution of previously described nonocclusive thrombus in the right ovarian vein. Transcribe Date/Time: May 27 2022 4:55P Dictated by: STEVEN SANDOVAL MD This examination was interpreted and the report reviewed and electronically signed by: STEVEN SANDOVAL MD on May 27 2022 5:10PM EST Thank you for allowing us to participate in the care of your patient. Should there be any questions regarding this interpretation, please call [phone]. If you are unable to reach us at the number above, please feel free to contact [facility] at [phone]. DIVISION OF RADIOLOGY * * *Final Report* * * DATE OF EXAM: May 27 2022 11:20AM [facility] [place] 0530 - CT ABD/PEL W IVCON / PROCEDURE REASON: Malignant neoplasm of female breast, unspecified estrogen receptor status, unspe * * * * Physician Interpretation * * * * RESULT: EXAMINATION: CT ABDOMEN AND PELVIS WITH IV CONTRAST CLINICAL HISTORY: History of breast cancer. TECHNIQUE: CT of the abdomen and pelvis was performed using standard technique, scanning from just above the dome of the diaphragm to the symphysis pubis. MQ: CTAP_3 Contrast: IV: 125 ml of Omnipaque 300 Oral: 450 ml of 50ML Omnipaque [address] Radiation dose: Integrated Dose-length product (DLP) for this visit = 1034 mGy*cm. CT Dose Reduction Employed: Automated exposure control (AEC) COMPARISON: CT performed 03/04/2022 RESULT: Liver: Multiple subcentimeter hypodensities are noted in the liver measuring up to 7 mm. No new hepatic mass lesions are noted. Biliary: The gallbladder is surgically absent. No biliary ductal dilation is seen. Spleen: No mass. No splenomegaly. Pancreas: No mass or duct dilation. Adrenals: No mass. Kidneys: No mass, calculus or hydronephrosis. GI tract: No dilation or wall thickening. Lymph nodes: No abdominal or pelvic lymphadenopathy. Mesentery/Peritoneum: No ascites or mass. Retroperitoneum: No mass. Vasculature: - Abdominal aorta and iliac arteries: Atherosclerotic calcifications without aneurysm. - Celiac and SMA: Patent without stenosis. - Portal venous system (SMV, splenic vein, portal vein and branches): Patent. - Hepatic veins: Patent. - Other: Previously described thrombus in the right ovarian vein has resolved. Pelvis: No mass, ascites or fluid collection. Bones/Soft Tissues: Degenerative changes noted in the lumbar spine. No destructive osseous lesions are seen. Superficial soft tissues are unremarkable. Lower thorax: No lobar consolidation or pleural effusion is seen. Machining Supervisor (topogram) images: No additional findings. DIVISION OF RADIOLOGY Provider, [facility] - 05/27/2022 * * *Final Report* * * DATE OF EXAM: May 27 2022 11:20AM [facility] [place] 0530 - CT ABD/PEL W IVCON / PROCEDURE REASON: Malignant neoplasm of female breast, unspecified estrogen receptor status, unspe * * * * Physician Interpretation * * * * RESULT: EXAMINATION: CT ABDOMEN AND PELVIS WITH IV CONTRAST CLINICAL HISTORY: History of breast cancer. TECHNIQUE: CT of the abdomen and pelvis was performed using standard technique, scanning from just above the dome of the diaphragm to the symphysis pubis. MQ: CTAP_3 Contrast: IV: 125 ml of Omnipaque 300 Oral: 450 ml of 50ML Omnipaque [address] Radiation dose: Integrated Dose-length product (DLP) for this visit = 1034 mGy*cm. CT Dose Reduction Employed: Automated exposure control (AEC) COMPARISON: CT performed 03/04/2022 RESULT: Liver: Multiple subcentimeter hypodensities are noted in the liver measuring up to 7 mm. No new hepatic mass lesions are noted. Biliary: The gallbladder is surgically absent. No biliary ductal dilation is seen. Spleen: No mass. No splenomegaly. Pancreas: No mass or duct dilation. Adrenals: No mass. Kidneys: No mass, calculus or hydronephrosis. GI tract: No dilation or wall thickening. Lymph nodes: No abdominal or pelvic lymphadenopathy. Mesentery/Peritoneum: No ascites or mass. Retroperitoneum: No mass. Vasculature: - Abdominal aorta and iliac arteries: Atherosclerotic calcifications without aneurysm. - Celiac and SMA: Patent without stenosis. - Portal venous system (SMV, splenic vein, portal vein and branches): Patent. - Hepatic veins: Patent. - Other: Previously described thrombus in the right ovarian vein has resolved. Pelvis: No mass, ascites or fluid collection. Bones/Soft Tissues: Degenerative changes noted in the lumbar spine. No destructive osseous lesions are seen. Superficial soft tissues are unremarkable. Lower thorax: No lobar consolidation or pleural effusion is seen. Machining Supervisor (topogram) images: No additional findings. IMPRESSION IMPRESSION: 1. No acute process noted in the abdomen or pelvis. No evidence of abdominal or pelvic metastatic disease. 2. Interval resolution of previously described nonocclusive thrombus in the right ovarian vein. Transcribe Date/Time: May 27 2022 4:55P Dictated by: STEVEN SANDOVAL MD This examination was interpreted and the report reviewed and electronically signed by: STEVEN SANDOVAL MD on May 27 2022 5:10PM EST Thank you for allowing us to participate in the care of your patient. Should there be any questions regarding this interpretation, please call [phone]. If you are unable to reach us at the number above, please feel free to contact [facility] at [phone]. [facility] Radiology Study observation (narrative) [facility] CT Abdomen and Pelvis W cont rast IVOrdered By: [facility] Provider on 05-27-2022 [facility] Comprehensive metabolic 2000 panelOrdered By: Irma Parsons on 05-27-2022 Albumin [Mass/Vol] 4.2 g/dL 3.9 - 4.9 g/dL [facility] ALP [Catalytic activity/Vol] 90 U/L 34 - 123 U/L [facility] ALT [Catalytic activity/Vol] 19 U/L 7 - 38 U/L [facility] Anion gap [Moles/Vol] 7 mmol/L Low 9 - 18 mmol/L [facility] AST [Catalytic activity/Vol] 19 U/L 13 - 35 U/L [facility] Bilirubin [Mass/Vol] 0.3 mg/dL 0.2 - 1 .3 mg/dL [facility] Calcium [Mass/Vol] 9.0 mg/dL 8.5 - 10. 2 mg/dL [facility] Chloride [Moles/Vol] 101 mmol/L 97 - 10 5 mmol/L [facility] CO2 [Moles/Vol] 29 mmol/L 22 - 30 mmol/L [facility] Creatinine [Mass/Vol] 0.67 mg/dL 0.58 - 0.96 mg/dL [facility] GFR/1.73 sq M.predicted among non-blacks MDRD (S/P/Bld) [Vol rate/Area] 98 mL/min/{1.73_m2} - PINF [facility] Comment on above: Estimated Glomerular Filtration Rate (eGFR) is calculated using the 2020 CKD-EPI creatinine equation. This equation utilizes serum creatinine, sex, and age as parameters. The creatinine assay has traceable calibration to isotope dilution-mass spectrometry. Refer to KDIGO guidelines for clinical interpretation. In patients with unstable renal function, e.g. those with acute kidney injury, the eGFR may not accurately reflect actual GFR. Glucose [Mass/Vol] 121 mg/dL High 74 - 99 mg/dL [facility] [facility] Comment on above: The [place] Di[employer]ete [employer] Association (ADA) provides guidance for cutoff values for fasting glucose and random glucose. The ADA defines fasting as no caloric intake for at least 8 hours. Fasting plasma glucose results between 100 to 125 mg/dL indicate increased risk for diabetes (prediabetes). Fasting plasma glucose results greater than or equal to 126 mg/dL meet the criteria for diagnosis of diabetes. In the absence of unequivocal hyperglycemia, results should be confirmed by repeat testing. In a patient with classic symptoms of hyperglycemia or hyperglycemic crisis, random plasma glucose results greater than or equal to 200 mg/dL meet the criteria for diagnosis of diabetes. Reference: Standards of Medical Care in Diabetes 2016, [place] [employer]. Diabetes Care. 2016.39(Suppl 1). Interpretation and review of laboratory results Abnormal [facility] Potassium [Moles/Vol] 4.1 mmol/L 3.7 - 5.1 mmol/L [facility] Protein [Mass/Vol] 6.8 g/dL 6.3 - 8.0 g/dL [facility] Sodium [Moles/Vol] 137 mmol/L 136 - 144 mmol/L [facility] Urea nitrogen [Mass/Vol] 16 mg/dL 7 - 21 mg/dL [facility] CBC AUTO DIFFon 03-04-2022 BASO # 0.1 103/ul Normal 0.0-0.1 [facility] Comment on above: Performed By: #### C BC #### [facility] [address] [address] [address] Terrell Kemp Basophils/100 WBC (Bld) 0.6 % Normal 0.2-2.0 [facility] Comment on above: Performed By: #### C BC #### [facility] [address] [address] [address] Terrell Kemp EO # 0.2 103/ul Normal 0.0-0.7 [facility] Comment on above: Performed By: #### C BC #### [facility] [address] [place] [address] Dr. Terrell Kemp Eosinophils/100 WBC (Bld) 2.3 % Normal 0.9-7.0 [facility] Comment on above: Performed By: #### C BC #### [facility] [address] [place] [address] Dr. Terrell Kemp Erythrocyte distribution width (RBC) [Ratio] 13.2 % Normal 11.0-15.0 [facility] Comment on above: Performed By: #### C BC #### [facility] [address] [place] [address] Dr. Terrell Kemp Hematocrit (Bld) [Volume fraction] 39.7 % Normal 36.0-48.0 [facility] Comment on above: Performed By: #### C BC #### [facility] [address] [place] [address] Dr. Terrell Kemp Hemoglobin (Bld) [Mass/Vol] 12.5 g/dL Normal 12.0-16.0 [facility] Comment on above: Performed By: #### C BC #### [facility] [address] [place] [address] Dr. Terrell Kemp IG # 0.04 10e3/ul Critically high 0.00-0.03 [facility] Comment on above: Performed By: #### C BC #### [facility] [address] [place] [address] Dr. Terrell Kemp IG % 0.4 % Normal 0.0-0.5 [facility] Comment on above: Performed By: #### C BC #### [facility] [address] [place] [address] Dr. Terrell Kemp LYMPH # 2.5 103/ul Normal 1.2-3.8 [facility] Comment on above: Performed By: #### C BC #### [facility] [address] [address] [address] Terrell Kemp Lymphocytes/100 WBC (Bld) 27.7 % Normal 20.5-60.0 [facility] Comment on above: Performed By: #### C BC #### [facility] [address] [place] [address] Dr. Terrell Kemp MANUAL DIFF REQ NO Normal [facility] Comment on above: Performed By: #### C BC #### [facility] [address] [place] [address] Dr. Terrell Kemp MCH (RBC) [Entitic mass] 28.6 pg Normal 26.7-34.0 [facility] Comment on above: Performed By: #### C BC #### [facility] [address] [place] [address] Dr. Terrell Kemp MCHC (RBC) [Mass/Vol] 31.5 g/dL Normal 29.9-35.2 [facility] Comment on above: Performed By: #### C BC #### [facility] [address] [place] [address] Dr. Terrell Kemp MCV (RBC) [Entitic vol] 90.8 fL Normal 81.0-99.0 [facility] Comment on above: Performed By: #### C BC #### [facility] [address] [place] [address] Dr. Terrell Kemp MONO # 0.7 103/ul Normal 0.3-0.8 [facility] Comment on above: Performed By: #### C BC #### [facility] [address] [place] [address] Dr. Terrell Kemp Monocytes/100 WBC (Bld) 8.2 % Normal 1.7-12.0 [facility] Comment on above: Performed By: #### C BC #### [facility] [address] [address] [address] Terrell Kemp NEUT # 5.5 103/ul Normal 1.4-6.5 [facility] Comment on above: Performed By: #### C BC #### [facility] [address] [address] [address] Terrell Kemp Neutrophils/100 WBC (Bld) 60.8 % Normal 43.0-75.0 [facility] Comment on above: Performed By: #### C BC #### [facility] [address] [place] [address] Dr. Terrell Kemp Platelet mean volume (Bld) [Entitic vol] 8.6 fL Critically low 9.5-13.5 [facility] Comment on above: Performed By: #### C BC #### [facility] [address] [place] [address] Dr. Terrell Kemp PLT 271 103/ul Normal 150-450 [facility] Comment on above: Performed By: #### C BC #### [facility] [address] [place] [address] Dr. Terrell Kemp RBC 4.37 106/ul Normal 4.20-5.40 [facility] Comment on above: Performed By: #### C BC #### [facility] [address] [place] [address] Dr. Terrell Kemp WBC 9.1 103/ul Normal 4.0-11.0 [facility] Comment on above: Performed By: #### C BC #### [facility] [address] [place] [address] Dr. Terrell Kemp CBC W Auto Differential pane l (Bld)on 03-04-2022 Basophils (Bld) [#/Vol] 0.05 10*3/uL [facility] Basophils/100 WBC (Bld) 0.8 % [facility] Differential cell count method Nom (Bld) Auto [facility] Eosinophils (Bld) [#/Vol] 0.21 10*3/[facility] Eosinophils/100 WBC (Bld) 3.2 % [facility] Erythrocyte distribution width (RBC) [Ratio] 13.4 % 11.5 - 15.0 % [facility] Hematocrit (Bld) [Volume fraction] 40.1 % 36.0 - 46.0 % [facility] Hemoglobin (Bld) [Mass/Vol] 12.8 g/dL 11.5 - 15.5 g/dL [facility] Immature granulocytes (Bld) [#/Vol] 0.03 10*3/[facility]L [facility] Immature granulocytes/100 WBC (Bld) 0.5 % [facility] Interpretation and review of laboratory results Abnormal [facility] Lymphocytes (Bld) [#/Vol] 1.63 10*3/uL [facility] Lymphocytes/100 WBC (Bld) 24.7 % [facility] MCH (RBC) [Entitic mass] 28.8 pg 26.0 - 34.0 pg [facility] MCHC (RBC) [Mass/Vol] 31.9 g/dL 30.5 - 36.0 g/dL [facility] MCV (RBC) [Entitic vol] 90.3 fL 80.0 - 100.0 fL [facility] Monocytes (Bld) [#/Vol] 0.56 10*3/uL [facility] Monocytes/100 WBC (Bld) 8.5 % [facility] Neutrophils (Bld) [#/Vol] 4.11 10*3/uL [facility] Neutrophils/100 WBC (Bld) 62.3 % [facility] Nucleated RBC (Bld) [#/Vol] [facility] Nucleated RBC/100 WBC (Bld) [Ratio] 0.0 % /100 WBC [facility] Platelet mean volume (Bld) [Entitic vol] 8.7 fL Low 9.0 - 12.7 fL [facility] Platelets (Bld) [#/Vol] 273 10*3/uL [facility] RBC (Bld) [#/Vol] 4.44 10*6/uL 3.90 - 5.2 0 m/uL [facility] WBC (Bld) [#/Vol] 6.59 10*3/uL [facility] This is an appended report. These results have been appended to a previously verified report. [facility] CT Abdomen and Pelvis W cont rast Magdalena 03-04-2022 IMPRESSION: 1. New nonocclusive thrombus in the residual right ovarian vein. 2. The splenic hypodensity described on chest CT is not visualized on the current study. 3. No evidence of intra-abdominal/pelvic metastases. 4. Sigmoid colon diverticulosis without evidence of diverticulitis. Transcribe Date/Time: Mar 04 2022 11:26A Dictated by: NAY GODOY MD This examination was interpreted and the report reviewed and electronically signed by: NAY GODOY MD on Mar 04 2022 11:38AM EST Thank you for allowing us to participate in the care of your patient. Should there be any questions regarding this interpretation, please call [phone]. If you are unable to reach us at the number above, please feel free to contact [facility] at [phone]. DIVISION OF RADIOLOGY * * *Final Report* * * DATE OF EXAM: Mar 04 2022 10:40AM [facility] [place] 0530 - CT ABD/PEL W IVCON / PROCEDURE REASON: multiple diagnoses * * * * Physician Interpretation * * * * RESULT: EXAMINATION: CT ABDOMEN AND PELVIS WITH IV CONTRAST CLINICAL HISTORY: Breast cancer TECHNIQUE: CT of the abdomen and pelvis was performed using standard technique, scanning from just above the dome of the diaphragm to the symphysis pubis. MQ: CTAP_3 Contrast: IV: 100 ml of Omnipaque 300 Oral: 450 ml of 50ML Omnipaque [address] Radiation dose: Integrated Dose-length product (DLP) for this visit = 894 mGy*cm. CT Dose Reduction Employed: Automated exposure control (AEC) COMPARISON: CT chest dated 09/07/[address] abdomen dated 06/23/20 RESULT: Liver: Multiple subcentimeter hepatic cysts. No suspicious enhancing hepatic mass. Biliary: No bile duct dilation. Gallbladder is absent. Spleen: No mass. No splenomegaly. The splenic hypodensity described on chest CT is not visualized on the current study. Pancreas: No mass or duct dilation. Adrenals: No mass. Kidneys: No mass, calculus or hydronephrosis. GI tract: No dilation or wall thickening. Sigmoid colon diverticulosis is noted without evidence of diverticulitis. Lymph nodes: No abdominal or pelvic lymphadenopathy. Mesentery/Peritoneum: No ascites or mass. Retroperitoneum: No mass. Vasculature: The celiac axis and SMA are patent. The portal vein and branches, splenic vein, SMV, and hepatic veins are patent. Arterial atherosclerotic disease without aneurysm. New nonocclusive thrombus in the residual right ovarian vein. Pelvis: No mass, ascites or fluid collection. Urinary bladder is decompressed. Bones/Soft Tissues: No suspicious lytic or blastic osseous lesions. Lower thorax: A chest CT performed will be reported separately. Machining Supervisor (topogram) images: No additional findings. DIVISION OF RADIOLOGY Provider, [facility] - 03/04/2022 * * *Final Report* * * DATE OF EXAM: Mar 04 2022 10:40AM [facility] [place] 0530 - CT ABD/PEL W IVCON / PROCEDURE REASON: multiple diagnoses * * * * Physician Interpretation * * * * RESULT: EXAMINATION: CT ABDOMEN AND PELVIS WITH IV CONTRAST CLINICAL HISTORY: Breast cancer TECHNIQUE: CT of the abdomen and pelvis was performed using standard technique, scanning from just above the dome of the diaphragm to the symphysis pubis. MQ: CTAP_3 Contrast: IV: 100 ml of Omnipaque 300 Oral: 450 ml of 50ML Omnipaque [address] Radiation dose: Integrated Dose-length product (DLP) for this visit = 894 mGy*cm. CT Dose Reduction Employed: Automated exposure control (AEC) COMPARISON: CT chest dated 09/07/[address] abdomen dated 06/23/20 RESULT: Liver: Multiple subcentimeter hepatic cysts. No suspicious enhancing hepatic mass. Biliary: No bile duct dilation. Gallbladder is absent. Spleen: No mass. No splenomegaly. The splenic hypodensity described on chest CT is not visualized on the current study. Pancreas: No mass or duct dilation. Adrenals: No mass. Kidneys: No mass, calculus or hydronephrosis. GI tract: No dilation or wall thickening. Sigmoid colon diverticulosis is noted without evidence of diverticulitis. Lymph nodes: No abdominal or pelvic lymphadenopathy. Mesentery/Peritoneum: No ascites or mass. Retroperitoneum: No mass. Vasculature: The celiac axis and SMA are patent. The portal vein and branches, splenic vein, SMV, and hepatic veins are patent. Arterial atherosclerotic disease without aneurysm. New nonocclusive thrombus in the residual right ovarian vein. Pelvis: No mass, ascites or fluid collection. Urinary bladder is decompressed. Bones/Soft Tissues: No suspicious lytic or blastic osseous lesions. Lower thorax: A chest CT performed will be reported separately. Machining Supervisor (topogram) images: No additional findings. IMPRESSION IMPRESSION: 1. New nonocclusive thrombus in the residual right ovarian vein. 2. The splenic hypodensity described on chest CT is not visualized on the current study. 3. No evidence of intra-abdominal/pelvic metastases. 4. Sigmoid colon diverticulosis without evidence of diverticulitis. Transcribe Date/Time: Mar 04 2022 11:26A Dictated by: NAY GODOY MD This examination was interpreted and the report reviewed and electronically signed by: NAY GODOY MD on Mar 04 2022 11:38AM EST Thank you for allowing us to participate in the care of your patient. Should there be any questions regarding this interpretation, please call [phone]. If you are unable to reach us at the number above, please feel free to contact [facility] at [phone]. [facility] CT Abdomen and Pelvis W cont rast IVOrdered By: [facility] Provider on 03-04-[address] [facility] [address] Chest W contrast Magdalena IMPRESSION: 1. Residual mild reticulonodular opacities, less conspicuous since 09/05/21. 2. No new intrathoracic abnormalities. 3. Moderate emphysematous changes of the lungs. Transcribe Date/Time: Mar 04 2022 11:06A Dictated by: NAY GODOY MD This examination was interpreted and the report reviewed and electronically signed by: NAY GODOY MD on Mar 04 2022 11:38AM EST Thank you for allowing us to participate in the care of your patient. Should there be any questions regarding this interpretation, please call [phone]. If you are unable to reach us at the number above, please feel free to contact [facility] at [phone]. DIVISION OF RADIOLOGY * * *Final Report* * * DATE OF EXAM: Mar 04 2022 10:40AM [facility] [place] 0539 - CT CHEST W IVCON / PROCEDURE REASON: multiple diagnoses * * * * Physician Interpretation * * * * RESULT: EXAMINATION: CHEST CT WITH CONTRAST CLINICAL HISTORY: Interstitial lung disease, Lung nodule(s) Technique: Spiral CT acquisition of the chest from the thoracic inlet to the upper abdomen following IV contrast. MQ: CTCW_6 Contrast: 100 mL Omnipaque [address] Radiation dose: Integrated Dose-length product (DLP) for this visit = 894 mGy*cm CT Dose Reduction Employed: Automated exposure control (AEC) Comparison: 09/07/21 RESULT: Limitations: None. Lines, tubes, and devices: None Lung parenchyma and airways: Moderate emphysematous changes of the lungs. Residual mild reticulonodular opacities in the right upper lobe (4:61) and left upper lobe (4:38), less conspicuous. Bronchial wall thickening suggestive of bronchitis. Patchy/scarring in the right middle lobe and lingula. No airspace opacities. The central airways are patent. Pleural space: No pleural effusion. No pleural thickening. Lower neck, lymph nodes, and mediastinum: The imaged thyroid gland is normal. No lymphadenopathy in the supraclavicular, axillary, mediastinal, or hilar regions. Heart, pericardium, and thoracic vessels: The thoracic aorta and main pulmonary artery are normal in caliber. The cardiac chambers are normal in size. Atherosclerotic coronary artery calcifications are noted. No pericardial effusion or thickening. Bones and soft tissues: Bilateral breast prostheses. No suspicious lytic or blastic osseous lesions. Upper abdomen: Please refer to the abdomen CT scan report for the abdomen findings. Machining Supervisor (topogram) images: No additional findings. DIVISION OF RADIOLOGY Provider, [facility] - 03/04/2022 * * *Final Report* * * DATE OF EXAM: Mar 04 2022 10:40AM [facility] [place] 0539 - CT CHEST W IVCON / PROCEDURE REASON: multiple diagnoses * * * * Physician Interpretation * * * * RESULT: EXAMINATION: CHEST CT WITH CONTRAST CLINICAL HISTORY: Interstitial lung disease, Lung nodule(s) Technique: Spiral CT acquisition of the chest from the thoracic inlet to the upper abdomen following IV contrast. MQ: CTCW_6 Contrast: 100 mL Omnipaque [address] Radiation dose: Integrated Dose-length product (DLP) for this visit = 894 mGy*cm CT Dose Reduction Employed: Automated exposure control (AEC) Comparison: 09/07/21 RESULT: Limitations: None. Lines, tubes, and devices: None Lung parenchyma and airways: Moderate emphysematous changes of the lungs. Residual mild reticulonodular opacities in the right upper lobe (4:61) and left upper lobe (4:38), less conspicuous. Bronchial wall thickening suggestive of bronchitis. Patchy/scarring in the right middle lobe and lingula. No airspace opacities. The central airways are patent. Pleural space: No pleural effusion. No pleural thickening. Lower neck, lymph nodes, and mediastinum: The imaged thyroid gland is normal. No lymphadenopathy in the supraclavicular, axillary, mediastinal, or hilar regions. Heart, pericardium, and thoracic vessels: The thoracic aorta and main pulmonary artery are normal in caliber. The cardiac chambers are normal in size. Atherosclerotic coronary artery calcifications are noted. No pericardial effusion or thickening. Bones and soft tissues: Bilateral breast prostheses. No suspicious lytic or blastic osseous lesions. Upper abdomen: Please refer to the abdomen CT scan report for the abdomen findings. Machining Supervisor (topogram) images: No additional findings. IMPRESSION IMPRESSION: 1. Residual mild reticulonodular opacities, less conspicuous since 09/05/21. 2. No new intrathoracic abnormalities. 3. Moderate emphysematous changes of the lungs. Transcribe Date/Time: Mar 04 2022 11:06A Dictated by: NAY GODOY MD This examination was interpreted and the report reviewed and electronically signed by: NAY GODOY MD on Mar 04 2022 11:38AM EST Thank you for allowing us to participate in the care of your patient. Should there be any questions regarding this interpretation, please call [phone]. If you are unable to reach us at the number above, please feel free to contact [facility] at [phone]. [facility] Comprehensive metabolic 2000 panelOrdered By: Irma Parsons on 03-04-2022 Albumin [Mass/Vol] 4.2 g/dL 3.9 - 4.9 g/dL [facility] ALP [Catalytic activity/Vol] 95 U/L 34 - 123 U/L [facility] ALT [Catalytic activity/Vol] 23 U/L 7 - 38 U/L [facility] Anion gap [Moles/Vol] 9 mmol/L 9 - 18 mmol/L [facility] AST [Catalytic activity/Vol] 26 U/L 13 - 35 U/L [facility] Bilirubin [Mass/Vol] 0.5 mg/dL 0.2 - 1 .3 mg/dL [facility] Calcium [Mass/Vol] 9.1 mg/dL 8.5 - 10. 2 mg/dL [facility] Chloride [Moles/Vol] 104 mmol/L 97 - 10 5 mmol/L [facility] CO2 [Moles/Vol] 28 mmol/L 22 - 30 mmol/L [facility] Creatinine [Mass/Vol] 0.70 mg/dL 0.58 - 0.96 mg/dL [facility] GFR/1.73 sq M.predicted among non-blacks MDRD (S/P/Bld) [Vol rate/Area] 97 mL/min/{1.73_m2} - PINF [facility] Comment on above: Estimated Glomerular Filtration Rate (eGFR) is calculated using the 2020 CKD-EPI creatinine equation. This equation utilizes serum creatinine, sex, and age as parameters. The creatinine assay has traceable calibration to isotope dilution-mass spectrometry. Refer to KDIGO guidelines for clinical interpretation. In patients with unstable renal function, e.g. those with acute kidney injury, the eGFR may not accurately reflect actual GFR. Glucose [Mass/Vol] 112 mg/dL High 74 - 99 mg/dL [facility] Comment on above: The [place] Di[employer] (ADA) provides guidance for cutoff values for fasting glucose and random glucose. The ADA defines fasting as no caloric intake for at least 8 hours. Fasting plasma glucose results between 100 to 125 mg/dL indicate increased risk for diabetes (prediabetes). Fasting plasma glucose results greater than or equal to 126 mg/dL meet the criteria for diagnosis of diabetes. In the absence of unequivocal hyperglycemia, results should be confirmed by repeat testing. In a patient with classic symptoms of hyperglycemia or hyperglycemic crisis, random plasma glucose results greater than or equal to 200 mg/dL meet the criteria for diagnosis of diabetes. Reference: Standards of Medical Care in Diabetes 2016, [place] [employer]. Diabetes Care. 2016.39(Suppl 1). Interpretation and review of laboratory results Abnormal [facility] Potassium [Moles/Vol] 4.4 mmol/L 3.7 - 5.1 mmol/L [facility] Protein [Mass/Vol] 6.7 g/dL 6.3 - 8.0 g/dL [facility] Sodium [Moles/Vol] 141 mmol/L 136 - 144 mmol/L [facility] Urea nitrogen [Mass/Vol] 19 mg/dL 7 - 21 mg/dL [facility] LIPID PROFILEon 03-04-2022 CHOL-HDL RATIO NORM SEE BELOW Normal [facility] Comment on above: Result Comment: 3.3 - 4.4 LOW RISK 4.4 - 7.1 AVERAGE RISK 7.1 - 11.0 MODERATE RISK >11.0 HIGH RISK Performed By: #### C MP, LIPID #### [facility] [address] [address] [address] Terrell Kemp Cholesterol [Mass/Vol] 259 mg/dL Critically high <=200 [facility] Comment on above: Performed By: #### C MP, LIPID #### [facility] [address] [address] [address] Terrell Kemp Cholesterol in HDL [Mass/Vol] 57 mg/dL Normal 40-60 [facility] Comment on above: Performed By: #### C MP, LIPID #### [facility] [address] [address] [address] Terrell Kemp Cholesterol in LDL [Mass/Vol] 173.0 mg/dL Normal [facility] Comment on above: Performed By: #### C MP, LIPID #### [facility] [address] [address] [address] Terrell Kemp Cholesterol.total/Ch olesterol in HDL [Mass ratio] 4.5 {ratio} Normal [facility] Comment on above: Performed By: #### C MP, LIPID #### [facility] [address] [address] [address] Terrell Kemp HDL NORMAL > or = 60 mg/dl - LO W CARDIOVASCULAR RISK <40 mg/dl - HIGH CARDIOVASCULAR RISK Normal [facility] Comment on above: Performed By: #### C MP, LIPID #### [facility] [address] [address] [address] Terrell Kemp LDL CALC NORMAL SEE BELOW Normal [facility] Comment on above: Result Comment: <100 mg/dl OPTIMAL 100 - 129 mg/dl NEAR OR ABOVE OPTIMAL 130 - 159 mg/dl BORDERLINE HIGH 160 - 189 mg/dl HIGH >190 mg/dl VERY HIGH Performed By: #### C MP, LIPID #### [facility] [address] [place] [address] Dr. Terrell Kemp Triglyceride [Mass/Vol] 145 mg/dL Normal <=150 [facility] Comment on above: Performed By: #### C MP, LIPID #### [facility] [address] [place] [address] Dr. Terrell Kemp VLDL CALC 29.0 mg/dL Normal [facility] Comment on above: Performed By: #### C MP, LIPID #### [facility] [address] [place] [address] Dr. Terrell Kemp No Panel Informationon 03-04 Radiology Study observation (narrative) [facility] PROF 14(COMP METB)on 022 Albumin [Mass/Vol] 3.7 g/dL Normal 3.4-5.0 [facility] Comment on above: Performed By: #### C MP, LIPID #### [facility] [address] [place] [address] Dr. Terrell Kemp Albumin/Globulin [Mass ratio] 1.1 {ratio} Normal [facility] Comment on above: Performed By: #### C MP, LIPID #### [facility] [address] [place] [address] Dr. Terrell Kemp ALP [Catalytic activity/Vol] 95 U/L Normal 46-116 [facility] Comment on above: Performed By: #### C MP, LIPID #### [facility] [address] [place] [address] Dr. Terrell Kemp ALT [Catalytic activity/Vol] 34 U/L Normal 14-59 [facility] Comment on above: Performed By: #### C MP, LIPID #### [facility] [address] [place] [address] Dr. Terrell eKmp Anion gap [Moles/Vol] 11.7 mmol/L Normal [facility] Comment on above: Performed By: #### C MP, LIPID #### [facility] [address] [place] [address] Dr. Terrell Kemp AST [Catalytic activity/Vol] 24 U/L Normal 15-37 [facility] Comment on above: Performed By: #### C MP, LIPID #### [facility] [address] [place] [address] Dr. Terrell Kemp Bilirubin [Mass/Vol] 0.6 mg/dL Normal 0.2-1.0 [facility] Comment on above: Performed By: #### C MP, LIPID #### [facility] [address] [place] [address] Dr. Terrell Kemp Calcium [Mass/Vol] 8.6 mg/dL Normal 8.5-10.1 [facility] Comment on above: Performed By: #### C MP, LIPID #### [facility] [address] [place] [address] Dr. Terrell Kemp Chloride [Moles/Vol] 101 mmol/L Normal 98-107 [facility] Comment on above: Performed By: #### C MP, LIPID #### [facility] [address] [place] [address] Dr. Terrell Kemp CO2 [Moles/Vol] 27.3 mmol/L Normal 21.0-32.0 [facility] Comment on above: Performed By: #### C MP, LIPID #### [facility] [address] [place] [address] Dr. Terrell Kemp Creatinine [Mass/Vol] 0.72 mg/dL Normal 0.55-1.02 [facility] Comment on above: Performed By: #### C MP, LIPID #### [facility] [address] [place] [address] Dr. Terrell Kemp EGFR-AF GIBRALTARIAN >60 Normal >=60 [facility] Comment on above: Performed By: #### C MP, LIPID #### [facility] [address] [place] [address] Dr. Terrell Kemp EGFR-NON AF GIBRALTARIAN >60 Normal >=60 [facility] Comment on above: Performed By: #### C MP, LIPID #### [facility] [address] [place] [address] Dr. Terrell Kemp Globulin (S) [Mass/Vol] 3.4 g/dL Normal [facility] Comment on above: Performed By: #### C MP, LIPID #### [facility] [address] [address] [address] Terrell Kemp Glucose [Mass/Vol] 103 mg/dL Normal 74-106 [facility] Comment on above: Performed By: #### C MP, LIPID #### [facility] [address] [place] [address] Dr. Terrell Kemp Potassium [Moles/Vol] 4.0 mmol/L Normal 3.5-5.1 [facility] Comment on above: Performed By: #### C MP, LIPID #### [facility] [address] [place] [address] Dr. Terrell Kemp Protein [Mass/Vol] 7.1 g/dL Normal 6.4-8.2 [facility] Comment on above: Performed By: #### C MP, LIPID #### [facility] [address] [place] [address] Dr. Terrell Kemp Sodium [Moles/Vol] 136 mmol/L Normal 136-145 [facility] Comment on above: Performed By: #### C MP, LIPID #### [facility] [address] [place] [address] Dr. Terrell Kemp Urea nitrogen [Mass/Vol] 16.0 mg/dL Normal 7.0-18.0 [facility] Comment on above: Performed By: #### C MP, LIPID #### [facility] [address] [place] [address] Dr. Terrell Kemp Urea nitrogen/Creatinine [Mass ratio] 22.2 mg/mg Normal [facility] Comment on above: Performed By: #### C MP, LIPID #### [facility] [address] [place] [address] Dr. Terrell Kemp CBC W Auto Differential pane l (Bld)on 09-07-2021 Basophils (Bld) [#/Vol] 0.06 10*3/uL [facility] Basophils/100 WBC (Bld) 0.7 % [facility] Differential cell count method Nom (Bld) Auto [facility] Eosinophils (Bld) [#/Vol] 0.25 10*3/uL [facility] Eosinophils/100 WBC (Bld) 2.9 % [facility] Erythrocyte distribution width (RBC) [Ratio] 13.2 % 11.5 - 15.0 % [facility] Hematocrit (Bld) [Volume fraction] 37.0 % 36.0 - 46.0 % [facility] Hemoglobin (Bld) [Mass/Vol] 11.7 g/dL 11.5 - 15.5 g/dL [facility] Immature granulocytes (Bld) [#/Vol] 0.06 10*3/uL [facility] Immature granulocytes/100 WBC (Bld) 0.7 % [facility] Interpretation and review of laboratory results Abnormal [facility] Lymphocytes (Bld) [#/Vol] 1.95 10*3/uL [facility] Lymphocytes/100 WBC (Bld) 22.4 % [facility] MCH (RBC) [Entitic mass] 28.6 pg 26.0 - 34.0 pg [facility] MCHC (RBC) [Mass/Vol] 31.6 g/dL 30.5 - 36.0 g/dL [facility] MCV (RBC) [Entitic vol] 90.5 fL 80.0 - 100.0 fL [facility] Monocytes (Bld) [#/Vol] 0.59 10*3/uL [facility] Monocytes/100 WBC (Bld) 6.8 % [facility] Neutrophils (Bld) [#/Vol] 5.80 10*3/uL [facility] Neutrophils/100 WBC (Bld) 66.5 % [facility] Nucleated RBC (Bld) [#/Vol] [facility] Nucleated RBC/100 WBC (Bld) [Ratio] 0.0 % /100 WBC [facility] Platelet mean volume (Bld) [Entitic vol] 8.6 fL Low 9.0 - 12.7 fL [facility] Platelets (Bld) [#/Vol] 372 10*3/uL [facility] RBC (Bld) [#/Vol] 4.09 10*6/uL 3.90 - 5.2 0 m/uL [facility] WBC (Bld) [#/Vol] 8.71 10*3/uL [facility] This is an appended report. These results have been appended to a previously verified report. [facility] CT Chest W contrast [place] IMPRESSION: 1. New indeterminate 1.1 cm splenic hypodensity, not clearly visualized on prior studies. Consider further evaluation via contrast-enhanced CT abdomen. 2. Interval resolution of some of the previously noted reticulonodular opacities. 3. Residual mild reticulonodular opacities, stable since 09/28/20. Consider continued interval follow-up. 4. Moderate emphysematous changes of the lungs. Transcribe Date/Time: Sep 07 2021 6:51P Dictated by: NAY GODOY MD This examination was interpreted and the report reviewed and electronically signed by: NAY GODOY MD on Sep 07 2021 7:21PM EST Thank you for allowing us to participate in the care of your patient. Should there be any questions regarding this interpretation, please call [phone]. If you are unable to reach us at the number above, please feel free to contact [facility] eRadiology at [phone]. DIVISION OF RADIOLOGY * * *Final Report* * * DATE OF EXAM: Sep 07 2021 2:27PM [facility] [place] 0539 - CT CHEST W IVCON / PROCEDURE REASON: multiple diagnoses * * * * Physician Interpretation * * * * RESULT: EXAMINATION: CHEST CT WITH CONTRAST CLINICAL HISTORY: Breast cancer Technique: Spiral CT acquisition of the chest from the thoracic inlet to the upper abdomen following IV contrast. MQ: CTCW_6 Contrast: 50 mL Omnipaque [address] Radiation dose: Integrated Dose-length product (DLP) for this visit = 249 mGy*cm CT Dose Reduction Employed: Automated exposure control (AEC) Comparison: CT chest dated 09/28/2020 and 06/23/2020, CT abdomen dated 06/23/20 RESULT: Limitations: None. Lines, tubes, and devices: Left Port-A-Cath Lung parenchyma and airways: Moderate emphysematous changes of the lungs. Interval resolution of some of previously noted nodular opacities. Residual mild reticulonodular opacities in the right upper lobe (3: 51, 60) and left upper lobe (3: 39, 52), stable. Bronchial wall thickening suggestive of bronchitis. Patchy/scarring in the right middle lobe and lingula. The central airways are patent. Pleural space: No pleural effusion. No pleural thickening. Lower neck, lymph nodes, and mediastinum: The imaged thyroid gland is normal. No lymphadenopathy in the supraclavicular, axillary, mediastinal, or hilar regions. Heart, pericardium, and thoracic vessels: The thoracic aorta and main pulmonary artery are normal in caliber. The cardiac chambers are normal in size. Atherosclerotic coronary artery calcifications are noted. No pericardial effusion or thickening. Bones and soft tissues: Bilateral breast prostheses. No suspicious lytic or blastic osseous lesions. Upper abdomen: Cholecystectomy clips. No evidence of an adrenal mass. Small right hepatic cyst, stable. Indeterminate 1.1 cm splenic hypodensity (2:70) not clearly visualized on the prior studies. Machining Supervisor (topogram) images: No additional findings. DIVISION OF RADIOLOGY Provider, [facility] - 09/07/2021 * * *Final Report* * * DATE OF EXAM: Sep 07 2021 2:27PM [facility] [place] 0539 - CT CHEST W IVCON / PROCEDURE REASON: multiple diagnoses * * * * Physician Interpretation * * * * RESULT: EXAMINATION: CHEST CT WITH CONTRAST CLINICAL HISTORY: Breast cancer Technique: Spiral CT acquisition of the chest from the thoracic inlet to the upper abdomen following IV contrast. MQ: CTCW_6 Contrast: 50 mL Omnipaque [address] Radiation dose: Integrated Dose-length product (DLP) for this visit = 249 mGy*cm CT Dose Reduction Employed: Automated exposure control (AEC) Comparison: CT chest dated 09/28/2020 and 06/23/2020, CT abdomen dated 06/23/20 RESULT: Limitations: None. Lines, tubes, and devices: Left Port-A-Cath Lung parenchyma and airways: Moderate emphysematous changes of the lungs. Interval resolution of some of previously noted nodular opacities. Residual mild reticulonodular opacities in the right upper lobe (3: 51, 60) and left upper lobe (3: 39, 52), stable. Bronchial wall thickening suggestive of bronchitis. Patchy/scarring in the right middle lobe and lingula. The central airways are patent. Pleural space: No pleural effusion. No pleural thickening. Lower neck, lymph nodes, and mediastinum: The imaged thyroid gland is normal. No lymphadenopathy in the supraclavicular, axillary, mediastinal, or hilar regions. Heart, pericardium, and thoracic vessels: The thoracic aorta and main pulmonary artery are normal in caliber. The cardiac chambers are normal in size. Atherosclerotic coronary artery calcifications are noted. No pericardial effusion or thickening. Bones and soft tissues: Bilateral breast prostheses. No suspicious lytic or blastic osseous lesions. Upper abdomen: Cholecystectomy clips. No evidence of an adrenal mass. Small right hepatic cyst, stable. Indeterminate 1.1 cm splenic hypodensity (2:70) not clearly visualized on the prior studies. Machining Supervisor (topogram) images: No additional findings. IMPRESSION IMPRESSION: 1. New indeterminate 1.1 cm splenic hypodensity, not clearly visualized on prior studies. Consider further evaluation via contrast-enhanced CT abdomen. 2. Interval resolution of some of the previously noted reticulonodular opacities. 3. Residual mild reticulonodular opacities, stable since 09/28/20. Consider continued interval follow-up. 4. Moderate emphysematous changes of the lungs. Transcribe Date/Time: Sep 07 2021 6:51P Dictated by: NAY GODOY MD This examination was interpreted and the report reviewed and electronically signed by: NAY GODOY MD on Sep 07 2021 7:21PM EST Thank you for allowing us to participate in the care of your patient. Should there be any questions regarding this interpretation, please call [phone]. If you are unable to reach us at the number above, please feel free to contact [facility] eRadiology at [phone]. [facility] Radiology Study observation (narrative) [facility] CT Chest W contrast IVOrdere d By: [facility] Provider on 09-07-2021 [facility] Comprehensive metabolic 2000 panelOrdered By: Agustin Zhao on 09-07-2021 Albumin [Mass/Vol] 4.2 g/dL 3.9 - 4.9 g/dL [facility] ALP [Catalytic activity/Vol] 85 U/L 34 - 123 U/L [facility] ALT [Catalytic activity/Vol] 14 U/L 7 - 38 U/L [facility] Anion gap [Moles/Vol] 6 mmol/L Low 9 - 18 mmol/L [facility] AST [Catalytic activity/Vol] 15 U/L 13 - 35 U/L [facility] Bilirubin [Mass/Vol] 0.3 mg/dL 0.2 - 1 .3 mg/dL [facility] Calcium [Mass/Vol] 9.3 mg/dL 8.5 - 10. 2 mg/dL [facility] Chloride [Moles/Vol] 102 mmol/L 97 - 10 5 mmol/L [facility] CO2 [Moles/Vol] 28 mmol/L 22 - 30 mmol/L [facility] Creatinine [Mass/Vol] 0.69 mg/dL 0.58 - 0.96 mg/dL [facility] GFR/1.73 sq M.predicted among non-blacks MDRD (S/P/Bld) [Vol rate/Area] 98 mL/min/{1.73_m2} - PINF [facility] Comment on above: Estimated Glomerular Filtration Rate (eGFR) is calculated using the 2020 CKD-EPI creatinine equation. This equation utilizes serum creatinine, sex, and age as parameters. The creatinine assay has traceable calibration to isotope dilution-mass spectrometry. Refer to KDIGO guidelines for clinical interpretation. In patients with unstable renal function, e.g. those with acute kidney injury, the eGFR may not accurately reflect actual GFR. Glucose [Mass/Vol] 110 mg/dL High 74 - 99 mg/dL [facility] Comment on above: The [place] Di[employer] s Association (ADA) provides guidance for cutoff values for fasting glucose and random glucose. The ADA defines fasting as no caloric intake for at least 8 hours. Fasting plasma glucose results between 100 to 125 mg/dL indicate increased risk for diabetes (prediabetes). Fasting plasma glucose results greater than or equal to 126 mg/dL meet the criteria for diagnosis of diabetes. In the absence of unequivocal hyperglycemia, results should be confirmed by repeat testing. In a patient with classic symptoms of hyperglycemia or hyperglycemic crisis, random plasma glucose results greater than or equal to 200 mg/dL meet the criteria for diagnosis of diabetes. Reference: Standards of Medical Care in Diabetes 2016, [place] [employer]. Diabetes Care. 2016.39(Suppl 1). Interpretation and review of laboratory results Abnormal [facility] Potassium [Moles/Vol] 4.5 mmol/L 3.7 - 5.1 mmol/L [facility] Protein [Mass/Vol] 7.0 g/dL 6.3 - 8.0 g/dL [facility] Sodium [Moles/Vol] 136 mmol/L 136 - 144 mmol/L [facility] Urea nitrogen [Mass/Vol] 15 mg/dL 7 - 21 mg/dL [facility] HISTORY PHYSICALon HISTORY PHYSICAL HNO ID: [id number] Author: Miranda Shaikh PA-C Service: ? Author Type: Physician Branch Administrator Type: HANDP Filed: 04/20/2021 8:01 AM Note Text: HISTORY AND PHYSICAL EXAMINATION SERVICE DATE: 04/19/2021 SERVICE TIME: 1:16 PM PRIMARY CARE PHYSICIAN: Jacquelyn Villagran MD REASON FOR VISIT: Gloria Lopez is a 60 year old female who is scheduled for insertion or replacement of breast implant, bilateral at the request of Dr. Angel Macias for consultation. My final recommendation will be communicated back to the requesting physician by way of shared medical record or letter. 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 Patient has history of breast cancer Left breast s/p lumpectomy 2005 and chemo. Right breast 04/2020 that had lumpectomy and chemo. Patient found to have BRCA gene. Then had bilateral mastectomy 12/2020 and had tissue expanders placed. Has occasional discomfort from these at times, otherwise no other issues. Has been recommended for above surgery. PAST MEDICAL HISTORY Diagnosis Date - Anxiety - Breast CA (HCC) Left; [place]-; HER2 + - Depression - Menopause - Overweight PAST SURGICAL HISTORY Procedure Laterality Date - ABDOMINAL SURGERY HX 2016 hernia repair - CHOLECYSTECTOMY HX - COLONOSCOPY - FRACTURE SURGERY femur fracture right as child - LUMPECTOMY/RADIOTHERAPY DIAG MAMM/A10 Left 2006 - LUMPECTOMY/RADIOTHERAPY DIAG MAMM/A10 Right 04/22/2020 - PAST SURGICAL HISTORY OF Insertion of MED-PORT - PAST SURGICAL HISTORY OF bilateral mastectomy ( 12/29/2020) FAMILY HISTORY Problem Relation Age of Onset - Lung Cancer Father - other (Rectal cancer) Paternal Grandmother - Ovarian cancer Maternal Grandmother - Diabetes Mother - Stroke Mother - Cancer Mother - other (Rectal cancer) Paternal Uncle SOCIAL HISTORY: Social History Tobacco Use - Smoking status: Former Smoker Packs/day: 1.00 Years: 43.00 Pack years: 43.00 Types: Cigarettes Quit date: 10/26/2020 Years since quittin.4 - Smokeless tobacco: Never Used Substance Use Topics - Alcohol use: Yes Comment: rarely - Drug use: Never MEDICATIONS: Prior to Admission medications as of 04/19/21 1314 Medication Sig Last Dose Taking cholecalciferol (VITAMIN D-3) 50 mcg (2,000 unit) tablet Take 2,000 Units by mouth once daily. Taking Yes cyanocobalamin (VITAMIN B-12) 1,000 mcg tab Take 1,000 mcg by mouth once daily. Taking Yes Lactobacillus acidophilus (PROBIOTIC) 10 billion cell cap Take by mouth once daily. Taking Yes ibuprofen (MOTRIN) 600 mg tablet Take 1 tablet by mouth every 6 hours as needed for pain. Taking Yes senna (SENNA) 8.6 mg tab Take 1 tablet by mouth twice daily. Taking Yes docusate sodium (COLACE) 100 mg capsule Take 1 capsule by mouth twice daily as needed for constipation. Taking Yes acetaminophen/diphenhydram ine (TYLENOL PM ORAL) Take by mouth. Taking Yes sertraline (ZOLOFT) 100 mg tablet Take 1 tablet by mouth once daily. Taking Yes acetaminophen (TYLENOL) 325 mg tablet Take 650 mg by mouth. Taking Yes No medication comments found. CURRENT ALLERGIES: ALLERGIES Allergen Reactions - Penicillins Unknown COVID VACCINATION STATUS: Fully vaccinated REVIEW OF SYSTEMS: PAIN ASSESSMENT: General: No weight loss, malaise or fevers. Neuro: No history of TIA's, stroke, NOZZLE CEMENT SPRAYER HELPER tumor, impaired sensorium, hemiplegia, paraplegia or quadraplegia. No neurological symptoms or problems. Respiratory: +Former smoker +Told had emphysema Negative for Current cough, Dyspnea, URI < 2 weeks, Wheezing Cardiovascular: No history of HTN requiring medication, no history of angina, CHF, MD, cardiac surgery or stents. Denies rest pain, gangrene or revascularization/amputati on for PVD. No history of cardiovascular symptoms or problems. GI: No history of GI symptoms or problems. No history of esophageal varices, recent ascites, or ETOH greater than 2 drinks per day. : No history of dysuria, frequency or incontinence,, stones or chronic kidney disease Endocrine: Diabetes Mellitus with diet control Denies any history of other endocrine symptoms/problems. Hematology: No history of bleeding or clotting disorder. Pt is not taking anti-coagulation or platelet medications. No history of hematological symptoms or problems. Oncology: See HPI Psych: Anxiety - sertraline, stable Musculoskeletal: +arthritis in right knee and neck Skin: Negative for lesions, rash and itching. Objective PHYSICAL EXAM: VITALS: BP 111/57 Pulse 66 Temp (Src) 98.2 (Oral) Resp 18 (more content not included)... [facility] FEMALE PELVIS TRANSVAGon 12-14-2020 US FEMALE PELVIS TRANSVAG * * *Final Report* * * DATE OF EXAM: Dec 14 2020 10:34AM [facility] 1060 - US FEMALE PELVIS TRANSVAG / PROCEDURE REASON: multiple diagnoses * * * * Physician Interpretation * * * * EXAMINATION: TRANSVAGINAL AND LIMITED TRANSABDOMINAL PELVIC ULTRASOUND CLINICAL HISTORY: BRCA 1 mutation TECHNIQUE: Sonography of the pelvis was performed by transvaginal and transabdominal (limited) techniques. Images were obtained and stored in a permanent archive. MQ: UFP_1 COMPARISON: None RESULT: Uterus size: 5.1 x 2.1 x 3.2 cm -Orientation: Anteverted -Myometrium: Normal sonographic appearance. -Endometrial echo complex: 0.2 cm -Cervix: normal Ovaries: Not seen Pelvis free fluid: None. IMPRESSION: NORMAL SONOGRAPHIC APPEARANCE OF THE FEMALE PELVIS. 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 Transcribe Date/Time: Dec 14 2020 2:51P Dictated by : EWELINA DOUGLASS MD This examination was interpreted and the report reviewed and electronically signed by: EWELINA DOUGLASS MD on Dec 14 2020 2:52PM EST [id number] [facility] BRIEF OP NOTon 05-28-2020 BRIEF OP NOT HNO ID: [id number] Author: Katie Boggs DO Service: Interventional Radiology Author Type: Physician Type: Brief Op Note Filed: 05/28/2020 1:10 PM Note Text: BRIEF OPERATIVE / PROCEDURE NOTE LOG ID: [id number] SURGERY/PROCEDURE DATE: 05/28/2020 INCISION/PROCEDURE START TIME: 12:24 PM INCISION CLOSE/PROCEDURE END TIME: 12:56 PM SURGEON(S)/PROCEDURALIST(S ) AND TAR HEEL(S): Surgeon(s) and Role: * Katie Boggs DO - Primary No Additional Staff SURGERY/PROCEDURE(S): Insertion of ported central venous catheter. ANESTHESIA: Procedural Sedation FINDINGS: Left internal jugular vein access obtained for placement of left chest wall 8 Divehi Groshong mediport catheter with distal tip in the right atrium. Catheter cleared for use. ESTIMATED BLOOD LOSS: 10 mL SPECIMENS: None COMPLICATIONS: None PRE-OP/PRE-PROCEDURE DIAGNOSIS: Right breast cancer. POST-OP/POST-PROCEDURE DIAGNOSIS: Same, status post insertion of ported central venous catheter. SIGNATURE: Katie Boggs DO PATIENT NAME: Gloria Lopez DATE: May 28, 2020 TIME: 1:08 PM PAGER/CONTACT #: [phone] [facility] HISTORY PHYSICALon 0 HISTORY PHYSICAL HNO ID: [id number] Author: Katie Boggs DO Service: Interventional Radiology Author Type: Physician Type: HANDP Filed: 05/28/2020 1:07 PM Note Text: RADIOLOGY PROCEDURAL SEDATION HISTORY AND PHYSICAL EXAM SERVICE DATE: 05/28/2020 SERVICE TIME: 1:03 PM Subjective HPI: This is a 60 year old female with right sided breast cancer, and previous history of left sided breast cancer, here for placement of ported central venous catheter for administration of chemotherapy. PROCEDURE SCHEDULED: Procedure(s): INSERTION CATHETER PORT-A-CATH WITH C-ARM (Pending) RADIOLOGY ORDER PLACED: Same. PAST ANESTHESIA HISTORY: No history of adverse event. PAST MEDICAL HISTORY Diagnosis Date - Anxiety - Breast CA (HCC) Left; [place]-; HER2 + - Depression - Menopause - Overweight PAST SURGICAL HISTORY Procedure Laterality Date - ABDOMINAL SURGERY HX 2016 hernia repair - CHOLECYSTECTOMY HX - FRACTURE SURGERY femur fracture right as child - LUMPECTOMY/RADIOTHERAPY DIAG MAMM/A10 Left 2006 - LUMPECTOMY/RADIOTHERAPY DIAG MAMM/A10 Right 04/22/2020 Prior to Admission medications as of 05/28/20 1114 Medication Sig Last Dose Taking acetaminophen (TYLENOL) 325 mg tablet Take 650 mg by mouth. 05/27/2020 at Unknown time Yes ondansetron (ZOFRAN) 8 mg tablet Take 1 tablet by mouth every 8 hours as needed for Nausea/Vomiting. Unknown at Unknown time prochlorperazine (COMPAZINE) 10 mg tablet Take 1 tablet by mouth every 6 hours as needed. Unknown at Unknown time sertraline (ZOLOFT) 50 mg tablet Take 1 tablet by mouth once daily. Unknown at Unknown time ALLERGIES Allergen Reactions - Penicillins Unknown Objective PHYSICAL EXAM: The remainder of the physical exam is noncontributory. AIRWAY: Airway Visualization of Uvula: Yes Mouth opening greater than 2 fingerbreadths: Yes Neck Full Range of Motion: Yes LUNGS: Lungs clear to auscultation, Good diaphragmatic excursion CARDIAC: Normal S1 and S2; no rubs, murmurs, or gallops Assessment/Plan ASA Class: ASA Class:: Patient with mild systemic disease Provisional Diagnosis/Treatment Plan: Right breast cancer, here for placement of ported central venous catheter for administration of chemotherapy. SEDATION GOAL: Moderate SIGNATURE: Katie Boggs DO PATIENT NAME: Gloria Lopez DATE: May 28, 2020 TIME: 1:03 PM PAGER: [phone] [facility] IR FLU GD YOSHI CVA PLACEon IR FLU GD YOSHI CVA PLACE * * *Final Report* * * DATE OF EXAM: May 28 2020 12:56PM [facility] [id number] - IR FLU GD YOSHI CVA PLACE / PROCEDURE REASON: Malignant neoplasm of female breast, unspecified estrogen receptor status, unspe * * * * Physician Interpretation * * * * PROCEDURE: VENOUS PORT PLACEMENT Procedural Personnel Attending physician(s): Katie Boggs D.O. Pre-procedure diagnosis: Right breast cancer. Post-procedure diagnosis: Same Indication: Administration of chemotherapy Additional clinical history: None PROCEDURE SUMMARY: - Venous access with ultrasound guidance - Tunneled port insertion under fluoroscopic guidance - Additional procedure(s): None PROCEDURE DETAILS: Pre-procedure History and imaging of central venous access reviewed (QCDR): Yes Consent: Risks, benefits, treatment options, potential complications and personnel to be involved were discussed (including the risks of radiation exposure, contrast and anesthesia administration, and any equipment needed for the procedure to ensure best possible outcome) with the patient and all questions were answered and consent was obtained prior to procedure. Transfusion of blood products: No Medication reconciliation: The patient's medications and allergies were reviewed in the electronic medical record and reconciled to the proposed procedure/treatment. Ernestine-procedure discussion: The appropriate elements of the pre-procedure discussion, safety check list and sign-out were performed. Time out: A time out was performed immediately prior to procedure start with the nursing and interventional team, correctly identifying the name, date of , procedure, anatomy (including marking of site and side if applicable), patient position, procedure consent form, relevant diagnostic and radiology test results, antibiotic administration if applicable, safety precautions, and procedure-specific equipment needs. Start of procedure: 12:24 End of procedure: 12:56 Patient position: Supine Antibiotics: Vancomycin Antibiotic infusion start time: 12:01 Prophylactic antibiotic administered: Within 1 hour of procedure start time or 2 hours for vancomycin or fluoroquinolones Preparation (MIPS): The site was prepared and draped using all elements of maximal sterile barrier technique including sterile gloves, sterile gown, cap, mask, large sterile sheet, sterile ultrasound probe cover, hand hygiene and cutaneous antisepsis with 2% chlorhexidine. Medical reason for site preparation exception (MIPS): Not applicable Contrast: None. FLUOROSCOPIC RADIATION SUMMARY: Plane A, Air Kerma: 5.2 mGy Dose Area Product (DAP): 1420.0 mGy*cm2 Fluoro Time: 0:01 min:sec Radiation dose exceed 5 Gy: No If radiation dose exceeded 5 Gy, was counseling and instructional brochure provided: N/A Anesthesia/sedation Level of anesthesia/sedation: Moderate sedation (conscious sedation) Anesthesia/sedation administered by: Independent trained observer under attending supervision with continuous monitoring of the patient?s level of consciousness and physiologic status Total intra-service sedation time (minutes): 39 Local anesthesia: 1 % lidocaine Access Local anesthesia was administered. The vessel was sonographically evaluated and determined to be patent. Real time ultrasound was used to visualize needle entry into the vessel and a permanent image was stored. Vein accessed: Left internal jugular vein Access technique: Micropuncture set with 21 gauge needle Venography Indication for venography: Not performed Vein catheterized: Not applicable Findings: Not applicable Port placement An incision was made at the upper chest, a pocket was created, and the catheter was tunneled subcutaneously to the venous access site and trimmed to appropriate length. The port was inserted into the pocket and the catheter was advanced via a peel-away sheath into the vein under fluoroscopic guidance. The port was sutured into the pocket using absorbable suture. Catheter tip location was fluoroscopically verified and a permanent image was stored. Port placed: 8 F BARD PowerPort by - Groshong (distal valved) silicone catheter with pressure injectable titanium port. Catheter tip position: Right atrium Unique Device Identifier: Not available Catheter flush: Normal saline Closure The access site and incision were closed and sterile dressing(s) were applied. Access site closure technique: Tissue adhesive Incision closure technique: Absorbable suture and tissue adhesive Patient discharged from procedure suite with device accessed: No Additional Details Additional description of procedure: None Equipment details: None Specimens removed: None Estimated blood loss (mL): Less than 10 Standardized report: [email or web address] The patient tolerated the procedure well. The patient was comfortable and was transferred to the recovery room in stable condition. (more content not included)... [facility] IR PORTOCATH PLACEMENTon IR PORTOCATH PLACEMENT * * *Final Report* * * DATE OF EXAM: May 28 2020 12:56PM [facility] [id number] - IR PORTOCATH PLACEMENT / PROCEDURE REASON: Malignant neoplasm of female breast, unspecified estrogen receptor status, unspe * * * * Physician Interpretation * * * * PROCEDURE: VENOUS PORT PLACEMENT Procedural Personnel Attending physician(s): Katie Boggs D.O. Pre-procedure diagnosis: Right breast cancer. Post-procedure diagnosis: Same Indication: Administration of chemotherapy Additional clinical history: None PROCEDURE SUMMARY: - Venous access with ultrasound guidance - Tunneled port insertion under fluoroscopic guidance - Additional procedure(s): None PROCEDURE DETAILS: Pre-procedure History and imaging of central venous access reviewed (QCDR): Yes Consent: Risks, benefits, treatment options, potential complications and personnel to be involved were discussed (including the risks of radiation exposure, contrast and anesthesia administration, and any equipment needed for the procedure to ensure best possible outcome) with the patient and all questions were answered and consent was obtained prior to procedure. Transfusion of blood products: No Medication reconciliation: The patient's medications and allergies were reviewed in the electronic medical record and reconciled to the proposed procedure/treatment. Ernestine-procedure discussion: The appropriate elements of the pre-procedure discussion, safety check list and sign-out were performed. Time out: A time out was performed immediately prior to procedure start with the nursing and interventional team, correctly identifying the name, date of , procedure, anatomy (including marking of site and side if applicable), patient position, procedure consent form, relevant diagnostic and radiology test results, antibiotic administration if applicable, safety precautions, and procedure-specific equipment needs. Start of procedure: 12:24 End of procedure: 12:56 Patient position: Supine Antibiotics: Vancomycin Antibiotic infusion start time: 12:01 Prophylactic antibiotic administered: Within 1 hour of procedure start time or 2 hours for vancomycin or fluoroquinolones Preparation (MIPS): The site was prepared and draped using all elements of maximal sterile barrier technique including sterile gloves, sterile gown, cap, mask, large sterile sheet, sterile ultrasound probe cover, hand hygiene and cutaneous antisepsis with 2% chlorhexidine. Medical reason for site preparation exception (MIPS): Not applicable Contrast: None. FLUOROSCOPIC RADIATION SUMMARY: Plane A, Air Kerma: 5.2 mGy Dose Area Product (DAP): 1420.0 mGy*cm2 Fluoro Time: 0:01 min:sec Radiation dose exceed 5 Gy: No If radiation dose exceeded 5 Gy, was counseling and instructional brochure provided: N/A Anesthesia/sedation Level of anesthesia/sedation: Moderate sedation (conscious sedation) Anesthesia/sedation administered by: Independent trained observer under attending supervision with continuous monitoring of the patient?s level of consciousness and physiologic status Total intra-service sedation time (minutes): 39 Local anesthesia: 1 % lidocaine Access Local anesthesia was administered. The vessel was sonographically evaluated and determined to be patent. Real time ultrasound was used to visualize needle entry into the vessel and a permanent image was stored. Vein accessed: Left internal jugular vein Access technique: Micropuncture set with 21 gauge needle Venography Indication for venography: Not performed Vein catheterized: Not applicable Findings: Not applicable Port placement An incision was made at the upper chest, a pocket was created, and the catheter was tunneled subcutaneously to the venous access site and trimmed to appropriate length. The port was inserted into the pocket and the catheter was advanced via a peel-away sheath into the vein under fluoroscopic guidance. The port was sutured into the pocket using absorbable suture. Catheter tip location was fluoroscopically verified and a permanent image was stored. Port placed: 8 F BARD PowerPort by - Groshong (distal valved) silicone catheter with pressure injectable titanium port. Catheter tip position: Right atrium Unique Device Identifier: Not available Catheter flush: Normal saline Closure The access site and incision were closed and sterile dressing(s) were applied. Access site closure technique: Tissue adhesive Incision closure technique: Absorbable suture and tissue adhesive Patient discharged from procedure suite with device accessed: No Additional Details Additional description of procedure: None Equipment details: None Specimens removed: None Estimated blood loss (mL): Less than 10 Standardized report: [email or web address] The patient tolerated the procedure well. The patient was comfortable and was transferred to the recovery room in stable condition. C (more content not included)... [facility] IR US VASCULAR ACCESS GUIDEo n 05-28-2020 IR US VASCULAR ACCESS GUIDE * * *Final Report* * * DATE OF EXAM: May 28 2020 12:56PM [facility] 7765 - US VASCULAR ACCESS GUIDE / PROCEDURE REASON: Malignant neoplasm of female breast, unspecified estrogen receptor status, unspe * * * * Physician Interpretation * * * * PROCEDURE: VENOUS PORT PLACEMENT Procedural Personnel Attending physician(s): Katie Boggs D.O. Pre-procedure diagnosis: Right breast cancer. Post-procedure diagnosis: Same Indication: Administration of chemotherapy Additional clinical history: None PROCEDURE SUMMARY: - Venous access with ultrasound guidance - Tunneled port insertion under fluoroscopic guidance - Additional procedure(s): None PROCEDURE DETAILS: Pre-procedure History and imaging of central venous access reviewed (QCDR): Yes Consent: Risks, benefits, treatment options, potential complications and personnel to be involved were discussed (including the risks of radiation exposure, contrast and anesthesia administration, and any equipment needed for the procedure to ensure best possible outcome) with the patient and all questions were answered and consent was obtained prior to procedure. Transfusion of blood products: No Medication reconciliation: The patient's medications and allergies were reviewed in the electronic medical record and reconciled to the proposed procedure/treatment. Ernestine-procedure discussion: The appropriate elements of the pre-procedure discussion, safety check list and sign-out were performed. Time out: A time out was performed immediately prior to procedure start with the nursing and interventional team, correctly identifying the name, date of , procedure, anatomy (including marking of site and side if applicable), patient position, procedure consent form, relevant diagnostic and radiology test results, antibiotic administration if applicable, safety precautions, and procedure-specific equipment needs. Start of procedure: 12:24 End of procedure: 12:56 Patient position: Supine Antibiotics: Vancomycin Antibiotic infusion start time: 12:01 Prophylactic antibiotic administered: Within 1 hour of procedure start time or 2 hours for vancomycin or fluoroquinolones Preparation (MIPS): The site was prepared and draped using all elements of maximal sterile barrier technique including sterile gloves, sterile gown, cap, mask, large sterile sheet, sterile ultrasound probe cover, hand hygiene and cutaneous antisepsis with 2% chlorhexidine. Medical reason for site preparation exception (MIPS): Not applicable Contrast: None. FLUOROSCOPIC RADIATION SUMMARY: Plane A, Air Kerma: 5.2 mGy Dose Area Product (DAP): 1420.0 mGy*cm2 Fluoro Time: 0:01 min:sec Radiation dose exceed 5 Gy: No If radiation dose exceeded 5 Gy, was counseling and instructional brochure provided: N/A Anesthesia/sedation Level of anesthesia/sedation: Moderate sedation (conscious sedation) Anesthesia/sedation administered by: Independent trained observer under attending supervision with continuous monitoring of the patient?s level of consciousness and physiologic status Total intra-service sedation time (minutes): 39 Local anesthesia: 1 % lidocaine Access Local anesthesia was administered. The vessel was sonographically evaluated and determined to be patent. Real time ultrasound was used to visualize needle entry into the vessel and a permanent image was stored. Vein accessed: Left internal jugular vein Access technique: Micropuncture set with 21 gauge needle Venography Indication for venography: Not performed Vein catheterized: Not applicable Findings: Not applicable Port placement An incision was made at the upper chest, a pocket was created, and the catheter was tunneled subcutaneously to the venous access site and trimmed to appropriate length. The port was inserted into the pocket and the catheter was advanced via a peel-away sheath into the vein under fluoroscopic guidance. The port was sutured into the pocket using absorbable suture. Catheter tip location was fluoroscopically verified and a permanent image was stored. Port placed: 8 F BARD PowerPort by - Groshong (distal valved) silicone catheter with pressure injectable titanium port. Catheter tip position: Right atrium Unique Device Identifier: Not available Catheter flush: Normal saline Closure The access site and incision were closed and sterile dressing(s) were applied. Access site closure technique: Tissue adhesive Incision closure technique: Absorbable suture and tissue adhesive Patient discharged from procedure suite with device accessed: No Additional Details Additional description of procedure: None Equipment details: None Specimens removed: None Estimated blood loss (mL): Less than 10 Standardized report: [email or web address] The patient tolerated the procedure well. The patient was comfortable and was transferred to the recovery room in stable condition (more content not included)... [facility] HOSPon 05-19-2020 HOSP Patient:Gloria Lopez MRN: Height:5' 3 (1.6 m) Weight:153 lb (69.4 kg) Outpatient Medications as of 05/28/20: ondansetron (ZOFRAN) 8 mg tablet prochlorperazine (COMPAZINE) 10 mg tablet acetaminophen (TYLENOL) 325 mg tablet sertraline (ZOLOFT) 50 mg tablet Admission/Clinic Administered Medications as of 05/28/20: vancomycin iv piggyback 1 g in D5W 200 mL (VANCOCIN) Problem List: Breast CA (HCC) [C50.919] Malignant neoplasm 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, estrogen receptor negative (HCC) [C50.211, Z17.1] Tobacco use [Z72.0] Allergies: Penicillins Date Verified: 05/28/20 Lab Values Lab Value Units Date High Low POTA* 4.4 mmol/L 05/18/2020 5.1 3.7 JOHNATHAN* 41.9 % 05/18/2020 46.0 36.0 Progress Notes [facility] Tamia Perez, OTR/L 05/27/2020 11:29 AM Signed Therapist called to assist patient with scheduling an appointment for breast rehabilitation post her visit with Dr. Gabe Garcia. Therapist contacted patient and discussed role of therapy in recovery and treatment services and patient states she currently has no needs and has no difficulty with ROM, strength and has resumed all prior activities and has no swelling at this time. The patient was given information regarding therapy location and telephone number and verbalized understanding and plans to call if she has any future concerns. Progress Notes (TUMOR BOARD): Alexa Haq APRN.CNP 05/26/2020 7:06 AM Sign when Signing Visit The below documentation is based on a tumor board discussion amongst the multidisciplinary team and should NOT be used for insurance verification or coverage purposes or interpreted as the final plan of care: Date of Presentation: May 26, 2020 Presenter: Dr. Geraldo Bernal Team Members: Dr. Gabe Garcia Primary reason for presentation: Treatment planning Anatomic stage: T1bN0; Stage IB Pathway discussed: Yes Clinical trial discussion: Yes, not applicable for pt presentation Discussion / recommendations: After review and discussion of patient presentation, the following thoughts / recommendations were made. 1) Recommend genetic testing 2) Recommend staging 3) Recommend TC x 4 cycles 4) Planning for radiation therapy This abstract and interpretation of the conversation at tumor board has been completed by Alexa Haq CNP. The final recommendations / treatment plan will be made by the patient's primary health care team and patient, after full discussion as appropriate. [facility] 04-22-2020 [facility] HNO ID: [id number] Author: Kimberlee Jade (Tech) Service: Nuclear Medicine Author Type: Director Industrial Relations Type: Allied Health Filed: 04/22/2020 8:29 AM Note Text: RADIOLOGY SERVICE PROGRESS NOTE SERVICE DATE: 04/22/2020 SERVICE TIME: 8:27 AM PATIENT IDENTITY VERIFICATION COMPLETED USING TWO (2) STANDARD IDENTIFIERS: Name and Date of confirmed by patient verbally FALL SCREENING: Has the patient had 2 falls in the last year or 1 fall with injury or currently using an Ambulatory Assistive Device (Walker, Cane, Wheelchair, Crutches, etc.)? No PATIENT GENDER DATA: .female ALLERGIES: Reviewed and unchanged MEDICATIONS REVIEWED: No PATIENT RELEVANT IMPLANT DATA REVIEWED: Not Applicable CREATININE: Creatinine Date Value Ref Range Status 04/20/2020 0.69 0.58 - 0.96 mg/dL Final 03/23/2020 0.69 0.58 - 0.96 mg/dL Final eGFR-All Other Races Date Value Ref Range Status 04/20/2020 >60 . Final Comment: eGFR (Estimated GFR) Units of measure: mL/min/1.73 meters squared eGFR is derived from the reexpressed MDRD Study equation using the following parameters: serum creatinine, age, gender and race. The creatinine assay has been calibrated to be traceable to IDMS. An eGFR <60 mL/min/1.73m2 for >3 months is consistent with chronic kidney disease. Refer to KDOQI guidelines for clinical interpretation. In patients with unstable renal function, e.g. those with acute kidney injury, the eGFR may not accurately reflect actual GFR. eGFR- Date Value Ref Range Status 04/20/2020 >60 Final P.O.C.T. RESULTS: N/A April 22, [address] PERFORMED: No IV SITE: Ambulatory: NM only - direct IV injection in the Right Retro-Aerolar POST EXAM PIV STATUS: Not applicable PROCEDURE TYPE: NM INJECT: NM Lymphoscintigraphy. 458 microcuries Tc99m SULFUR COLLOID . No other medications given.. ADMINISTRATION TIME: 07:[address] Gail Alexis PATIENT DISCHARGED TO: Ambulatory patient, left [place] department area. A Diagnostic radioactive procedure has taken place, with no further precautions necessary other than routine body substance precautions. More information regarding radiation safety can be found using this link: [email or web address] SIGNATURE: Kimberlee Jade PATIENT NAME: Gloria Lopez DATE: April 22, 2020 TIME: 8:27 AM PAGER/CONTACT #: [facility] ANES POSTPROC EVALon 020 ANES POSTPROC EVAL HNO ID: [id number] Author: Carlene Perez Service: ? Author Type: Anesthesiologist Type: Anesthesia Postprocedure Evaluation Filed: 04/22/2020 11:52 AM Note Text: POST ANESTHESIA EVALUATION NOTE : 1960 Procedure Summary Date: 04/22/20 Room / Location: OR05 / AV OR Anesthesia Start: 925 Anesthesia Stop: 1058 Procedures: LUMPECTOMY BREAST (Right Breast) INTRAOPERATIVE ID OF SENTINEL LYMPH NODE(S) INCL'D INJECTION OF NON-RAD DYE WHEN PERFORMED (Right Breast) BIOPSY BREAST SENTINEL NODE (Right Breast) Diagnosis: Malignant neoplasm 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, estrogen receptor negative (HCC) Surgeons: Gabe Garcia Responsible Provider: Carlene Perez Anesthesia Type: general ASA Status: 3 Anesthesia Type: general Last vitals Vitals Value Taken Time BP 136/74 04/22/20 1150 Temp 36.2 ?C (97.2 ?F) 04/22/20 1058 HR SpO2 78 04/22/20 1058 Resp 18 04/22/20 1150 SpO2 89 % 04/22/20 1151 Vitals shown include unvalidated device data. Post Anesthesia Patient Status Patient Evaluation: bedside. Anticipated Disposition: phase 2 then home. Neurological Status: aware and responsive. Pulmonary Status: breathing comfortably on room air Airway Control: returned to baseline unsupported. Cardiovascular Status: stable. Pain Management: clinically adequate - multimodal analgesia pain management approach Postoperative Hydration: acceptable. Intraoperative Events: no significant anesthesia events Post Operative Nausea/Vomiting Status: Anesthetic Observations: no significant anesthetic observations Recommendation: continue current plan of care and further care per PACU/ICU/floor team. SIGNATURE: Carlene Perez MD PATIENT NAME: Gloria Lopez DATE: April 22, 2020 TIME: 11:51 AM CSN: [id number] [facility] ANES PRE-OPon 04-22-2020 ANES PRE-OP HNO ID: [id number] Author: Carlene Perez Service: ? Author Type: Anesthesiologist Type: Anesthesia Preprocedure Evaluation Filed: 04/22/2020 9:08 AM Note Text: ANESTHESIOLOGY DAY OF SURGERY NOTE : 1960 Procedure(s) (LRB): LUMPECTOMY BREAST (Right) INTRAOPERATIVE ID OF SENTINEL LYMPH NODE(S) INCL'D INJECTION OF NON-RAD DYE WHEN PERFORMED (Right) BIOPSY BREAST SENTINEL NODE (Right) Surgeon(s): Gabe Garcia Estimated body mass index is 25.86 kg/m? as calculated from the following: Height as of 04/21/20: 160 cm (5' 3 ). Weight as of 04/21/20: 66.2 kg (146 lb). Most recent hematocrit and potassium results: Hematocrit 42.4 04/20/2020 Potassium 4.0 04/20/2020 Relevant Problems No relevant active problems I - PHYSICAL EVALUATION AIRWAY Patient intubated: No. Tracheostomy tube not present Mallampati: II. TM distance: >3 FB. Neck ROM: full ROM without neurological symptoms. Mouth opening: adequate. Short neck: no. Thick neck: no DENTAL Dentures, upper: complete. Dentures, lower: complete. Additional exam findings: no II - ANESTHESIA PLAN ASA Score: 3 Anesthetic Plan: general Airway type: LMA Anesthetic plan additional comments: GA WITH LMA WILL ACCEPT BLOOD PRN. NPO Status: adequate Monitoring plan: Standard ASA. Postoperative analgesic plan: parenteral or oral opioids, multimodal analgesia and per surgical service. Anesthetic Risks, Benefits, Alternatives, Personnel Discussed. Consent obtained from: patient. Patient / Surrogate agrees to blood products: yes DNR status not reviewed with patient and/or family prior to surgery. Significant changes in the patient condition since the History and Physical, not otherwise documented in primary service progress note: no. Potential Anesthesia issues that may suggest increased risk of complications or contraindication to planned procedure: none. Vitals Value Taken Time BP 128/45 04/22/20 0854 Pulse Resp 16 04/22/20853 Temp 36.3 ?C (97.3 ?F) 04/22/20853 SpO2 100 % 04/22/20853 Facility-Administered Medications as of 04/22/2020 Medication Dose Route Frequency - lidocaine 10 mg/mL (1 %) 1-2 mg injection (XYLOCAINE) 0.1-0.2 mL INTRADERMAL PRN - lactated ringers infusion 5-30 mL/hr INTRAVENOUS CONTINUOUS - clindamycin iv piggyback 900 mg in D5W 50 mL (CLEOCIN) 900 mg INTRAVENOUS Pre-Op Once - acetaminophen 1,000 mg tab(s) (TYLENOL) 1,000 mg ORAL Pre-Op Once - promethazine 12.5 mg tab(s) (PHENERGAN) 12.5 mg ORAL Pre-Op Once - scopolamine 1 mg over 3 days 1 Patch (TRANSDERM-SCOP) 1 Patch TRANSDERMAL ONCE Outpatient Medications as of 04/22/2020 Medication Sig - acetaminophen (TYLENOL) 325 mg tablet Take 650 mg by mouth. - sertraline (ZOLOFT) 50 mg tablet Take 1 tablet by mouth once daily. I have interviewed and examined the patient. I have reviewed the medical record and/or the pre-anesthesia evaluation, pertinent labs, and test results. This contains updated information obtained within 48 hours of Surgery/Procedure. SIGNATURE: Carlene Perez MD PATIENT NAME: Gloria Lopez DATE: April 22, 2020 TIME: 9:08 AM CSN: [id number] [facility] BRIEF OP NOTon 04-22-2020 BRIEF OP NOT HNO ID: [id number] Author: Gail Alexis Service: Radiology Author Type: Physician Type: Brief Op Note Filed: 04/22/2020 7:31 AM Note Text: Radiology Brief Procedure Note Service date: April 22, 2020 Service start time: 725 AM Service end time: 7:31 AM Pre procedure diagnosis: Right breast cancer Procedure Performed: Right breast sentinel node injection Post procedure diagnosis: Same as pre procedure diagnosis. Significant Findings: NA Specimens obtained: 3 injections right breast. Anesthesia used: 2% lidocaine. Estimated Blood Loss: Minimal, less than 1 ml. Complications: None SIGNATURE: Gail Alexis MD PATIENT NAME: Gloria Lopez DATE: April 22, 2020 TIME: 7:31 AM PAGER/CONTACT #: [id number] Normal [facility] SURGICAL BREAST SPECIMEN RTon 04-22-2020 [facility] SURGICAL BREAST SPECIMEN RT * * *Final Report* * * DATE OF EXAM: Apr 22 2020 10:35AM [facility] 0639 - [facility] SURGICAL BREAST SPECIMEN RT / PROCEDURE REASON: surgical specimen * * * * Physician Interpretation * * * * RESULT: #[id number] - [facility] SURGICAL BREAST SPECIMEN RT UNI-PLANAR RADIOGRAPH SPECIMEN IMAGING RIGHT BREAST: 04/22/2020 HISTORY: Surgical Specimen. Correlation is made to exams dated: 04/21/2020 localization and 04/21/2020 mammogram - [facility]. A surgical specimen was imaged using uni-planar radiograph specimen imaging for the previous biopsy site located in the right breast upper inner aspect. This was described on the previous mammography report. IMPRESSION: UNI-PLANAR RADIOGRAPH SPECIMEN IMAGING The imaged specimen includes a biopsy clip and a location device. SUMMARY: Urgent Results: Additional images confirmed that the target (with localization clip and CRISTINO) were contained in the specimen radiograph. The results of the specimen radiograph were discussed with Dr. Gabe Garcia in the O.R. on 04/22/20 at 10:39 hrs. Daysi Dominguez M.D. /hannah:04/22/2020 10:53:08 copy to: GABE GARCIA, ph: [phone] Trimming Caser(s): Ellie Abbasi, [facility] Multiple national specialty organizations have released breast cancer screening guidelines for women at average risk for developing breast cancer - guidelines that are based on both evidence and opinion, yet differ on when to start and how often to screen for breast cancer. With representation from Breast Imaging, Internal Medicine, Women's Health, Family Medicine, and Medical/Surgical Oncology, the [facility] has carefully reviewed the data and reached the following consensus: 1) All women should engage in shared decision-making with their providers to decide when to start and how often to screen; 2) All women should have the opportunity to start screening mammography at age 40; 3) For women ages 45-55, we recommend annual screening mammograms; 4) For women ages 55 and over, we support both the transition from an annual to a biennial interval if this aligns more with patient's values and preferences, or continuation with annual screening; 5) All women should discuss with their providers when to stop screening mammograms. Overhauler Bus Truck: Hannah Transcribe Date/Time: Apr 22 2020 10:33A Dictated by : DAYSI DOMINGUEZ MD This examination was interpreted and the report reviewed and electronically signed by: DAYSI DOMINGUEZ MD on Apr 22 2020 10:53AM EST [id number] [facility] NM INJ SENT NODE BREAST RTon 04-22-2020 [place] INJ SENT NODE BREAST RT * * *Final Report* * * DATE OF EXAM: Apr 22 2020 8:38AM N 2190 - [place] INJ SENT NODE BREAST RT / PROCEDURE REASON: Neoplasm, breast * * * * Physician Interpretation * * * * BREAST LYMPHOSCINTIGRAPHY (04/22/2020): HISTORY: Right breast cancer. TECHNIQUE: A time out procedure was performed. 458 microcuries of filtered technetium-99m sulfur colloid combined with 1.5 cc of 2% Xylocaine were injected in three aliquots into the retroareolar tissue of the right breast by Dr. Alexis, for sentinel lymph node biopsy. No imaging was performed. Overhauler Bus Truck: ASA Transcribe Date/Time: Apr 22 2020 9:01A Dictated by : GAIL ALEXIS MD This examination was interpreted and the report reviewed and electronically signed by: GAIL ALEXIS MD on Apr 22 2020 9:40AM EST [id number] [facility] NURSING PROGon 04-22-2020 NURSING PROG HNO ID: [id number] Author: Tiffanie (Rn) SANDRO Pena Service: ? Author Type: Registered Nurse Type: Nursing Progress Note Filed: 04/22/2020 9:14 AM Note Text: Iv access discussed with anesthesia, Left arm with prior lymph node removal, right arm surgical side arm, Dr. Perez advised and she requests that right arm be used for access. [facility] OPERATIVE NOon 04-22-2020 OPERATIVE NO HNO ID: [id number] Author: Gabe Garcia Service: General Surgery Author Type: Physician Type: Operative Report Filed: 04/22/2020 10:51 AM Note Text: OPERATIVE / PROCEDURE NOTE LOG ID: [id number] SURGERY/PROCEDURE DATE: 04/22/2020 INCISION/PROCEDURE START TIME: 9:48 AM INCISION CLOSE/PROCEDURE END TIME: 10:47 AM SURGEON(S)/PROCEDURALIST(S ) AND TAR HEEL(S): Surgeon(s) and Role: * Gabe Garcia - Primary Physician Branch Administrator: Carly Mckeon (Pa) SURGERY/PROCEDURE(S): Right breast Cristino brake engineer localized lumpectomy with biopsy of deep axillary sentinel lymph node, pre-operative injection of non-radioactive dye ANESTHESIA: General FINDINGS: Clips in specimen ESTIMATED BLOOD LOSS: Minimal mls SPECIMENS: [place] node #1, left breast mass, margins COMPLICATIONS: None PRE-OP/PRE-PROCEDURE DIAGNOSIS: Right breast cancer POST-OP/POST-PROCEDURE DIAGNOSIS: Same as Preop INDICATION FOR PROCEDURE: This is a 59-year-old female who presented with a mass in right breast on screening imaging. She underwent imaging guided biopsy, which showed invasive carcinoma. She was counseled on surgical options and agreed to proceed with lumpectomy and sentinel lymph node biopsy. PROCEDURE: After informed consent was obtained, patient was brought to the operating room and transferred to the table in supine position. Monitoring was begun. The patient was sedated and LMA was placed. The right breast and axilla were prepped and draped in the usual sterile fashion. Time-out was performed, correct patient, procedure and operative site. Antibiotics were administered preoperatively. SCDs in place prior to induction. Prior to prepping the chest, the breast was injected at the areolar border in 4 quadrants with a total of 1 mL of lymphazurin. The breast was massaged to facilitate lymphatic spread. On the morning of procedure, the patient underwent the sentinel lymph node injection per Nuclear Medicine. Additionally, prior to the procedure she underwent Cristino brake engineer localization by breast imaging. Beginning at the axilla, a standard axillary incision was made and dissection carried through subcutaneous tissue with Bovie electrocautery. Clavipectoral fascia was divided and the axilla proper was entered. There was easy identification of a blue hot lymph node. It was dissected circumferentially with blunt dissection as well as clips and Bovie electrocautery. It was completely excised and ex vivo count was 84. This was passed as sentinel lymph node #1. The bed was further inspected and there were no other palpable abnormalities, no blue nodes, nor any uptake with the Neoprobe. The cavity was copiously irrigated and hemostasis was assured. The wound was then closed in layers with 2-0 Vicryl in the dermal layer, followed with 4-0 Monocryl on the skin. Attention was then turned towards the breast. An incision was marked at the areolar border with a medial extension and made after infiltration of local anesthesia. The skin flaps were elevated circumferentially, and the entirety of the mass was dissected free with Bovie electrocautery. Specimen was marked for orientation and was passed off as specimen radiograph. The entire mass appeared to be visualized within the specimen. Additional margins were taken about the cavity and posterior border of dissection was at the pectoralis fascia. The cavity was copiously irrigated and hemostasis was assured. The wound was then closed in layers with 3-0 Vicryl in the dermal layer, followed by 4-0 Monocryl on the skin. The skin was washed and dried, and skin glue was applied. Surgical dressing and bra were applied and the patient was transferred to recovery in stable condition. All sponge, instrument, and needle counts were verified correct at the end of the procedure. There was no qualified resident to help with the procedure. PA assisted with retraction and exposure, as well as assisted with closure under my supervision. Synoptic Op reporting SLN BX 1. Neoadjuvant- No 2. Dye- Yes 3. Radiotracer- Yes 4. Clips- No. If clips were placed in pathologically involved nodes, those nodes were removed- NA 5. All colored nodes removed- Yes 6. All radioactive nodes removed- Yes. Background count after removing radioactive SLNs: 7 7. All palpably suspicious nodes removed- Yes 8. Number of SLNs removed: 1 SIGNATURE: Gabe Garcia MD PATIENT NAME: Gloria Lopez DATE: April 22, 2020 TIME: 10:49 AM PAGER/CONTACT #: Francie [facility] SURGICAL PATHOLOGYon 020 SURGICAL PATHOLOGY Specimen originated from [facility] Specimen #: [id number] Submitting Physician: GABE GARCIA MD FINAL DIAGNOSIS 1. Right axillary sentinel lymph node #1, excision (A) - One lymph node, negative for metastatic carcinoma (0/1). 2. Right breast, mass, lumpectomy (B) - Invasive ductal carcinoma, see comment. - Ductal carcinoma in situ, solid type, nuclear grade 3. 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 3. Right breast, deep margin, excision (C) - Unremarkable fibroadipose tissue. 4. Right breast, inferior margin, excision (D) - Unremarkable breast parenchyma. 5. Right breast, superior margin, excision (E) - Unremarkable fibroadipose tissue. 6. Right breast, medial margin, excision (F) - Unremarkable fibroadipose tissue. 7. Right breast, anterior margin, excision (G) - Unremarkable fibroadipose tissue. 8. Right breast, lateral margin, excision (H) - Unremarkable breast parenchyma. JJR/rosario 04/24/2020 [facility] [facility] [place] PATHOLOGIC FINDINGS RIGHT BREAST MASS: BREAST INVASIVE CARCINOMA WORKSHEET Part: B Procedure: Excision (less than total mastectomy) Specimen Laterality: Right Tumor size: Size of largest invasive carcinoma: Greatest dimension of largest focus of invasion >1 mm: 10 mm Tumor Focality: Single focus of invasive carcinoma Histologic Type of Invasive Carcinoma: Invasive carcinoma of no special type (ductal, not otherwise specified) Histologic Grade: Glandular (Acinar) / Tubular Differentiation: Score 3 Nuclear Pleomorphism: Score 3 Mitotic Rate: Score 3 Overall Grade: Grade III Ductal Carcinoma In Situ: Present Architectural Patterns: Architectural Pattern:Solid DCIS Nuclear Grade: Grade III (high) DCIS Necrosis: Not identified Tumor Extension: Skin: Skin is not present Nipple: Not applicable, no nipple is present Skeletal muscle: No skeletal muscle is present Invasive Carcinoma Margins: Margins uninvolved by invasive carcinoma Distance from closest margin: 4 mm Closest margin: deep DCIS Margins: Margins uninvolved by DCIS Specify (if <2mm) closest margin: 1.5 mm Closest margin: anterior Lymph Nodes: Uninvolved by tumor cells Total number of lymph nodes examined: 1 Number of sentinel lymph nodes examined: 1 Treatment Effect: No known presurgical therapy Lymph-Vascular Invasion: Cannot be determined Pathologic Stage Classification (pTNM,AJCC 8th ed) TNM Descriptor(s): Not applicable Primary Tumor (Invasive Carcinoma) (pT): pT1b Regional Lymph Nodes (pN): Modifier: (sn): [place] node(s) evaluated Category (pN): pN0 Distant metastasis: Distant Metastasis (pM) Not applicable/Not confirmed pathologically in this case Estrogen AND progesterone receptors: Previously performed and reported as follows: Estrogen receptor: negative 0 Progesterone receptor: negative 0 Specimen number #: [id number] (HER2) ERBB2 Status: Previously performed and reported as follows: HER2:negative 0 Specimen number #: [id number] Metallurgy Laboratory Technician Tumor Block: Specify: B10 ---- Carley Berg M.D. (Electronic Signature) SPECIMEN SUBMITTED A: RIGHT AXILLARY SENTINEL LYMPH NODE #1 B: RIGHT BREAST MASS C: RIGHT DEEP BREAST MARGIN D: RIGHT INFERIOR BREAST MARGIN E: RIGHT SUPERIOR BREAST MARGIN F: RIGHT MEDIAL BREAST MARGIN G: RIGHT ANTERIOR BREAST MARGIN H: RIGHT LATERAL BREAST MARGIN CLINICAL DATA MALIGNANT NEOPLASM OF UPPER-INNER QUADRANT OF RIGHT BREAST IN FEMALE; ESTROGEN RECEPTOR NEGATIVE B: STITCH RUVALCABA SHORT SUPERIOR, LONG LATERAL C-H: STITCH RUVALCABA NEW MARGIN GROSS DESCRIPTION A. Received in formalin labeled right sentinel lymph node is an irregular fragment of fibroadipose tissue measuring 1.5 x 1.5 x 0.6 cm. Upon dissection, one possible lymph node is identified measuring 1.1 x 0.7 x 0.6 cm. The entire specimen is submitted as follows: A1 one possible lymph node, serially sectioned, A2 remainder of attached adipose tissue. Time removed from patient is 10:49 and time placed in formalin is 10:49 on 04/22/2020. B. Received in formalin labeled right breast mass is an oriented right lumpectomy specimen weighing 25.9 grams and measuring 5.5 cm (superior to inferior) x 5.2 cm (medial to lateral) x 1.5 cm (anterior to posterior). The specimen is oriented with a short stitch on the superior aspect and a long stitch on the lateral aspect . The specimen has been inked as follows: Superior blue, inferior green, medial orange, lateral red, anterior yellow, and posterior black. The specimen is serially sectioned from the superior to inferior aspect into nine slices to reveal an ill-defined white-manuel nodule measuring 1 x 0.8 x 0.8 cm, located in Slices 3-5 (0.8 cm from the posterior margin, 0.5 cm from the anterior margin, 1.5 cm from the medial margin, 1.5 cm from the lateral margin, 2 cm from the superior margin, and 2.5 cm from the inferior margin). A coil biopsy clip is identified embedded within the nodule located in Slice 5. A CRISTINO CAFE WORKER clip is also identified in Slice 5. The remainder of the cut surfaces appear fibrofatty with no additional lesions identified. The entire nodule is submitted as follows: B1-B2 superior margin, serially sectioned (Slice 1), B3 Slice 3 mass in relation to lateral, anterior, and posterior margins, B4 Slice 3 nodule in relation to anterior and posterior margins, B5 Slice 3 mass in relation to medial, anterior, and posterior margins, B6 Slice 4 mass in relation to lateral, anterior, and posterior margins, B7 Slice 4 mass in relation to anterior and posterior margins, B8 Slice 4 mass in relation to medial, anterior, and posterior margins, B9 Slice 5 mass in relation to medial, anterior, and posterior margins, B10 Slice 5 mass in relation to anterior and posterior margins (biopsy clip site), B11 Slice 5 mass in relation to lateral, anterior, and posterior margins, B12 Slice 8 in relation to lateral, anterior, and posterior margins, B13 Slice 8 in relation to medial, anterior, and posterior margins, B14-B15 inferior margin, serially sectioned (Slice 9). Time removed from patient is 10:49 and time placed in formalin is 10:49 on 04/22/2020. Fixative type: 10% neutral buffered formalin Length of fixation: 14 hours and 42 minutes Cold ischemia time: <1 minute RUBENS/yolanda 04/22/2020 C. Received in formalin labeled right deep breast margin is an irregular fragment of fibroadipose tissue measuring 1.5 x 1 x 0.8 cm and weighing 1 gram. A stitch ruvalcaba the new margin which is inked black and the opposing margin is inked blue. Sectioning reveals homogeneous fibrofatty tissue with no nodularity identified grossly. The specimen is entirely submitted in cassette C1. D. Received in formalin labeled right inferior breast margin is an irregular fragment of fibroadipose tissue measuring 1.5 x 1.5 x 1 cm and weighing 1 gram. A stitch ruvalcaba the new margin which is inked black and the opposing margin is inked blue. Sectioning reveals a homogeneous fibrofatty cut surface with no nodularity identified. The specimen is entirely submitted in cassette D1. E. Received in formalin labeled right superior breast margin is an irregular fragment of fibroadipose tissue measuring 1.8 x 0.6 x 0.5 cm. A stitch ruvalcaba the new margin which is inked black and the opposing margin is inked blue. The specimen is serially sectioned to reveal homogeneous fibrofatty cut surface with no nodularity identified grossly. The specimen is entirely submitted in cassette E1. F. Received in formalin labeled right medial breast margin is an irregular fragment of fibroadipose tissue measuring 1.5 x 0.8 x 0.6 cm. A stitch ruvalcaba the new margin which is inked black and the opposing margin is inked blue. The specimen is serially sectioned to reveal a homogeneous fibrofatty cut surface with no nodularity identified grossly. The specimen is entirely submitted in cassette F1. G. Received in formalin labeled right anterior breast margin is an irregular fragment of fibroadipose tissue measuring 1 x 0.5 x 0.5 cm. A stitch ruvalcaba the new margin which is inked black and the opposing margin is inked blue. The specimen is serially sectioned to reveal a homogeneous fibrofatty cut surface with no nodularity identified. The specimen is entirely submitted in cassette G1. H. Received in formalin labeled right lateral breast margin is an irregular fragment of fibroadipose tissue measuring 1.5 x 1 x 1 cm. A stitch ruvalcaba the new margin which is inked black and the opposing margin is inked blue. The specimen is serially sectioned to reveal homogeneous fibrofatty cut surface with no nodularity identified grossly. The specimen is entirely submitted in cassette H1. OLS/dss 04/22/2020 Gross examination performed at [facility], [address] [place], [place] [address] [address] Date of Report: 04/27/2020 Date of Procedure: 04/22/2020 Date of Receipt: 04/22/2020 Submitted by: GABE GARCIA MD Location: [facility] Diagnostic interpretation performed at [facility], [address] [place] [address]. CLIA Number: [id number] Normal [facility] Reference Lab Comment on above: Performed By: #### S #### See report for performing lab information. SURGICAL PATHOLOGY Specimen originated from [facility] Specimen #: [id number] Submitting Physician: GABE GARCIA MD FINAL DIAGNOSIS 1. Right axillary sentinel lymph node #1, excision (A) - One lymph node, negative for metastatic carcinoma (0/1). 2. Right breast, mass, lumpectomy (B) - Invasive ductal carcinoma, see comment. - Ductal carcinoma in situ, solid type, nuclear grade 3. 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 3. Right breast, deep margin, excision (C) - Unremarkable fibroadipose tissue. 4. Right breast, inferior margin, excision (D) - Unremarkable breast parenchyma. 5. Right breast, superior margin, excision (E) - Unremarkable fibroadipose tissue. 6. Right breast, medial margin, excision (F) - Unremarkable fibroadipose tissue. 7. Right breast, anterior margin, excision (G) - Unremarkable fibroadipose tissue. 8. Right breast, lateral margin, excision (H) - Unremarkable breast parenchyma. JJR/dbb 04/24/2020 SYN[facility]IC REPORT OF [place] PATHOLOGIC FINDINGS RIGHT BREAST MASS: BREAST INVASIVE CARCINOMA WORKSHEET Part: B Procedure: Excision (less than total mastectomy) Specimen Laterality: Right Tumor size: Size of largest invasive carcinoma: Greatest dimension of largest focus of invasion >1 mm: 10 mm Tumor Focality: Single focus of invasive carcinoma Histologic Type of Invasive Carcinoma: Invasive carcinoma of no special type (ductal, not otherwise specified) Histologic Grade: Glandular (Acinar) / Tubular Differentiation: Score 3 Nuclear Pleomorphism: Score 3 Mitotic Rate: Score 3 Overall Grade: Grade III Ductal Carcinoma In Situ: Present Architectural Patterns: Architectural Pattern:Solid DCIS Nuclear Grade: Grade III (high) DCIS Necrosis: Not identified Tumor Extension: Skin: Skin is not present Nipple: Not applicable, no nipple is present Skeletal muscle: No skeletal muscle is present Invasive Carcinoma Margins: Margins uninvolved by invasive carcinoma Distance from closest margin: 4 mm Closest margin: deep DCIS Margins: Margins uninvolved by DCIS Specify (if <2mm) closest margin: 1.5 mm Closest margin: anterior Lymph Nodes: Uninvolved by tumor cells Total number of lymph nodes examined: 1 Number of sentinel lymph nodes examined: 1 Treatment Effect: No known presurgical therapy Lymph-Vascular Invasion: Cannot be determined Pathologic Stage Classification (pTNM,AJCC 8th ed) TNM Descriptor(s): Not applicable Primary Tumor (Invasive Carcinoma) (pT): pT1b Regional Lymph Nodes (pN): Modifier: (sn): [place] node(s) evaluated Category (pN): pN0 Distant metastasis: Distant Metastasis (pM) Not applicable/Not confirmed pathologically in this case Estrogen & progesterone receptors: Previously performed and reported as follows: Estrogen receptor: negative 0 Progesterone receptor: negative 0 Specimen number #: [id number] (HER2) ERBB2 Status: Previously performed and reported as follows: HER2:negative 0 Specimen number #: [id number] Metallurgy Laboratory Technician Tumor Block: Specify: B10 ---- Carley Berg M.D. (Electronic Signature) SPECIMEN SUBMITTED A: RIGHT AXILLARY SENTINEL LYMPH NODE #1 B: RIGHT BREAST MASS C: RIGHT DEEP BREAST MARGIN D: RIGHT INFERIOR BREAST MARGIN E: RIGHT SUPERIOR BREAST MARGIN F: RIGHT MEDIAL BREAST MARGIN G: RIGHT ANTERIOR BREAST MARGIN H: RIGHT LATERAL BREAST MARGIN CLINICAL DATA MALIGNANT NEOPLASM OF UPPER-INNER QUADRANT OF RIGHT BREAST IN FEMALE; ESTROGEN RECEPTOR NEGATIVE B: STITCH RUVALCABA SHORT SUPERIOR, LONG LATERAL C-H: STITCH RUVALCABA NEW MARGIN GROSS DESCRIPTION A. Received in formalin labeled right sentinel lymph node is an irregular fragment of fibroadipose tissue measuring 1.5 x 1.5 x 0.6 cm. Upon dissection, one possible lymph node is identified measuring 1.1 x 0.7 x 0.6 cm. The entire specimen is submitted as follows: A1 one possible lymph node, serially sectioned, A2 remainder of attached adipose tissue. Time removed from patient is 10:49 and time placed in formalin is 10:49 on 04/22/2020. B. Received in formalin labeled right breast mass is an oriented right lumpectomy specimen weighing 25.9 grams and measuring 5.5 cm (superior to inferior) x 5.2 cm (medial to lateral) x 1.5 cm (anterior to posterior). The specimen is oriented with a short stitch on the superior aspect and a long stitch on the lateral aspect . The specimen has been inked as follows: Superior blue, inferior green, medial orange, lateral red, anterior yellow, and posterior black. The specimen is serially sectioned from the superior to inferior aspect into nine slices to reveal an ill-defined white-manuel nodule measuring 1 x 0.8 x 0.8 cm, located in Slices (more content not included)... Normal [facility] Breast - right Diagnostic for implanton 04-21-2020 * * *Final Report* * * DATE OF EXAM: Apr 21 2020 8:08AM [facility] 0626 - [facility] DIAGNOSTIC RT / PROCEDURE REASON: Neoplasm, breast * * * * Physician Interpretation * * * * RESULT: #[id number] - [facility] DIAGNOSTIC RT #[id number] - [facility] US LOC BREAST RT ULTRASOUND GUIDED INFRARED ACTIVATED ELECTROMAGNETIC REFLECTOR DEVICE PLACEMENT RIGHT BREAST: 04/21/2020 HISTORY: The patient presents for right ultrasound guided needle localization of known malignancy at 1:00, 6 cm from nipple, right breast. Pre and post localization soft copy sonographic images were obtained with reflector placement. S/P Rt Breast US Reflector Placement. PATIENT CONSENT: A time out was performed immediately prior to procedure start with the radiology team, correctly identifying the patient name, date of , procedure, anatomy (including marking of site and side), patient position, relevant diagnostic and radiology test results, safety precautions, and procedure-specific equipment needs. The procedure was explained to the patient including the risks, benefits and alternatives. Medications and allergies were also reviewed. The risks, including but not limited to infection and bleeding, were reviewed by the performing physician and the patient agreed to undergo the procedure. The radiologist and technologist were present throughout the entire procedure. Dr. Quiroz performed the entire procedure without an perinatal breastfeeding assistant. Audible Time Out Time: 0755 Procedure Start Time: 0756 Procedure Stop Time: 0757 . No prior exams were available for correlation. An infrared activated electromagnetic reflector device placement using ultrasound guidance was performed for the concerning mass located in the right breast at 1 o'clock 6 cm from the nipple. This was described on the previous biopsy report. The skin was prepped in the usual manner. Local anesthetic was administered to the access site. The localization was approached from the medial aspect. A location device was inserted into the targeted area under ultrasound guidance. A sterile dressing was applied to the access site. Clip placement/activation was verified with Machining Supervisor Check following the procedure. DIVISION OF RADIOLOGY Provider, [facility] - 04/21/2020 * * *Final Report* * * DATE OF EXAM: Apr 21 2020 8:08AM [facility] 0626 - [facility] DIAGNOSTIC RT / PROCEDURE REASON: Neoplasm, breast * * * * Physician Interpretation * * * * RESULT: #[id number] - [facility] DIAGNOSTIC RT #[id number] - [facility] US LOC BREAST RT ULTRASOUND GUIDED INFRARED ACTIVATED ELECTROMAGNETIC REFLECTOR DEVICE PLACEMENT RIGHT BREAST: 04/21/2020 HISTORY: The patient presents for right ultrasound guided needle localization of known malignancy at 1:00, 6 cm from nipple, right breast. Pre and post localization soft copy sonographic images were obtained with reflector placement. S/P Rt Breast US Reflector Placement. PATIENT CONSENT: A time out was performed immediately prior to procedure start with the radiology team, correctly identifying the patient name, date of , procedure, anatomy (including marking of site and side), patient position, relevant diagnostic and radiology test results, safety precautions, and procedure-specific equipment needs. The procedure was explained to the patient including the risks, benefits and alternatives. Medications and allergies were also reviewed. The risks, including but not limited to infection and bleeding, were reviewed by the performing physician and the patient agreed to undergo the procedure. The radiologist and technologist were present throughout the entire procedure. Dr. Quiroz performed the entire procedure without an perinatal breastfeeding assistant. Audible Time Out Time: 0755 Procedure Start Time: 0756 Procedure Stop Time: 075 . No prior exams were available for correlation. An infrared activated electromagnetic reflector device placement using ultrasound guidance was performed for the concerning mass located in the right breast at 1 o'clock 6 cm from the nipple. This was described on the previous biopsy report. The skin was prepped in the usual manner. Local anesthetic was administered to the access site. The localization was approached from the medial aspect. A location device was inserted into the targeted area under ultrasound guidance. A sterile dressing was applied to the access site. Clip placement/activation was verified with Machining Supervisor Check following the procedure. IMPRESSION IMPRESSION: INFRARED ACTIVATED ELECTROMAGNETIC REFLECTOR DEVICE PLACEMENT Infrared activated electromagnetic reflector device placement for the mass in the right breast at 1 o'clock 6 cm from the nipple was successful with no apparent post procedure complications. A specimen radiograph is recommended. The specimen radiograph should include the Machining Supervisor reflector and the hydromark butterfly shaped clip. Calcifications will also likely be within the specimen. UNILATERAL RIGHT DIGITAL DIAGNOSTIC MAMMOGRAM WITH CAD: 04/21/2020 RESULT: TECHNIQUE: The study was acquired using full field digital technology and interpreted from soft copy. Current study was also evaluated with a Computer Aided Detection (CAD). No prior exams were available for comparison. The tissue of right breast is predominantly fatty. There is a marker clip in the appropriate position in the right breast at 1 o'clock middle depth. This brake engineer reflector is within the mammographic mass of concern and adjacent to the hydromark butterfly clip. IMPRESSION: POST PROCEDURE MAMMOGRAM FOR MARKER PLACEMENT There was a successful marker clip placement in the right breast middle depth. Loida Quiroz M.D., lp/hannah:04/21/2020 09:08:38 Trimming Caser(s): RT Claribel(R)(M), [facility] Mammogram BI-RADS: Post-procedure mammogram for marker placement Multiple national specialty organizations have released breast cancer screening guidelines for women at average risk for developing breast cancer - guidelines that are based on both evidence and opinion, yet differ on when to start and how often to screen for breast cancer. With representation from Breast Imaging, Internal Medicine, Women's Health, Family Medicine, and Medical/Surgical Oncology, the [facility] has carefully reviewed the data and reached the following consensus: 1) All women should engage in shared decision-making with their providers to decide when to start and how often to screen; 2) All women should have the opportunity to start screening mammography at age 40; 3) For women ages 45-55, we recommend annual screening mammograms; 4) For women ages 55 and over, we support both the transition from an annual to a biennial interval if this aligns more with patient's values and preferences, or continuation with annual screening; 5) All women should discuss with their providers when to stop screening mammograms. Overhauler Bus Truck: Hannah Transcribe Date/Time: Apr 21 2020 8:08A Dictated by: LOIDA QUIROZ MD This examination was interpreted (more content not included)... [facility] Radiology Study observation (narrative) [facility] NURSING PROGon 04-21-2020 NURSING PROG HNO ID: [id number] Author: Rosario Martinez RN Service: Nursing Author Type: Registered Nurse Type: Nursing Progress Note Filed: 04/21/2020 1:00 PM Note Text: PACC Nurse Progress Note History AND Physical: PACC Visit Date: 04/21/2020 Original HANDP Date: N/A ED visit Date: N/A Outside HANDP Scanned Date: N/A Labs Within Last 6 Months: CBC: Date 04/20/2020 BMP/CMP: Date 04/20/2020 OTHER TEST: Covid 19 , Date 04/21/2020 @ 9:50am Available results above meet anesthesia guidelines. Imaging Within Last 12 Months: Chest X-ray Cardiac Testing: EKG in last 12 Months: Yes: Date: 04/21/2020, Comment: Ordered and mentioned in HANDP,awaiting rhythm to be placed into epic. Last Menstrual Period: LMP Date: No LMP recorded Postmenopausal > 1yr: Yes, S/P Hysterectomy: No BMI Percentile (PEDS): N/A Risk Assessment: N/A Anesthesia Review: N/A Narrative: N/A Pre-op Considerations: N/A Chart Check: IN PROGRESS. Awaiting EKG Rhythm. Rosario Martinez RN April 21, 2020 12:56 PM [facility] No Panel Informationon 04-21 IMPRESSION: INFRARED ACTIVATED ELECTROMAGNETIC REFLECTOR DEVICE PLACEMENT Infrared activated electromagnetic reflector device placement for the mass in the right breast at 1 o'clock 6 cm from the nipple was successful with no apparent post procedure complications. A specimen radiograph is recommended. The specimen radiograph should include the Machining Supervisor reflector and the hydromark butterfly shaped clip. Calcifications will also likely be within the specimen. UNILATERAL RIGHT DIGITAL DIAGNOSTIC MAMMOGRAM WITH CAD: 04/21/2020 RESULT: TECHNIQUE: The study was acquired using full field digital technology and interpreted from soft copy. Current study was also evaluated with a Computer Aided Detection (CAD). No prior exams were available for comparison. The tissue of right breast is predominantly fatty. There is a marker clip in the appropriate position in the right breast at 1 o'clock middle depth. This brake engineer reflector is within the mammographic mass of concern and adjacent to the hydromark butterfly clip. IMPRESSION: POST PROCEDURE MAMMOGRAM FOR MARKER PLACEMENT There was a successful marker clip placement in the right breast middle depth. Loida Quiroz M.D., lp/hannah:04/21/2020 09:08:38 Trimming Caser(s): RT Claribel(R)(M), [facility] Mammogram BI-RADS: Post-procedure mammogram for marker placement Multiple national specialty organizations have released breast cancer screening guidelines for women at average risk for developing breast cancer - guidelines that are based on both evidence and opinion, yet differ on when to start and how often to screen for breast cancer. With representation from Breast Imaging, Internal Medicine, Women's Health, Family Medicine, and Medical/Surgical Oncology, the [facility] has carefully reviewed the data and reached the following consensus: 1) All women should engage in shared decision-making with their providers to decide when to start and how often to screen; 2) All women should have the opportunity to start screening mammography at age 40; 3) For women ages 45-55, we recommend annual screening mammograms; 4) For women ages 55 and over, we support both the transition from an annual to a biennial interval if this aligns more with patient's values and preferences, or continuation with annual screening; 5) All women should discuss with their providers when to stop screening mammograms. Overhauler Bus Truck: Hannah Transcribe Date/Time: Apr 21 2020 8:08A Dictated by: LOIDA QUIROZ MD This examination was interpreted and the report reviewed and electronically signed by: LOIDA QUIROZ MD on Apr 21 2020 9:08AM [facility] DIVISION OF RADIOLOGY No Panel InformationOrdered By: [facility] Provider on 04-21-2020 [facility] US Guidance for localization of Breast - righton 04-21-2020 * * *Final Report* * * DATE OF EXAM: Apr 21 2020 8:08AM [facility] 0600 - [facility] US LOC BREAST RT / PROCEDURE REASON: Neoplasm, breast * * * * Physician Interpretation * * * * RESULT: #[id number] - [facility] DIAGNOSTIC RT #[id number] - [facility] US LOC BREAST RT ULTRASOUND GUIDED INFRARED ACTIVATED ELECTROMAGNETIC REFLECTOR DEVICE PLACEMENT RIGHT BREAST: 04/21/2020 HISTORY: The patient presents for right ultrasound guided needle localization of known malignancy at 1:00, 6 cm from nipple, right breast. Pre and post localization soft copy sonographic images were obtained with reflector placement. S/P Rt Breast US Reflector Placement. PATIENT CONSENT: A time out was performed immediately prior to procedure start with the radiology team, correctly identifying the patient name, date of , procedure, anatomy (including marking of site and side), patient position, relevant diagnostic and radiology test results, safety precautions, and procedure-specific equipment needs. The procedure was explained to the patient including the risks, benefits and alternatives. Medications and allergies were also reviewed. The risks, including but not limited to infection and bleeding, were reviewed by the performing physician and the patient agreed to undergo the procedure. The radiologist and technologist were present throughout the entire procedure. Dr. Quiroz performed the entire procedure without an perinatal breastfeeding assistant. Audible Time Out Time: 0755 Procedure Start Time: 0756 Procedure Stop Time: 0757 . No prior exams were available for correlation. An infrared activated electromagnetic reflector device placement using ultrasound guidance was performed for the concerning mass located in the right breast at 1 o'clock 6 cm from the nipple. This was described on the previous biopsy report. The skin was prepped in the usual manner. Local anesthetic was administered to the access site. The localization was approached from the medial aspect. A location device was inserted into the targeted area under ultrasound guidance. A sterile dressing was applied to the access site. Clip placement/activation was verified with Machining Supervisor Check following the procedure. DIVISION OF RADIOLOGY Provider, Mary Anne Quintana [facility] - 04/21/2020 * * *Final Report* * * DATE OF EXAM: Apr 21 2020 8:08AM [facility] 0600 - [facility] US LOC BREAST RT / PROCEDURE REASON: Neoplasm, breast * * * * Physician Interpretation * * * * RESULT: #[id number] - [facility] DIAGNOSTIC RT #[id number] - [facility] US LOC BREAST RT ULTRASOUND GUIDED INFRARED ACTIVATED ELECTROMAGNETIC REFLECTOR DEVICE PLACEMENT RIGHT BREAST: 04/21/2020 HISTORY: The patient presents for right ultrasound guided needle localization of known malignancy at 1:00, 6 cm from nipple, right breast. Pre and post localization soft copy sonographic images were obtained with reflector placement. S/P Rt Breast US Reflector Placement. PATIENT CONSENT: A time out was performed immediately prior to procedure start with the radiology team, correctly identifying the patient name, date of , procedure, anatomy (including marking of site and side), patient position, relevant diagnostic and radiology test results, safety precautions, and procedure-specific equipment needs. The procedure was explained to the patient including the risks, benefits and alternatives. Medications and allergies were also reviewed. The risks, including but not limited to infection and bleeding, were reviewed by the performing physician and the patient agreed to undergo the procedure. The radiologist and technologist were present throughout the entire procedure. Dr. Quiroz performed the entire procedure without an perinatal breastfeeding assistant. Audible Time Out Time: 0755 Procedure Start Time: 0756 Procedure Stop Time: 0757 . No prior exams were available for correlation. An infrared activated electromagnetic reflector device placement using ultrasound guidance was performed for the concerning mass located in the right breast at 1 o'clock 6 cm from the nipple. This was described on the previous biopsy report. The skin was prepped in the usual manner. Local anesthetic was administered to the access site. The localization was approached from the medial aspect. A location device was inserted into the targeted area under ultrasound guidance. A sterile dressing was applied to the access site. Clip placement/activation was verified with Machining Supervisor Check following the procedure. IMPRESSION IMPRESSION: INFRARED ACTIVATED ELECTROMAGNETIC REFLECTOR DEVICE PLACEMENT Infrared activated electromagnetic reflector device placement for the mass in the right breast at 1 o'clock 6 cm from the nipple was successful with no apparent post procedure complications. A specimen radiograph is recommended. The specimen radiograph should include the Machining Supervisor reflector and the hydromark butterfly shaped clip. Calcifications will also likely be within the specimen. UNILATERAL RIGHT DIGITAL DIAGNOSTIC MAMMOGRAM WITH CAD: 04/21/2020 RESULT: TECHNIQUE: The study was acquired using full field digital technology and interpreted from soft copy. Current study was also evaluated with a Computer Aided Detection (CAD). No prior exams were available for comparison. The tissue of right breast is predominantly fatty. There is a marker clip in the appropriate position in the right breast at 1 o'clock middle depth. This brake engineer reflector is within the mammographic mass of concern and adjacent to the hydromark butterfly clip. IMPRESSION: POST PROCEDURE MAMMOGRAM FOR MARKER PLACEMENT There was a successful marker clip placement in the right breast middle depth. Loida Quiroz M.D., lp/hannah:04/21/2020 09:08:38 Trimming Caser(s): RT Claribel(R)(M), [facility] Mammogram BI-RADS: Post-procedure mammogram for marker placement Multiple national specialty organizations have released breast cancer screening guidelines for women at average risk for developing breast cancer - guidelines that are based on both evidence and opinion, yet differ on when to start and how often to screen for breast cancer. With representation from Breast Imaging, Internal Medicine, Women's Health, Family Medicine, and Medical/Surgical Oncology, the [facility] has carefully reviewed the data and reached the following consensus: 1) All women should engage in shared decision-making with their providers to decide when to start and how often to screen; 2) All women should have the opportunity to start screening mammography at age 40; 3) For women ages 45-55, we recommend annual screening mammograms; 4) For women ages 55 and over, we support both the transition from an annual to a biennial interval if this aligns more with patient's values and preferences, or continuation with annual screening; 5) All women should discuss with their providers when to stop screening mammograms. Overhauler Bus Truck: Hannah Transcribe Date/Time: Apr 21 2020 8:08A Dictated by: LOIDA QUIROZ MD This examination was interpre (more content not included)... [facility] Radiology Study observation (narrative) [facility] XR CHEST 2V FRONTAL/LATon [facility] Vital Signs Date Time Vital Sign Value Performing Clinician Faci litrajinder 03-28-2024 09:57-0400 Body height 157.5 cm Tino Mcguire APRN.STEEL CUTTER Work Phone: [facility] 03-28-2024 09:57-0400 Body mass index (BMI) [Ratio] 28.54 kg/m2 Tino Mcguire APRN.STEEL CUTTER Work Phone: [facility] 03-28-2024 09:57-0400 Body temperature 98.2 [degF] Tino Mcguire APRN.STEEL CUTTER Work Phone: [facility] 03-28-2024 09:57-0400 Body weight 70.8 kg Tino Mcguire APRN.STEEL CUTTER Work Phone: [facility] 03-28-2024 09:57-0400 Diastolic blood pressure 68 mm[Hg] Tino Mcguire APRN.STEEL CUTTER Work Phone: [facility] 03-28-2024 09:57-0400 Heart rate 65 /min Tino Mcguire APRN.STEEL CUTTER Work Phone: [facility] 03-28-2024 09:57-0400 Respiratory rate 16 /min Tino Mcguire APRN.STEEL CUTTER Work Phone: [facility] 03-28-2024 09:57-0400 SaO2% (BldA) [Mass fraction] 96 % Tino Mcguire APRN.STEEL CUTTER Work Phone: [facility] 03-28-2024 09:57-0400 Systolic blood pressure 115 mm[Hg] Tino Mcguire APRN.STEEL CUTTER Work Phone: [facility] 11-20-2023 07:54-0400 Body height 157.5 cm Inessa Andrew APRN.STEEL CUTTER Work Phone: [facility] 11-20-2023 07:54-0400 Body mass index (BMI) [Ratio] 29.87 kg/m2 Inessa Andrew APRN.STEEL CUTTER Work Phone: [facility] 11-20-2023 07:54-0400 Body temperature 97.81 [degF] Inessa Andrew APRN.STEEL CUTTER Work Phone: [facility] 11-20-2023 07:54-0400 Body weight 74.1 kg Inessa Garciajacob LOGISTICS SOLUTION MANAGER.STEEL CUTTER Work Phone: [facility] 11-20-2023 07:54-0400 Diastolic blood pressure 74 mm[Hg] Inessa Andrew LOGISTICS SOLUTION MANAGER.STEEL CUTTER Work Phone: [facility] 11-20-2023 07:54-0400 Heart rate 66 /min Inessa Garciajacob LOGISTICS SOLUTION MANAGER.STEEL CUTTER Work Phone: [facility] 11-20-2023 07:54-0400 SaO2% (BldA) [Mass fraction] 97 % Inessa Garciajacob LOGISTICS SOLUTION MANAGER.STEEL CUTTER Work Phone: [facility] 11-20-2023 07:54-0400 Systolic blood pressure 131 mm[Hg] Inessa Andrew LOGISTICS SOLUTION MANAGER.STEEL CUTTER Work Phone: [facility] 03-23-2023 10:19-0400 Body temperature 97.2 [degF] Geraldo Bernal MD Work Phone: [facility] 03-23-2023 10:19-0400 Body weight 72.03 kg Geraldo Bernal MD Work Phone: [facility] 03-23-2023 10:19-0400 Diastolic blood pressure 64 mm[Hg] Geraldo Bernal MD Work Phone: [facility] 03-23-2023 10:19-0400 Heart rate 68 /min Geraldo Bernal MD Work Phone: [facility] 03-23-2023 10:19-0400 Respiratory rate 16 /min Geraldo Bernal MD Work Phone: [facility] 03-23-2023 10:19-0400 SaO2% (BldA) [Mass fraction] 95 % Geraldo Bernal MD Work Phone: [facility] 03-23-2023 10:19-0400 Systolic blood pressure 120 mm[Hg] Geraldo Bernal MD Work Phone: [facility] 11-15-2022 13:07-0400 Body temperature 97.7 [degF] Inessa Andrew LOGISTICS SOLUTION MANAGER.STEEL CUTTER Work Phone: [facility] 11-15-2022 13:07-0400 Body weight 77.56 kg Inessa Andrew LOGISTICS SOLUTION MANAGER.STEEL CUTTER Work Phone: [facility] 11-15-2022 13:07-0400 Diastolic blood pressure 67 mm[Hg] Inessa Andrew LOGISTICS SOLUTION MANAGER.STEEL CUTTER Work Phone: [facility] 11-15-2022 13:07-0400 Heart rate 72 /min Inessa Andrew LOGISTICS SOLUTION MANAGER.STEEL CUTTER Work Phone: [facility] 11-15-2022 13:07-0400 SaO2% (BldA) [Mass fraction] 96 % Inessa Andrew LOGISTICS SOLUTION MANAGER.STEEL CUTTER Work Phone: [facility] 11-15-2022 13:07-0400 Systolic blood pressure 136 mm[Hg] Inessa Andrew LOGISTICS SOLUTION MANAGER.STEEL CUTTER Work Phone: [facility] 09-09-2022 14:31-0400 Body height 157.5 cm Tino Mcguire LOGISTICS SOLUTION MANAGER.STEEL CUTTER Work Phone: [facility] 09-09-2022 14:31-0400 Body temperature 97.81 [degF] Tino Mcguire LOGISTICS SOLUTION MANAGER.STEEL CUTTER Work Phone: [facility] 09-09-2022 14:31-0400 Body weight 77.84 kg Tino Mcguire LOGISTICS SOLUTION MANAGER.STEEL CUTTER Work Phone: [facility] 09-09-2022 14:31-0400 Diastolic blood pressure 76 mm[Hg] Tino Mcguire LOGISTICS SOLUTION MANAGER.STEEL CUTTER Work Phone: [facility] 09-09-2022 14:31-0400 Heart rate 81 /min Tino Mcguire LOGISTICS SOLUTION MANAGER.STEEL CUTTER Work Phone: [facility] 09-09-2022 14:31-0400 Respiratory rate 16 /min Tino Mcguire LOGISTICS SOLUTION MANAGER.STEEL CUTTER Work Phone: [facility] 09-09-2022 14:31-0400 SaO2% (BldA) [Mass fraction] 95 % Tino Mcguire LOGISTICS SOLUTION MANAGER.STEEL CUTTER Work Phone: [facility] 09-09-2022 14:31-0400 Systolic blood pressure 126 mm[Hg] Tino Mcguire APRN.STEEL CUTTER Work Phone: [facility] 06-03-2022 14:15-0500 Body height 157.5 cm Geraldo Bernal MD Work Phone: [facility] 06-03-2022 14:15-0500 Body temperature 97.81 [degF] Geraldo Bernal MD Work Phone: [facility] 06-03-2022 14:15-0500 Body weight 76.11 kg Geraldo Bernal MD Work Phone: [facility] 06-03-2022 14:15-0500 Diastolic blood pressure 60 mm[Hg] Geraldo Bernal MD Work Phone: [facility] 06-03-2022 14:15-0500 Heart rate 78 /min Geraldo Bernal MD Work Phone: [facility] 06-03-2022 14:15-0500 Respiratory rate 16 /min Geraldo Bernal MD Work Phone: [facility] 06-03-2022 14:15-0500 SaO2% (BldA) [Mass fraction] 94 % Geraldo Bernal MD Work Phone: [facility] 06-03-2022 14:15-0500 Systolic blood pressure 107 mm[Hg] Geraldo Bernal MD Work Phone: [facility] 03-11-2022 15:10-0400 Body height 157.5 cm Geraldo Bernal MD Work Phone: [facility] 03-11-2022 15:10-0400 Body temperature 97.9 [degF] Geraldo Bernal MD Work Phone: [facility] 03-11-2022 15:10-0400 Body weight 75.84 kg Geraldo Bernal MD Work Phone: [facility] 03-11-2022 15:10-0400 Diastolic blood pressure 69 mm[Hg] Geraldo Bernal MD Work Phone: [facility] 03-11-2022 15:10-0400 Heart rate 75 /min Geraldo Bernal MD Work Phone: [facility] 03-11-2022 15:10-0400 Respiratory rate 16 /min Geraldo Bernal MD Work Phone: [facility] 03-11-2022 15:10-0400 SaO2% (BldA) [Mass fraction] 96 % Geraldo Bernal MD Work Phone: [facility] 03-11-2022 15:10-0400 Systolic blood pressure 123 mm[Hg] Geraldo Bernal MD Work Phone: [facility] 11-11-2021 13:26-0400 Body height 157.5 cm Inessa Andrew APRN.STEEL CUTTER Work Phone: [facility] 11-11-2021 13:26-0400 Body weight 72.58 kg Inessa Andrew APRN.STEEL CUTTER Work Phone: [facility] 11-11-2021 13:26-0400 Diastolic blood pressure 70 mm[Hg] Inessa Andrew LOGISTICS SOLUTION MANAGER.STEEL CUTTER Work Phone: [facility] 11-11-2021 13:26-0400 Heart rate 80 /min Inessa Andrew LOGISTICS SOLUTION MANAGER.STEEL CUTTER Work Phone: [facility] 11-11-2021 13:26-0400 Systolic blood pressure 138 mm[Hg] Inessa Andrew LOGISTICS SOLUTION MANAGER.STEEL CUTTER Work Phone: [facility] 09-16-2021 13:33-0400 Body temperature 96.49 [degF] Hui Lakhani PA-C Work Phone: [facility] 09-16-2021 13:33-0400 Diastolic blood pressure 69 mm[Hg] Hui Kar PA-C Work Phone: [facility] 09-16-2021 13:33-0400 Heart rate 88 /min Hui Kar PA-C Work Phone: [facility] 09-16-2021 13:33-0400 Systolic blood pressure 123 mm[Hg] Hui Kar PA-C Work Phone: [facility] Encounters Encounter Date Encounter Type Care Provider Facility Start: 09-18-2025 ambulatory Isidra L Svetlana Facility: [facility] Start: 12-09-2024 ambulatory SENIOR JAVA SOFTWARE ENGINEER Isidra L Svetlana Facil ity: [facility] Start: 12-06-2024 ambulatory SENIOR JAVA SOFTWARE ENGINEER Isidra L Svetlana Facil ity:[facility] Start: 12-02-2024 End: 12-17-2024 ambulatory SENIOR JAVA SOFTWARE ENGINEER Isidra L Svetlana Facility:[facility]:[id number] Start: 11-25-2024 End: 11-30-2024 Evaluation and management of inpatient Isidra Perri Svetlana Facility:[facility] Start: 11-21-2024 End: 11-21-2024 ambulatory Robert Oshea [facility] Work Phone: Start: 11-21-2024 End: 11-21-2024 Departed Referred Robert Oshea MD Work Phone: [facility] Start: 11-19-2024 End: 11-19-2024 ambulatory SENIOR JAVA SOFTWARE ENGINEER Isidra L Svetlana Facility:[facility] Start: 11-18-2024 End: 11-18-2024 ambulatory SENIOR JAVA SOFTWARE ENGINEER Isidra L Svetlana Facility:[facility] Start: 10-14-2024 End: 10-14-2024 ambulatory Isidra L Svetlana Facility: [facility] Start: 09-19-2024 End: 09-20-2024 Lab Drop off Isidra L Svetlana [facility] Start: 09-19-2024 End: 09-20-2024 ambulatory Isidra L Svetlana Facility:[facility] Start: 09-16-2024 End: 09-16-2024 ambulatory Isidra L Svetlana Facility:[facility] [place] Start: 09-09-2024 End: 09-09-2024 ambulatory Isidra L Svetlana Facility:[facility] [place] Start: 08-12-2024 End: 08-12-2024 ambulatory Isidra L Svetlana Facility:[facility] Start: 03-28-2024 End: 03-29-2024 Telephone encounter Tino Mcguire APRN.STEEL CUTTER Work Phone: [facility] Comment on above: Results Start: 03-28-2024 End: 03-28-2024 Patient encounter procedure Tino Mcguire APRN.MADDIE Work Phone: Hematology/Oncology Start: 03-28-2024 End: 03-28-2024 ambulatory GERALDO BERNAL Facility:[facility] Comment on above: 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 Start: 12-14-2023 End: 12-14-2023 ambulatory Isidra L Svetlana Facility:[facility] [place] Start: 11-20-2023 End: 11-20-2023 Patient encounter procedure Inessa Andrew APRN.STEEL CUTTER Work Phone: General Surgery Comment on above: Excess weight (Prima ry Dx); Osteopenia, unspecified location; BRCA1 gene mutation positive in female; Personal history of breast cancer; S/P mastectomy, bilateral Start: 11-20-2023 End: 11-20-2023 ambulatory INESSA ANDREW Facility:[facility] Start: 06-01-2023 End: 08-30-2023 [facility] Iraida Cummings [facility] Start: 03-29-2023 ambulatory Tino Mcguire APRN.STEEL CUTTER Work Phone: Hematology/Oncology Comment on above: Question regarding C OMP METABOLIC PANEL Start: 03-29-2023 Telephone encounter Dev Rivers Hematology/Oncology Comment on above: Results Start: 03-23-2023 End: 03-23-2023 Office outpatient visit 15 minutes Geraldo Bernal MD Work Phone: Hematology/Oncology Comment on above: Malignant neoplasm o f female breast, unspecified estrogen receptor status, unspecified laterality, unspecified site of breast (HCC) (Primary Dx); BRCA1 positive Start: 02-02-2023 End: 02-02-2023 Lab Drop off Isidra Mota [facility] Start: 11-15-2022 End: 11-15-2022 Patient encounter procedure Inessa Andrew LOGISTICS SOLUTION MANAGER.STEEL CUTTER Work Phone: General Surgery Comment on above: Abdominal bloating ( Primary Dx); Unintended weight gain; Other fatigue; Osteoporosis, unspecified osteoporosis type, unspecified pathological fracture presence; BRCA1 gene mutation positive in female; Personal history of breast cancer Start: 09-09-2022 End: 09-09-2022 ambulatory Tino Mcguire APRN.STEEL CUTTER Work Phone: Hematology/Oncology Comment on above: Malignant neoplasm o f female breast, unspecified estrogen receptor status, unspecified laterality, unspecified site of breast (HCC) (Primary Dx); BRCA1 positive; Acute deep vein thrombosis (DVT) of non-extremity vein; Encounter for screening for osteoporosis; Chest skin lesion Start: 09-09-2022 End: 09-09-2022 Patient encounter procedure Tino Mcguire APRN.STEEL CUTTER Work Phone: [facility] Start: 09-09-2022 Telephone encounter Tino vasquez APRN.STEEL CUTTER Work Phone: [facility] Comment on above: Future Appointment Start: 06-03-2022 End: 06-03-2022 ambulatory Geraldo Bernal MD Work Phone: Hematology/Oncology Comment on above: Malignant neoplasm o f female breast, unspecified estrogen receptor status, unspecified laterality, unspecified site of breast (HCC) (Primary Dx); BRCA1 positive; Age-related osteoporosis without current pathological fracture Start: 06-03-2022 End: 06-03-2022 Patient encounter procedure Geraldo Bernal MD Work Phone: [facility] Start: 05-27-2022 End: 05-27-2022 Subsequent hospital visit by physician Arrival Time Radiology Work Phone: Radiology [facility] Comment on above: Malignant neoplasm o f female breast, unspecified estrogen receptor status, unspecified laterality, unspecified site of breast (HCC) [C50.919] Start: 05-06-2022 Telephone encounter Denise Salvador RN R ad[facility] Comment on above: Orders Start: 04-08-2022 End: 04-09-[address] JACQUELYN VILLAGRAN Facility:[facility] Start: 03-11-2022 End: 03-11-2022 ambulatory Geraldo Bernal MD Work Phone: Hematology/Oncology Comment on above: Acute deep vein thro mbosis (DVT) of non-extremity vein (Primary Dx); Malignant neoplasm of female breast, unspecified estrogen receptor status, unspecified laterality, unspecified site of breast (HCC) Start: 03-11-2022 End: 03-11-2022 Patient encounter procedure Geraldo Bernal MD Work Phone: [facility] Start: 03-08-2022 Encounter for genera l adult medical examination without abnormal findings DR JACQUELYN VILLAGRAN [facility] Start: 03-04-2022 End: 03-05-[address] JACQUELYN VILLAGRAN Facility:[facility] Start: 03-04-2022 End: 03-05-2022 Encounter for general adult medical examination without abnormal findings DR JACQUELYN VILLAGRAN Facility:[facility] Start: 03-04-2022 End: 03-04-2022 Subsequent hospital visit by physician Arrival Time Radiology Work Phone: Radiology [facility] Comment on above: Abdominal mass, unsp ecified abdominal location [R19.00] Start: 11-11-2021 End: 11-11-2021 Patient encounter procedure Inessa Andrew APRN.CNP Work Phone: General Surgery Comment on above: Osteoporosis, unspec ified osteoporosis type, unspecified pathological fracture presence (Primary Dx); BRCA1 gene mutation positive in female; Personal history of breast cancer Start: 10-08-2021 Telephone encounter Angel boswell MD Work Phone: Plastic Surgery Comment on above: Patient Update Start: 09-16-2021 Chart abstracting Angel toribio MD Work Phone: Plastic Surgery Comment on above: PHOTOS TAKEN Start: 09-16-2021 End: 09-16-2021 Patient encounter procedure Hui Lakhani PA-C Work Phone: Plastic Surgery Comment on above: Post-operative state (Primary Dx) Start: 09-13-2021 Telephone encounter Gabe Fernando RN Hematology/Oncology Comment on above: Results Start: 09-07-2021 End: 09-07-2021 Subsequent hospital visit by physician Arrival Time Radiology Work Phone: Radiology [facility] Comment on above: BRCA1 positive [Z15. 01, Z15.09] Start: 09-02-2021 End: 09-02-2021 ambulatory Hui FLORES-Dawson Work Phone: Plastic Surgery Comment on above: Post-operative state (Primary Dx) Start: 09-02-2021 End: 09-02-2021 Telemedicine consultation with patient Hui Lakhani PA-C Work Phone: [facility] Start: 04-21-2020 End: 04-21-2020 Preprocedural examination done Xr [facility] Start: 04-21-2020 End: 04-21-2020 Subsequent hospital visit by physician Xr [facility] Radiology Comment on above: Preop examination [Z 01.818] Start: 04-21-2020 End: 04-21-2020 Subsequent hospital visit by physician Procedure Mammo [facility] Stro Mammography Procedures Date Procedure Procedure Detail Performing Clinician Start: 05-27-2022 Ct abdomen & pelvis w/contrast material Geraldo Bernal MD Work Phone: Start: 05-27-2022 Blood count complete auto&auto difrntl wbc Geraldo Bernal MD Work Phone: Start: 03-11-2022 Adult depression scr eening assessment Geraldo Bernal MD Work Phone: Start: 03-04-2022 Ct abdomen & pelvis w/contrast material Geraldo Bernal MD Work Phone: Start: 03-04-2022 Ct thorax w/contrast material Geraldo Bernal MD Work Phone: Start: 03-04-2022 Blood count complete auto&auto difrntl wbc Geraldo Bernal MD Work Phone: Start: 09-09-2021 Adult depression scr eening assessment Gabe Fernando RN Start: 09-07-2021 Ct thorax w/contrast material Geraldo Bernal MD Work Phone: Start: 09-07-2021 Blood count complete auto&auto difrntl wbc Tino Mcguire LOGISTICS SOLUTION MANAGER.STEEL CUTTER Work Phone: Start: 01-17-2021 Hysterectomy and tiffanie ateral salpingo-oophorectomy sample (specimen) Isidra Vsetlana Start: 04-21-2020 Radiologic exam ches t 2 views Tiffany Mohr PA-C Work Phone: Start: 04-21-2020 Diagnostic mammograp hy computer-aided detcj uni Gabe Garcia MD Work Phone: Start: 04-21-2020 Perq breast loc miri ce placemt 1st [facility] us imag Gabe Garcia MD Work Phone: Start: 06-19-2015 Colonoscopy normal (finding) Isidra Svetlana Cholecystectomy Isidra Svetlana Esophageal hiatus he rnia repair Isidra Svetlana Excision of breast Is[facility]ra [facility] Comment on above: Bilateral Mastectomi es History of bilateral mastectomy S/P mastectomy, bilateral Inessa Andrew LOGISTICS SOLUTION MANAGER.STEEL CUTTER Work Phone: Plan of Treatment Date Care Activity Detail Author Start: 12-04-2025 PAP TESTING PAP TESTING [facility] Start: 03-27-2025 End: 03-27-2025 Follow-up encounter 03/27/2025 10:15 AM EDT Visit (SP) Office Hematology/Oncology [address] [address] Geraldo Bernal MD [address] [address] 1 year follow up with lab Hematology/Oncology Comment on above: 1 year follow up wit h lab Start: 03-27-2025 End: 03-27-2025 Patient encounter procedure 03/27/2025 10:00 AM EDT Office Visit [facility] [address] [place] [address] [place] [address] 1 year follow up with lab [facility] Comment on above: 1 year follow up wit h lab Start: 01-13-2025 ambulatory Ambulatory Facility:[facility] Start: 11-21-2024 Bacteria identified in Urine by Culture Urine Culture [facility] Start: 11-21-2024 Urine culture [facility] Start: 11-20-2024 End: 11-20-2024 Patient encounter procedure 11/20/2024 9:00 AM EDT Office Visit General Surgery [id number] [place] [id number] Inessa Andrew APRN.STEEL CUTTER [id number] [place] [address] 1 year follow up General Surgery Comment on above: 1 year follow up Start: 03-28-2024 End: 06-27-2024 25-hydroxyvitamin D3 [Mass/volume] in Serum or Plasma VITAMIN D 25 HYDROXY Lab Routine Malignant neoplasm 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, estrogen receptor negative (HCC) Vitamin D deficiency Expected: 03/28/2024, Expires: 06/27/2024 [facility] Comment on above: Expected: 03/28/2024 , Expires: 06/27/2024 Start: 03-28-2024 End: 06-27-2024 Cancer Ag 15-3 [Units/volume] in Serum or Plasma [facility] Comment on above: Expected: 03/28/2024 , Expires: 06/27/2024 Start: 03-28-2024 End: 06-27-2024 Cancer Ag 27-29 [Units/volume] in Serum or Plasma [facility] Comment on above: Expected: 03/28/2024 , Expires: 06/27/2024 Start: 03-28-2024 End: 06-27-2024 CBC W Auto Differential panel - Blood COMPLETE BLOOD COUNT AND DIFFERENTIAL Lab Routine Malignant neoplasm 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, estrogen receptor negative (HCC) Vitamin D deficiency Need for vaccination Expected: 03/28/2024, Expires: 06/27/2024 [facility] Comment on above: Expected: 03/28/2024 , Expires: 06/27/2024 Start: 03-28-2024 End: 06-27-2024 Comprehensive metabolic 2000 panel - Serum or Plasma COMPREHENSIVE METABOLIC PANEL Lab Routine Malignant neoplasm 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, estrogen receptor negative (HCC) Vitamin D deficiency Need for vaccination Expected: 03/28/2024, Expires: 06/27/2024 [facility] Comment on above: Expected: 03/28/2024 , Expires: 06/27/2024 Start: 03-28-2024 End: 03-28-2024 Follow-up encounter Hematology/Oncology Comment on above: 6 month follow up la bs 6 month follow up la bsspoke to pt regarding this apptar Start: 03-28-2024 End: 03-28-2024 Patient encounter procedure [facility] Comment on above: 6 month follow up la bs 6 month follow up la bsspoke to pt regarding this apptar Start: 03-27-2024 End: 06-26-2024 Cancer Ag 15-3 [Units/volume] in Serum or Plasma CA 15-3 BLD Lab Routine Malignant neoplasm 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, estrogen receptor negative (HCC) Expected: 03/27/2024, Expires: 06/26/2024 [facility] Comment on above: Expected: 03/27/2024 , Expires: 06/26/2024 Start: 03-27-2024 End: 06-26-2024 Cancer Ag 27-29 [Units/volume] in Serum or Plasma CA 27.29 BLOOD Lab Routine Malignant neoplasm 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, estrogen receptor negative (HCC) Expected: 03/27/2024, Expires: 06/26/2024 [facility] Work Phone: Comment on above: Expected: 03/27/2024 , Expires: 06/26/2024 Start: 02-18-2024 Covid-19 Vaccine () Covid-19 Vaccine () [facility] Start: 02-18-2024 Influenza vaccination [facility] Start: 06-19-2023 Advance Directive Discussion Advance Directive Discussion [facility] Start: 06-19-2023 Behavioral Health Screening Behavioral Health Screening [facility] Start: 2023 Screening for osteoporosis Bone Density Screening [facility] Start: 03-12-2023 End: 05-12-2023 25-hydroxyvitamin D3 [Mass/volume] in Serum or Plasma VITAMIN D 25 HYDROXY Lab Routine Malignant neoplasm of female breast, unspecified estrogen receptor status, unspecified laterality, unspecified site of breast (HCC) BRCA1 positive Acute deep vein thrombosis (DVT) of non-extremity vein Encounter for screening for osteoporosis Chest skin lesion Expected: 03/12/2023, Expires: 05/12/2023 [facility] Work Phone: Comment on above: Expected: 03/12/2023 , Expires: 05/12/2023 Start: 03-12-2023 End: 05-12-2023 CBC W Auto Differential panel - Blood CBC + DIFF Lab Routine Malignant neoplasm of female breast, unspecified estrogen receptor status, unspecified laterality, unspecified site of breast (HCC) BRCA1 positive Acute deep vein thrombosis (DVT) of non-extremity vein Encounter for screening for osteoporosis Chest skin lesion Expected: 03/12/2023, Expires: 05/12/2023 [facility] Work Phone: Comment on above: Expected: 03/12/2023 , Expires: 05/12/2023 Start: 03-12-2023 End: 05-12-2023 Comprehensive metabolic 2000 panel - Serum or Plasma COMP METABOLIC PANEL Lab Routine Malignant neoplasm of female breast, unspecified estrogen receptor status, unspecified laterality, unspecified site of breast (HCC) BRCA1 positive Acute deep vein thrombosis (DVT) of non-extremity vein Encounter for screening for osteoporosis Chest skin lesion Expected: 03/12/2023, Expires: 05/12/2023 [facility] Work Phone: Comment on above: Expected: 03/12/2023 , Expires: 05/12/2023 Start: 03-11-2023 Adult depression screening assessment DEPRESSION SCREENING [facility] Start: 03-04-2023 Influenza vaccination LUNG CANCER SC REENING [facility] Start: 03-04-2023 Screening for malign ant neoplasm of lung Lung Cancer Screening [facility] Start: 02-17-2023 Covid-19 Vaccine () Covid-19 Vaccine () [facility] Start: 02-17-2023 Influenza vaccination Influenza Vacc ine (#1) [facility] Start: 11-15-2022 End: 01-15-2023 Cancer Ag 125 [Units/volume] in Serum or Plasma CA 125 BLD Lab Routine BRCA1 gene mutation positive in female Other fatigue Unintended weight gain Abdominal bloating Expected: 11/15/2022, Expires: 01/15/2023 [facility] Work Phone: Comment on above: Expected: 11/15/2022 , Expires: 01/15/2023 Start: 11-15-2022 End: 01-15-2023 Thyrotropin [Units/volume] in Serum or Plasma TSH BLD Lab Routine Other fatigue Expected: 11/15/2022, Expires: 01/15/2023 [facility] Work Phone: Comment on above: Expected: 11/15/2022 , Expires: 01/15/2023 Start: 11-11-2022 End: 01-11-2023 VITAMIN D 25 HYDROXY VITAMIN D 25 HYDROXY Lab Routine Osteoporosis, unspecified osteoporosis type, unspecified pathological fracture presence Expected: 11/11/2022 (Approximate), Expires: 01/11/2023 [facility] Work Phone: Comment on above: Expected: 11/11/2022 (Approximate), Expires: 01/11/2023 Start: 09-09-2022 Adult depression screening assessment DEPRESSION SCREENING [facility] Start: 09-07-2022 Influenza vaccination LUNG CANCER SC ROSELINE [facility] Start: 09-01-2022 End: 11-01-2022 25-hydroxyvitamin D3 [Mass/volume] in Serum or Plasma VITAMIN D 25 HYDROXY Lab Routine Malignant neoplasm of female breast, unspecified estrogen receptor status, unspecified laterality, unspecified site of breast (HCC) BRCA1 positive Age-related osteoporosis without current pathological fracture Expected: 09/01/2022 (Approximate), Expires: 11/01/2022 [facility] Work Phone: Comment on above: Expected: 09/01/2022 (Approximate), Expires: 11/01/2022 Start: 09-01-2022 End: 11-01-2022 Calcitriol [Mass/volume] in Serum or Plasma VITAMIN D1 25-DIHYDR Lab Routine Malignant neoplasm of female breast, unspecified estrogen receptor status, unspecified laterality, unspecified site of breast (HCC) BRCA1 positive Age-related osteoporosis without current pathological fracture Expected: 09/01/2022 (Approximate), Expires: 11/01/2022 [facility] Work Phone: Comment on above: Expected: 09/01/2022 (Approximate), Expires: 11/01/2022 Start: 09-01-2022 End: 06-03-2023 CBC W Auto Differential panel - Blood CBC + DIFF Lab Routine Malignant neoplasm of female breast, unspecified estrogen receptor status, unspecified laterality, unspecified site of breast (HCC) BRCA1 positive Age-related osteoporosis without current pathological fracture Expected: 09/01/2022 (Approximate), Expires: 06/03/2023 [facility] Work Phone: Comment on above: Expected: 09/01/2022 (Approximate), Expires: 06/03/2023 Start: 09-01-2022 End: 06-03-2023 Comprehensive metabolic 2000 panel - Serum or Plasma COMP METABOLIC PANEL Lab Routine Malignant neoplasm of female breast, unspecified estrogen receptor status, unspecified laterality, unspecified site of breast (HCC) BRCA1 positive Age-related osteoporosis without current pathological fracture Expected: 09/01/2022 (Approximate), Expires: 06/03/2023 [facility] Work Phone: Comment on above: Expected: 09/01/2022 (Approximate), Expires: 06/03/2023 Start: 06-19-2022 DEPRESSION ASSESSMENT DEPRESSION ASS [facility] Start: 05-27-2022 End: 07-27-2022 CBC W Auto Differential panel - Blood CBC + DIFF Lab Routine 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, unspecified estrogen receptor status (HCC) BRCA1 positive Expected: 05/27/2022 (Approximate), Expires: 07/27/2022 [facility] Work Phone: Comment on above: Expected: 05/27/2022 (Approximate), Expires: 07/27/2022 Start: 05-27-2022 End: 07-27-2022 Comprehensive metabolic 2000 panel - Serum or Plasma COMP METABOLIC PANEL Lab Routine 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, unspecified estrogen receptor status (HCC) BRCA1 positive Expected: 05/27/2022 (Approximate), Expires: 07/27/2022 [facility] Work Phone: Comment on above: Expected: 05/27/2022 (Approximate), Expires: 07/27/2022 Start: 03-15-2022 COVID-19 VACCINE (3 - Booster for Juancarlos series) COVID-19 VACCINE (3 - Booster for Juancarlos series) [facility] Start: 02-17-2022 Influenza vaccination INFLUENZA (#1) [facility] Start: 10-17-2021 Hemoglobin A1c measurement HbA1C [facility] Start: 10-17-2021 Hemoglobin A1c/Hemoglobin.total in Blood HBA1C [facility] Start: 06-19-2021 DEPRESSION ASSESSMENT DEPRESSION ASS ESSMENT [facility] Start: 03-01-2021 PNEUMOCOCCAL (2 - PCV) PNEUMOCOCCAL (2 - PCV) [facility] Start: 03-01-2021 Pneumococcal vaccination Pneum ococcal Vaccine (2 - PCV) [facility] Start: 03-01-2021 Pneumococcal Vaccine : 65+ (2 of 2 - PCV) Pneumococcal Vaccine: 65+ (2 of 2 - PCV) [facility] Start: 11-08-2020 COVID-19 VACCINE (2 - Booster for Juancarlos series) COVID-19 VACCINE (2 - Booster for Juancarlos series) [facility] Start: 04-26-2020 SHINGRIX VACCINE (2 of 2) SHINGRIX VACCINE (2 of 2) [facility] Start: 2018 Hepatitis B Vaccine (1 of 3 - Risk 3-dose series) Hepatitis B Vaccine (1 of 3 - Risk 3-dose series) [facility] Start: 2018 RSV Vaccine (1 - 1-d ose 60+ series) RSV Vaccine (1 - 1-dose 60+ series) [facility] Start: 2018 RSV Vaccine (1 - Ris k 60-74 years 1-dose series) RSV Vaccine (1 - Risk 60-74 years 1-dose series) [facility] Start: 2003 COLOGUARD (FIT-DNA) COLOGUARD (FIT-D NA) [facility] Start: 2003 Colonoscopy COLONOSCOPY [facility] Start: 2003 COLORECTAL CANCER SCREENING COLORECTAL CANCER SCREENING [facility] Start: [address] COLONOGRAPHY [facility] Start: 2003 FECAL OCCULT BLOOD FECAL OCCULT BLOO D [facility] Start: 2003 Screening for malign ant neoplasm of colon [facility] Start: 2003 SIGMOIDOSCOPY SIGMOIDOSCOPY [facility] Start: 1998 Mammography [facility] Start: 1998 Screening for malign ant neoplasm of breast Mammogram Screening [facility] Start: 1988 HPV TESTING HPV TESTING [facility] Start: 1988 Zoledronic acid therapy ALPHA- 1 ANTITRYPSIN DEFICIENCY SCREENING [facility] Start: 1977 Urine microalbumin profile [facility] Start: 1976 ANNUAL PCP TEAM ORTHOPTIST SMITH DISEASE VISIT ANNUAL PCP TEAM CHRONIC DISEASE VISIT [facility] Start: 1976 Depression Screening Depression Scre ening [facility] Start: 1976 Hepatitis B surface antibody level LDL CHOLESTEROL [facility] Start: 1976 HEPATITIS C SCREENING HEPATITIS C [facility] Start: 1976 Hepatitis C screening Hepatitis C [facility] Start: 1976 HIV SCREENING HIV SCREENING [facility] Start: 1976 HIV screening HIV Screening [facility] Start: 1976 SPIROMETRY SPIROMETRY [facility] Start: 1968 3 comp foot exam completed DIABETIC FOOT EXAM [facility] Start: 1968 Diabetic foot examination Diabetic Foot Exam [facility] Start: 1968 Glaucoma screening Dilated Retinal E xam [facility] Start: 1968 Hepatitis B screening URINE ALBUMIN:CREATININE RATIO [facility] Start: 1968 Hepatitis C antibody , confirmatory test DILATED RETINAL EXAM [facility] End: 03-22-2024 Cancer Ag 15-3 [Units/volume] in Serum or Plasma CA 15-3 BLD Lab Routine Malignant neoplasm of female breast, unspecified estrogen receptor status, unspecified laterality, unspecified site of breast (HCC) BRCA1 positive Every 6 months for 3 Occurrences starting 03/23/2023 until 03/22/2024, 1 completed [facility] Work Phone: Comment on above: Every 6 months for 3 Occurrences starting 03/23/2023 until 03/22/2024, 1 completed End: 03-22-2024 Cancer Ag 27-29 [Units/volume] in Serum or Plasma CA 27.29 BLOOD Lab Routine Malignant neoplasm of female breast, unspecified estrogen receptor status, unspecified laterality, unspecified site of breast (HCC) BRCA1 positive Every 6 months for 3 Occurrences starting 03/23/2023 until 03/22/2024, 1 completed [facility] Work Phone: Comment on above: Every 6 months for 3 Occurrences starting 03/23/2023 until 03/22/2024, 1 completed End: 03-22-2024 CBC W Auto Differential panel - Blood CBC + DIFF Lab Routine Malignant neoplasm of female breast, unspecified estrogen receptor status, unspecified laterality, unspecified site of breast (HCC) BRCA1 positive Every 6 months for 3 Occurrences starting 03/23/2023 until 03/22/2024 [facility] Work Phone: Comment on above: Every 6 months for 3 Occurrences starting 03/23/2023 until 03/22/2024 End: 03-22-2024 Comprehensive metabolic 2000 panel - Serum or Plasma COMP METABOLIC PANEL Lab Routine Malignant neoplasm of female breast, unspecified estrogen receptor status, unspecified laterality, unspecified site of breast (HCC) BRCA1 positive Every 6 months for 3 Occurrences starting 03/23/2023 until 03/22/2024 [facility] Work Phone: Comment on above: Every 6 months for 3 Occurrences starting 03/23/2023 until 03/22/2024 End: 04-10-2023 Ct abdomen & pelvis w/contrast material CT ABD/PEL W IVCON Radiology Routine Malignant neoplasm of female breast, unspecified estrogen receptor status, unspecified laterality, unspecified site of breast (HCC) 1 Occurrences starting 03/11/2022 until 04/10/2023 [facility] Work Phone: Comment on above: 1 Occurrences starti ng 03/11/2022 until 04/10/2023 End: 10-09-2023 DXA-AXIAL SKELETON DXA-AXIAL SKELETON Radiology Routine Malignant neoplasm of female breast, unspecified estrogen receptor status, unspecified laterality, unspecified site of breast (HCC) BRCA1 positive Acute deep vein thrombosis (DVT) of non-extremity vein Encounter for screening for osteoporosis Chest skin lesion 1 Occurrences starting 09/09/2022 until 10/09/2023 [facility] Work Phone: Comment on above: 1 Occurrences starti ng 09/09/2022 until 10/09/2023 [facility] Immunizations Immunization Date Immunization Notes Care Provider Sarah clements 03-28-2024 influenza virus vacc ine, unspecified formulation Isidra Svetlana [facility] [place] 03-28-2024 influenza, high dose seasonal, preservative-free Tino Mcguire APRN.CNP Work Phone: [facility] 03-23-2022 influenza virus vacc ine, unspecified formulation Isidra Svetlana [facility] 01-18-2022 SARS-CoV-2 (COVID-19 ) Ad26 vaccine, recombinant Isidra Svetlana [facility] 04-29-2021 influenza virus vacc ine, unspecified formulation Isidra Preciadoab [facility] 04-29-2021 Influenza, injectabl e, Madin Betty Canine Kidney, preservative free, quadrivalent Gabe Fernando RN [facility] 09-13-2020 COVID-19 vaccine (JUANCARLOS) Gabe Fernando RN [facility] 03-01-2020 influenza virus vacc ine, unspecified formulation Isidra Preciadoab [facility] 03-01-2020 influenza, injectabl e, quadrivalent, preservative free Gabe Fernando RN [facility] 03-01-2020 pneumococcal polysaccharide vaccine, 23 valent Gabe Fernando RN [facility] 03-01-2020 zoster vaccine recombinant Gabe Fernando RN [facility] Payers Date Payer Category Payer Unknown [id number] 2024 Self-pay 2023 Medicare [id number] 2023 Medicare [id number] 2023 Unknown [id number] 2023 Unknown [id number] 2019 [facility] Health [facility] [id number] 2019-Present [phone] [address] [address] [place] [address] O [id number] .[id number] 2019 Private Health Insurance [id number] .[id number] 1959 Unknown [id number] 1958 Unknown [id number] 2.16.840.1.840158.3.579 .2.593 1958 Unknown [id number] 2.16.840.1.489019.3.579 .2.593 1958 Unknown [id number] 2.16.840.1.590702.3.579 .2. 1958 Unknown [id number] 2.16.840.1.630560.3.579 .2.727 1958 Unknown [id number] 2.16.840.1.107239.3.579 .2. 1958 Unknown [id number] 2.16.840.1.852610.3.579 .2. 1958 Unknown [id number] 2.16.840.1.161795.3.579 .2 1958 Unknown [id number] 2.16.840.1.220938.3.579 .2 1958 Unknown [id number] 2.16.840.1.903685.3.579 .2 1958 Unknown [id number] 2.16.840.1.642082.3.579 .2 1958 Unknown [id number] 2.16.840.1.962231.3.579 .2 1958 Unknown [id number] 2.16.840.1.826312.3.579 .2 1958 Unknown [id number] 2.16.840.1.160071.3.579 .2 1958 Unknown [id number] 2.16.840.1.947721.3.579 .2. 1958 Unknown [id number] 2.16.840.1.585305.3.579 .2 1958 Unknown [id number] 2.16.840.1.203169.3.579 .2. 1958 Unknown [id number] 2.16.840.1.712766.3.579 .27 1958 Unknown [id number] 2.16.840.1.968466.3.579 .2.727 Unknown [id number] 2.16.840.1.666638.3.579 .2.531 Social History Date Type Detail Facility Start: 11-26-2020 End: 09-16-2024 Tobacco smoking status NHIS Ex-smoker [facility] Comment on above: Quit 07/2020 quit smoking 2020. S moked about 1.5 ppd. Start: 10-26-1977 End: 10-26-2020 History of tobacco use Current smoker [facility] Start: 10-26-1977 End: 10-26-2020 History of tobacco use Cigarette Smoker [facility] Start: 11-26-2020 End: 11-15-2022 Cigarettes smoked current (pack per day) - Reported 1 [facility] Start: 11-26-2020 End: 11-20-2023 Tobacco use and exposure Smokeless tobacco non-user [facility] Start: 09-10-2021 End: 11-20-2023 Alcohol intake Ex-drinker (finding) [facility] Start: 1960 Sex Assigned At Not on file C [facility] Start: 03-21-2020 End: 03-11-2022 Exposure to SARS-CoV-2 (event) Not sure [facility] Start: 11-15-2022 End: 03-23-2023 Sex Assigned At Female [facility] Adult Depression Screening Assessment 0 [facility] Start: 05-02-2012 [facility] Start: 04-21-2020 Alcohol intake Current drinke r of alcohol (finding) [facility] Start: 04-21-2020 Alcohol Comment rarely [facility] Sexual Orientation [facility] Start: 09-07-2018 End: 11-22-2024 Sex Female (finding) [facility] Tobacco smoking stat [facility] Unknown if ever smoked [facility] Work Phone: Start: 1960 Sex Assigned At Female F [facility] Medical Equipment Procedure Code Equipment Code Equipment Origin al Text Equipment Identifier Dates Exp Tiss [facility]th Br [facility] 500cc Mv - [id number] Start: 12-29-2020 Exp Tiss [facility] 500cc Mv - [id number] Start: 12-29-2020 Imp Brst 605cc S sf Katie Inspr - [id number] Start: 05-03-2021 Imp Brst 605cc S sf Katie Inspr - [id number] Start: 05-03-2021 Matrix [employer] Tissue Medium Rectangular [id number] - [id number] Start: 12-29-2020 Matrix [employer] Tissue Medium Rectangular [id number] - [id number] Start: 12-29-2020 Clinical Notes 04-21-2020 to 09-19-2024 Telephone Encounter - Dev Ch RN - 03/29/2024 8:59 AM EDTTelephone Encounter - Dev Ch RN - 03/29/2024 8:59 AM EDTTelephone Encounter - Rachael Greenberg - 03/28/2024 11:18 AM EDT Note Date & Type Note Facility 09-19-2024 Note Nurse Consultation N ote Reason for Visit patient came IO for lab draw Assessment/Plan 1. Elevated fasting glucose (R73.01: Impaired fasting glucose) 2. Hyperlipemia (E78.5: Hyperlipidemia, unspecified) 3. Low TSH level (R79.89: Other specified abnormal findings of blood chemistry) Medications Albuterol (Eqv-ProAir HFA) 90 mcg/inh inhalation aerosol, 2 puff(s), Inhalation, q6hr, PRN, 5 refills alendronate 35 mg Tab, 35 mg= 1 tab(s), Oral, q7day, 5 refills Aspir 81, 81 mg, Oral, Daily cetirizine 10 mg oral capsule, 10 mg= 1 cap(s), Oral, Daily, PRN phentermine 37.5 mg oral capsule, 37.5 mg= 1 cap(s), Oral, Daily sertraline 100 mg Tab, 100 mg= 1 tab(s), Oral, Daily, 3 refills Vitamin D3 50,000 intl units oral capsule, 1250 mcg= 1 cap(s), Oral, qWeek, 1 refills Allergies penicillin (Unknown) Immunizations Vaccine Date Status influenza virus vaccine, inactivated 03/28/2024 Recorded influenza virus vaccine, inactivated 03/23/2022 Recorded SARS-CoV-2 (COVID-19) Ad26 vaccine 01/18/2022 Recorded influenza virus vaccine, inactivated 04/29/2021 Recorded SARS-CoV-2 (COVID-19) Ad26 vaccine 09/13/2020 Recorded zoster vaccine, inactivated 03/01/2020 Recorded pneumococcal 23-valent vaccine 03/01/2020 Recorded influenza virus vaccine, inactivated 03/01/2020 Recorded [facility] 09-16-2024 Note Patient Education Emergency Medicine Heart Attack A heart attack occurs when blood and oxygen supply to the heart is cut off. A heart attack can cause damage to the heart that cannot be fixed. A heart attack is also called a myocardial infarction, or MD. If you think you are having a heart attack, do not wait to see if the symptoms will go away. Get medical help right away. What are the causes? This condition may be caused by: ??? A fatty substance (plaque) in the blood vessels (arteries). This can block the flow of blood to the heart. ??? A blood clot in the blood vessels that go to the heart. The blood clot blocks blood flow. ??? An abnormal heartbeat. ??? Some diseases, such as problems in red blood cells (anemia)orproblems in breathing (respiratory failure). ??? Tightening (spasm) of a blood vessel that cuts off blood to the heart. ??? A tear in a blood vessel of the heart. Other causes may include: ??? Using drugs such as cocaine or methamphetamine. ??? Low blood pressure. What increases the risk? Aging. The risk gets higher as you get older. ??? Having a personal or family history of chest pain, heart attack, stroke, or narrowing of the arteries in the legs, arms, head, or stomach (peripheral vascular disease). ??? Having taken chemotherapy or immune-suppressing medicines. ??? Being male. ??? Being overweight or obese. ??? Having any of these conditions: ? High blood pressure. ? High cholesterol. ? Diabetes. ??? Making lifestyle choices such as: ? Drinking too much alcohol. ? Not getting regular exercise. ? Smoking. What are the signs or symptoms? Chest pain. It may feel like: ? Crushing or squeezing. ? Tightness, pressure, fullness, or heaviness. ??? Pain in the arm, neck, jaw, back, or upper body. ??? Heartburn. ??? Upset stomach (indigestion). ??? Shortness of breath. ??? Feeling like you may vomit (nauseous). ??? Cold sweats. ??? Sudden light-headedness, dizziness, or passing out. ??? Feeling tired. How is this treated? A heart attack must be treated as soon as possible. Treatment may include: ??? Medicines to: ? Break up or dissolve blood clots. ? Thin your blood and help prevent blood clots. ? Treat blood pressure. ? Improve blood flow to the heart. ? Reduce pain. ? Reduce cholesterol. ??? Procedures to widen a blocked artery and keep it open. ??? Open heart surgery. ??? Making your heart strong again (cardiac rehabilitation) through exercise, education, and counseling. Follow these instructions at home: Medicines ??? Take vwjd-lft-irxrlol and prescription medicines only as told by your doctor. ??? Do not take these medicines unless your doctor says it is okay: ? NSAIDs, such as ibuprofen, naproxen, or celecoxib. ? Any vitamins or supplements. ? Hormone replacement therapy that has estrogen with or without progestin. ??? If you are taking blood thinners: ? Talk with your doctor before taking any medicines that have aspirin or NSAIDs, such as ibuprofen. ? Take medicines exactly as told. Take them at the same time each day. ? Avoid doing things that could hurt or bruise you. Take action to prevent falls. ? Wear an alert bracelet or carry a card that shows you are taking blood thinners. Lifestyle ??? Do not smoke or use any products that contain nicotine or tobacco. If you need help quitting, ask your doctor. ??? Avoid secondhand smoke. ??? Exercise regularly. Ask your doctor about a cardiac rehab program. ??? Eat heart-healthy foods. Your doctor will tell you what foods to eat. ??? Stay at a healthy weight. ??? Learn ways to lower your stress level. ??? Do not use illegal drugs. Alcohol use ??? Do not drink alcohol if: ? Your doctor tells you not to drink. ? You are , may be , or are planning to become . ??? If you drink alcohol: ? Limit how much you have to: ? 0?1 drink a day for women. ? 0?2 drinks a day for men. ? Know how much alcohol is in your drink. In the [place] one drink equals one 12 oz bottle of beer (355 mL), one 5 oz glass of wine (148 mL), or one 1? oz glass of hard liquor (44 mL). General instructions ??? Work with your doctor to treat other problems you may have, such as diabetes or high blood pressure. ??? Get screened for depression. Get treatment if needed. ??? Keep your vaccines up to date. Get the flu shot (influenza vaccine) every year. ??? Keep all follow-up visits. Contact a doctor if: ??? You feel very sad. ??? You have trouble doing your daily activities. ??? You get light-headed or dizzy. Get help right away if: ??? You have sudden, unexplained discomfort in your chest, arms, back, neck, jaw, or upper body. ??? You have shortness of breath. ??? You have sudden sweating or clammy skin. ??? You feel like you may vomit or you vomit. ??? You fe (more content not included)... [facility] 03-29-2024 Telephone encounter Note left with normal/stable lab results. Encouraged to call with any questions or concerns. Dev Ch RN [facility] 03-29-2024 Miscellaneous Notes SANDRA left with normal/stable lab results. Encouraged to call with any questions or concerns. Dev Ch RN Triage to call patient with lab results from 03-28-24 including tumor markers. documented in this encounter [facility] 03-28-2024 Telephone encounter Note Triage to call patient with lab results from 03-28-24 including tumor markers. [facility] 03-27-2024 Note HNO ID: [id number] Author: TINO MCGUIRE APRN.STEEL CUTTER Service: ? Author Type: Nurse Practitioner Type: Progress Notes Filed: 03/28/2024 12:20 Note Text: NAME: Gloria Lopez [facility] NO.: [id number] DATE OF SERVICE: March 28, 2024 (Brennon) Some elements in this clinic note that are critical to medical decision making have been carefully reviewed and included from a prior clinic note dated: March 23, 2023 (Mumtaz) Referring Provider: Dr. Jacquelyn Villagran Additional Clinicians involved in Gloria Lopez's care: Dr. Gabe Garcia, Dr. Saji Suarez CC: Follow up. 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 She underwent breast conserving surgery on 04/22/2020. Pathologic stage T1b N0 M0, grade 3 with associated high-grade DCIS. Stage IB. She completed 4 cycles of adjuvant chemotherapy. (TC) through 08/10/2021 She has a previous history of left-sided infiltrating ductal carcinoma ER WI negative HER-2/sabas positive diagnosed in 2005 T2N0 for which she had a lumpectomy followed by radiation with chemotherapy and Herceptin for 1 year. She completed treatment January 2008. CT chest shows left reticulonodular changes that will need to be followed. 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 01/2021 - 02/2021 completed bilateral mastectomy and MADHAVI/BSO Ovarian vein thrombus - unclear etiology - Now resolved on low dose Xarelto. PLAN: Continue taking BASA No need for CT scans at this time. Patient agrees Will check vitamin D level today. Spoke to dietitian regarding absorption of vitamin D Follow up in 12 months with labs same day. Flu shot today Continue following with PCP for management of osteopenia on DXA HPI: Updated Visit, March 28, 2024: Gloria Lopez returns for scheduled follow-up. Overall she is feeling good. There has been no significant medical changes since her last visit. She had her gallbladder removed several years ago and expressed concern that she may not be absorbing vitamin D. She does take in oral bone strengthener. She continues high-dose weekly vitamin D. Patient was concerned with weight gain and this is managed by her PCP/LOGISTICS SOLUTION MANAGER. She was started on a medication for weight loss and is being monitored for diabetes. She denies any chest/breast implant lumps or bumps. She denies any enlarged lymph nodes. She has occasional shortness of breath mainly related to the weather and exertional shortness of breath with stairs. She has an inhaler she uses if necessary. She denies any unusual pain. Updated Visit, March 23, 2023: Gloria is doing well. Retiring soon (July) Looks and feels wonderful but gets tired at times unless she keeps busy. CMP pending CBC normal. Updated Visit, September 09, 2022: Gloria Lopez returns for follow-up. She admits to not starting to take a baby aspirin as recommended. She has exertional shortness of breath. 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 She states that the vice president global advertising sales is trying multiple different inhalers. She denies cough. She denies bilateral leg/calf pain. She denies breast/chest lumps or bumps. She has bilateral implants. She has a follow-up scheduled with the breast specialist in October. She has deferred the breast exam for today. Overall, she is doing well. She has some concerns regarding a lesion to her upper chest and has requested to be referred back to dermatology. Updated Visit, June 03, 2022: Gloria returns - reviewed labs and CT Abd/Pelvis. Ovarian vein non-occlusive thrombus resolved Continues follow [facility] at [facility]. Weight gain with associated fatigue and dyspnea. Possibly developed apnea. Also has underlying emphysema. Labs stable. Updated Visit, March 11, 2022: Gloria returns and is experiencing fatigue which may most likely be related to her emphysema. Also has a clot in her right ovarian vein - non- occlusive but new upon review of her Ctscan. No other evidence of metastatic or local recurrence. Updated Visit, September 10, 2021: Had her implants revision 3 weeks ago and is still sore. CT reviewed and will get CT abd/Pelvis next visit for better evaluation of hypodensity noted in spleen. Labs stable. She is otherwise doing well. Her sister Lazaro was not present. Updated Visit, June 14, 2021: Implants done in 04/2021 are head still operator but she is otherwise well. She will need a second corrective surgery for appropriate cosmesis and reconstruction which will potentially occur in 07/2021. CT chest with nodules noted in June 2020 will be repeated in order to follow to resolution. (more content not included)... [facility] 03-27-2024 History of Present illness Narrative Images from the original note were not included. NAME: Gloria Lopez CLINIC NO.: [id number] DATE OF SERVICE: March 28, 2024 (Brennon) Some elements in this clinic note that are critical to medical decision making have been carefully reviewed and included from a prior clinic note dated: March 23, 2023 (Mumtaz) Referring Provider: Dr. Jacquelyn Villagran Additional Clinicians involved in Gloria Lopez's care: Dr. Gabe Garcia, Dr. Saji Suarez CC: Follow up. 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 She underwent breast conserving surgery on 04/22/2020. Pathologic stage T1b N0 M0, grade 3 with associated high-grade DCIS. Stage IB. She completed 4 cycles of adjuvant chemotherapy. (TC) through 08/10/2021 She has a previous history of left-sided infiltrating ductal carcinoma ER WI negative HER-2/sabas positive diagnosed in 2005 T2N0 for which she had a lumpectomy followed by radiation with chemotherapy and Herceptin for 1 year. She completed treatment January 2008. CT chest shows left reticulonodular changes that will need to be followed. 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 01/2021 - 02/2021 completed bilateral mastectomy and MADHAVI/BSO Ovarian vein thrombus - unclear etiology - Now resolved on low dose Xarelto. PLAN: Continue taking BASA No need for CT scans at this time. Patient agrees Will check vitamin D level today. Spoke to dietitian regarding absorption of vitamin D Follow up in 12 months with labs same day. Flu shot today Continue following with PCP for management of osteopenia on DXA HPI: Updated Visit, March 28, 2024: Gloria Lopez returns for scheduled follow-up. Overall she is feeling good. There has been no significant medical changes since her last visit. She had her gallbladder removed several years ago and expressed concern that she may not be absorbing vitamin D. She does take in oral bone strengthener. She continues high-dose weekly vitamin D. Patient was concerned with weight gain and this is managed by her PCP/LOGISTICS SOLUTION MANAGER. She was started on a medication for weight loss and is being monitored for diabetes. She denies any chest/breast implant lumps or bumps. She denies any enlarged lymph nodes. She has occasional shortness of breath mainly related to the weather and exertional shortness of breath with stairs. She has an inhaler she uses if necessary. She denies any unusual pain. Updated Visit, March 23, 2023: Gloria is doing well. Retiring soon (July) Looks and feels wonderful but gets tired at times unless she keeps busy. CMP pending CBC normal. Updated Visit, September 09, 2022: Gloria Lopez returns for follow-up. She admits to not starting to take a baby aspirin as recommended. She has exertional shortness of breath. 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 She states that the vice president global advertising sales is trying multiple different inhalers. She denies cough. She denies bilateral leg/calf pain. She denies breast/chest lumps or bumps. She has bilateral implants. She has a follow-up scheduled with the breast specialist in October. She has deferred the breast exam for today. Overall, she is doing well. She has some concerns regarding a lesion to her upper chest and has requested to be referred back to dermatology. Updated Visit, June 03, 2022: Gloria returns - reviewed labs and CT Abd/Pelvis. Ovarian vein non-occlusive thrombus resolved Continues follow up at Breast center. Weight gain with associated fatigue and dyspnea. Possibly developed apnea. Also has underlying emphysema. Labs stable. Updated Visit, March 11, 2022: Gloria returns and is experiencing fatigue which may most likely be related to her emphysema. Also has a clot in her right ovarian vein - non- occlusive but new upon review of her Ctscan. No other evidence of metastatic or local recurrence. Updated Visit, September 10, 2021: Had her implants revision 3 weeks ago and is still sore. CT reviewed and will get CT abd/Pelvis next visit for better evaluation of hypodensity noted in spleen. Labs stable. She is otherwise doing well. Her sister Lazaro was not present. Updated Visit, June 14, 2021: Implants done in 04/2021 are head still operator but she is otherwise well. She will need a second corrective surgery for appropriate cosmesis and reconstruction which will potentially occur in 07/2021. CT chest with nodules noted in June 2020 will be repeated in order to follow to resolution. Updated Visit, March 11, 2021: Returns alone today - her sister Lazaro is working. Expanders in place and MADHAVI completed in 02/10/2021 - benign findings. Due for implant placement 05/03/2021 Counts recovered and doing well. Anxiety abated. Updated Visit, December 10, 2020: Will complete mastectomy and recon Will proceed with MADHAVI/BSO No issues currently. Is much calmer and is happy with discussion and treatment plan. Updated Visit, October 15, 2020: Gloria returns by herself today and has decided to proceed with mastectomy with reconstruction which I fully support. She will also proceed with bilateral oophorectomy. I will see her after she has completed her surgery. She has TNB Ca so we will monitor clinically. Updated Visit, October 05, 2020: Gloria returns with her sister Lazaro. She is struggling with decision of bilateral mastectomy given her newly found BRCA1 exon 21 deletion. She was seen for a full discussion with Dr. Null last week and presents today to discuss her thoughts. She understands and will plan on pursuing oophorectomy but is still having a great deal of anxiety regarding bilateral mastectomy with or without reconstruction especially given the difficulty reconstructing her left breast where she had radiation. We will spend more time after she's had a few weeks to think over her choices. Updated Visit, September 07, 2020: Gloria is 60 years old and returns today. She is status post right breast conservative therapy on 04/22/2020 and is undergoing 4 cycles of adjuvant therapy for TNBC. She had left breast cancer Her2+ in 2005 for which she had EGFR targeting therapy at the time. Her sister Lazaro is with her. Sinuses draining, quit smoking, not coughing as much, just fatigued and not keeping up with flluids - appetite is slowly improving. Significant loss of skin turgor noted. Genetic testing shows BRCA1 + and we entered a discussion on the appropriate risk reduction. I will discuss with Dr. Garcia, as well as Dr. Suarez. Updated Visit, August 10, 2020: Gloria is 60 years old and returns today. She is status post right breast conservative therapy on 04/22/2020 and is undergoing 4 cycles of adjuvant therapy for TNBC. She had some mucositis this time around - particularly affecting her nasal mucosa. We will manage conservatively. She'll be ready for adjuvant radiation in 4 weeks. Updated Visit, July 20, 2020: Gloria is 60 years old and returns today. She is status post right breast conservative therapy on 04/22/2020 and is undergoing 4 cycles of adjuvant therapy for TNBC. She had left breast cancer Her2+ in 2005 for which she had EGFR targeting therapy at the time. She's doing well with tolerance and seems to tolerated the pain from Neulasta better using dexamethasone. Updated Visit, June 29, 2020: Gloria is 60 years old and returns today. She is status post right breast conservative therapy on 04/22/2020. I presented her case for triple negative breast cancer to central tumor board and they agreed with the plan for additional chemotherapy with Taxotere and Cytoxan. Recommendations were also made for restaging studies in addition to genetic counseling as this was her second episode of breast cancer; the first being in 2005 with HER-2 positive disease on the left side. Her staging studies were reviewed personally and reveal no evidence of disease aside from inflammatory / infectious lung changes with emphysema that will need to be followed. Her genetic testing was negative. She reports that 1 - 2 days after treatment her hands and knuckles got really red and wind burnt, but aside from this, she has tolerated treatment very well. Updated Visit, June 11, 2020: Gloria is 60 and completed her first cycle of TC followed by on pro and returns for fredis counts today. She experienced bone aches from Onpro and will try Claritin D and dexamethasone next time. Her counts have held and she is not neutropenic. She reports that she is having difficulty sleeping due to anxiety from current condition. She is otherwise doing well. She will be due for staging studies that we had discussed during tumor board and will delay her next treatment by 1 week. She will also be due for genetic counseling when she can get scheduled. Updated visit, June 01, 2020: Gloria is 60 years old and returns today. She is status post right breast conservative therapy on 04/22/2020. I presented her case for triple negative breast cancer to central tumor board and they agreed with the plan for additional chemotherapy with Taxotere and Cytoxan. Recommendations were also made for restaging studies in addition to genetic counseling as this was her second episode of breast cancer; the first being in 2005 with HER-2 positive disease on the left side. She is prepared to proceed today. Updated visit, May 18, 2020: Gloria is 59 years old and returns in follow-up following her breast conserving surgery with Dr. Gabe Garcia on 04/22/2020. I reviewed her pathology with her and because of her high-grade disease as well as being triple negative, I am recommending that she proceed with 4 cycles of Taxotere plus Cytoxan in the adjuvant setting. She had numerous questions as well as significant anxiety regarding the change in therapy compared to what she got 2006 which I explained the purpose of as well as the limitations of additional treatments using Adriamycin. In addition to this I explained why Herceptin would not be used in her scenario and I also went over all of the immediate side effects that she could expect. Since her degree of anxiety was remain fairly high, I proposed to present her case at multidisciplinary tumor board and would plan to get a Mediport accordingly anticipating everyone's agreement. She has done well following surgery and has very little pain but she noted some bleeding from the wound 2 days ago and on my examination reveals a healing wound with no dehiscence and just a small area of scabbing. Updated visit, April 20, 2020: Gloria is 59 years old and returns in follow-up for her second contralateral breast cancer of the right breast diagnosed 03/11/2020 in the right upper inner quadrant consistent with triple negative disease. She returns with her sister Lazaro today. Overall she is doing well, she is very happy with her surgeon Dr. Garcia and will be proceeding with breast conservation next few weeks. She will return to discuss any role for adjuvant therapy based on histopathologic findings. Initial Visit, March 23, 2020: Gloria Lopez presents today Hematology and Oncology evaluation. She is a 59 year old female who is accompanied by her Sister Julianna (Lazaro). She has a prior history of T2N0 HER-2 positive receptor negative breast cancer left breast diagnosed in 2005 completing lumpectomy, followed by chemotherapy and radiation and concluded 1 year of Herceptin in January 2008. She now presents with a newly diagnosed (03/11/2020) right upper inner quadrant, small breast mass noted on screening mammography biopsy-proven to be triple negative disease. She was referred for an oncologic opinion. RADIOGRAPHIC DATA: Reviewed on 06/29/2020 2. 06/23/2020 CT CAP: Chest: 1. New mild reticulonodular opacities in the bilateral lung adams, right greater than left, most likely infectious/inflammatory in etiology. Superimposed neoplasm cannot be excluded. Consider follow-up to complete resolution. 2. Gastroesophageal reflux. 3. Moderate emphysematous changes of the lungs. Abd/Pelvis: 1. No evidence of intra-abdominal/pelvic metastases. 2. Sigmoid colon diverticulosis without evidence of diverticulitis. 1. Outside reports reviewed PATHOLOGIC PROFILE/MOLECULAR DATA: Reviewed on March 23, 2020 4. 04/22/2020 right breast lumpectomy and axillary lymph node: Specimen #: [id number] Submitting Physician: GABE GARCIA MD FINAL DIAGNOSIS 1. Right axillary sentinel lymph node #1, excision (A) - One lymph node, negative for metastatic carcinoma (0/1). 2. Right breast, mass, lumpectomy (B) - Invasive ductal carcinoma, see comment. - Ductal carcinoma in situ, solid type, nuclear grade 3. 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 3. Right breast, deep margin, excision (C) - Unremarkable fibroadipose tissue. 4. Right breast, inferior margin, excision (D) - Unremarkable breast parenchyma. 5. Right breast, superior margin, excision (E) - Unremarkable fibroadipose tissue. 6. Right breast, medial margin, excision (F) - Unremarkable fibroadipose tissue. 7. Right breast, anterior margin, excision (G) - Unremarkable fibroadipose tissue. 8. Right breast, lateral margin, excision (H) - Unremarkable breast parenchyma. JJR/dbb 04/24/2020 [facility] REPORT OF [place] PATHOLOGIC FINDINGS RIGHT BREAST MASS: BREAST INVASIVE CARCINOMA WORKSHEET Part: B Procedure: Excision (less than total mastectomy) Specimen Laterality: Right Tumor size: Size of largest invasive carcinoma: Greatest dimension of largest focus of invasion >1 mm: 10 mm Tumor Focality: Single focus of invasive carcinoma Histologic Type of Invasive Carcinoma: Invasive carcinoma of no special type (ductal, not otherwise specified) Histologic Grade: Glandular (Acinar) / Tubular Differentiation: Score 3 Nuclear Pleomorphism: Score 3 Mitotic Rate: Score 3 Overall Grade: Grade III Ductal Carcinoma In Situ: Present Architectural Patterns: Architectural Pattern:Solid DCIS Nuclear Grade: Grade III (high) DCIS Necrosis: Not identified Tumor Extension: Skin: Skin is not present Nipple: Not applicable, no nipple is present Skeletal muscle: No skeletal muscle is present Invasive Carcinoma Margins: Margins uninvolved by invasive carcinoma Distance from closest margin: 4 mm Closest margin: deep DCIS Margins: Margins uninvolved by DCIS Specify (if <2mm) closest margin: 1.5 mm Closest margin: anterior Lymph Nodes: Uninvolved by tumor cells Total number of lymph nodes examined: 1 Number of sentinel lymph nodes examined: 1 Treatment Effect: No known presurgical therapy Lymph-Vascular Invasion: Cannot be determined Pathologic Stage Classification (pTNM,AJCC 8th ed) TNM Descriptor(s): Not applicable Primary Tumor (Invasive Carcinoma) (pT): pT1b Regional Lymph Nodes (pN): Modifier: (sn): [place] node(s) evaluated Category (pN): pN0 Distant metastasis: Distant Metastasis (pM) Not applicable/Not confirmed pathologically in this case Estrogen & progesterone receptors: Previously performed and reported as follows: Estrogen receptor: negative 0 Progesterone receptor: negative 0 Specimen number #: [id number] (HER2) ERBB2 Status: Previously performed and reported as follows: HER2:negative 0 Specimen number #: [id number] Metallurgy Laboratory Technician Tumor Block: Specify: B10 3. 03/11/2020 right breast mass 1:00 ultrasound-guided core biopsy: Invasive ductal carcinoma, provisional grade 3 measuring up to 8 mm in greatest dimension. Immunohistochemical stains of p63 and myosin heavy chain have been used for the evaluation of the specimen. There is no cyst evidence of in situ component. Immunostains for synaptophysin and chromogranin are negative. Estrogen receptor by IHC is 0, progesterone receptor by IHC is 0 HER-2/sabas by IHC is 0 2. 05/22/2006 left sentinel lymph node biopsy axilla, left breast lumpectomy: No malignant tumor identified, (2). Bilateral bone marrow aspirates from anterior iliac crest were also obtained and 1 tumor cell was found using the CAM 5.2/AE-1 antibody. 1. 05/12/2006 left breast medial upper quadrant biopsy: Infiltrating ductal carcinoma poorly differentiated, foci of intraductal carcinoma, comedo type. ER WI negative HER-2/sabas positive by FISH. REVIEW OF SYSTEMS Per HPI and otherwise negative by full review of organ systems. ECOG PERFORMANCE STATUS: 0 PHYSICAL EXAMINATION: Vitals: BP 115/68 Pulse 65 Temp 98.2 Resp 16 Ht 5' 2.008 (1.58m) Wt 156 lb 1.4 oz (70.8kg) SpO2 96% BMI 28.54 kg/(m^2). Body surface area is 1.76 meters squared. Exam limited to gross visualization where appropriate. Gen.: This is an age-appropriate patient in no acute distress. Head: Appears atraumatic with no visible lesions. Eyes: Pupils equally round and reactive to light, extraocular muscles are intact. Neck: Supple. Mouth: Mucous membranes appeared to be moist. Respiratory: Appears to be respiring comfortably. Neurologic: Nonfocal to gross visualization. Alert and oriented 3. Psychiatric: No evidence of inappropriate anxiety or depression. Skin: Visible areas of skin without rash, lesions, wounds or petechiae. Lung diminished right base. Patient deferred breast examination. ALLERGIES: ALLERGIES Allergen Reactions Penicillins Unknown MEDICATIONS: Phentermine HCl 37.5 mg tablet Take 1 tablet by mouth every afternoon. (Patient not taking: Reported on 11/20/2023) magnesium oxide 400 mg magnesium cap Take by mouth. albuterol HFA (PROVENTIL HFA, VENTOLIN HFA) 90 mcg/actuation inhaler Inhale 2 Puffs as instructed every 4 hours as needed. acetaminophen (TYLENOL EXTRA STRENGTH) 500 mg tablet Take 2 tablets by mouth every 6 hours as needed for pain. Two (2) X 500 mg tablets = 1,000 mg cholecalciferol (VITAMIN D3) 50 mcg (2,000 unit) tablet Take 2,000 Units by mouth once daily. cyanocobalamin (VITAMIN B-12) 1,000 mcg tab Take 1,000 mcg by mouth once daily. Lactobacillus acidophilus (PROBIOTIC) 10 billion cell cap Take by mouth once daily. acetaminophen/diphenhydramine (TYLENOL PM ORAL) Take by mouth. sertraline (ZOLOFT) 100 mg tablet Take 1 tablet by mouth once daily. acetaminophen (TYLENOL) 325 mg tablet Take 650 mg by mouth. LABORATORY VALUES: WBC (k/uL) Date Value 03/28/2024 6.62 RBC (m/uL) Date Value 03/28/2024 4.82 Hemoglobin (g/dL) Date Value 03/28/2024 13.8 Hematocrit (%) Date Value 03/28/2024 43.5 MCV (fL) Date Value 03/28/2024 90.2 MCH (pg) Date Value 03/28/2024 28.6 MCHC (g/dL) Date Value 03/28/2024 31.7 RDW-CV (%) Date Value 03/28/2024 12.8 Platelet Count (k/uL) Date Value 03/28/2024 334 MPV (fL) Date Value 03/28/2024 9.0 Glucose (mg/dL) Date Value 03/28/2024 123 (H) BUN (mg/dL) Date Value 03/28/2024 16 Creatinine (mg/dL) Date Value 03/28/2024 0.74 Sodium (mmol/L) Date Value 03/28/2024 140 Potassium (mmol/L) Date Value 03/28/2024 5.1 Chloride (mmol/L) Date Value 03/28/2024 101 CO2 (mmol/L) Date Value 03/28/2024 25 Protein, Total (g/dL) Date Value 03/28/2024 7.2 Albumin (g/dL) Date Value 03/28/2024 4.5 Calcium, Total (mg/dL) Date Value 03/28/2024 9.2 Alkaline Phosphatase (U/L) Date Value 03/28/2024 97 Bilirubin, Total (mg/dL) Date Value 03/28/2024 0.3 AST (U/L) Date Value 03/28/2024 21 ALT (U/L) Date Value 03/28/2024 16 DIAGNOSIS: (C50.211, Z17.1) Malignant neoplasm 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, estrogen receptor negative (HCC) (primary encounter diagnosis) (E55.9) Vitamin D deficiency Plan: VITAMIN D 25 HYDROXY (Z23) Need for vaccination PAST MEDICAL HISTORY Diagnosis Date Anxiety Breast asymmetry following reconstructive surgery 08/12/2021 Breast CA (HCC) Left; [place]-; HER2 + Depression Menopause Overweight PAST SURGICAL HISTORY Procedure Laterality Date ABDOMINAL SURGERY HX 2016 hernia repair CHOLECYSTECTOMY HX COLONOSCOPY FRACTURE SURGERY femur fracture right as child HYSTERECTOMY Bilateral 01/2021 LUMPECTOMY/RADIOTHERAPY DIAG MAMM/A10 Left 2005 LUMPECTOMY/RADIOTHERAPY DIAG MAMM/A10 Right 04/22/2020 PAST SURGICAL HISTORY OF Insertion of MED-PORT PAST SURGICAL HISTORY OF 12/29/2020 bilateral mastectomy ( 12/29/2020) Social History Tobacco Use Smoking status: Former Current packs/day: 0.00 Average packs/day: 1 pack/day for 43.0 years (43.0 ttl pk-yrs) Types: Cigarettes Start date: 10/26/1977 Quit date: 10/26/2020 Years since quittin.4 Smokeless tobacco: Never Vaping Use Vaping status: Never Used Substance Use Topics Alcohol use: Not Currently Drug use: Never FAMILY HISTORY Problem Relation Age of Onset Lung Cancer Father Diabetes Mother Stroke Mother Cancer Mother Ovarian cancer Maternal Grandmother other (Rectal cancer) Paternal Grandmother other (Rectal cancer) Paternal Uncle Anesthesia Problems No Family History I spent a total of 30 minutes on the date of the service which included preparing to see the patient, [id number] patient care, completing clinical documentation, obtaining and/or reviewing separately obtained history, performing a medically appropriate examination, counseling and educating the patient/family/caregiver, ordering medications, tests, or procedures, independently interpreting results (not separately reported), and communicating results to the patient/family/caregiver. Tino Mcguire APRN.CNP Hematology and Oncology Services Provided at: [place], [place] CC: Dr. Gabe Null documented in this encounter [facility] 11-20-2023 Instructions Inessa Andrew APRN.CNP - 11/20/2023 8:22 AM EDT I encourage you to exercise regularly (30 minutes, 5 times/week), achieve/maintain ideal body weight, and to limit alcohol consumption to less than 7 drinks weekly for breast cancer risk reduction and overall health. 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 She denies any chest wall masses or skin changes. She did have a mechanical fall at home in 07/2023 and reports she broke a left rib with the fall, but has since recovered. Last visit she was not feeling very well but she saw her PCP and began Phentermine and lost 15-20 lbs and felt significantly better. She has since gained some of that weight back and hopes to go back on the medication soon. She presented with an abnormal mammogram in 2019. Core biopsy performed 03/11/2020 (reviewed at [facility]) at 1pm on the right showed IDC associated with chondromyxoid matrix, consistent with metaplastic carcinoma, grade 3, triple negative. She sought second opinion at [facility] with Dr. Garcia and 04/22/2020 had right partial mastectomy for a 10mm IDC, grade 3, with 0/1 SLN. T1cN0. She completed 4 cycles of TC per Dr. Bernal in 08/2020. 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 She completed treatment January 2008 Has Patient had Genetic Testing? 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 Reason for testing: Personal history of TNBC. She has two daughters; Dhiraj who is 29 and lives in [place] and has tested positive; and Danielle, who has yet to test and is 39 years old. They both have young children. She has had a complete hysterectomy with negative pathology. Date of surgery: 02/10/[address] Casanova She is status post bilateral risk-reducing nipple sparing mastectomy with prepectoral silicone implant reconstruction. Date of surgery: 12/29/20 and 05/03/21 (TE exchange to implant) with negative pathology. History pertaining to prior breast biopsies, genetic reports, pathology reports, treatment summaries, personal, social and family history has been extracted from my note dated 11/15/22. Her last Vitamin D level: No results found for: VITD She takes vitamin D3 2000 units and MVI daily BMD: 01/2023 - osteopenia at OSH (-2.3); she takes an oral weekly bone agent from her PCP PERSONAL BREAST HISTORY: Past breast history (prior to this encounter) is as follows: Breast biopsy: Yes, for cancer diagnosis as above Breast cysts: No Breast surgery: Yes, as above Breast cancer: Yes, as above CANCER SURVEILLANCE: Mammograms: N/A - she is s/p bilateral mastectomy Breast MRI: Yes, 10/07/20 prior to mastectomies Colonoscopy: Yes, per patient report (? 2015), normal RISK FACTORS FOR BREAST CANCER: Age at the onset of menses: 10 years of age. P: 2 Age at the of first child: 23 years of age. She did not breast feed. Age at menopause: Not stated. Post-menopausal hormone therapy: No She is s/p hysterectomy and BSO History of Mantle Radiation prior to the age of 28: No Obesity: Body mass index is 29.87 kg/m . Current Weight: 163 lbs (down 8 lbs) Mammographic density: Not applicable - she is s/p bilateral mastectomy Personal History of Benign Atypical Breast Biopsy: No Alcohol use: Rare PAST MEDICAL HISTORY: PAST MEDICAL HISTORY Diagnosis Date Anxiety Breast asymmetry following reconstructive surgery 08/12/2021 Breast CA (HCC) Left; [place]-; HER2 + Depression Menopause Overweight Patient specifically denies history of: DVT, PE, migraine headaches WITH AURA, migraine headaches without aura, abnormal uterine bleeding and abnormal uterine biopsies. She has hyperlipidemia and osteoporosis. 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 PAST SURGICAL HISTORY: PAST SURGICAL HISTORY Procedure Laterality Date ABDOMINAL SURGERY HX 2016 hernia repair CHOLECYSTECTOMY HX COLONOSCOPY FRACTURE SURGERY femur fracture right as child HYSTERECTOMY Bilateral 01/2021 LUMPECTOMY/RADIOTHERAPY DIAG MAMM/A10 Left 2005 LUMPECTOMY/RADIOTHERAPY DIAG MAMM/A10 Right 04/22/2020 PAST SURGICAL HISTORY OF Insertion of MED-PORT PAST SURGICAL HISTORY OF 12/29/2020 bilateral mastectomy ( 12/29/2020) SOCIAL HISTORY: Social History Tobacco Use Smoking status: Former Packs/day: 1.00 Years: 43.00 Additional pack years: 0.00 Total pack years: 43.00 Types: Cigarettes Quit date: 10/26/2020 Years since quittin.0 Smokeless tobacco: Never Vaping Use Vaping Use: Never used Substance Use Topics Alcohol use: Not Currently Drug use: Never Caffeine intake: 1-3 / day Exercise: She has a physically demanding job FAMILY HISTORY: Mother was adopted. Family history of breast cancer: None Family history of ovarian cancer: MGM in her 40s Number of sisters: 2 Number of maternal aunts: ? Number of paternal aunts: 0 Ashkenazi Ancestry: no Other Cancer: Her father had lung cancer, PGM and a paternal uncle had rectal cancer in their 50s. There is no family history of prostate, colon, uterine, pancreatic, gastric, brain, renal cell or thyroid cancer. There is no family history of melanoma, sarcoma or leukemia. Osteoporosis: None Stroke: mother in 70s Blood Clot: None Heart attack: PGF Thyroid Nodule or Goiter: None Autism: None FAMILY HISTORY Problem Relation Age of Onset Lung Cancer Father Diabetes Mother Stroke Mother Cancer Mother Ovarian cancer Maternal Grandmother other (Rectal cancer) Paternal Grandmother other (Rectal cancer) Paternal Uncle Anesthesia Problems No Family History MEDICATIONS: magnesium oxide 400 mg magnesium cap Take by mouth. cholecalciferol (VITAMIN D3) 50 mcg (2,000 unit) tablet Take 2,000 Units by mouth once daily. Phentermine HCl 37.5 mg tablet Take 1 tablet by mouth every afternoon. (Patient not taking: Reported on 11/20/2023) albuterol HFA (PROVENTIL HFA, VENTOLIN HFA) 90 mcg/actuation inhaler Inhale 2 Puffs as instructed every 4 hours as needed. acetaminophen (TYLENOL EXTRA STRENGTH) 500 mg tablet Take 2 tablets by mouth every 6 hours as needed for pain. Two (2) X 500 mg tablets = 1,000 mg cyanocobalamin (VITAMIN B-12) 1,000 mcg tab Take 1,000 mcg by mouth once daily. Lactobacillus acidophilus (PROBIOTIC) 10 billion cell cap Take by mouth once daily. acetaminophen/diphenhydramine (TYLENOL PM ORAL) Take by mouth. sertraline (ZOLOFT) 100 mg tablet Take 1 tablet by mouth once daily. acetaminophen (TYLENOL) 325 mg tablet Take 650 mg by mouth. ALLERGIES: ALLERGIES Allergen Reactions Penicillins Unknown REVIEW OF SYSTEMS: She denies chest pain, shortness of breath, persistent cough, severe headaches, unusual bony pains, abdominal pain or unintentional weight loss. She has shortness of breath at baseline for which she uses an inhaler that she attributes to emphysema. PHYSICAL EXAM: BP 131/74 (BP Site: Right Arm, BP Position: Sitting, BP Cuff Size: Regular Adult) Pulse 66 Temp 36.6 C (97.8 F) (Oral) Ht 157.5 cm (5' 2.01 ) Wt 74.1 kg (163 lb 5.8 oz) SpO2 97% BMI 29.87 kg/m General: well-nourished, female, alert and oriented x 3, calm Skin: warm, dry, skin color, texture, turgor normal Head/Eyes: normocephalic, atraumatic, and anicteric Breasts and Regional Lymph Nodes: The patient was examined in the upright and supine positions. There is no concerning supraclavicular, infraclavicular or axillary lymphadenopathy. She is s/p bilateral mastectomy with silicone implant reconstruction. There is no evidence of local recurrence on the chest fernando bilaterally. There are no chest wall masses or skin changes. The implants are soft and non-encapsulated. 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 The patient was reassured as to the benign nature of her clinical findings. She understands that her risk has been reduced by 90-95%. She will be followed annually clinically. She will continue to follow with her PCP for weight management and osteopenia. Genetics referral made: No: Reason: BRCA1 positive as above. There is no family history of pancreatic cancer. She has two daughters, one that has tested positive in [place] and the other who lives locally and has not tested (Danielle). Danielle is encouraged to be seen in the [facility] for screening and she was previously given a genetics brochure and contact number to schedule an appointment. Chemoprevention discussion: N/A The patient is advised to exercise regularly, achieve/maintain ideal body weight, and to limit alcohol consumption to less than 7 drinks weekly for breast cancer risk reduction and overall health. Her colonoscopy is up-to-date. per patient She will be seen in 1 year for an annual exam. She will call me in the interim should she have any questions or concerns. Dr. Null would like to see her back virtually after 10/01/23. My final recommendations will be communicated back to the requesting physician by way of shared medical record or letter via US mail. I spent a total of 30 minutes on the date of the service which included preparing to see the patient, [id number] patient care, completing clinical documentation, obtaining and/or reviewing separately obtained history, performing a medically appropriate examination, counseling and educating the patient/family/caregiver, communicating with other HCPs (not separately reported), and care coordination (not separately reported). Inessa Andrew APRN.CNP Medical Breast Specialist documented in this encounter [facility] 11-20-2023 Note HNO ID: [id number] Author: INESSA ANDREW APRN.CNP Service: ? 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 She denies any chest wall masses or skin changes. She did have a mechanical fall at home in 07/2023 and reports she broke a left rib with the fall, but has since recovered. Last visit she was not feeling very well but she saw her PCP and began Phentermine and lost 15-20 lbs and felt significantly better. She has since gained some of that weight back and hopes to go back on the medication soon. She presented with an abnormal mammogram in 2019. Core biopsy performed 03/11/2020 (reviewed at [facility]) at 1pm on the right showed IDC associated with chondromyxoid matrix, consistent with metaplastic carcinoma, grade 3, triple negative. She sought second opinion at [facility] with Dr. Garcia and 04/22/2020 had right partial mastectomy for a 10mm IDC, grade 3, with 0/1 SLN. T1cN0. She completed [address] Bernal in 08/2020. 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 She completed treatment January 2008 Has Patient had Genetic Testing? Yes 08/19/20: Gloria Lopez's 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 Reason for testing: Personal history of TNBC. She has two daughters; Dhiraj who is 29 and lives in [place] and has tested positive; and Danielle, who has yet to test and is 39 years old. They both have young children. She has had a complete hysterectomy with negative pathology. Date of surgery: 02/10/[address] Casanova She is status post bilateral risk-reducing nipple sparing mastectomy with prepectoral silicone implant reconstruction. Date of surgery: 12/29/20 and 05/03/21 (TE exchange to implant) with negative pathology. History pertaining to prior breast biopsies, genetic reports, pathology reports, treatment summaries, personal, social and family history has been extracted from my note dated 11/15/22. Her last Vitamin D level: No results found for: VITD She takes vitamin D3 2000 units and MVI daily BMD: 01/2023 - osteopenia at OSH (-2.3); she takes an oral weekly bone agent from her PCP PERSONAL BREAST HISTORY: Past breast history (prior to this encounter) is as follows: Breast biopsy: Yes, for cancer diagnosis as above Breast cysts: No Breast surgery: Yes, as above Breast cancer: Yes, as above CANCER SURVEILLANCE: Mammograms: N/A - she is s/p bilateral mastectomy Breast MRI: Yes, 10/07/20 prior to mastectomies Colonoscopy: Yes, per patient report (? 2015), normal RISK FACTORS FOR BREAST CANCER: Age at the onset of menses: 10 years of age. P: 2 Age at the of first child: 23 years of age. She did not breast feed. Age at menopause: Not stated. Post-menopausal hormone therapy: No She is s/p hysterectomy and BSO History of Mantle Radiation prior to the age of 28: No Obesity: Body mass index is 29.87 kg/m?. Current Weight: 163 lbs (down 8 lbs) Mammographic density: Not applicable - she is s/p bilateral mastectomy Personal History of Benign Atypical Breast Biopsy: No Alcohol use: Rare PAST MEDICAL HISTORY: PAST MEDICAL HISTORY Diagnosis Date Anxiety Breast asymmetry following reconstructive surgery 08/12/2021 Breast CA (HCC) Left; [place]-; HER2 + Depression Menopause Overweight Patient specifically denies history of: DVT, PE, migraine headaches WITH AURA, migraine headaches without aura, abnormal uterine bleeding and abnormal uterine biopsies. She has hyperlipidemia and osteoporosis. 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 PAST SURGICAL HISTORY: PAST SURGICAL HISTORY Procedure Laterality Date ABDOMINAL SURGERY HX 2016 hernia repair CHOLECYSTECTOMY HX COLONOSCOPY FRACTURE SURGERY femur fracture right as child HYSTERECTOMY Bilateral 01/2021 LUMPECTOMY/RADIOTHERAPY DIAG MAMM/A10 Left 2005 LUMPECTOMY/RADIOTHERAPY DIAG MAMM/A10 Right 04/22/2020 PAST SURGICAL HISTORY OF Insertion of MED-PORT PAST SURGICAL HISTORY OF 12/29/2020 bilateral mastectomy ( 12/29/2020) SOCIAL HISTORY: Social History Tobacco Use Smoking status: Former Packs/day: 1.00 Years: 43.00 Additional pack years: 0.00 Total pack years: 43.00 Types: Cigarettes Quit date: 10/26/2020 Years since quittin.0 Smokeless (more content not included)... [facility] 03-30-2023 Miscellaneous Notes Montrell's message forwarded to pt via Vastari. Dev Ch RN It just means that there is some abnormals highlight on your chemistries and CBC. However, none of them are clinically significant. I hope that helps. What does this all mean for me the ones with the (!) moy Is there something I need or should do to make it better Thank you Gloria Suttonruff Montrell/HM: any recommendations on labs? Dev Ch RN documented in this encounter [facility] 03-23-2023 Instructions Geraldo Bernal MD - 03/23/2023 10:59 AM EDT Continue taking BASA Follow up in 12 months with labs same day. Add tumor marker today if possible Otherwise in 6 months with labs. Las in 6 months Virtual visit after Continue following with PCP for management of osteopenia on DXA documented in this encounter [facility] 03-23-2023 History of Present illness Narrative Images from the original note were not included. NAME: Gloria Lopez CLINIC NO.: [id number] DATE OF SERVICE: March 23, 2023 ([place]) Some elements in this clinic note that are critical to medical decision making have been carefully reviewed and included from a prior clinic note dated: September 09, 2022 ([place]) Referring Provider: Dr. Jacquelyn Villagran Additional Clinicians involved in Gloria Lopez's care: Dr. Gabe Garcia, Dr. Saji Erick CC: Follow up. ASSESSMENT: 62 year old woman with right upper inner quadrant invasive ductal carcinoma grade 3 diagnosed by ultrasound-guided vacuum-assisted biopsy with clip placement on 03/11/2020 receptor status is ER WI negative HER-2/sabsa by IHC (0) negative. She underwent breast conserving surgery on 04/22/2020. Pathologic stage T1b N0 M0, grade 3 with associated high-grade DCIS. Stage IB. She completed 4 cycles of adjuvant chemotherapy. (TC) through 08/10/2021 She has a previous history of left-sided infiltrating ductal carcinoma ER [place] negative HER-2/sabas positive diagnosed in 2005 T2N0 for which she had a lumpectomy followed by radiation with chemotherapy and Herceptin for 1 year. She completed treatment January 2008. CT chest shows left reticulonodular changes that will need to be followed. 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 01/2021 - 02/2021 completed bilateral mastectomy and MADHAVI/BSO Ovarian vein thrombus - unclear etiology - Now resolved on low dose Xarelto. PLAN: Continue taking BASA Follow up in 12 months with labs same day. Add tumor marker today if possible Otherwise in 6 months with labs. Las in 6 months Virtual visit after Continue following with PCP for management of osteopenia on DXA HPI: Updated Visit, March 23, 2023: Gloria is doing well. Retiring soon (July) Looks and feels wonderful but gets tired at times unless she keeps busy. CMP pending CBC normal. Updated Visit, September 09, 2022: Gloria Lopez returns for follow-up. She admits to not starting to take a baby aspirin as recommended. She has exertional shortness of breath. 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 She states that the vice president global advertising sales is trying multiple different inhalers. She denies cough. She denies bilateral leg/calf pain. She denies breast/chest lumps or bumps. She has bilateral implants. She has a follow-up scheduled with the breast specialist in October. She has deferred the breast exam for today. Overall, she is doing well. She has some concerns regarding a lesion to her upper chest and has requested to be referred back to dermatology. Updated Visit, June 03, 2022: Gloria returns - reviewed labs and CT Abd/Pelvis. Ovarian vein non-occlusive thrombus resolved Continues follow up at Breast center. Weight gain with associated fatigue and dyspnea. Possibly developed apnea. Also has underlying emphysema. Labs stable. Updated Visit, March 11, 2022: Gloria returns and is experiencing fatigue which may most likely be related to her emphysema. Also has a clot in her right ovarian vein - non- occlusive but new upon review of her Ctscan. No other evidence of metastatic or local recurrence. Updated Visit, September 10, 2021: Had her implants revision 3 weeks ago and is still sore. CT reviewed and will get CT abd/Pelvis next visit for better evaluation of hypodensity noted in spleen. Labs stable. She is otherwise doing well. Her sister Lazaro was not present. Updated Visit, June 14, 2021: Implants done in 04/2021 are head still operator but she is otherwise well. She will need a second corrective surgery for appropriate cosmesis and reconstruction which will potentially occur in 07/2021. CT chest with nodules noted in June 2020 will be repeated in order to follow to resolution. Updated Visit, March 11, 2021: Returns alone today - her sister Lazaro is working. Expanders in place and MADHAVI completed in 02/10/2021 - benign findings. Due for implant placement 05/03/2021 Counts recovered and doing well. Anxiety abated. Updated Visit, December 10, 2020: Will complete mastectomy and recon Will proceed with MDAHAVI/BSO No issues currently. Is much calmer and is happy with discussion and treatment plan. Updated Visit, October 15, 2020: Gloria returns by herself today and has decided to proceed with mastectomy with reconstruction which I fully support. She will also proceed with bilateral oophorectomy. I will see her after she has completed her surgery. She has TNB Ca so we will monitor clinically. Updated Visit, October 05, 2020: Gloria returns with her sister Lazaro. She is struggling with decision of bilateral mastectomy given her newly found BRCA1 exon 21 deletion. She was seen for a full discussion with Dr. Null last week and presents today to discuss her thoughts. She understands and will plan on pursuing oophorectomy but is still having a great deal of anxiety regarding bilateral mastectomy with or without reconstruction especially given the difficulty reconstructing her left breast where she had radiation. We will spend more time after she's had a few weeks to think over her choices. Updated Visit, September 07, 2020: Gloria is 60 years old and returns today. She is status post right breast conservative therapy on 04/22/2020 and is undergoing 4 cycles of adjuvant therapy for TNBC. She had left breast cancer Her2+ in 2005 for which she had EGFR targeting therapy at the time. Her sister Lazaro is with her. Sinuses draining, quit smoking, not coughing as much, just fatigued and not keeping up with flluids - appetite is slowly improving. Significant loss of skin turgor noted. Genetic testing shows BRCA1 + and we entered a discussion on the appropriate risk reduction. I will discuss with Dr. Garcia, as well as Dr. Suarez. Updated Visit, August 10, 2020: Gloria is 60 years old and returns today. She is status post right breast conservative therapy on 04/22/2020 and is undergoing 4 cycles of adjuvant therapy for TNBC. She had some mucositis this time around - particularly affecting her nasal mucosa. We will manage conservatively. She'll be ready for adjuvant radiation in 4 weeks. Updated Visit, July 20, 2020: Gloria is 60 years old and returns today. She is status post right breast conservative therapy on 04/22/2020 and is undergoing 4 cycles of adjuvant therapy for TNBC. She had left breast cancer Her2+ in 2005 for which she had EGFR targeting therapy at the time. She's doing well with tolerance and seems to tolerated the pain from Neulasta better using dexamethasone. Updated Visit, June 29, 2020: Gloria is 60 years old and returns today. She is status post right breast conservative therapy on 04/22/2020. I presented her case for triple negative breast cancer to central tumor board and they agreed with the plan for additional chemotherapy with Taxotere and Cytoxan. Recommendations were also made for restaging studies in addition to genetic counseling as this was her second episode of breast cancer; the first being in 2005 with HER-2 positive disease on the left side. Her staging studies were reviewed personally and reveal no evidence of disease aside from inflammatory / infectious lung changes with emphysema that will need to be followed. Her genetic testing was negative. She reports that 1 - 2 days after treatment her hands and knuckles got really red and wind burnt, but aside from this, she has tolerated treatment very well. Updated Visit, June 11, 2020: Gloria is 60 and completed her first cycle of TC followed by on pro and returns for fredis counts today. She experienced bone aches from Onpro and will try Claritin D and dexamethasone next time. Her counts have held and she is not neutropenic. She reports that she is having difficulty sleeping due to anxiety from current condition. She is otherwise doing well. She will be due for staging studies that we had discussed during tumor board and will delay her next treatment by 1 week. She will also be due for genetic counseling when she can get scheduled. Updated visit, June 01, 2020: Gloria is 60 years old and returns today. She is status post right breast conservative therapy on 04/22/2020. I presented her case for triple negative breast cancer to central tumor board and they agreed with the plan for additional chemotherapy with Taxotere and Cytoxan. Recommendations were also made for restaging studies in addition to genetic counseling as this was her second episode of breast cancer; the first being in 2006 with HER-2 positive disease on the left side. She is prepared to proceed today. Updated visit, May 18, 2020: Gloria is 59 years old and returns in follow-up following her breast conserving surgery with Dr. Gabe Garcia on 04/22/2020. I reviewed her pathology with her and because of her high-grade disease as well as being triple negative, I am recommending that she proceed with 4 cycles of Taxotere plus Cytoxan in the adjuvant setting. She had numerous questions as well as significant anxiety regarding the change in therapy compared to what she got 2006 which I explained the purpose of as well as the limitations of additional treatments using Adriamycin. In addition to this I explained why Herceptin would not be used in her scenario and I also went over all of the immediate side effects that she could expect. Since her degree of anxiety was remain fairly high, I proposed to present her case at multidisciplinary tumor board and would plan to get a Mediport accordingly anticipating everyone's agreement. She has done well following surgery and has very little pain but she noted some bleeding from the wound 2 days ago and on my examination reveals a healing wound with no dehiscence and just a small area of scabbing. Updated visit, April 20, 2020: Gloria is 59 years old and returns in follow-up for her second contralateral breast cancer of the right breast diagnosed 03/11/2020 in the right upper inner quadrant consistent with triple negative disease. She returns with her sister Lazaro today. Overall she is doing well, she is very happy with her surgeon Dr. Garcia and will be proceeding with breast conservation next few weeks. She will return to discuss any role for adjuvant therapy based on histopathologic findings. Initial Visit, March 23, 2020: Gloria Lopez presents today Hematology and Oncology evaluation. She is a 59 year old female who is accompanied by her Sister Julianna (Lazaro). She has a prior history of T2N0 HER-2 positive receptor negative breast cancer left breast diagnosed in 2005 completing lumpectomy, followed by chemotherapy and radiation and concluded 1 year of Herceptin in January 2008. She now presents with a newly diagnosed (03/11/2020) right upper inner quadrant, small breast mass noted on screening mammography biopsy-proven to be triple negative disease. She was referred for an oncologic opinion. RADIOGRAPHIC DATA: Reviewed on 06/29/2020 2. 06/23/2020 CT CAP: Chest: 1. New mild reticulonodular opacities in the bilateral lung adams, right greater than left, most likely infectious/inflammatory in etiology. Superimposed neoplasm cannot be excluded. Consider follow-up to complete resolution. 2. Gastroesophageal reflux. 3. Moderate emphysematous changes of the lungs. Abd/Pelvis: 1. No evidence of intra-abdominal/pelvic metastases. 2. Sigmoid colon diverticulosis without evidence of diverticulitis. 1. Outside reports reviewed PATHOLOGIC PROFILE/MOLECULAR DATA: Reviewed on March 23, 2020 4. 04/22/2020 right breast lumpectomy and axillary lymph node: Specimen #: [id number] Submitting Physician: GABE GARCIA MD FINAL DIAGNOSIS 1. Right axillary sentinel lymph node #1, excision (A) - One lymph node, negative for metastatic carcinoma (0/1). 2. Right breast, mass, lumpectomy (B) - Invasive ductal carcinoma, see comment. - Ductal carcinoma in situ, solid type, nuclear grade 3. 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 3. Right breast, deep margin, excision (C) - Unremarkable fibroadipose tissue. 4. Right breast, inferior margin, excision (D) - Unremarkable breast parenchyma. 5. Right breast, superior margin, excision (E) - Unremarkable fibroadipose tissue. 6. Right breast, medial margin, excision (F) - Unremarkable fibroadipose tissue. 7. Right breast, anterior margin, excision (G) - Unremarkable fibroadipose tissue. 8. Right breast, lateral margin, excision (H) - Unremarkable breast parenchyma. JJR/dbeloise 04/24/2020 SYNOPTIC REPORT OF [place] PATHOLOGIC FINDINGS RIGHT BREAST MASS: BREAST INVASIVE CARCINOMA WORKSHEET Part: B Procedure: Excision (less than total mastectomy) Specimen Laterality: Right Tumor size: Size of largest invasive carcinoma: Greatest dimension of largest focus of invasion >1 mm: 10 mm Tumor Focality: Single focus of invasive carcinoma Histologic Type of Invasive Carcinoma: Invasive carcinoma of no special type (ductal, not otherwise specified) Histologic Grade: Glandular (Acinar) / Tubular Differentiation: Score 3 Nuclear Pleomorphism: Score 3 Mitotic Rate: Score 3 Overall Grade: Grade III Ductal Carcinoma In Situ: Present Architectural Patterns: Architectural Pattern:Solid DCIS Nuclear Grade: Grade III (high) DCIS Necrosis: Not identified Tumor Extension: Skin: Skin is not present Nipple: Not applicable, no nipple is present Skeletal muscle: No skeletal muscle is present Invasive Carcinoma Margins: Margins uninvolved by invasive carcinoma Distance from closest margin: 4 mm Closest margin: deep DCIS Margins: Margins uninvolved by DCIS Specify (if <2mm) closest margin: 1.5 mm Closest margin: anterior Lymph Nodes: Uninvolved by tumor cells Total number of lymph nodes examined: 1 Number of sentinel lymph nodes examined: 1 Treatment Effect: No known presurgical therapy Lymph-Vascular Invasion: Cannot be determined Pathologic Stage Classification (pTNM,AJCC 8th ed) TNM Descriptor(s): Not applicable Primary Tumor (Invasive Carcinoma) (pT): pT1b Regional Lymph Nodes (pN): Modifier: (sn): [place] node(s) evaluated Category (pN): pN0 Distant metastasis: Distant Metastasis (pM) Not applicable/Not confirmed pathologically in this case Estrogen & progesterone receptors: Previously performed and reported as follows: Estrogen receptor: negative 0 Progesterone receptor: negative 0 Specimen number #: [id number] (HER2) ERBB2 Status: Previously performed and reported as follows: HER2:negative 0 Specimen number #: [id number] Metallurgy Laboratory Technician Tumor Block: Specify: B10 3. 03/11/2020 right breast mass 1:00 ultrasound-guided core biopsy: Invasive ductal carcinoma, provisional grade 3 measuring up to 8 mm in greatest dimension. Immunohistochemical stains of p63 and myosin heavy chain have been used for the evaluation of the specimen. There is no cyst evidence of in situ component. Immunostains for synaptophysin and chromogranin are negative. Estrogen receptor by IHC is 0, progesterone receptor by IHC is 0 HER-2/sabas by IHC is 0 2. 05/22/2006 left sentinel lymph node biopsy axilla, left breast lumpectomy: No malignant tumor identified, (2). Bilateral bone marrow aspirates from anterior iliac crest were also obtained and 1 tumor cell was found using the CAM 5.2/AE-1 antibody. 1. 05/12/2006 left breast medial upper quadrant biopsy: Infiltrating ductal carcinoma poorly differentiated, foci of intraductal carcinoma, comedo type. ER WI negative HER-2/sabas positive by FISH. REVIEW OF SYSTEMS Per HPI and otherwise negative by full review of organ systems. ECOG PERFORMANCE STATUS: 0 PHYSICAL EXAMINATION: Vitals: BP 120/64 Pulse 68 Temp (Src) 97.2 (Temporal) Resp 16 Wt 158 lb 12.8 oz (72.0kg) SpO2 95% Body surface area is 1.77 meters squared. Exam limited to gross visualization where appropriate. Gen.: This is an age-appropriate patient in no acute distress. Head: Appears atraumatic with no visible lesions. Eyes: Pupils equally round and reactive to light, extraocular muscles are intact. Neck: Supple. Mouth: Mucous membranes appeared to be moist. Respiratory: Appears to be respiring comfortably. Neurologic: Nonfocal to gross visualization. Alert and oriented 3. Psychiatric: No evidence of inappropriate anxiety or depression. Skin: Visible areas of skin without rash, lesions, wounds or petechiae. ALLERGIES: ALLERGIES Allergen Reactions Penicillins Unknown MEDICATIONS: magnesium oxide 400 mg magnesium cap Take by mouth. albuterol HFA (PROVENTIL HFA, VENTOLIN HFA) 90 mcg/actuation inhaler Inhale 2 Puffs as instructed every 4 hours as needed. acetaminophen (TYLENOL EXTRA STRENGTH) 500 mg tablet Take 2 tablets by mouth every 6 hours as needed for pain. Two (2) X 500 mg tablets = 1,000 mg cholecalciferol (VITAMIN D3) 50 mcg (2,000 unit) tablet Take 2,000 Units by mouth once daily. Lactobacillus acidophilus (PROBIOTIC) 10 billion cell cap Take by mouth once daily. acetaminophen/diphenhydramine (TYLENOL PM ORAL) Take by mouth. sertraline (ZOLOFT) 100 mg tablet Take 1 tablet by mouth once daily. Phentermine HCl 37.5 mg tablet Take 1 tablet by mouth every afternoon. cyanocobalamin (VITAMIN B-12) 1,000 mcg tab Take 1,000 mcg by mouth once daily. acetaminophen (TYLENOL) 325 mg tablet Take 650 mg by mouth. LABORATORY VALUES: WBC (k/uL) Date Value 03/23/2023 8.17 RBC (m/uL) Date Value 03/23/2023 4.79 Hemoglobin (g/dL) Date Value 03/23/2023 13.4 Hematocrit (%) Date Value 03/23/2023 42.4 MCV (fL) Date Value 03/23/2023 88.5 MCH (pg) Date Value 03/23/2023 28.0 MCHC (g/dL) Date Value 03/23/2023 31.6 RDW-CV (%) Date Value 03/23/2023 13.0 Platelet Count (k/uL) Date Value 03/23/2023 294 MPV (fL) Date Value 03/23/2023 8.7 (L) Glucose (mg/dL) Date Value 03/23/2023 126 (H) BUN (mg/dL) Date Value 03/23/2023 14 Creatinine (mg/dL) Date Value 03/23/2023 0.72 Sodium (mmol/L) Date Value 03/23/2023 138 Potassium (mmol/L) Date Value 03/23/2023 4.6 Chloride (mmol/L) Date Value 03/23/2023 102 CO2 (mmol/L) Date Value 03/23/2023 28 Protein, Total (g/dL) Date Value 03/23/2023 6.9 Albumin (g/dL) Date Value 03/23/2023 4.6 Calcium, Total (mg/dL) Date Value 03/23/2023 9.6 Alkaline Phosphatase (U/L) Date Value 03/23/2023 116 Bilirubin, Total (mg/dL) Date Value 03/23/2023 0.4 AST (U/L) Date Value 03/23/2023 21 ALT (U/L) Date Value 03/23/2023 26 DIAGNOSIS: (C50.919) Malignant neoplasm of female breast, unspecified estrogen receptor status, unspecified laterality, unspecified site of breast (HCC) (primary encounter diagnosis) Plan: CA 15-3 BLD, CA 27.29 BLOOD, COMP METABOLIC PANEL, CBC + DIFF (Z15.01, Z15.09) BRCA1 positive Plan: CA 15-3 BLD, CA 27.29 BLOOD, COMP METABOLIC PANEL, CBC + DIFF PAST MEDICAL HISTORY Diagnosis Date Anxiety Breast asymmetry following reconstructive surgery 08/12/2021 Breast CA (HCC) Left; [place]-; HER2 + Depression Menopause Overweight PAST SURGICAL HISTORY Procedure Laterality Date ABDOMINAL SURGERY HX 2016 hernia repair CHOLECYSTECTOMY HX COLONOSCOPY FRACTURE SURGERY femur fracture right as child HYSTERECTOMY Bilateral 01/2021 LUMPECTOMY/RADIOTHERAPY DIAG MAMM/A10 Left 2005 LUMPECTOMY/RADIOTHERAPY DIAG MAMM/A10 Right 04/22/2020 PAST SURGICAL HISTORY OF Insertion of MED-PORT PAST SURGICAL HISTORY OF 12/29/2020 bilateral mastectomy ( 12/29/2020) Social History Tobacco Use Smoking status: Former Packs/day: 1.00 Years: 43.00 Additional pack years: 0.00 Total pack years: 43.00 Types: Cigarettes Quit date: 10/26/2020 Years since quittin.4 Smokeless tobacco: Never Vaping Use Vaping Use: Never used Substance Use Topics Alcohol use: Not Currently Drug use: Never FAMILY HISTORY Problem Relation Age of Onset Lung Cancer Father Diabetes Mother Stroke Mother Cancer Mother Ovarian cancer Maternal Grandmother other (Rectal cancer) Paternal Grandmother other (Rectal cancer) Paternal Uncle Anesthesia Problems No Family History I spent a total of 20 minutes on the date of the service which included preparing to see the patient, [id number] patient care, completing clinical documentation, performing a medically appropriate examination, counseling and educating the patient/family/caregiver, ordering medications, tests, or procedures, independently interpreting results (not separately reported), communicating results to the patient/family/caregiver, and care coordination (not separately reported). Geraldo Bernal MD, CPE Hematology and Oncology Services Provided at: [place], [place] CC: Dr. Gabe Null documented in this encounter [facility] 11-15-2022 Instructions Inessa Andrew APRN.[employer] - 11/15/2022 1:50 PM EDT I encourage you to exercise regularly (30 minutes, 5 times/week), achieve/maintain ideal body weight, and to limit alcohol consumption to less than 7 drinks weekly for breast cancer risk reduction and overall health. Thyroid and CA-125 blood test at any [facility] lab when able. Follow up with your primary care doctor regarding your abdominal bloating and reflux. 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 She denies any chest wall masses or skin changes bilaterally. She reports fatigue (chronic), abdominal bloating, unintentional weight gain and acid reflex over the past 6 months. She denies any changes to her diet. She feels too fatigued to exercise. Her PCP recently retired. She presented with an abnormal mammogram in 2019. Core biopsy performed 03/11/2020 (reviewed at [facility]) at 1pm on the right showed IDC associated with chondromyxoid matrix, consistent with metaplastic carcinoma, grade 3, triple negative. She sought second opinion at [facility] with Dr. Garcia and 04/22/2020 had right partial mastectomy for a 10mm IDC, grade 3, with 0/1 SLN. T1cN0. She completed [address] cycles [address] TC per Dr[address] Bernal in 08/2020. 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 She completed treatment January 2008 08/19/20: Gloria Lopez's 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 Reason for testing: Personal history of TNBC. She has two daughters; Dhiraj who is 29 and lives in [place] and has tested positive; and Danielle, who has yet to test and is 38 years old. They both have young children. She has had a complete hysterectomy with negative pathology. Date of surgery: 02/10/[address] Casanova She is status post bilateral risk-reducing nipple sparing mastectomy with prepectoral silicone implant reconstruction. Date of surgery: 12/29/20 and 05/03/21 (TE exchange to implant) with negative pathology. History pertaining to prior breast biopsies, genetic reports, pathology reports, treatment summaries, personal, social and family history has been extracted from my note dated 11/11/21. Her last Vitamin D level: No results found for: VITD She takes vitamin D3 2000 units and MVI daily BMD: Yes, per patient report (doesn't remember date); results: Osteoporosis PERSONAL BREAST HISTORY: Past breast history (prior to this encounter) is as follows: Breast biopsy: Yes, for cancer diagnosis as above Breast cysts: No Breast surgery: Yes, as above Breast cancer: Yes, as above CANCER SURVEILLANCE: Mammograms: N/A - she is s/p bilateral mastectomy Breast MRI: Yes, 10/07/20 prior to mastectomies Colonoscopy: Yes, per patient report (? 2015), normal RISK FACTORS FOR BREAST CANCER: Age at the onset of menses: 10 years of age. P: 2 Age at the of first child: 23 years of age. She did not breast feed. Age at menopause: Not stated. Post-menopausal hormone therapy: No She is s/p hysterectomy and BSO History of Mantle Radiation prior to the age of 28: No Obesity: Yes, Body mass index is 31.27 kg/m . Current Weight: 171 lbs Mammographic density: Not applicable - she is s/p bilateral mastectomy Personal History of Benign Atypical Breast Biopsy: No Alcohol use: Rare PAST MEDICAL HISTORY: PAST MEDICAL HISTORY Diagnosis Date Anxiety Breast asymmetry following reconstructive surgery 08/12/2021 Breast CA (HCC) Left; ER/[place]-; HER2 + Depression Menopause Overweight Patient specifically denies history of: DVT, PE, migraine headaches WITH AURA, migraine headaches without aura, abnormal uterine bleeding and abnormal uterine biopsies. She has hyperlipidemia and osteoporosis. 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 PAST SURGICAL HISTORY: PAST SURGICAL HISTORY Procedure Laterality Date ABDOMINAL SURGERY HX 2016 hernia repair CHOLECYSTECTOMY HX COLONOSCOPY FRACTURE SURGERY femur fracture right as child HYSTERECTOMY Bilateral 01/2021 LUMPECTOMY/RADIOTHERAPY DIAG MAMM/A10 Left 2005 LUMPECTOMY/RADIOTHERAPY DIAG MAMM/A10 Right 04/22/2020 PAST SURGICAL HISTORY OF Insertion of MED-PORT PAST SURGICAL HISTORY OF 12/29/2020 bilateral mastectomy ( 12/29/2020) SOCIAL HISTORY: Social History Tobacco Use Smoking status: Former Packs/day: 1.00 Years: 43.00 Pack years: 43.00 Types: Cigarettes Quit date: 10/26/2020 Years since quittin.0 Smokeless tobacco: Never Vaping Use Vaping Use: Never used Substance Use Topics Alcohol use: Not Currently Drug use: Never Caffeine intake: 1-3 / day Exercise: She has a physically demanding job FAMILY HISTORY: Mother was adopted. Family history of breast cancer: None Family history of ovarian cancer: MGM in her 40s Number of sisters: 2 Number of maternal aunts: ? Number of paternal aunts: 0 Ashkenazi Ancestry: no Has Patient had Genetic Testing? Yes , BRCA1 positive as above Other Cancer: Her father had lung cancer, PGM and a paternal uncle had rectal cancer in their 50s. There is no family history of prostate, colon, uterine, pancreatic, gastric, brain, renal cell or thyroid cancer. There is no family history of melanoma, sarcoma or leukemia. Osteoporosis: None Stroke: mother in 70s Blood Clot: None Heart attack: PGF Thyroid Nodule or Goiter: None Autism: None FAMILY HISTORY Problem Relation Age of Onset Lung Cancer Father Diabetes Mother Stroke Mother Cancer Mother Ovarian cancer Maternal Grandmother other (Rectal cancer) Paternal Grandmother other (Rectal cancer) Paternal Uncle Anesthesia Problems No Family History MEDICATIONS: magnesium oxide 400 mg magnesium cap Take by mouth. albuterol HFA (PROVENTIL HFA, VENTOLIN HFA) 90 mcg/actuation inhaler Inhale 2 Puffs as instructed every 4 hours as needed. acetaminophen (TYLENOL EXTRA STRENGTH) 500 mg tablet Take 2 tablets by mouth every 6 hours as needed for pain. Two (2) X 500 mg tablets = 1,000 mg cholecalciferol (VITAMIN D3) 50 mcg (2,000 unit) tablet Take 2,000 Units by mouth once daily. cyanocobalamin (VITAMIN B-12) 1,000 mcg tab Take 1,000 mcg by mouth once daily. Lactobacillus acidophilus (PROBIOTIC) 10 billion cell cap Take by mouth once daily. sertraline (ZOLOFT) 100 mg tablet Take 1 tablet by mouth once daily. acetaminophen/diphenhydramine (TYLENOL PM ORAL) Take by mouth. acetaminophen (TYLENOL) 325 mg tablet Take 650 mg by mouth. ALLERGIES: ALLERGIES Allergen Reactions Penicillins Unknown REVIEW OF SYSTEMS: She denies chest pain, persistent cough, severe headaches, unusual bony pains, abdominal pain or unintentional weight loss. She has shortness of breath at baseline that she attributes to emphysema and sinus headaches; see HPI. PHYSICAL EXAM: BP 136/67 (BP Site: Right Arm, BP Position: Sitting, BP Cuff Size: Regular Adult) Pulse 72 Temp 36.5 C (97.7 F) (Oral) Wt 77.6 kg (171 lb) SpO2 96% BMI 31.27 kg/m General: well-nourished, healthy, female, excess weight, alert and oriented x 3, calm Skin: warm, dry, skin color, texture, turgor normal Head/Eyes: normocephalic, atraumatic, and anicteric Breasts and Regional Lymph Nodes: The patient was examined in the upright and supine positions. There is no concerning supraclavicular, infraclavicular or axillary lymphadenopathy. She is s/p bilateral mastectomy with silicone implant reconstruction. There is no evidence of local recurrence on the chest fernando bilaterally. There are no chest wall masses or skin changes. The implants are soft and non-encapsulated. Chest - clear Cor - rrr, no m/r/g Abd - somewhat distended, non-tender IMAGING/RESULTS: Deferred as she is s/p bilateral mastectomy Component Latest Ref Rng & Units 09/09/2022 WBC 3.70 - 11.00 k/uL 8.98 RBC 3.90 - 5.20 m/uL 4.35 Hemoglobin 11.5 - 15.5 g/dL 12.5 Hematocrit 36.0 - 46.0 % 40.3 MCV 80.0 - 100.0 fL 92.6 MCH 26.0 - 34.0 pg 28.7 MCHC 30.5 - 36.0 g/dL 31.0 RDW-CV 11.5 - 15.0 % 12.6 Platelet Count 150 - 400 k/uL 305 MPV 9.0 - 12.7 fL 8.9 (L) Neut% % 60.9 Abs Neut (ANC) 1.45 - 7.50 k/uL 5.46 Lymph% % 25.7 Abs Lymph 1.00 - 4.00 k/uL 2.31 [place]% % 9.8 Abs [place] <0.87 k/uL 0.88 (H) Eosin% % 2.2 Abs Eosin <0.46 k/uL 0.20 Baso% % 1.0 Abs Baso <0.11 k/uL 0.09 Immature Gran % % 0.4 IMMATURE GRANS (ABS) <0.10 k/uL 0.04 NRBC /100 WBC 0.0 Absolute nRBC <0.01 k/uL <0.01 DTYPE Auto Protein, Total 6.3 - 8.0 g/dL 7.2 Albumin 3.9 - 4.9 g/dL 4.2 Calcium 8.5 - 10.2 mg/dL 9.0 Bilirubin, Total 0.2 - 1.3 mg/dL 0.2 Alkaline Phosphatase 34 - 123 U/L 88 AST 13 - 35 U/L 24 ALT 7 - 38 U/L 23 Glucose 74 - 99 mg/dL 109 (H) BUN 7 - 21 mg/dL 17 Creatinine 0.58 - 0.96 mg/dL 0.74 Sodium 136 - 144 mmol/L 146 (H) Potassium 3.7 - 5.1 mmol/L 4.5 Chloride 97 - 105 mmol/L 107 (H) CO2 22 - 30 mmol/L 27 Anion Gap 9 - 18 mmol/L 12 eGFR >=60 mL/min/1.73m 90 Vitamin D 25 Hydroxy 31.0 - 80.0 ng/mL 49.9 Assessment IMPRESSION/PLAN: Gloria Lopez is a 62 year old year old female with abdominal bloating, fatigue, acid reflux, unintentional weight gain, osteoporosis, a history of metaplastic TNBC on the right (2019) and IDC on the left found (2005) to be BRCA1 positive (2020) and now s/p bilateral RRM with implant reconstruction and RR hysterectomy/BSO There is no evidence of malignancy. The patient was reassured as to the benign nature of her clinical findings. She understands that her risk has been reduced by 90-95%. She will be followed annually clinically. She will have a TSH and CA-125 blood test drawn. I have also recommended in the meantime, she schedule an appointment with her new PCP to further evaluate her abdominal bloating, reflux, weight gain and ongoing fatigue. Genetics referral made: No: Reason: BRCA1 positive as above. There is no family history of pancreatic cancer. She has two daughters, one that has tested positive in [place] and the other who was here at the visit today who lives locally and has not tested (Danielle). Danielle is encouraged to be seen in the [facility] for screening. She was previously given a genetics brochure and contact number to schedule an appointment. Chemoprevention discussion: N/A The patient is advised to exercise regularly, achieve/maintain ideal body weight, and to limit alcohol consumption to less than 7 drinks weekly for breast cancer risk reduction and overall health. Her colonoscopy is up-to-date. per patient She will be seen in 1 year for an annual exam. She will call me in the interim should she have any questions or concerns. Dr. Null would like to see her back virtually after 10/01/23. My final recommendations will be communicated back to the requesting physician by way of shared medical record or letter via US mail. I spent a total of 48 minutes on the date of the service which included preparing to see the patient, [id number] patient care, completing clinical documentation, obtaining and/or reviewing separately obtained history, performing a medically appropriate examination, counseling and educating the patient/family/caregiver, ordering medications, tests, or procedures, communicating with other HCPs (not separately reported), independently interpreting results (not separately reported), and care coordination (not separately reported). Inessa Andrew APRN.[facility] Medical Breast Specialist documented in this encounter [facility] 09-19-2022 Miscellaneous Notes Called [facility]. They have patient scheduled with Dr. Claire on 10/24 @ 3:15. Georgette Harley Called [facility] office. They have received this referral and have called and left patient message to call their office back to schedule. Their office will call and try reaching back out to patient later today. Georgette Harley Records faxed to [facility]. Tiana: Information ready for you. Georgette Harley Please refer Gloria back to [facility] in the [facility] bldg. Seen before a few years ago. now needs appt for chest skin lesion. Tiana, Please fax records Jey, Please print info for [facility]iana to fax. Thank you ladies documented in this encounter [facility] 09-09-2022 Instructions Tino Mcguire APRN.[facility] - 09/09/2022 3:09 PM EDT BONE MINERAL DENSITY PATIENT INSTRUCTIONS ======= Bone mineral density testing measures the amount of calcium in certain parts of your bones. This information determines how strong your bones are. The test is used to detect osteoporosis, a disease in which the bone's mineral content and density are low, increasing a person's risk of fractures. The lumbar spine (lower back) and the hip are the skeletal sites usually examined. For the test, remember that: 1. You cannot take this test if you are . 2. Eat a normal diet on the day of the test. 3. Take your medications as you normally would. 4. DO NOT take calcium supplements (such as Tums) for 24 hours before the test. 5. On the day of the test, leave valuables (jewelry or credit cards) at home. 6. The test should be performed prior to oral, rectal or IV contrast studies, or at least 7 days after any of these studies. For the test, you may be asked to wear a hospital gown. You will lie on your back, on a padded table, in a comfortable position. Generally, you can resume your usual activities immediately. documented in this encounter [facility] 09-09-2022 History of Present illness Narrative Images from the original note were not included. NAME: Gloria Lopez CLINIC NO.: [id number] DATE OF SERVICE: September 09, 2022 ([place]) Some elements in this clinic note that are critical to medical decision making have been carefully reviewed and included from a prior clinic note dated: June 03, 2022. (Dr. Bernal) Referring Provider: Dr. Jacquelyn Villagran Additional Clinicians involved in Gloria Lopez's care: Dr. Gabe Garcia, Dr. Saji Suarez CC: Follow up. ASSESSMENT: 62 year old woman with right upper inner quadrant invasive ductal carcinoma grade 3 diagnosed by ultrasound-guided vacuum-assisted biopsy with clip placement on 03/11/2020 receptor status is ER WI negative HER-2/sabas by IHC (0) negative. She underwent breast conserving surgery on 04/22/2020. Pathologic stage T1b N0 M0, grade 3 with associated high-grade DCIS. Stage IB. She completed 4 cycles of adjuvant chemotherapy. (TC) through 08/10/2021 She has a previous history of left-sided infiltrating ductal carcinoma ER WI negative HER-2/sabas positive diagnosed in 2005 T2N0 for which she had a lumpectomy followed by radiation with chemotherapy and Herceptin for 1 year. She completed treatment January 2008. CT chest shows left reticulonodular changes that will need to be followed. 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 01/2021 - 02/2021 completed bilateral mastectomy and MADHAVI/BSO Ovarian vein thrombus - unclear etiology - Now resolved on low dose Xarelto. PLAN: Start baby ASA daily. Follow up in 6 months with labs same day. Refer back to [facility]ology at [facility] for chest lesion. Also ordered repeat DEXA scan. If DEXA scan shows osteopenia/osteoporosis we will refer patient back to her PCP for further management. HPI: Updated Visit, September 09, 2022: Gloria Lopez returns for follow-up. She admits to not starting to take a baby aspirin as recommended. She has exertional shortness of breath. 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 She states that the vice president global advertising sales is trying multiple different inhalers. She denies cough. She denies bilateral leg/calf pain. She denies breast/chest lumps or bumps. She has bilateral implants. She has a follow-up scheduled with the breast specialist in October. She has deferred the breast exam for today. Overall, she is doing well. She has some concerns regarding a lesion to her upper chest and has requested to be referred back to dermatology. Updated Visit, June 03, 2022: Gloria returns - reviewed labs and CT Abd/Pelvis. Ovarian vein non-occlusive thrombus resolved [facility]. Weight gain with associated fatigue and dyspnea. Possibly developed apnea. Also has underlying emphysema. Labs stable. Updated Visit, March 11, 2022: Glroia returns and is experiencing fatigue which may most likely be related to her emphysema. Also has a clot in her right ovarian vein - non- occlusive but new upon review of her Ctscan. No other evidence of metastatic or local recurrence. Updated Visit, September 10, 2021: Had her implants revision 3 weeks ago and is still sore. CT reviewed and will get CT abd/Pelvis next visit for better evaluation of hypodensity noted in spleen. Labs stable. She is otherwise doing well. Her sister Lazaro was not present. Updated Visit, June 14, 2021: Implants done in 04/2021 are head still operator but she is otherwise well. She will need a second corrective surgery for appropriate cosmesis and reconstruction which will potentially occur in 07/2021. CT chest with nodules noted in June 2020 will be repeated in order to follow to resolution. Updated Visit, March 11, 2021: Returns alone today - her sister Lazaro is working. Expanders in place and MADHAVI completed in 02/10/2021 - benign findings. Due for implant placement 05/03/2021 Counts recovered and doing well. Anxiety abated. Updated Visit, December 10, 2020: Will complete mastectomy and recon Will proceed with MADHAVI/BSO No issues currently. Is much calmer and is happy with discussion and treatment plan. Updated Visit, October 15, 2020: Gloria returns by herself today and has decided to proceed with mastectomy with reconstruction which I fully support. She will also proceed with bilateral oophorectomy. I will see her after she has completed her surgery. She has TNB Ca so we will monitor clinically. Updated Visit, October 05, 2020: Gloria returns with her sister Lazaro. She is struggling with decision of bilateral mastectomy given her newly found BRCA1 exon 21 deletion. She was seen for a full discussion with Dr. Null last week and presents today to discuss her thoughts. She understands and will plan on pursuing oophorectomy but is still having a great deal of anxiety regarding bilateral mastectomy with or without reconstruction especially given the difficulty reconstructing her left breast where she had radiation. We will spend more time after she's had a few weeks to think over her choices. Updated Visit, September 07, 2020: Gloria is 60 years old and returns today. She is status post right breast conservative therapy on 04/22/2020 and is undergoing 4 cycles of adjuvant therapy for TNBC. She had left breast cancer Her2+ in 2005 for which she had EGFR targeting therapy at the time. Her sister Lazaro is with her. Sinuses draining, quit smoking, not coughing as much, just fatigued and not keeping up with flluids - appetite is slowly improving. Significant loss of skin turgor noted. Genetic testing shows BRCA1 + and we entered a discussion on the appropriate risk reduction. I will discuss with Dr. Garcia, as well as Dr. Suarez. Updated Visit, August 10, 2020: Gloria is 60 years old and returns today. She is status post right breast conservative therapy on 04/22/2020 and is undergoing 4 cycles of adjuvant therapy for TNBC. She had some mucositis this time around - particularly affecting her nasal mucosa. We will manage conservatively. She'll be ready for adjuvant radiation in 4 weeks. Updated Visit, July 20, 2020: Gloria is 60 years old and returns today. She is status post right breast conservative therapy on 04/22/2020 and is undergoing 4 cycles of adjuvant therapy for TNBC. She had left breast cancer Her2+ in 2005 for which she had EGFR targeting therapy at the time. She's doing well with tolerance and seems to tolerated the pain from Neulasta better using dexamethasone. Updated Visit, June 29, 2020: Gloria is 60 years old and returns today. She is status post right breast conservative therapy on 04/22/2020. I presented her case for triple negative breast cancer to central tumor board and they agreed with the plan for additional chemotherapy with Taxotere and Cytoxan. Recommendations were also made for restaging studies in addition to genetic counseling as this was her second episode of breast cancer; the first being in 2005 with HER-2 positive disease on the left side. Her staging studies were reviewed personally and reveal no evidence of disease aside from inflammatory / infectious lung changes with emphysema that will need to be followed. Her genetic testing was negative. She reports that 1 - 2 days after treatment her hands and knuckles got really red and wind burnt, but aside from this, she has tolerated treatment very well. Updated Visit, June 11, 2020: Gloria is 60 and completed her first cycle of TC followed by on pro and returns for fredis counts today. She experienced bone aches from Onpro and will try Claritin D and dexamethasone next time. Her counts have held and she is not neutropenic. She reports that she is having difficulty sleeping due to anxiety from current condition. She is otherwise doing well. She will be due for staging studies that we had discussed during tumor board and will delay her next treatment by 1 week. She will also be due for genetic counseling when she can get scheduled. Updated visit, June 01, 2020: Gloria is 60 years old and returns today. She is status post right breast conservative therapy on 04/22/2020. I presented her case for triple negative breast cancer to central tumor board and they agreed with the plan for additional chemotherapy with Taxotere and Cytoxan. Recommendations were also made for restaging studies in addition to genetic counseling as this was her second episode of breast cancer; the first being in 2005 with HER-2 positive disease on the left side. She is prepared to proceed today. Updated visit, May 18, 2020: Gloria is 59 years old and returns in follow-up following her breast conserving surgery with Dr. Gabe Garcia on 04/22/2020. I reviewed her pathology with her and because of her high-grade disease as well as being triple negative, I am recommending that she proceed with 4 cycles of Taxotere plus Cytoxan in the adjuvant setting. She had numerous questions as well as significant anxiety regarding the change in therapy compared to what she got 2006 which I explained the purpose of as well as the limitations of additional treatments using Adriamycin. In addition to this I explained why Herceptin would not be used in her scenario and I also went over all of the immediate side effects that she could expect. Since her degree of anxiety was remain fairly high, I proposed to present her case at multidisciplinary tumor board and would plan to get a Mediport accordingly anticipating everyone's agreement. She has done well following surgery and has very little pain but she noted some bleeding from the wound 2 days ago and on my examination reveals a healing wound with no dehiscence and just a small area of scabbing. Updated visit, April 20, 2020: Gloria is 59 years old and returns in follow-up for her second contralateral breast cancer of the right breast diagnosed 03/11/2020 in the right upper inner quadrant consistent with triple negative disease. She returns with her sister Lazaro today. Overall she is doing well, she is very happy with her surgeon Dr. Garcia and will be proceeding with breast conservation next few weeks. She will return to discuss any role for adjuvant therapy based on histopathologic findings. Initial Visit, March 23, 2020: Gloria Lopez presents today Hematology and Oncology evaluation. She is a 59 year old female who is accompanied by her Sister Julianna (Lazaro). She has a prior history of T2N0 HER-2 positive receptor negative breast cancer left breast diagnosed in 2005 completing lumpectomy, followed by chemotherapy and radiation and concluded 1 year of Herceptin in January 2008. She now presents with a newly diagnosed (03/11/2020) right upper inner quadrant, small breast mass noted on screening mammography biopsy-proven to be triple negative disease. She was referred for an oncologic opinion. RADIOGRAPHIC DATA: Reviewed on 06/29/2020 2. 06/23/2020 CT CAP: Chest: 1. New mild reticulonodular opacities in the bilateral lung adams, right greater than left, most likely infectious/inflammatory in etiology. Superimposed neoplasm cannot be excluded. Consider follow-up to complete resolution. 2. Gastroesophageal reflux. 3. Moderate emphysematous changes of the lungs. Abd/Pelvis: 1. No evidence of intra-abdominal/pelvic metastases. 2. Sigmoid colon diverticulosis without evidence of diverticulitis. 1. Outside reports reviewed PATHOLOGIC PROFILE/MOLECULAR DATA: Reviewed on March 23, 2020 4. 04/22/2020 right breast lumpectomy and axillary lymph node: Specimen #: [id number] Submitting Physician: GABE GARCIA MD FINAL DIAGNOSIS 1. Right axillary sentinel lymph node #1, excision (A) - One lymph node, negative for metastatic carcinoma (0/1). 2. Right breast, mass, lumpectomy (B) - Invasive ductal carcinoma, see comment. - Ductal carcinoma in situ, solid type, nuclear grade 3. 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 3. Right breast, deep margin, excision (C) - Unremarkable fibroadipose tissue. 4. Right breast, inferior margin, excision (D) - Unremarkable breast parenchyma. 5. Right breast, superior margin, excision (E) - Unremarkable fibroadipose tissue. 6. Right breast, medial margin, excision (F) - Unremarkable fibroadipose tissue. 7. Right breast, anterior margin, excision (G) - Unremarkable fibroadipose tissue. 8. Right breast, lateral margin, excision (H) - Unremarkable breast parenchyma. JJR/dbeloise 04/24/2020 [facility]IC REPORT OF [place] PATHOLOGIC FINDINGS RIGHT BREAST MASS: BREAST INVASIVE CARCINOMA WORKSHEET Part: B Procedure: Excision (less than total mastectomy) Specimen Laterality: Right Tumor size: Size of largest invasive carcinoma: Greatest dimension of largest focus of invasion >1 mm: 10 mm Tumor Focality: Single focus of invasive carcinoma Histologic Type of Invasive Carcinoma: Invasive carcinoma of no special type (ductal, not otherwise specified) Histologic Grade: Glandular (Acinar) / Tubular Differentiation: Score 3 Nuclear Pleomorphism: Score 3 Mitotic Rate: Score 3 Overall Grade: Grade III Ductal Carcinoma In Situ: Present Architectural Patterns: Architectural Pattern:Solid DCIS Nuclear Grade: Grade III (high) DCIS Necrosis: Not identified Tumor Extension: Skin: Skin is not present Nipple: Not applicable, no nipple is present Skeletal muscle: No skeletal muscle is present Invasive Carcinoma Margins: Margins uninvolved by invasive carcinoma Distance from closest margin: 4 mm Closest margin: deep DCIS Margins: Margins uninvolved by DCIS Specify (if <2mm) closest margin: 1.5 mm Closest margin: anterior Lymph Nodes: Uninvolved by tumor cells Total number of lymph nodes examined: 1 Number of sentinel lymph nodes examined: 1 Treatment Effect: No known presurgical therapy Lymph-Vascular Invasion: Cannot be determined Pathologic Stage Classification (pTNM,AJCC 8th ed) TNM Descriptor(s): Not applicable Primary Tumor (Invasive Carcinoma) (pT): pT1b Regional Lymph Nodes (pN): Modifier: (sn): [place] node(s) evaluated Category (pN): pN0 Distant metastasis: Distant Metastasis (pM) Not applicable/Not confirmed pathologically in this case Estrogen & progesterone receptors: Previously performed and reported as follows: Estrogen receptor: negative 0 Progesterone receptor: negative 0 Specimen number #: [id number] (HER2) ERBB2 Status: Previously performed and reported as follows: HER2:negative 0 Specimen number #: [id number] Metallurgy Laboratory Technician Tumor Block: Specify: B10 3. 03/11/2020 right breast mass 1:00 ultrasound-guided core biopsy: Invasive ductal carcinoma, provisional grade 3 measuring up to 8 mm in greatest dimension. Immunohistochemical stains of p63 and myosin heavy chain have been used for the evaluation of the specimen. There is no cyst evidence of in situ component. Immunostains for synaptophysin and chromogranin are negative. Estrogen receptor by IHC is 0, progesterone receptor by IHC is 0 HER-2/sabas by IHC is 0 2. 05/22/2006 left sentinel lymph node biopsy axilla, left breast lumpectomy: No malignant tumor identified, (2). Bilateral bone marrow aspirates from anterior iliac crest were also obtained and 1 tumor cell was found using the CAM 5.2/AE-1 antibody. 1. 05/12/2006 left breast medial upper quadrant biopsy: Infiltrating ductal carcinoma poorly differentiated, foci of intraductal carcinoma, comedo type. ER WI negative HER-2/sabas positive by FISH. REVIEW OF SYSTEMS Per HPI and otherwise negative by full review of organ systems. ECOG PERFORMANCE STATUS: 0 PHYSICAL EXAMINATION: Vitals: BP 126/76 Pulse 81 Temp (Src) 97.8 (Temporal) Resp 16 Ht 5' 2.008 (1.58m) Wt 171 lb 9.6 oz (77.8kg) SpO2 95% BMI 31.38 kg/(m^2). Body surface area is 1.84 meters squared. Exam limited to gross visualization where appropriate due to COVID-19. Gen.: This is an age-appropriate patient in no acute distress. Head: Appears atraumatic with no visible lesions. Eyes: Pupils equally round and reactive to light, extraocular muscles are intact. Neck: Supple. Mouth: Mucous membranes appeared to be moist. Respiratory: Appears to be respiring comfortably. Neurologic: Nonfocal to gross visualization. Alert and oriented 3. Psychiatric: No evidence of inappropriate anxiety or depression. Skin: Visible areas of skin without rash, lesions, wounds or petechiae. ALLERGIES: ALLERGIES Allergen Reactions Penicillins Unknown MEDICATIONS: magnesium oxide 400 mg magnesium cap Take by mouth. albuterol HFA (PROVENTIL HFA, VENTOLIN HFA) 90 mcg/actuation inhaler Inhale 2 Puffs as instructed every 4 hours as needed. cholecalciferol (VITAMIN D3) 50 mcg (2,000 unit) tablet Take 2,000 Units by mouth once daily. cyanocobalamin (VITAMIN B-12) 1,000 mcg tab Take 1,000 mcg by mouth once daily. Lactobacillus acidophilus (PROBIOTIC) 10 billion cell cap Take by mouth once daily. acetaminophen/diphenhydramine (TYLENOL PM ORAL) Take by mouth. sertraline (ZOLOFT) 100 mg tablet Take 1 tablet by mouth once daily. acetaminophen (TYLENOL EXTRA STRENGTH) 500 mg tablet Take 2 tablets by mouth every 6 hours as needed for pain. Two (2) X 500 mg tablets = 1,000 mg (Patient not taking: Reported on 09/09/2022) ibuprofen (MOTRIN) 600 mg tablet Take 1 tablet by mouth every 6 hours as needed for pain. acetaminophen (TYLENOL) 325 mg tablet Take 650 mg by mouth. (Patient not taking: Reported on 09/09/2022) LABORATORY VALUES: Hemoglobin (g/dL) Date Value 09/09/2022 12.5 06/14/2021 11.5 Hematocrit (%) Date Value 09/09/2022 40.3 06/14/2021 36.1 WBC (k/uL) Date Value 09/09/2022 8.98 06/14/2021 10.52 Platelet Count (k/uL) Date Value 09/09/2022 305 06/14/2021 276 DIAGNOSIS: (C50.919) Malignant neoplasm of female breast, unspecified estrogen receptor status, unspecified laterality, unspecified site of breast (HCC) (primary encounter diagnosis) (Z15.01, Z15.09) BRCA1 positive (I82.90) Acute deep vein thrombosis (DVT) of non-extremity vein (Z13.820) Encounter for screening for osteoporosis (L98.9) Chest skin lesion Plan: DXA-AXIAL SKELETON, CONSULT TO DERMATOLOGY PAST MEDICAL HISTORY Diagnosis Date Anxiety Breast asymmetry following reconstructive surgery 08/12/2021 Breast CA (HCC) Left; ER/[place]-; HER2 + Depression Menopause Overweight PAST SURGICAL HISTORY Procedure Laterality Date ABDOMINAL SURGERY HX 2016 hernia repair CHOLECYSTECTOMY HX COLONOSCOPY FRACTURE SURGERY femur fracture right as child HYSTERECTOMY Bilateral 01/2021 LUMPECTOMY/RADIOTHERAPY DIAG MAMM/A10 Left 2005 LUMPECTOMY/RADIOTHERAPY DIAG MAMM/A10 Right 04/22/2020 PAST SURGICAL HISTORY OF Insertion of MED-PORT PAST SURGICAL HISTORY OF 12/29/2020 bilateral mastectomy ( 12/29/2020) Social History Tobacco Use Smoking status: Former Packs/day: 1.00 Years: 43.00 Pack years: 43.00 Types: Cigarettes Quit date: 10/26/2020 Years since quittin.8 Smokeless tobacco: Never Vaping Use Vaping Use: Never used Substance Use Topics Alcohol use: Not Currently Drug use: Never FAMILY HISTORY Problem Relation Age of Onset Lung Cancer Father Diabetes Mother Stroke Mother Cancer Mother Ovarian cancer Maternal Grandmother other (Rectal cancer) Paternal Grandmother other (Rectal cancer) Paternal Uncle Anesthesia Problems No Family History Tino Mcguire APRN.[facility] Provided at: [place], [place] CC: Dr. Jacquelyn Villagran [address] [facility] [id number] [address] Gabe Null I spent a total of 30 minutes on the date of the service which included preparing to see the patient, [id number] patient care, completing clinical documentation, obtaining and/or reviewing separately obtained history, performing a medically appropriate examination, counseling and educating the patient/family/caregiver, ordering medications, tests, or procedures, independently interpreting results (not separately reported), and communicating results to the patient/family/caregiver. documented in this encounter [facility] 06-03-2022 Instructions Geraldo Bernal MD - 06/03/2022 3:10 PM EST Stop Xarelto for cleared thrombus Right ovarian vein Start BASA daily RTC in 3 months with labs same day. Continue Zoloft 100 mg daily documented in this encounter [facility] 06-03-2022 History of Present illness Narrative Images from the original note were not included. NAME: Jessica Gloria CLINIC NO.: [id number] DATE OF SERVICE: June 03, 2022 ([facility]) Some elements in this clinic note that are critical to medical decision making have been carefully reviewed and included from a prior clinic note dated: March 11, 2022 ([facility]) Referring Provider: Dr. Jacquelyn Villagran Additional Clinicians involved in Gloria Lopez's care: Saji Melissa CC: Follow up. ASSESSMENT: 62 year old woman with right upper inner quadrant invasive ductal carcinoma grade 3 diagnosed by ultrasound-guided vacuum-assisted biopsy with clip placement on 03/11/2020 receptor status is ER WI negative HER-2/sabas by IHC (0) negative. She underwent breast conserving surgery on 04/22/2020. Pathologic stage T1b N0 M0, grade 3 with associated high-grade DCIS. Stage IB. She completed 4 cycles of adjuvant chemotherapy. (TC) through 08/10/2021 She has a previous history of left-sided infiltrating ductal carcinoma ER WI negative HER-2/sabas positive diagnosed in 2005 T2N0 for which she had a lumpectomy followed by radiation with chemotherapy and Herceptin for 1 year. She completed treatment January 2008. CT chest shows left reticulonodular changes that will need to be followed. 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 01/2021 - 02/2021 completed bilateral mastectomy and MADHAIV/BSO Ovarian vein thrombus - unclear etiology - Now resolved on low dose Xarelto PLAN: Stop Xarelto for cleared thrombus Right ovarian vein Start BASA daily RTC in 3 months with labs same day. Continue Zoloft 100 mg daily HPI: Updated Visit, June 03, 2022: Gloria returns - reviewed labs and CT Abd/Pelvis. Ovarian vein non-occlusive thrombus resolved Continues follow up at [facility]. Weight gain with associated fatigue and dyspnea. Possibly developed apnea. Also has underlying emphysema. Labs stable. Updated Visit, March 11, 2022: Gloria returns and is experiencing fatigue which may most likely be related to her emphysema. Also has a clot in her right ovarian vein - non- occlusive but new upon review of her Ctscan. No other evidence of metastatic or local recurrence. Updated Visit, September 10, 2021: Had her implants revision 3 weeks ago and is still sore. CT reviewed and will get CT abd/Pelvis next visit for better evaluation of hypodensity noted in spleen. Labs stable. She is otherwise doing well. Her sister Lazaro was not present. Updated Visit, June 14, 2021: Implants done in 04/2021 are head still operator but she is otherwise well. She will need a second corrective surgery for appropriate cosmesis and reconstruction which will potentially occur in 07/2021. CT chest with nodules noted in June 2020 will be repeated in order to follow to resolution. Updated Visit, March 11, 2021: Returns alone today - her sister Lazaro is working. Expanders in place and MADHAVI completed in 02/10/2021 - benign findings. Due for implant placement 05/03/2021 Counts recovered and doing well. Anxiety abated. Updated Visit, December 10, 2020: Will complete mastectomy and recon Will proceed with MADHAVI/BSO No issues currently. Is much calmer and is happy with discussion and treatment plan. Updated Visit, October 15, 2020: Gloria returns by herself today and has decided to proceed with mastectomy with reconstruction which I fully support. She will also proceed with bilateral oophorectomy. I will see her after she has completed her surgery. She has TNB Ca so we will monitor clinically. Updated Visit, October 05, 2020: Gloria returns with her sister Lazaro. She is struggling with decision of bilateral mastectomy given her newly found BRCA1 exon 21 deletion. She was seen for a full discussion with Dr. Null last week and presents today to discuss her thoughts. She understands and will plan on pursuing oophorectomy but is still having a great deal of anxiety regarding bilateral mastectomy with or without reconstruction especially given the difficulty reconstructing her left breast where she had radiation. We will spend more time after she's had a few weeks to think over her choices. Updated Visit, September 07, 2020: Gloria is 60 years old and returns today. She is status post right breast conservative therapy on 04/22/2020 and is undergoing 4 cycles of adjuvant therapy for TNBC. She had left breast cancer Her2+ in 2005 for which she had EGFR targeting therapy at the time. Her sister Lazaro is with her. Sinuses draining, quit smoking, not coughing as much, just fatigued and not keeping up with flluids - appetite is slowly improving. Significant loss of skin turgor noted. Genetic testing shows BRCA1 + and we entered a discussion on the appropriate risk reduction. I will discuss with Dr. Garcia, as well as Dr. Suarez. Updated Visit, August 10, 2020: Gloria is 60 years old and returns today. She is status post right breast conservative therapy on 04/22/2020 and is undergoing 4 cycles of adjuvant therapy for TNBC. She had some mucositis this time around - particularly affecting her nasal mucosa. We will manage conservatively. She'll be ready for adjuvant radiation in 4 weeks. Updated Visit, July 20, 2020: Gloria is 60 years old and returns today. She is status post right breast conservative therapy on 04/22/2020 and is undergoing 4 cycles of adjuvant therapy for TNBC. She had left breast cancer Her2+ in 2005 for which she had EGFR targeting therapy at the time. She's doing well with tolerance and seems to tolerated the pain from Neulasta better using dexamethasone. Updated Visit, June 29, 2020: Gloria is 60 years old and returns today. She is status post right breast conservative therapy on 04/22/2020. I presented her case for triple negative breast cancer to central tumor board and they agreed with the plan for additional chemotherapy with Taxotere and Cytoxan. Recommendations were also made for restaging studies in addition to genetic counseling as this was her second episode of breast cancer; the first being in 2005 with HER-2 positive disease on the left side. Her staging studies were reviewed personally and reveal no evidence of disease aside from inflammatory / infectious lung changes with emphysema that will need to be followed. Her genetic testing was negative. She reports that 1 - 2 days after treatment her hands and knuckles got really red and wind burnt, but aside from this, she has tolerated treatment very well. Updated Visit, June 11, 2020: Gloria is 60 and completed her first cycle of TC followed by on pro and returns for fredis counts today. She experienced bone aches from Onpro and will try Claritin D and dexamethasone next time. Her counts have held and she is not neutropenic. She reports that she is having difficulty sleeping due to anxiety from current condition. She is otherwise doing well. She will be due for staging studies that we had discussed during tumor board and will delay her next treatment by 1 week. She will also be due for genetic counseling when she can get scheduled. Updated visit, June 01, 2020: Gloria is 60 years old and returns today. She is status post right breast conservative therapy on 04/22/2020. I presented her case for triple negative breast cancer to central tumor board and they agreed with the plan for additional chemotherapy with Taxotere and Cytoxan. Recommendations were also made for restaging studies in addition to genetic counseling as this was her second episode of breast cancer; the first being in 2005 with HER-2 positive disease on the left side. She is prepared to proceed today. Updated visit, May 18, 2020: Gloria is 59 years old and returns in follow-up following her breast conserving surgery with Dr. Gabe Garcia on 04/22/2020. I reviewed her pathology with her and because of her high-grade disease as well as being triple negative, I am recommending that she proceed with 4 cycles of Taxotere plus Cytoxan in the adjuvant setting. She had numerous questions as well as significant anxiety regarding the change in therapy compared to what she got 2006 which I explained the purpose of as well as the limitations of additional treatments using Adriamycin. In addition to this I explained why Herceptin would not be used in her scenario and I also went over all of the immediate side effects that she could expect. Since her degree of anxiety was remain fairly high, I proposed to present her case at multidisciplinary tumor board and would plan to get a Mediport accordingly anticipating everyone's agreement. She has done well following surgery and has very little pain but she noted some bleeding from the wound 2 days ago and on my examination reveals a healing wound with no dehiscence and just a small area of scabbing. Updated visit, April 20, 2020: Gloria is 59 years old and returns in follow-up for her second contralateral breast cancer of the right breast diagnosed 03/11/2020 in the right upper inner quadrant consistent with triple negative disease. She returns with her sister Lazaro today. Overall she is doing well, she is very happy with her surgeon Dr. Garcia and will be proceeding with breast conservation next few weeks. She will return to discuss any role for adjuvant therapy based on histopathologic findings. Initial Visit, March 23, 2020: Gloria Lopez presents today Hematology and Oncology evaluation. She is a 59 year old female who is accompanied by her Sister Julianna (Lazaro). She has a prior history of T2N0 HER-2 positive receptor negative breast cancer left breast diagnosed in 2005 completing lumpectomy, followed by chemotherapy and radiation and concluded 1 year of Herceptin in January 2008. She now presents with a newly diagnosed (03/11/2020) right upper inner quadrant, small breast mass noted on screening mammography biopsy-proven to be triple negative disease. She was referred for an oncologic opinion. RADIOGRAPHIC DATA: Reviewed on 06/29/2020 2. 06/23/2020 CT CAP: Chest: 1. New mild reticulonodular opacities in the bilateral lung adasm, right greater than left, most likely infectious/inflammatory in etiology. Superimposed neoplasm cannot be excluded. Consider follow-up to complete resolution. 2. Gastroesophageal reflux. 3. Moderate emphysematous changes of the lungs. Abd/Pelvis: 1. No evidence of intra-abdominal/pelvic metastases. 2. Sigmoid colon diverticulosis without evidence of diverticulitis. 1. Outside reports reviewed PATHOLOGIC PROFILE/MOLECULAR DATA: Reviewed on March 23, 2020 4. 04/22/2020 right breast lumpectomy and axillary lymph node: Specimen #: [id number] Submitting Physician: GABE GARCIA MD FINAL DIAGNOSIS 1. Right axillary sentinel lymph node #1, excision (A) - One lymph node, negative for metastatic carcinoma (0/1). 2. Right breast, mass, lumpectomy (B) - Invasive ductal carcinoma, see comment. - Ductal carcinoma in situ, solid type, nuclear grade 3. 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 3. Right breast, deep margin, excision (C) - Unremarkable fibroadipose tissue. 4. Right breast, inferior margin, excision (D) - Unremarkable breast parenchyma. 5. Right breast, superior margin, excision (E) - Unremarkable fibroadipose tissue. 6. Right breast, medial margin, excision (F) - Unremarkable fibroadipose tissue. 7. Right breast, anterior margin, excision (G) - Unremarkable fibroadipose tissue. 8. Right breast, lateral margin, excision (H) - Unremarkable breast parenchyma. JJR/rosario 04/24/2020 [facility] REPORT OF [place] PATHOLOGIC FINDINGS RIGHT BREAST MASS: BREAST INVASIVE CARCINOMA WORKSHEET Part: B Procedure: Excision (less than total mastectomy) Specimen Laterality: Right Tumor size: Size of largest invasive carcinoma: Greatest dimension of largest focus of invasion >1 mm: 10 mm Tumor Focality: Single focus of invasive carcinoma Histologic Type of Invasive Carcinoma: Invasive carcinoma of no special type (ductal, not otherwise specified) Histologic Grade: Glandular (Acinar) / Tubular Differentiation: Score 3 Nuclear Pleomorphism: Score 3 Mitotic Rate: Score 3 Overall Grade: Grade III Ductal Carcinoma In Situ: Present Architectural Patterns: Architectural Pattern:Solid DCIS Nuclear Grade: Grade III (high) DCIS Necrosis: Not identified Tumor Extension: Skin: Skin is not present Nipple: Not applicable, no nipple is present Skeletal muscle: No skeletal muscle is present Invasive Carcinoma Margins: Margins uninvolved by invasive carcinoma Distance from closest margin: 4 mm Closest margin: deep DCIS Margins: Margins uninvolved by DCIS Specify (if <2mm) closest margin: 1.5 mm Closest margin: anterior Lymph Nodes: Uninvolved by tumor cells Total number of lymph nodes examined: 1 Number of sentinel lymph nodes examined: 1 Treatment Effect: No known presurgical therapy Lymph-Vascular Invasion: Cannot be determined Pathologic Stage Classification (pTNM,AJCC 8th ed) TNM Descriptor(s): Not applicable Primary Tumor (Invasive Carcinoma) (pT): pT1b Regional Lymph Nodes (pN): Modifier: (sn): [place] node(s) evaluated Category (pN): pN0 Distant metastasis: Distant Metastasis (pM) Not applicable/Not confirmed pathologically in this case Estrogen & progesterone receptors: Previously performed and reported as follows: Estrogen receptor: negative 0 Progesterone receptor: negative 0 Specimen number #: [id number] (HER2) ERBB2 Status: Previously performed and reported as follows: HER2:negative 0 Specimen number #: [id number] Met[employer] Laboratory Technician Tumor Block: Specify: B10 3. 03/11/2020 right breast mass 1:00 ultrasound-guided core biopsy: Invasive ductal carcinoma, provisional grade 3 measuring up to 8 mm in greatest dimension. Immunohistochemical stains of p63 and myosin heavy chain have been used for the evaluation of the specimen. There is no cyst evidence of in situ component. Immunostains for synaptophysin and chromogranin are negative. Estrogen receptor by IHC is 0, progesterone receptor by IHC is 0 HER-2/sabas by IHC is 0 2. 05/22/2006 left sentinel lymph node biopsy axilla, left breast lumpectomy: No malignant tumor identified, (2). Bilateral bone marrow aspirates from anterior iliac crest were also obtained and 1 tumor cell was found using the CAM 5.2/AE-1 antibody. 1. 05/12/2006 left breast medial upper quadrant biopsy: Infiltrating ductal carcinoma poorly differentiated, foci of intraductal carcinoma, comedo type. ER WI negative HER-2/sabas positive by FISH. REVIEW OF SYSTEMS Per HPI and otherwise negative by full review of organ systems. ECOG PERFORMANCE STATUS: 0 PHYSICAL EXAMINATION: Vitals: BP 107/60 Pulse 78 Temp (Src) 97.8 (Temporal) Resp 16 Ht 5' 2.008 (1.58m) Wt 167 lb 12.8 oz (76.1kg) SpO2 94% BMI 30.68 kg/(m^2). Body surface area is 1.82 meters squared. Exam limited to gross visualization where appropriate due to COVID-19. Gen.: This is an age-appropriate patient in no acute distress. Head: Appears atraumatic with no visible lesions. Eyes: Pupils equally round and reactive to light, extraocular muscles are intact. Neck: Supple. Mouth: Mucous membranes appeared to be moist. Respiratory: Appears to be respiring comfortably. Neurologic: Nonfocal to gross visualization. Alert and oriented 3. Psychiatric: No evidence of inappropriate anxiety or depression. Skin: Visible areas of skin without rash, lesions, wounds or petechiae. ALLERGIES: ALLERGIES Allergen Reactions Penicillins Unknown MEDICATIONS: rivaroxaban (XARELTO) 10 mg tablet Take 1 tablet by mouth once daily. cholecalciferol (VITAMIN D3) 50 mcg (2,000 unit) tablet Take 2,000 Units by mouth once daily. cyanocobalamin (VITAMIN B-12) 1,000 mcg tab Take 1,000 mcg by mouth once daily. Lactobacillus acidophilus (PROBIOTIC) 10 billion cell cap Take by mouth once daily. sertraline (ZOLOFT) 100 mg tablet Take 1 tablet by mouth once daily. albuterol HFA (PROVENTIL HFA, VENTOLIN HFA) 90 mcg/actuation inhaler Inhale 2 Puffs as instructed every 4 hours as needed. acetaminophen (TYLENOL EXTRA STRENGTH) 500 mg tablet Take 2 tablets by mouth every 6 hours as needed for pain. Two (2) X 500 mg tablets = 1,000 mg ibuprofen (MOTRIN) 600 mg tablet Take 1 tablet by mouth every 6 hours as needed for pain. acetaminophen/diphenhydramine (TYLENOL PM ORAL) Take by mouth. acetaminophen (TYLENOL) 325 mg tablet Take 650 mg by mouth. LABORATORY VALUES: WBC (k/uL) Date Value 05/27/2022 7.51 RBC (m/uL) Date Value 05/27/2022 4.47 Hemoglobin (g/dL) Date Value 05/27/2022 13.0 Hematocrit (%) Date Value 05/27/2022 40.8 MCV (fL) Date Value 05/27/2022 91.3 MCH (pg) Date Value 05/27/2022 29.1 MCHC (g/dL) Date Value 05/27/2022 31.9 RDW-CV (%) Date Value 05/27/2022 12.7 Platelet Count (k/uL) Date Value 05/27/2022 321 MPV (fL) Date Value 05/27/2022 9.5 Glucose (mg/dL) Date Value 05/27/2022 121 (H) BUN (mg/dL) Date Value 05/27/2022 16 Creatinine (mg/dL) Date Value 05/27/2022 0.67 Sodium (mmol/L) Date Value 05/27/2022 137 Potassium (mmol/L) Date Value 05/27/2022 4.1 Chloride (mmol/L) Date Value 05/27/2022 101 CO2 (mmol/L) Date Value 05/27/2022 29 Protein, Total (g/dL) Date Value 05/27/2022 6.8 Albumin (g/dL) Date Value 05/27/2022 4.2 Calcium, Total (mg/dL) Date Value 05/27/2022 9.0 Alkaline Phosphatase (U/L) Date Value 05/27/2022 90 Bilirubin, Total (mg/dL) Date Value 05/27/2022 0.3 AST (U/L) Date Value 05/27/2022 19 ALT (U/L) Date Value 05/27/2022 19 DIAGNOSIS: (C50.919) Malignant neoplasm of female breast, unspecified estrogen receptor status, unspecified laterality, unspecified site of breast (HCC) (primary encounter diagnosis) Plan: CBC + DIFF, COMP METABOLIC PANEL, VITAMIN D 25 HYDROXY, VITAMIN D1 25-DIHYDR (Z15.01, Z15.09) BRCA1 positive Plan: CBC + DIFF, COMP METABOLIC PANEL, VITAMIN D 25 HYDROXY, VITAMIN D1 25-DIHYDR (M81.0) Age-related osteoporosis without current pathological fracture Plan: CBC + DIFF, COMP METABOLIC PANEL, VITAMIN D 25 HYDROXY, VITAMIN D1 25-DIHYDR PAST MEDICAL HISTORY Diagnosis Date Anxiety Breast asymmetry following reconstructive surgery 08/12/2021 Breast CA (HCC) Left; [place]-; HER2 + Depression Menopause Overweight PAST SURGICAL HISTORY Procedure Laterality Date ABDOMINAL SURGERY HX 2016 hernia repair CHOLECYSTECTOMY HX COLONOSCOPY FRACTURE SURGERY femur fracture right as child HYSTERECTOMY Bilateral 01/2021 LUMPECTOMY/RADIOTHERAPY DIAG MAMM/A10 Left 2005 LUMPECTOMY/RADIOTHERAPY DIAG MAMM/A10 Right 04/22/2020 PAST SURGICAL HISTORY OF Insertion of MED-PORT PAST SURGICAL HISTORY OF 12/29/2020 bilateral mastectomy ( 12/29/2020) Social History Tobacco Use Smoking status: Former Packs/day: 1.00 Years: 43.00 Pack years: 43.00 Types: Cigarettes Quit date: 10/26/2020 Years since quittin.6 Smokeless tobacco: Never Vaping Use Vaping Use: Never used Substance Use Topics Alcohol use: Not Currently Drug use: Never FAMILY HISTORY Problem Relation Age of Onset Lung Cancer Father Diabetes Mother Stroke Mother Cancer Mother Ovarian cancer Maternal Grandmother other (Rectal cancer) Paternal Grandmother other (Rectal cancer) Paternal Uncle Anesthesia Problems No Family History I spent a total of 30 minutes on the date of the service which included preparing to see the patient, [id number] patient care, completing clinical documentation, performing a medically appropriate examination, counseling and educating the patient/family/caregiver, ordering medications, tests, or procedures, and independently interpreting results (not separately reported). Geraldo Bernal MD, CPE Hematology and Oncology Services Provided at: [place], [place] CC: Jacquelyn Villagran MD [address] [facility] [id number] Gabe Null documented in this encounter [facility] 05-27-2022 History of Present illness Narrative Radiology Service Progress Note DATE OF SERVICE: May 27, 2022 TIME: 9:43 AM PATIENT WEIGHT: 165 LBS PATIENT IDENTITY VERIFICATION COMPLETED USING TWO (2) STANDARD IDENTIFIERS: Name and Date of confirmed by patient verbally. FALL SCREENING: Has the patient had 2 falls in the last year or 1 fall with injury or currently using an Ambulatory Assistive Device (Walker, Cane, Wheelchair, Crutches, etc.)? No PATIENT GENDER DATA: Female. status: : No status: NO. ALLERGIES: Reviewed and unchanged CONTRAST ALLERGY: No EXAM: CT -CONTRAST INDUCED NEPHROPATHY RISK FACTORS: Patient age > 60 years CREATININE: Creatinine Date Value Ref Range Status 05/27/2022 0.67 0.58 - 0.96 mg/dL Final 03/04/2022 0.70 0.58 - 0.96 mg/dL Final 09/07/2021 0.69 0.58 - 0.96 mg/dL Final Estimated Glomerular Filtration Rate Date Value Ref Range Status 05/27/2022 98 >=60 mL/min/1.73m Final Comment: Estimated Glomerular Filtration Rate (eGFR) is calculated using the 2020 CKD-EPI creatinine equation. This equation utilizes serum creatinine, sex, and age as parameters. The creatinine assay has traceable calibration to isotope dilution-mass spectrometry. Refer to KDIGO guidelines for clinical interpretation. In patients with unstable renal function, e.g. those with acute kidney injury, the eGFR may not accurately reflect actual GFR. eGFR- Date Value Ref Range Status 06/14/2021 >60 Final P.O.C.T. RESULTS: POC done: Yes, See Lab Tab May 27, 2022 TREATMENT: No Hydration needed. IV SITE: Ambulatory: A peripheral IV was started in the Right antecubital site with a Angio cath: 20 gauge. IV SITE APPEARANCE: Clean,Dry and Intact SIGNATURE: Denise Salvador RN PATIENT NAME: Gloria Lopez DATE: May 27, 2022 TIME: 9:43 AM Radiology Service Progress Note PATIENT NAME: Gloria Lopez DATE OF SERVICE: May 27, 2022 TIME: 9:50 AM PATIENT IDENTITY VERIFICATION COMPLETED USING TWO (2) IDENTIFIERS: Name and Date of confirmed by patient verbally. FALL SCREENING: Has the patient had 2 falls in the last year or 1 fall with injury or currently using an Ambulatory Assistive Device (Walker, Cane, Wheelchair, Crutches, etc.)? No PATIENT GENDER DATA: Female. status: : No status: NO. PATIENT RELEVANT IMPLANT DATA REVIEWED: Not Applicable RADIOLOGY DEPARTMENT: CT; Exam(s) Completed: Abdomen/Pelvis With IV and Oral contrast PERIPHERAL IV DATA: Site assessment: Clean,Dry and Intact, Site disposition Discontinued SIGNED BY: RT Osman(R) May 27, 2022 9:50 AM documented in this encounter [facility] 05-06-2022 Miscellaneous Notes Gloria Lopez is coming in for CT abd/pel with labs on 05/27/22 with 3 month office follow up on 06/03/22. Pended labs for you to sign based on last office note. Please sign if you agree. Thank you Denise Salvador RN documented in this encounter [facility] 03-11-2022 Instructions Geraldo Bernal MD - 03/11/2022 3:34 PM EDT Start Xarelto for thrombus Right ovarian vein Repeat Ct Abd Pelvis in 3 months with labs same day RTC 1 week after to review. Continue Zoloft 100 mg daily documented in this encounter [facility] 03-11-2022 History of Present illness Narrative Images from the original note were not included. NAME: Gloria Lopez CLINIC NO.: [id number] DATE OF SERVICE: March 11, 2022 Some elements in this clinic note that are critical to medical decision making have been carefully reviewed and included from a prior clinic note dated: September 10, 2021 Referring Provider: Dr. Jacquelyn Villagran Additional Clinicians involved in Gloria Lopez's care: Saji Melissa CC: Follow up for adjuvant therapy. ASSESSMENT: 59-year-old woman with new diagnosis of right upper inner quadrant invasive ductal carcinoma grade 3 diagnosed by ultrasound-guided vacuum-assisted biopsy with clip placement on 03/11/2020 receptor status is ER WI negative HER-2/sabas by IHC is 0 also negative. She underwent breast conserving surgery on 04/22/2020. Pathologic stage T1b N0 M0, grade 3 with associated high-grade DCIS. Stage IB. She completed 4 cycles of adjuvant chemotherapy. (TC) through 08/10/2021 She has a previous history of left-sided infiltrating ductal carcinoma ER WI negative HER-2/sabas positive diagnosed in 2005 T2N0 for which she had a lumpectomy followed by radiation with chemotherapy and Herceptin for 1 year. She completed treatment January 2008. CT chest shows left reticulonodular changes that will need to be followed. 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 01/2021 - 02/2021 completed bilateral mastectomy and MADHAVI/BSO Ovarian vein thrombus - unclear etiology - will prophylax with low dose Xarelto PLAN: Start Xarelto for thrombus Right ovarian vein Repeat Ct Abd Pelvis in 3 months with labs same day RTC 1 week after to review. Continue Zoloft 100 mg daily HPI: Updated Visit, March 11, 2022: Gloria returns and is experiencing fatigue which may most likely be related to her emphysema. Also has a clot in her right ovarian vein - non- occlusive but new upon review of her Ctscan. No other evidence of metastatic or local recurrence. Updated Visit, September 10, 2021: Had her implants revision 3 weeks ago and is still sore. CT reviewed and will get CT abd/Pelvis next visit for better evaluation of hypodensity noted in spleen. Labs stable. She is otherwise doing well. Her sister Lazaro was not present. Updated Visit, June 14, 2021: Implants done in 04/2021 are head still operator but she is otherwise well. She will need a second corrective surgery for appropriate cosmesis and reconstruction which will potentially occur in 07/2021. CT chest with nodules noted in June 2020 will be repeated in order to follow to resolution. Updated Visit, March 11, 2021: Returns alone today - her sister Lazaro is working. Expanders in place and MADHAVI completed in 02/10/2021 - benign findings. Due for implant placement 05/03/2021 Counts recovered and doing well. Anxiety abated. Updated Visit, December 10, 2020: Will complete mastectomy and recon Will proceed with MADHAVI/BSO No issues currently. Is much calmer and is happy with discussion and treatment plan. Updated Visit, October 15, 2020: Gloria returns by herself today and has decided to proceed with mastectomy with reconstruction which I fully support. She will also proceed with bilateral oophorectomy. I will see her after she has completed her surgery. She has TNB Ca so we will monitor clinically. Updated Visit, October 05, 2020: Gloria returns with her sister Lazaro. She is struggling with decision of bilateral mastectomy given her newly found BRCA1 exon 21 deletion. She was seen for a full discussion with Dr. Null last week and presents today to discuss her thoughts. She understands and will plan on pursuing oophorectomy but is still having a great deal of anxiety regarding bilateral mastectomy with or without reconstruction especially given the difficulty reconstructing her left breast where she had radiation. We will spend more time after she's had a few weeks to think over her choices. Updated Visit, September 07, 2020: Gloria is 60 years old and returns today. She is status post right breast conservative therapy on 04/22/2020 and is undergoing 4 cycles of adjuvant therapy for TNBC. She had left breast cancer Her2+ in 2005 for which she had EGFR targeting therapy at the time. Her sister Lazaro is with her. Sinuses draining, quit smoking, not coughing as much, just fatigued and not keeping up with flluids - appetite is slowly improving. Significant loss of skin turgor noted. Genetic testing shows BRCA1 + and we entered a discussion on the appropriate risk reduction. I will discuss with Dr. Garcia, as well as Dr. Suarez. Updated Visit, August 10, 2020: Gloria is 60 years old and returns today. She is status post right breast conservative therapy on 04/22/2020 and is undergoing 4 cycles of adjuvant therapy for TNBC. She had some mucositis this time around - particularly affecting her nasal mucosa. We will manage conservatively. She'll be ready for adjuvant radiation in 4 weeks. Updated Visit, July 20, 2020: Gloria is 60 years old and returns today. She is status post right breast conservative therapy on 04/22/2020 and is undergoing 4 cycles of adjuvant therapy for TNBC. She had left breast cancer Her2+ in 2005 for which she had EGFR targeting therapy at the time. She's doing well with tolerance and seems to tolerated the pain from Neulasta better using dexamethasone. Updated Visit, June 29, 2020: Gloria is 60 years old and returns today. She is status post right breast conservative therapy on 04/22/2020. I presented her case for triple negative breast cancer to central tumor board and they agreed with the plan for additional chemotherapy with Taxotere and Cytoxan. Recommendations were also made for restaging studies in addition to genetic counseling as this was her second episode of breast cancer; the first being in 2005 with HER-2 positive disease on the left side. Her staging studies were reviewed personally and reveal no evidence of disease aside from inflammatory / infectious lung changes with emphysema that will need to be followed. Her genetic testing was negative. She reports that 1 - 2 days after treatment her hands and knuckles got really red and wind burnt, but aside from this, she has tolerated treatment very well. Updated Visit, June 11, 2020: Gloria is 60 and completed her first cycle of TC followed by on pro and returns for fredis counts today. She experienced bone aches from Onpro and will try Claritin D and dexamethasone next time. Her counts have held and she is not neutropenic. She reports that she is having difficulty sleeping due to anxiety from current condition. She is otherwise doing well. She will be due for staging studies that we had discussed during tumor board and will delay her next treatment by 1 week. She will also be due for genetic counseling when she can get scheduled. Updated visit, June 01, 2020: Gloria is 60 years old and returns today. She is status post right breast conservative therapy on 04/22/2020. I presented her case for triple negative breast cancer to central tumor board and they agreed with the plan for additional chemotherapy with Taxotere and Cytoxan. Recommendations were also made for restaging studies in addition to genetic counseling as this was her second episode of breast cancer; the first being in 2005 with HER-2 positive disease on the left side. She is prepared to proceed today. Updated visit, May 18, 2020: Gloria is 59 years old and returns in follow-up following her breast conserving surgery with Dr. Gabe Garcia on 04/22/2020. I reviewed her pathology with her and because of her high-grade disease as well as being triple negative, I am recommending that she proceed with 4 cycles of Taxotere plus Cytoxan in the adjuvant setting. She had numerous questions as well as significant anxiety regarding the change in therapy compared to what she got 2006 which I explained the purpose of as well as the limitations of additional treatments using Adriamycin. In addition to this I explained why Herceptin would not be used in her scenario and I also went over all of the immediate side effects that she could expect. Since her degree of anxiety was remain fairly high, I proposed to present her case at multidisciplinary tumor board and would plan to get a Mediport accordingly anticipating everyone's agreement. She has done well following surgery and has very little pain but she noted some bleeding from the wound 2 days ago and on my examination reveals a healing wound with no dehiscence and just a small area of scabbing. Updated visit, April 20, 2020: Gloria is 59 years old and returns in follow-up for her second contralateral breast cancer of the right breast diagnosed 03/11/2020 in the right upper inner quadrant consistent with triple negative disease. She returns with her sister Lazaro today. Overall she is doing well, she is very happy with her surgeon Dr. Garcia and will be proceeding with breast conservation next few weeks. She will return to discuss any role for adjuvant therapy based on histopathologic findings. Initial Visit, March 23, 2020: lGoria Lopez presents today Hematology and Oncology evaluation. She is a 59 year old female who is accompanied by her Sister Julianna (Lazaro). She has a prior history of T2N0 HER-2 positive receptor negative breast cancer left breast diagnosed in 2005 completing lumpectomy, followed by chemotherapy and radiation and concluded 1 year of Herceptin in January 2008. She now presents with a newly diagnosed (03/11/2020) right upper inner quadrant, small breast mass noted on screening mammography biopsy-proven to be triple negative disease. She was referred for an oncologic opinion. RADIOGRAPHIC DATA: Reviewed on 06/29/2020 2. 06/23/2020 CT CAP: Chest: 1. New mild reticulonodular opacities in the bilateral lung adams, right greater than left, most likely infectious/inflammatory in etiology. Superimposed neoplasm cannot be excluded. Consider follow-up to complete resolution. 2. Gastroesophageal reflux. 3. Moderate emphysematous changes of the lungs. Abd/Pelvis: 1. No evidence of intra-abdominal/pelvic metastases. 2. Sigmoid colon diverticulosis without evidence of diverticulitis. 1. Outside reports reviewed PATHOLOGIC PROFILE/MOLECULAR DATA: Reviewed on March 23, 2020 4. 04/22/2020 right breast lumpectomy and axillary lymph node: Specimen #: [id number] Submitting Physician: GABE GARCIA MD FINAL DIAGNOSIS 1. Right axillary sentinel lymph node #1, excision (A) - One lymph node, negative for metastatic carcinoma (0/1). 2. Right breast, mass, lumpectomy (B) - Invasive ductal carcinoma, see comment. - Ductal carcinoma in situ, solid type, nuclear grade 3. 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 3. Right breast, deep margin, excision (C) - Unremarkable fibroadipose tissue. 4. Right breast, inferior margin, excision (D) - Unremarkable breast parenchyma. 5. Right breast, superior margin, excision (E) - Unremarkable fibroadipose tissue. 6. Right breast, medial margin, excision (F) - Unremarkable fibroadipose tissue. 7. Right breast, anterior margin, excision (G) - Unremarkable fibroadipose tissue. 8. Right breast, lateral margin, excision (H) - Unremarkable breast parenchyma. JJKalyani/rosario 04/24/2020 [facility]NOPTIC REPORT OF [place] PATHOLOGIC FINDINGS RIGHT BREAST MASS: BREAST INVASIVE CARCINOMA WORKSHEET Part: B Procedure: Excision (less than total mastectomy) Specimen Laterality: Right Tumor size: Size of largest invasive carcinoma: Greatest dimension of largest focus of invasion >1 mm: 10 mm Tumor Focality: Single focus of invasive carcinoma Histologic Type of Invasive Carcinoma: Invasive carcinoma of no special type (ductal, not otherwise specified) Histologic Grade: Glandular (Acinar) / Tubular Differentiation: Score 3 Nuclear Pleomorphism: Score 3 Mitotic Rate: Score 3 Overall Grade: Grade III Ductal Carcinoma In Situ: Present Architectural Patterns: Architectural Pattern:Solid DCIS Nuclear Grade: Grade III (high) DCIS Necrosis: Not identified Tumor Extension: Skin: Skin is not present Nipple: Not applicable, no nipple is present Skeletal muscle: No skeletal muscle is present Invasive Carcinoma Margins: Margins uninvolved by invasive carcinoma Distance from closest margin: 4 mm Closest margin: deep DCIS Margins: Margins uninvolved by DCIS Specify (if <2mm) closest margin: 1.5 mm Closest margin: anterior Lymph Nodes: Uninvolved by tumor cells Total number of lymph nodes examined: 1 Number of sentinel lymph nodes examined: 1 Treatment Effect: No known presurgical therapy Lymph-Vascular Invasion: Cannot be determined Pathologic Stage Classification (pTNM,AJCC 8th ed) TNM Descriptor(s): Not applicable Primary Tumor (Invasive Carcinoma) (pT): pT1b Regional Lymph Nodes (pN): Modifier: (sn): [place] node(s) evaluated Category (pN): pN0 Distant metastasis: Distant Metastasis (pM) Not applicable/Not confirmed pathologically in this case Estrogen & progesterone receptors: Previously performed and reported as follows: Estrogen receptor: negative 0 Progesterone receptor: negative 0 Specimen number #: [id number] (HER2) ERBB2 Status: Previously performed and reported as follows: HER2:negative 0 Specimen number #: [id number] Metall[employer] Laboratory Technician Tumor Block: Specify: B10 3. 03/11/2020 right breast mass 1:00 ultrasound-guided core biopsy: Invasive ductal carcinoma, provisional grade 3 measuring up to 8 mm in greatest dimension. Immunohistochemical stains of p63 and myosin heavy chain have been used for the evaluation of the specimen. There is no cyst evidence of in situ component. Immunostains for synaptophysin and chromogranin are negative. Estrogen receptor by IHC is 0, progesterone receptor by IHC is 0 HER-2/sabas by IHC is 0 2. 05/22/2006 left sentinel lymph node biopsy axilla, left breast lumpectomy: No malignant tumor identified, (2). Bilateral bone marrow aspirates from anterior iliac crest were also obtained and 1 tumor cell was found using the CAM 5.2/AE-1 antibody. 1. 05/12/2006 left breast medial upper quadrant biopsy: Infiltrating ductal carcinoma poorly differentiated, foci of intraductal carcinoma, comedo type. ER WI negative HER-2/sabas positive by FISH. REVIEW OF SYSTEMS Per HPI and otherwise negative by full review of organ systems. ECOG PERFORMANCE STATUS: 0 PHYSICAL EXAMINATION: Vitals: BP 123/69 Pulse 75 Temp (Src) 97.9 (Temporal) Resp 16 Ht 5' 2.008 (1.58m) Wt 167 lb 3.2 oz (75.8kg) SpO2 96% BMI 30.57 kg/(m^2). Body surface area is 1.82 meters squared. Exam limited to gross visualization where appropriate due to COVID-19. Gen.: This is an age-appropriate patient in no acute distress. Head: Appears atraumatic with no visible lesions. Eyes: Pupils equally round and reactive to light, extraocular muscles are intact. Neck: Supple. Mouth: Mucous membranes appeared to be moist. Respiratory: Appears to be respiring comfortably. Neurologic: Nonfocal to gross visualization. Alert and oriented 3. Psychiatric: No evidence of inappropriate anxiety or depression. Skin: Visible areas of skin without rash, lesions, wounds or petechiae. ALLERGIES: ALLERGIES Allergen Reactions Penicillins Unknown MEDICATIONS: albuterol HFA (PROVENTIL HFA, VENTOLIN HFA) 90 mcg/actuation inhaler Inhale 2 Puffs as instructed every 4 hours as needed. acetaminophen (TYLENOL EXTRA STRENGTH) 500 mg tablet Take 2 tablets by mouth every 6 hours as needed for pain. Two (2) X 500 mg tablets = 1,000 mg cholecalciferol (VITAMIN D3) 50 mcg (2,000 unit) tablet Take 2,000 Units by mouth once daily. cyanocobalamin (VITAMIN B-12) 1,000 mcg tab Take 1,000 mcg by mouth once daily. Lactobacillus acidophilus (PROBIOTIC) 10 billion cell cap Take by mouth once daily. ibuprofen (MOTRIN) 600 mg tablet Take 1 tablet by mouth every 6 hours as needed for pain. acetaminophen/diphenhydramine (TYLENOL PM ORAL) Take by mouth. sertraline (ZOLOFT) 100 mg tablet Take 1 tablet by mouth once daily. acetaminophen (TYLENOL) 325 mg tablet Take 650 mg by mouth. LABORATORY VALUES: WBC (k/uL) Date Value 03/04/2022 6.59 RBC (m/uL) Date Value 03/04/2022 4.44 Hemoglobin (g/dL) Date Value 03/04/2022 12.8 Hematocrit (%) Date Value 03/04/2022 40.1 MCV (fL) Date Value 03/04/2022 90.3 MCH (pg) Date Value 03/04/2022 28.8 MCHC (g/dL) Date Value 03/04/2022 31.9 RDW-CV (%) Date Value 03/04/2022 13.4 Platelet Count (k/uL) Date Value 03/04/2022 273 MPV (fL) Date Value 03/04/2022 8.7 (L) Glucose (mg/dL) Date Value 03/04/2022 112 (H) BUN (mg/dL) Date Value 03/04/2022 19 Creatinine (mg/dL) Date Value 03/04/2022 0.70 Sodium (mmol/L) Date Value 03/04/2022 141 Potassium (mmol/L) Date Value 03/04/2022 4.4 Chloride (mmol/L) Date Value 03/04/2022 104 CO2 (mmol/L) Date Value 03/04/2022 28 Protein, Total (g/dL) Date Value 03/04/2022 6.7 Albumin (g/dL) Date Value 03/04/2022 4.2 Calcium, Total (mg/dL) Date Value 03/04/2022 9.1 Alkaline Phosphatase (U/L) Date Value 03/04/2022 95 Bilirubin, Total (mg/dL) Date Value 03/04/2022 0.5 AST (U/L) Date Value 03/04/2022 26 ALT (U/L) Date Value 03/04/2022 23 DIAGNOSIS: (I82.90) Acute deep vein thrombosis (DVT) of non-extremity vein (primary encounter diagnosis) Plan: rivaroxaban (XARELTO) 10 mg tablet (C50.919) Malignant neoplasm of female breast, unspecified estrogen receptor status, unspecified laterality, unspecified site of breast (HCC) Plan: CT ABD/PEL W IVCON PAST MEDICAL HISTORY Diagnosis Date Anxiety Breast asymmetry following reconstructive surgery 08/12/2021 Breast CA (HCC) Left; [place]-; HER2 + Depression Menopause Overweight PAST SURGICAL HISTORY Procedure Laterality Date ABDOMINAL SURGERY HX 2016 hernia repair CHOLECYSTECTOMY HX COLONOSCOPY FRACTURE SURGERY femur fracture right as child HYSTERECTOMY Bilateral 01/2021 LUMPECTOMY/RADIOTHERAPY DIAG MAMM/A10 Left 2006 LUMPECTOMY/RADIOTHERAPY DIAG MAMM/A10 Right 04/22/2020 PAST SURGICAL HISTORY OF Insertion of MED-PORT PAST SURGICAL HISTORY OF 12/29/2020 bilateral mastectomy ( 12/29/2020) Social History Tobacco Use Smoking status: Former Packs/day: 1.00 Years: 43.00 Pack years: 43.00 Types: Cigarettes Quit date: 10/26/2020 Years since quittin.3 Smokeless tobacco: Never Vaping Use Vaping Use: Never used Substance Use Topics Alcohol use: Not Currently Drug use: Never FAMILY HISTORY Problem Relation Age of Onset Lung Cancer Father Diabetes Mother Stroke Mother Cancer Mother Ovarian cancer Maternal Grandmother other (Rectal cancer) Paternal Grandmother other (Rectal cancer) Paternal Uncle Anesthesia Problems No Family History I spent a total of 30 minutes on the date of the service which included preparing to see the patient, [id number] patient care, completing clinical documentation, performing a medically appropriate examination, counseling and educating the patient/family/caregiver, ordering medications, tests, or procedures, and independently interpreting results (not separately reported). Geraldo Bernal MD, [place], [place] CC: Jacquelyn Villagran MD [address] [place] [id number] Gabe Null documented in this encounter [facility] 03-04-2022 History of Present illness Narrative Radiology Service Progress Note DATE OF SERVICE: March 04, 2022 TIME: 9:40 AM PATIENT WEIGHT: 163LBS PATIENT IDENTITY VERIFICATION COMPLETED USING TWO (2) STANDARD IDENTIFIERS: Name and Date of confirmed by patient verbally. FALL SCREENING: Has the patient had 2 falls in the last year or 1 fall with injury or currently using an Ambulatory Assistive Device (Walker, Cane, Wheelchair, Crutches, etc.)? No PATIENT GENDER DATA: Female. status: : No status: NO. ALLERGIES: Reviewed and unchanged CONTRAST ALLERGY: No EXAM: CT -CONTRAST INDUCED NEPHROPATHY RISK FACTORS: Patient age > 60 years CREATININE: Creatinine Date Value Ref Range Status 03/04/2022 0.70 0.58 - 0.96 mg/dL Final 09/07/2021 0.69 0.58 - 0.96 mg/dL Final 06/14/2021 0.82 0.58 - 0.96 mg/dL Final Estimated Glomerular Filtration Rate Date Value Ref Range Status 03/04/2022 97 >=60 mL/min/1.73m Final Comment: Estimated Glomerular Filtration Rate (eGFR) is calculated using the 2020 CKD-EPI creatinine equation. This equation utilizes serum creatinine, sex, and age as parameters. The creatinine assay has traceable calibration to isotope dilution-mass spectrometry. Refer to KDIGO guidelines for clinical interpretation. In patients with unstable renal function, e.g. those with acute kidney injury, the eGFR may not accurately reflect actual GFR. eGFR- Date Value Ref Range Status 06/14/2021 >60 Final P.O.C.T. RESULTS: POC done: Yes, See Lab Tab March 04, 2022 TREATMENT: No Hydration needed. IV SITE: Ambulatory: A peripheral IV was started in the Right antecubital site with a Angio cath: 20 gauge. IV SITE APPEARANCE: Clean,Dry and Intact SIGNATURE: Denise Salvador RN PATIENT NAME: Gloria Lopez DATE: March 04, 2022 TIME: 9:40 AM Radiology Service Progress Note PATIENT NAME: Gloria Lopez DATE OF SERVICE: March 04, 2022 TIME: 12:45 PM PATIENT IDENTITY VERIFICATION COMPLETED USING TWO (2) IDENTIFIERS: Name and Date of confirmed by patient verbally. FALL SCREENING: Has the patient had 2 falls in the last year or 1 fall with injury or currently using an Ambulatory Assistive Device (Walker, Cane, Wheelchair, Crutches, etc.)? No PATIENT GENDER DATA: Female. status: : No status: NO. 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 The patient denies any chest wall masses or skin changes bilaterally. She notes she is required to work 12 hour shifts and overtime, often on consecutive days, which has been difficult for her. She is wondering if work restrictions can be given at her visit today. She presented with an abnormal mammogram in 2019. Core biopsy performed 03/11/2020 (reviewed at [facility]) at 1pm on the right showed IDC associated with chondromyxoid matrix, consistent with metaplaastic carcinoma, grade 3, triple negative. She sought second opinion at [facility] with Dr. Garcia and 04/22/2020 had right partial mastectomy for a 10mm IDC, grade 3, with 0/1 SLN. T1cN0. She completed [address] Bernal in 08/2020. 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 She completed treatment January 2008 08/19/20: Gloria Lopez's 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 Reason for testing: Personal history of TNBC. She has two daughters; Dhiraj who is 28 and lives in [place] and has tested positive and Danielle, who is here with her today, who has yet to test but is interested. They both have young children. She has had a complete hysterectomy with negative pathology. Date of surgery: 02/10/[address] Casanova She is status post bilateral risk-reducing nipple sparing mastectomy with prepectoral silicone implant reconstruction. Date of surgery: 12/29/20 and 05/03/21 (TE exchange to implant) with negative pathology. History pertaining to prior breast biopsies, genetic reports, pathology reports, treatment summaries, personal, social and family history has been extracted from Dr. Null's note dated 09/30/20. Her last Vitamin D level: No results found for: VITD She takes vitamin D3 2000 units and MVI daily BMD: Yes, per patient report (doesn't remember date); results: Osteoporosis PERSONAL BREAST HISTORY: Past breast history (prior to this encounter) is as follows: Breast biopsy: Yes, for cancer diagnosis as above Breast cysts: No Breast surgery: Yes, as above Breast cancer: Yes, as above CANCER SURVEILLANCE: Mammograms: N/A - she is s/p bilateral mastectomy Breast MRI: Yes, 10/07/20 prior to mastectomies Colonoscopy: Yes, per patient report (? 2015), normal RISK FACTORS FOR BREAST CANCER: Age at the onset of menses: 10 years of age. P: 2 Age at the of first child: 23 years of age. She did not breast feed. Age at menopause: Not stated. Post-menopausal hormone therapy: No She is s/p hysterectomy and BSO History of Mantle Radiation prior to the age of 28: No Obesity: No Current Weight: 160 lbs Mammographic density: Not applicable - she is s/p bilateral mastectomy Personal History of Benign Atypical Breast Biopsy: No Alcohol use: Rare PAST MEDICAL HISTORY: PAST MEDICAL HISTORY Diagnosis Date Anxiety Breast asymmetry following reconstructive surgery 08/12/2021 Breast CA (HCC) Left; ER/[place]-; HER2 + Depression Menopause Overweight Patient specifically denies history of: DVT, PE, migraine headaches WITH AURA, migraine headaches without aura, abnormal uterine bleeding and abnormal uterine biopsies. She has hyperlipidemia and osteoporosis. PAST SURGICAL HISTORY: PAST SURGICAL HISTORY Procedure Laterality Date ABDOMINAL SURGERY HX 2016 hernia repair CHOLECYSTECTOMY HX COLONOSCOPY FRACTURE SURGERY femur fracture right as child HYSTERECTOMY Bilateral 01/2021 LUMPECTOMY/RADIOTHERAPY DIAG MAMM/A10 Left 2006 LUMPECTOMY/RADIOTHERAPY DIAG MAMM/A10 Right 04/22/2020 PAST SURGICAL HISTORY OF Insertion of MED-PORT PAST SURGICAL HISTORY OF 12/29/2020 bilateral mastectomy ( 12/29/2020) SOCIAL HISTORY: Social History Tobacco Use Smoking status: Former Smoker Packs/day: 1.00 Years: 43.00 Pack years: 43.00 Types: Cigarettes Quit date: 10/26/2020 Years since quittin.0 Smokeless tobacco: Never Used Substance Use Topics Alcohol use: Not Currently Drug use: Never Caffeine intake: 1-3 / day Exercise: She has a physically demanding job FAMILY HISTORY: Mother was adopted. Family history of breast cancer: None Family history of ovarian cancer: MGM in her 40s Number of sisters: 2 Number of maternal aunts: ? Number of paternal aunts: 0 Ashkenazi Ancestry: no Has Patient had Genetic Testing? Yes , BRCA1 positive as above Other Cancer: Her father had lung cancer, PGM and a paternal uncle had rectal cancer in their 50s. - There is no family history of prostate, colon, uterine, pancreatic, gastric, brain, renal cell or thyroid cancer. - There is no family history of melanoma, sarcoma or leukemia. Osteoporosis: None Stroke: mother in 70s Blood Clot: None Heart attack: PGF Thyroid Nodule or Goiter: None Autism: None FAMILY HISTORY Problem Relation Age of Onset Lung Cancer Father Diabetes Mother Stroke Mother Cancer Mother Ovarian cancer Maternal Grandmother other (Rectal cancer) Paternal Grandmother other (Rectal cancer) Paternal Uncle Anesthesia Problems No Family History MEDICATIONS: acetaminophen (TYLENOL EXTRA STRENGTH) 500 mg tablet Take 2 tablets by mouth every 6 hours as needed for pain. Two (2) X 500 mg tablets = 1,000 mg cholecalciferol (VITAMIN D-3) 50 mcg (2,000 unit) tablet Take 2,000 Units by mouth once daily. cyanocobalamin (VITAMIN B-12) 1,000 mcg tab Take 1,000 mcg by mouth once daily. Lactobacillus acidophilus (PROBIOTIC) 10 billion cell cap Take by mouth once daily. ibuprofen (MOTRIN) 600 mg tablet Take 1 tablet by mouth every 6 hours as needed for pain. acetaminophen/diphenhydramine (TYLENOL PM ORAL) Take by mouth. sertraline (ZOLOFT) 100 mg tablet Take 1 tablet by mouth once daily. acetaminophen (TYLENOL) 325 mg tablet Take 650 mg by mouth. ALLERGIES: ALLERGIES Allergen Reactions Penicillins Unknown REVIEW OF SYSTEMS: She denies chest pain, persistent cough, severe headaches, unusual bony pains, abdominal pain or unintentional weight loss. She reports shortness of breath on exertion since cancer treatment that has not changed and sinus headaches since cancer treatment that have not changed. PHYSICAL EXAM: BP 138/70 Pulse 80 Ht 157.5 cm (5' 2 ) Wt 72.6 kg (160 lb) BMI 29.26 kg/m General: well-nourished, healthy, female, alert and oriented x 3, calm Skin: warm, dry, skin color, texture, turgor normal Head/Eyes: normocephalic, atraumatic and anicteric Breasts and Regional Lymph Nodes: The patient was examined in the upright and supine positions. There is no concerning supraclavicular, infraclavicular or axillary lymphadenopathy. She is s/p bilateral mastectomy with silicone implant reconstruction. There is no evidence of local recurrence on the chest fernando bilaterally; there are no chest wall masses or skin changes. The implants are soft and non-encapsulated. Chest - clear Cor - rrr, no m/r/g Abd - soft IMAGING: Deferred as she is s/p bilateral mastectomy Assessment IMPRESSION/PLAN: Gloria Lopez is a 61 year old year old female with osteoporosis, a history of metaplastic TNBC on the right (2019) and IDC on the left found (2005) to be BRCA1 positive (2020) and now s/p bilateral RRM with implant reconstruction and RR hysterectomy/BSO There is no evidence of malignancy. The patient was reassured as to the benign nature of her clinical findings. She understands that her risk has been reduced by 90-95%. She will be followed annually clinically. She is referred back to her PCP for consideration of work hour restrictions. Genetics referral made: No: Reason: BRCA1 positive as above. There is no family history of pancreatic cancer. She has two daughters, one that has tested and is positive who lives in [place] and the other who was here at the visit today who lives locally and has not tested but is interested. Her daughter was advised to establish is our [facility] or get a referral from her PCP for genetic counseling and testing. She was given a genetics brochure and contact number to schedule an appointment. Chemoprevention discussion: N/A The patient is advised to exercise regularly, achieve/maintain ideal body weight, and to limit alcohol consumption to less than 7 drinks weekly for breast cancer risk reduction and overall health. Her colonoscopy is up-to-date. per patient She will be seen in 1 year for an annual exam. Dr. Null would like to see her back virtually after 10/01/23. She will call me in the interim should she have any questions or concerns. My final recommendations will be communicated back to the requesting physician by way of shared medical record or letter via US mail. I spent a total of 40 minutes on the date of the service which included preparing to see the patient, [id number] patient care, completing clinical documentation, obtaining and/or reviewing separately obtained history, performing a medically appropriate examination, counseling and educating the patient/family/caregiver and ordering medications, tests, or procedures. Inessa Andrew APRN.MADDIE Medical Breast Specialist CC: Jacquelyn Villagran MD documented in this encounter [facility] 11-11-2021 Nurse Note Reason for today's visit: hx of breast cancer Palpates a breast change? no Nipple discharge? no Swelling in either upper extremity? no Taking hormonal medication? no Full Range of motion? yes Wellness: Self breast self exams: yes Regular exercise routine: no Following Lymphedema awareness/precautions yes Managing stress: yes Stress level on a scale of 1 - 10:2 Instruction: Monthly self breast exams Healthy diet Exercise program Lymphedema precautions/awareness Other: Requisitions needed: Bras/prosthesis Compression Sleeve/glove Breast Rehab documented in this encounter [facility] 10-08-2021 Miscellaneous Notes Summary: Dr. Macias info Patient's insurance investigator called seeking medical information. Provider is at [facility], provided their phone number: Advised caller she'll probably reach a call center caregiver first, please request to be connected to Dr. Macias's office at [facility]. oVnnie stated understanding. Vonnie Potter [employer] Insurance documented in this encounter [facility] 09-16-2021 History of Present illness Narrative Gloria Suttonruff 09/16/2021 7ft / 85mm x5 BREAST DIAGNOSIS: BREAST TYPES: BREAST RECON Tracy A Sot (Photo) September 16, 2021 2:06 PM documented in this encounter [facility] 09-16-2021 History of Present illness Narrative Plastic Surgery Note CC: post op HPI: Gloria is a 61 year old female here for pre op discussion for surgery on 08/27/2021 for bilateral mastopexy, fat graftin, scar revision with Dr. Macias. 12/29/20 1. Bilateral breast reconstruction with tissue accounts adjustable clerk placement in prepectoral positions. 2. Use of AlloDerm dermal matrix, 320 sq cm to each breast bilaterally. The patient with Allergan smooth tissue accounts adjustable clerk 133 mV, size of 500 mL, right side filled with air at 500 mL and left side is filled with 450 mL of air. The patient has AlloDerm dermal matrix 320 sq cm or 16 x 20 cm on each side of the breast. 05/03/21 Bilateral tissue accounts adjustable clerk exchange to smooth round silicone implant with bilateral capsulorrhaphy. The patient with placement of Allergan smooth round silicone implant SSF 605 mL. On the left side, serial #[id number]. On the right side, serial #[id number]. 08/27/21 1. Lipografting to the left breast and right upper chest. 2. Excisions of right breast mastectomy scar 25 cm with 25 cm complex closure. 3. Removal of left chest MediPort. The patient with lipografting using LipoGrafter 40 mL to the right upper chest and 280 mL to the left radiated breast. Time Post Op: 3 weeks Patient is sore in areas of liposuction. Otherwise doing well. REVIEW OF SYSTEMS GENERAL: No weight loss, malaise or fevers RESPIRATORY: Negative for cough, hemoptysis, wheezing, COPD, dyspnea or shortness of breath CARDIOVASCULAR: Negative for chest pain, leg swelling, hypertension, CHF or palpitations GI: No nausea, vomiting, or diarrhea Objective: BP 123/69 Pulse 88 Temp (!) 35.8 C (96.5 F) PAST MEDICAL HISTORY Diagnosis Date Anxiety Breast asymmetry following reconstructive surgery 08/12/2021 Breast CA (HCC) Left; [place]-; HER2 + Depression Menopause Overweight PAST SURGICAL HISTORY Procedure Laterality Date ABDOMINAL SURGERY HX 2016 hernia repair CHOLECYSTECTOMY HX COLONOSCOPY FRACTURE SURGERY femur fracture right as child HYSTERECTOMY Bilateral 01/2021 LUMPECTOMY/RADIOTHERAPY DIAG MAMM/A10 Left 2005 LUMPECTOMY/RADIOTHERAPY DIAG MAMM/A10 Right 04/22/2020 PAST SURGICAL HISTORY OF Insertion of MED-PORT PAST SURGICAL HISTORY OF 12/29/2020 bilateral mastectomy ( 12/29/2020) Current Outpatient Medications Medication Sig Dispense Refill acetaminophen (TYLENOL EXTRA STRENGTH) 500 mg tablet Take 2 tablets by mouth every 6 hours as needed for pain. Two (2) X 500 mg tablets = 1,000 mg 80 tablet 0 cholecalciferol (VITAMIN D-3) 50 mcg (2,000 unit) tablet Take 2,000 Units by mouth once daily. cyanocobalamin (VITAMIN B-12) 1,000 mcg tab Take 1,000 mcg by mouth once daily. acetaminophen/diphenhydramine (TYLENOL PM ORAL) Take by mouth. sertraline (ZOLOFT) 100 mg tablet Take 1 tablet by mouth once daily. 90 tablet 3 acetaminophen (TYLENOL) 325 mg tablet Take 650 mg by mouth. senna (SENNA) 8.6 mg tab Take 1 tablet by mouth twice daily. 60 tablet 0 Lactobacillus acidophilus (PROBIOTIC) 10 billion cell cap Take by mouth once daily. (Patient not taking: Reported on 08/12/2021 ) ibuprofen (MOTRIN) 600 mg tablet Take 1 tablet by mouth every 6 hours as needed for pain. (Patient not taking: Reported on 08/12/2021 ) 20 tablet 0 No current facility-administered medications for this visit. ALLERGIES Allergen Reactions Penicillins Unknown PE: A&Ox3, NAD Incisions c/d/i no s/s of infection Bruising as expected post op No evidence seroma A/P: Gloria is a 61 year old female S/p left breast fat grafting Discussed activity restrictions. Discussed s/s of infection including redness, swelling, fever, and chills. Follow up in 1 month. Hui Lakhani PA-C 09/16/2021 documented in this encounter [facility] 09-13-2021 Miscellaneous Notes Informed pt of Dr Stock's message. Pt verbalized understanding and denies further needs at this time. Gabe Fernando RN ----- Message from Geraldo Bernal MD sent at 09/08/2021 3:56 PM EDT ----- CT scan of the chest is fine - there was a spot in the spleen, but we can check on this in the future. It is unlikely to be anything. documented in this encounter [facility] 09-07-2021 History of Present illness Narrative Radiology Service Progress Note DATE OF SERVICE: September 07, 2021 TIME: 1:26 PM PATIENT WEIGHT: 163LBS PATIENT IDENTITY VERIFICATION COMPLETED USING TWO (2) STANDARD IDENTIFIERS: Name and Date of confirmed by patient verbally. FALL SCREENING: Has the patient had 2 falls in the last year or 1 fall with injury or currently using an Ambulatory Assistive Device (Walker, Cane, Wheelchair, Crutches, etc.)? No PATIENT GENDER DATA: Female. status: : No status: NO. ALLERGIES: Reviewed and unchanged CONTRAST ALLERGY: No EXAM: CT -CONTRAST INDUCED NEPHROPATHY RISK FACTORS: Patient age > 60 years CREATININE: Creatinine Date Value Ref Range Status 09/07/2021 0.69 0.58 - 0.96 mg/dL Final 06/14/2021 0.82 0.58 - 0.96 mg/dL Final 03/11/2021 0.73 0.58 - 0.96 mg/dL Final Estimated Glomerular Filtration Rate Date Value Ref Range Status 09/07/2021 98 >=60 mL/min/1.73m Final Comment: Estimated Glomerular Filtration Rate (eGFR) is calculated using the 2020 CKD-EPI creatinine equation. This equation utilizes serum creatinine, sex, and age as parameters. The creatinine assay has traceable calibration to isotope dilution-mass spectrometry. Refer to KDIGO guidelines for clinical interpretation. In patients with unstable renal function, e.g. those with acute kidney injury, the eGFR may not accurately reflect actual GFR. eGFR- Date Value Ref Range Status 06/14/2021 >60 Final P.O.C.T. RESULTS: POC done: Yes, See Lab Tab September 07, 2021 TREATMENT: No Hydration needed. IV SITE: Ambulatory: A peripheral IV was started in the Right antecubital site with a Angio cath: 20 gauge. IV SITE APPEARANCE: Clean,Dry and Intact SIGNATURE: Denise Salvador RN PATIENT NAME: Gloria Lopez DATE: September 07, 2021 TIME: 1:26 PM documented in this encounter [facility] 09-02-2021 History of Present illness Narrative Plastic Surgery Note CC: post op HPI: Gloria is a 61 year old female here for pre op discussion for surgery on 08/27/2021 for bilateral mastopexy, fat graftin, scar revision with Dr. Macias. 12/29/20 1. Bilateral breast reconstruction with tissue accounts adjustable clerk placement in prepectoral positions. 2. Use of AlloDerm dermal matrix, 320 sq cm to each breast bilaterally. The patient with Allergan smooth tissue accounts adjustable clerk 133 mV, size of 500 mL, right side filled with air at 500 mL and left side is filled with 450 mL of air. The patient has AlloDerm dermal matrix 320 sq cm or 16 x 20 cm on each side of the breast. 05/03/21 Bilateral tissue accounts adjustable clerk exchange to smooth round silicone implant with bilateral capsulorrhaphy. The patient with placement of Allergan smooth round silicone implant SSF 605 mL. On the left side, serial #[id number]. On the right side, serial #[id number]. 08/27/21 1. Lipografting to the left breast and right upper chest. 2. Excisions of right breast mastectomy scar 25 cm with 25 cm complex closure. 3. Removal of left chest MediPort. The patient with lipografting using LipoGrafter 40 mL to the right upper chest and 280 mL to the left radiated breast. Time Post Op: 6 days Patient is sore in areas of liposuction. Otherwise doing well. REVIEW OF SYSTEMS GENERAL: No weight loss, malaise or fevers RESPIRATORY: Negative for cough, hemoptysis, wheezing, COPD, dyspnea or shortness of breath CARDIOVASCULAR: Negative for chest pain, leg swelling, hypertension, CHF or palpitations GI: No nausea, vomiting, or diarrhea Objective: There were no vitals taken for this visit. PAST MEDICAL HISTORY Diagnosis Date Anxiety Breast asymmetry following reconstructive surgery 08/12/2021 Breast CA (HCC) Left; [place]-; HER2 + Depression Menopause Overweight PAST SURGICAL HISTORY Procedure Laterality Date ABDOMINAL SURGERY HX 2016 hernia repair CHOLECYSTECTOMY HX COLONOSCOPY FRACTURE SURGERY femur fracture right as child HYSTERECTOMY Bilateral 01/2021 LUMPECTOMY/RADIOTHERAPY DIAG MAMM/A10 Left 2005 LUMPECTOMY/RADIOTHERAPY DIAG MAMM/A10 Right 04/22/2020 PAST SURGICAL HISTORY OF Insertion of MED-PORT PAST SURGICAL HISTORY OF 12/29/2020 bilateral mastectomy ( 12/29/2020) Current Outpatient Medications Medication Sig Dispense Refill senna (SENNA) 8.6 mg tab Take 1 tablet by mouth twice daily. 60 tablet 0 acetaminophen (TYLENOL EXTRA STRENGTH) 500 mg tablet Take 2 tablets by mouth every 6 hours as needed for pain. Two (2) X 500 mg tablets = 1,000 mg 80 tablet 0 cholecalciferol (VITAMIN D-3) 50 mcg (2,000 unit) tablet Take 2,000 Units by mouth once daily. cyanocobalamin (VITAMIN B-12) 1,000 mcg tab Take 1,000 mcg by mouth once daily. Lactobacillus acidophilus (PROBIOTIC) 10 billion cell cap Take by mouth once daily. (Patient not taking: Reported on 08/12/2021 ) ibuprofen (MOTRIN) 600 mg tablet Take 1 tablet by mouth every 6 hours as needed for pain. (Patient not taking: Reported on 08/12/2021 ) 20 tablet 0 acetaminophen/diphenhydramine (TYLENOL PM ORAL) Take by mouth. sertraline (ZOLOFT) 100 mg tablet Take 1 tablet by mouth once daily. 90 tablet 3 acetaminophen (TYLENOL) 325 mg tablet Take 650 mg by mouth. No current facility-administered medications for this visit. ALLERGIES Allergen Reactions Penicillins Unknown PE: A&Ox3, NAD Exam deferred due to patient preference A/P: Gloria is a 61 year old female S/p fat grafting,excision scar, port removal Doing well. Discussed activity restrictions. Discussed s/s of infection including redness, swelling, fever, and chills. Follow up in 3 weeks Hui Lakhani PA-C 09/02/2021 This visit was conducted as a virtual visit. documented in this encounter [facility] 12-14-2020 Note HNO ID: [id number] Author: Anastasiia Casarez RDMS Service: Radiology Author Type: Radar Systems Engineer Type: Progress Notes Filed: 12/14/2020 10:29 AM Note Text: Radiology Service Progress Note PATIENT NAME: Gloria Lopez DATE OF SERVICE: December 14, 2020 TIME: 10:28 AM PATIENT IDENTITY VERIFICATION COMPLETED USING TWO (2) IDENTIFIERS: Name and Date of confirmed by patient verbally and Name and Date of confirmed by identification band. FALL SCREENING: Has the patient had 2 falls in the last year or 1 fall with injury or currently using an Ambulatory Assistive Device (Walker, Cane, Wheelchair, Crutches, etc.)? No PATIENT GENDER DATA: Female. status: : No status: NO. PATIENT RELEVANT IMPLANT DATA REVIEWED: Not Applicable RADIOLOGY DEPARTMENT: Ultrasound PERIPHERAL IV DATA: Not applicable SIGNED BY: Anastasiia Casarez RDMS December 14, 2020 10:28 AM [facility] 04-22-2020 Note HNO ID: [id number] Author: Kiah Talbot Service: ? Author Type: Nurse Turnstile Attendant Type: Anesthesia Procedure Notes Filed: 04/22/2020 9:49 AM Note Text: ANESTHESIOLOGY PROCEDURE NOTE Airway General Information Procedure Start Time/Medication Administration: 04/22/2020 9:31 AM Patient location during procedure: OR Staffing COSMETOLOGY INSTRUCTOR: Kiah Tlabot Performed by: CHIQUIS Indications and Patient Condition Preoxygenated: yes Difficult Mask: No Indications for airway management: anesthesia anesthesia circuit Method: sleep Final Airway Details Final airway type: supraglottic airway Number of attempts at approach: 1 Final Supraglottic Airway: IGEL Size 4 Airway not difficult SIGNATURE: Kiah Talbot APRN.CRNA PATIENT NAME: Gloria Lopez DATE: April 22, 2020 TIME: 9:48 AM CSN: [id number] [facility] 04-21-2020 History of Present illness Narrative Radiology Service Progress Note PATIENT NAME: Gloria Lopez DATE OF SERVICE: April 21, 2020 TIME: 10:24 AM PATIENT IDENTITY VERIFICATION COMPLETED USING TWO (2) IDENTIFIERS: Name and Date of confirmed by patient verbally. FALL SCREENING: Has the patient had 2 falls in the last year or 1 fall with injury or currently using an Ambulatory Assistive Device (Walker, Cane, Wheelchair, Crutches, etc.)? No PATIENT GENDER DATA: Female. status: : No status: NO. PATIENT RELEVANT IMPLANT DATA REVIEWED: Not Applicable RADIOLOGY DEPARTMENT: General X-ray: Exam(s) Completed: Chest X-Ray PERIPHERAL IV DATA: Not applicable SIGNED BY: Kimberlee Garcia April 21, 2020 10:24 AM documented in this encounter [facility] 04-21-2020 History of Present illness Narrative PATIENT IDENTITY VERIFICATION COMPLETED USING TWO (2) STANDARD IDENTIFIERS: Name and Date of confirmed by patient verbally. Procedure: Ultrasound Guided Needle Localization Site Verification: right No Nursing No Allergies ALLERGIES Allergen Reactions Penicillins Unknown Is the patient having any pain? None Physician, Nurse, Technologist: Daniel Quiroz MD PREOPERATIVE/PROCEDURAL VERIFICATION: Patient verified by: Name and Date of Procedure to be performed: Ultrasound Guided Needle Localization Site of the procedure confirmed:Yes Site:right Patient position: Supine Equipment/implant present:Imaging Data and Reflector Staff involved: Daniel Quiroz MD Relevant documentation, images, implants or special equipment present: Yes MARKING THE SITE: Procedural site verified by:Physically marking the site on or near incision site, with persistent marker, and remains visible once patient prepped. PROCEDURAL TIME OUT: All team activity stops Time out verification includes:Audible time-out documented: Yes. Time: 7:55 Two Patient Identifiers Correct side and site marking Accurate Consent Agreement on the procedure to be done Correct Positioning Imaging and Test Results Properly Labeled and Displayed Safety Precautions Based on Patient History or Medication Alcohol-based skin prep unit dose applicator used: ChloraPrep No soaking of the patient's hair or linens noted NUMBER OF SPECIMENS SENT TO LAB: 0 Sign in Communication: Completed Time Out: Team Confirms the Correct Patient, Correct Procedure, Correct Site and Site Marking, Correct Position (if applicable). Time: 7:55 Affirmation of Time Out: YES Sign Out Discussion: Post procedure verbal instructions were given to patient. Start time: 7:45 Time out: 7:55 End time: 7:57 Sign out: 8:05 documented in this encounter [facility] Evaluation + Plan note Future Appointments Appointment Date:03/02/2023 09:00:00 AM Scheduled Provider:Isidra Polanco Location:[facility] Appointment Type: Open Diagnostic Tests PendingT3 Free 02/02/23 [facility] Evaluation + Plan note Future Appointments Appointment Date:10/14/2024 10:00:00 AM Scheduled Provider:Isidra Polanco Location:[facility] Appointment Type: Open Appointment Date:09/18/2025 11:00:00 AM Scheduled Provider: Location:[facility] Appointment Type: Medicare Wellness Subsequent Diagnostic Tests PendingHCV Antibody RFX to Quant PCR 09/19/24 Future Scheduled TestsCT Chest, Low Dose Screening 09/17/24 [facility] Evaluation note Diagnosis Post-operative state- Primary Other postprocedural status [facility] Diagnosis Osteoporosis, unspecified osteoporosis type, unspecified pathological fracture presence- Primary BRCA1 gene mutation positive in female Personal history of breast cancer Personal history of malignant neoplasm of breast [facility] [place] [facility] Diagnosis Acute deep vein thrombosis (DVT) of non-extremity vein- Primary Malignant neoplasm of female breast, unspecified estrogen receptor status, unspecified laterality, unspecified site of breast (HCC) [facility] [place] [facility] Diagnosis 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, unspecified estrogen receptor status (HCC)- Primary BRCA1 positive Genetic susceptibility to malignant neoplasm of breast [facility] Diagnosis Malignant neoplasm of female breast, unspecified estrogen receptor status, unspecified laterality, unspecified site of breast (HCC)- Primary BRCA1 positive Genetic susceptibility to malignant neoplasm of breast Age-related osteoporosis without current pathological fracture Senile osteoporosis [facility] Diagnosis Malignant neoplasm of female breast, unspecified estrogen receptor status, unspecified laterality, unspecified site of breast (HCC)- Primary BRCA1 positive Genetic susceptibility to malignant neoplasm of breast Acute deep vein thrombosis (DVT) of non-extremity vein Encounter for screening for osteoporosis Special screening for osteoporosis Chest skin lesion Unspecified disorder of skin and subcutaneous tissue documented in this encounter [facility] note* Diagnosis Abdominal bloating- Primary Flatulence, eructation, and gas pain Unintended weight gain Abnormal weight gain Other fatigue Osteoporosis, unspecified osteoporosis type, unspecified pathological fracture presence BRCA1 gene mutation positive in female Personal history of breast cancer Personal history of malignant neoplasm of breast [facility] [place] [facility] Diagnosis Malignant neoplasm of female breast, unspecified estrogen receptor status, unspecified laterality, unspecified site of breast (HCC)- Primary BRCA1 positive Genetic susceptibility to malignant neoplasm of breast [facility] [place] [facility] Diagnosis Preop examination Preoperative examination, unspecified 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, unspecified estrogen receptor status (HCC) Tobacco use Tobacco use disorder documented in this encounter [facility] note* Diagnosis Excess weight- Primary Overweight Osteopenia, unspecified location BRCA1 gene mutation positive in female Personal history of breast cancer Personal history of malignant neoplasm of breast S/P mastectomy, bilateral Acquired absence of breast and nipple documented in this encounter [facility] note* Diagnosis Preop examination- Primary Preoperative examination, unspecified 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, unspecified estrogen receptor status (HCC) Tobacco use Tobacco use disorder History of left breast cancer Preop examination- Primary Preoperative examination, unspecified Bilateral malignant neoplasm of breast in female, unspecified estrogen receptor status, unspecified site of breast (HCC) BRCA gene mutation positive in female Former smoker Personal history of tobacco use, presenting hazards to health Anxiety neurosis Anxiety state, unspecified Abnormal laboratory test result Other abnormal clinical finding Preop examination- Primary Preoperative examination, unspecified BRCA gene mutation positive in female Former smoker Personal history of tobacco use, presenting hazards to health Anxiety neurosis Anxiety state, unspecified Abnormal laboratory test result Other abnormal clinical finding Pulmonary emphysema, unspecified emphysema type (HCC) Preoperative examination- Primary Preoperative examination, unspecified S/P breast reconstruction Breast replaced by other means Type 2 diabetes (HCC) Pulmonary emphysema, unspecified emphysema type (HCC) Former smoker Personal history of tobacco use, presenting hazards to health History of breast cancer Personal history of malignant neoplasm of breast Anxiety Anxiety state, unspecified Pre-op evaluation- Primary Preoperative examination, unspecified Breast asymmetry following reconstructive surgery Disproportion of reconstructed breast Pulmonary emphysema, unspecified emphysema type (HCC) Former smoker Personal history of tobacco use, presenting hazards to health Type 2 diabetes (HCC) Malignant neoplasm 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, estrogen receptor negative (HCC) Malignant neoplasm of female breast, unspecified estrogen receptor status, unspecified laterality, unspecified site of breast (HCC) 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, unspecified estrogen receptor status (HCC) BRCA1 positive Genetic susceptibility to malignant neoplasm of breast [facility] Diagnosis Preop examination- Primary Preoperative examination, unspecified 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, unspecified estrogen receptor status (HCC) Tobacco use Tobacco use disorder History of left breast cancer Preop examination- Primary Preoperative examination, unspecified Bilateral malignant neoplasm of breast in female, unspecified estrogen receptor status, unspecified site of breast (HCC) BRCA gene mutation positive in female Former smoker Personal history of tobacco use, presenting hazards to health Anxiety neurosis Anxiety state, unspecified Abnormal laboratory test result Other abnormal clinical finding Preop examination- Primary Preoperative examination, unspecified BRCA gene mutation positive in female Former smoker Personal history of tobacco use, presenting hazards to health Anxiety neurosis Anxiety state, unspecified Abnormal laboratory test result Other abnormal clinical finding Pulmonary emphysema, unspecified emphysema type (HCC) Preoperative examination- Primary Preoperative examination, unspecified S/P breast reconstruction Breast replaced by other means Type 2 diabetes (HCC) Pulmonary emphysema, unspecified emphysema type (HCC) Former smoker Personal history of tobacco use, presenting hazards to health History of breast cancer Personal history of malignant neoplasm of breast Anxiety Anxiety state, unspecified Pre-op evaluation- Primary Preoperative examination, unspecified Breast asymmetry following reconstructive surgery Disproportion of reconstructed breast Pulmonary emphysema, unspecified emphysema type (HCC) Former smoker Personal history of tobacco use, presenting hazards to health Type 2 diabetes (HCC) Malignant neoplasm 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, estrogen receptor negative (HCC) Abdominal mass, unspecified abdominal location Interstitial pulmonary disease (HCC) Postinflammatory pulmonary fibrosis Lung nodules Other nonspecific abnormal finding of lung field 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, unspecified estrogen receptor status (HCC) BRCA1 positive Genetic susceptibility to malignant neoplasm of breast [facility] [place] [facility]* Diagnosis Preop examination- Primary Preoperative examination, unspecified 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, unspecified estrogen receptor status (HCC) Tobacco use Tobacco use disorder History of left breast cancer Preop examination- Primary Preoperative examination, unspecified Bilateral malignant neoplasm of breast in female, unspecified estrogen receptor status, unspecified site of breast (HCC) BRCA gene mutation positive in female Former smoker Personal history of tobacco use, presenting hazards to health Anxiety neurosis Anxiety state, unspecified Abnormal laboratory test result Other abnormal clinical finding Preop examination- Primary Preoperative examination, unspecified BRCA gene mutation positive in female Former smoker Personal history of tobacco use, presenting hazards to health Anxiety neurosis Anxiety state, unspecified Abnormal laboratory test result Other abnormal clinical finding Pulmonary emphysema, unspecified emphysema type (HCC) Preoperative examination- Primary Preoperative examination, unspecified S/P breast reconstruction Breast replaced by other means Type 2 diabetes (HCC) Pulmonary emphysema, unspecified emphysema type (HCC) Former smoker Personal history of tobacco use, presenting hazards to health History of breast cancer Personal history of malignant neoplasm of breast Anxiety Anxiety state, unspecified Pre-op evaluation- Primary Preoperative examination, unspecified Breast asymmetry following reconstructive surgery Disproportion of reconstructed breast Pulmonary emphysema, unspecified emphysema type (HCC) Former smoker Personal history of tobacco use, presenting hazards to health Type 2 diabetes (HCC) Malignant neoplasm 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, estrogen receptor negative (HCC) BRCA1 positive Genetic susceptibility to malignant neoplasm of breast Lung nodules Other nonspecific abnormal finding of lung field 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, unspecified estrogen receptor status (HCC) [facility] [place] [facility] Diagnosis Neoplasm, breast Neoplasm of unspecified nature of breast Preop examination- Primary Preoperative examination, unspecified 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, unspecified estrogen receptor status (HCC) Tobacco use Tobacco use disorder History of left breast cancer Preop examination- Primary Preoperative examination, unspecified Bilateral malignant neoplasm of breast in female, unspecified estrogen receptor status, unspecified site of breast (HCC) BRCA gene mutation positive in female Former smoker Personal history of tobacco use, presenting hazards to health Anxiety neurosis Anxiety state, unspecified Abnormal laboratory test result Other abnormal clinical finding Preop examination- Primary Preoperative examination, unspecified BRCA gene mutation positive in female Former smoker Personal history of tobacco use, presenting hazards to health Anxiety neurosis Anxiety state, unspecified Abnormal laboratory test result Other abnormal clinical finding Pulmonary emphysema, unspecified emphysema type (HCC) Preoperative examination- Primary Preoperative examination, unspecified S/P breast reconstruction Breast replaced by other means Type 2 diabetes (HCC) Pulmonary emphysema, unspecified emphysema type (HCC) Former smoker Personal history of tobacco use, presenting hazards to health History of breast cancer Personal history of malignant neoplasm of breast Anxiety Anxiety state, unspecified Pre-op evaluation- Primary Preoperative examination, unspecified Breast asymmetry following reconstructive surgery Disproportion of reconstructed breast Pulmonary emphysema, unspecified emphysema type (HCC) Former smoker Personal history of tobacco use, presenting hazards to health Type 2 diabetes (HCC) Malignant neoplasm 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, estrogen receptor negative (HCC) [facility] Diagnosis Preop examination- Primary Preoperative examination, unspecified 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, unspecified estrogen receptor status (HCC) Tobacco use Tobacco use disorder History of left breast cancer Preop examination- Primary Preoperative examination, unspecified Bilateral malignant neoplasm of breast in female, unspecified estrogen receptor status, unspecified site of breast (HCC) BRCA gene mutation positive in female Former smoker Personal history of tobacco use, presenting hazards to health Anxiety neurosis Anxiety state, unspecified Abnormal laboratory test result Other abnormal clinical finding Preop examination- Primary Preoperative examination, unspecified BRCA gene mutation positive in female Former smoker Personal history of tobacco use, presenting hazards to health Anxiety neurosis Anxiety state, unspecified Abnormal laboratory test result Other abnormal clinical finding Pulmonary emphysema, unspecified emphysema type (HCC) Preoperative examination- Primary Preoperative examination, unspecified S/P breast reconstruction Breast replaced by other means Type 2 diabetes (HCC) Pulmonary emphysema, unspecified emphysema type (HCC) Former smoker Personal history of tobacco use, presenting hazards to health History of breast cancer Personal history of malignant neoplasm of breast Anxiety Anxiety state, unspecified Pre-op evaluation- Primary Preoperative examination, unspecified Breast asymmetry following reconstructive surgery Disproportion of reconstructed breast Pulmonary emphysema, unspecified emphysema type (HCC) Former smoker Personal history of tobacco use, presenting hazards to health Type 2 diabetes (HCC) Malignant neoplasm 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, estrogen receptor negative (HCC) Malignant neoplasm 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, estrogen receptor negative (HCC)- Primary Vitamin D deficiency Unspecified vitamin D deficiency Need for vaccination Need for prophylactic vaccination and inoculation against unspecified single disease [facility] information [facility] Work Phone: Hospital course Narrative No data available for this section [facility] No data available for this section [facility] No data available for this section [facility] Summary Purpose Family History No Family History Records FoundNo Family History Records FoundNo Family History Records Found No data available for this section No Family History Records FoundNo Family History Records Found No data available for this section No Family History Records FoundNo Family History Records FoundNo Family History Records FoundNo Family History Records FoundNo Family History Records FoundNo Family History Records FoundNo Family History Records FoundNo Family History Records Found Advance Directives No Advanced Directives Records FoundDocuments on File Type Date Recorded Patient Metallurgy Laboratory Technician Expl anation Advance Directive(s) 08/12/2021 11:38 AM Advance Directive(s) 05/03/2021 6:15 AM Advance Directive(s) 04/12/2021 4:30 PM Advance Directive(s) 01/13/2021 11:05 AM Advance Directive(s) 12/17/2020 9:20 AM Advance Directive(s) 06/30/2020 9:04 AM Ad fitzgerald Directives Advance Directive(s) 05/28/2020 10:49 AM Advance Directive(s) 04/22/2020 7:40 AM Documents on File Type Date Recorded Patient Metallurgy Laboratory Technician Expl anation Advance Directive(s) 06/30/2020 9:04 AM Ad fitzgerald Directives Documents on File Type Date Recorded Patient Metallurgy Laboratory Technician Expl anation Advance Directive(s) 06/30/2020 9:04 AM Ad fitzgerald Directives Reason for Referral Specialty Diagnoses / Procedures Referred By Contac t Referred To Contact CT IMAGING Diagnoses Malignant neoplasm of female breast, unspecified estrogen receptor status, unspecified laterality, unspecified site of breast (HCC) Procedures CT ABD/PEL W IVCON CT ABD & PELVIS W/CONTRAST Geraldo Bernal MD [address] [place] [address] [place] [address] Ct Imaging Referral ID Status Reason Start Date Expiration Date Visits Requested Visits Authorized [id number] Authorized Auto-Generat ed Referral 03/11/2022 04/10/2023 1 1 Specialty Diagnoses / Procedures Referred By Contac t Referred To Contact Dermatology Diagnoses Chest skin lesion Procedures CONSULT TO DERMATOLOGY Tino Mcguire APRN.MADDIE [address] [place] [address] [place] [address] Referral ID Status Reason Start Date Expiration Date Visits Requested Visits Authorized [id number] Ref Not Required PCP Requested Referral 09/09/2022 09/09/2023 1 1 Specialty Diagnoses / Procedures Referred By Contac t Referred To Contact CT IMAGING Diagnoses Malignant neoplasm of female breast, unspecified estrogen receptor status, unspecified laterality, unspecified site of breast (HCC) Procedures CT ABD/PEL W IVCON CT ABD & PELVIS W/CONTRAST Geraldo Bernal MD [address] [place] [address] [place] [address] Ct Imaging [id number] Referral ID Status Reason Start Date Expiration Date V isits Requested Visits Authorized [id number] Closed Auto-Generate d Referral 03/11/2022 04/10/2023 1 1 Specialty Diagnoses / Procedures Referred By Contac t Referred To Contact CT IMAGING Diagnoses Abdominal mass, unspecified abdominal location Interstitial pulmonary disease (HCC) Lung nodules 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, unspecified estrogen receptor status (HCC) BRCA1 positive Procedures CT CHEST W IVCON DIAGNOSTIC COMPUTED TOMOGRAPHY THORAX W/CONTRAST Geraldo Bernal MD [address] [place] [address] [place] [address] Ct Imaging [id number] Referral ID Status Reason Start Date Expiration Date V isits Requested Visits Authorized [id number] Closed Auto-Generate d Referral 03/13/2022 10/10/2022 1 1 Specialty Diagnoses / Procedures Referred By Contac t Referred To Contact CT IMAGING Diagnoses Abdominal mass, unspecified abdominal location Interstitial pulmonary disease (HCC) Lung nodules 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, unspecified estrogen receptor status (HCC) BRCA1 positive Procedures CT ABD/PEL W IVCON CT ABD & PELVIS W/CONTRAST Geraldo Bernal MD [address] [place] [address] [place] [address] [place] [address] Referral ID Status Reason Start Date Expiration Date V isits Requested Visits Authorized [id number] Closed Auto-Generate d Referral 03/13/2022 10/10/2022 1 1 Specialty Diagnoses / Procedures Referred By Renetta donovan Referred To Contact CT IMAGING Diagnoses BRCA1 positive Lung nodules Procedures CT CHEST W IVCON CAT SCAN OF CHEST CONTRAST Geraldo Bernal MD [address] [place] [address] [place] [address] [place] [address] Referral ID Status Reason Start Date Expiration Date V isits Requested Visits Authorized [id number] Closed Auto-Generate d Referral 09/12/2021 07/14/2022 1 1 Additional Source Comments INFORMATION SOURCE (unrecogn ized section and content) DATE CREATED AUTHOR 04/27/2020 [facility] DATE CREATED AUTHOR AUTHOR'S ORGANIZ ATION 04/20/2021 [facility] DATE CREATED AUTHOR AUTHOR'S ORGANIZ ATION 04/14/2022 [facility] DATE CREATED AUTHOR AUTHOR'S ORGANIZ ATION 11/20/2023 [facility] DATE CREATED AUTHOR AUTHOR'S ORGANIZ ATION 03/30/2024 [facility] DATE CREATED AUTHOR AUTHOR'S ORGANIZ ATION 09/22/2024 [facility] DATE CREATED AUTHOR AUTHOR'S ORGANIZ ATION 09/23/2024 [facility] DATE CREATED AUTHOR AUTHOR'S ORGANIZ ATION 10/15/2024 [facility] DATE CREATED AUTHOR AUTHOR'S ORGANIZ ATION 12/18/2024 [facility] DATE CREATED AUTHOR AUTHOR'S ORGANIZ ATION 12/28/2024 [facility] Source Comments (unrecognize d section and content) In the event this informatio n is protected by the Federal Confidentiality of Alcohol and Drug Abuse Patient Records regulations: The Federal rules restrict any use of the information to criminally investigate or prosecute any alcohol or drug abuse patient.[facility] the event this information is protected by the Federal Confidentiality of Alcohol and Drug Abuse Patient Records regulations: The Federal rules restrict any use of the information to criminally investigate or prosecute any alcohol or drug abuse patient.[facility] Hospital[facility] the event this information is protected by the Federal Confidentiality of Alcohol and Drug Abuse Patient Records regulations: The Federal rules restrict any use of the information to criminally investigate or prosecute any alcohol or drug abuse patient.[facility] Hospital[facility] the event this information is protected by the Federal Confidentiality of Alcohol and Drug Abuse Patient Records regulations: The Federal rules restrict any use of the information to criminally investigate or prosecute any alcohol or drug abuse patient.[facility] the event this information is protected by the Federal Confidentiality of Alcohol and Drug Abuse Patient Records regulations: The Federal rules restrict any use of the information to criminally investigate or prosecute any alcohol or drug abuse patient.[facility] Hospital[facility] the event this information is protected by the Federal Confidentiality of Alcohol and Drug Abuse Patient Records regulations: The Federal rules restrict any use of the information to criminally investigate or prosecute any alcohol or drug abuse patient.[facility] Hospital[facility] the event this information is protected by the Federal Confidentiality of Alcohol and Drug Abuse Patient Records regulations: The Federal rules restrict any use of the information to criminally investigate or prosecute any alcohol or drug abuse patient.[facility] Hospital[facility] the event this information is protected by the Federal Confidentiality of Alcohol and Drug Abuse Patient Records regulations: The Federal rules restrict any use of the information to criminally investigate or prosecute any alcohol or drug abuse patient.[facility] Hospital[facility] the event this information is protected by the Federal Confidentiality of Alcohol and Drug Abuse Patient Records regulations: The Federal rules restrict any use of the information to criminally investigate or prosecute any alcohol or drug abuse patient.[facility] Hospital[facility] the event this information is protected by the Federal Confidentiality of Alcohol and Drug Abuse Patient Records regulations: The Federal rules restrict any use of the information to criminally investigate or prosecute any alcohol or drug abuse patient.[facility] Hospital[facility] the event this information is protected by the Federal Confidentiality of Alcohol and Drug Abuse Patient Records regulations: The Federal rules restrict any use of the information to criminally investigate or prosecute any alcohol or drug abuse patient.[facility] Hospital[facility] the event this information is protected by the Federal Confidentiality of Alcohol and Drug Abuse Patient Records regulations: The Federal rules restrict any use of the information to criminally investigate or prosecute any alcohol or drug abuse patient.[facility] Hospital[facility] the event this information is protected by the Federal Confidentiality of Alcohol and Drug Abuse Patient Records regulations: The Federal rules restrict any use of the information to criminally investigate or prosecute any alcohol or drug abuse patient.[facility] Hospital[facility] the event this information is protected by the Federal Confidentiality of Alcohol and Drug Abuse Patient Records regulations: The Federal rules restrict any use of the information to criminally investigate or prosecute any alcohol or drug abuse patient.[facility] Hospital[facility] the event this information is protected by the Federal Confidentiality of Alcohol and Drug Abuse Patient Records regulations: The Federal rules restrict any use of the information to criminally investigate or prosecute any alcohol or drug abuse patient.[facility] Hospital[facility] the event this information is protected by the Federal Confidentiality of Alcohol and Drug Abuse Patient Records regulations: The Federal rules restrict any use of the information to criminally investigate or prosecute any alcohol or drug abuse patient.[facility] Hospital[facility] the event this information is protected by the Federal Confidentiality of Alcohol and Drug Abuse Patient Records regulations: The Federal rules restrict any use of the information to criminally investigate or prosecute any alcohol or drug abuse patient.[facility] Hospital[facility] the event this information is protected by the Federal Confidentiality of Alcohol and Drug Abuse Patient Records regulations: The Federal rules restrict any use of the information to criminally investigate or prosecute any alcohol or drug abuse patient.[facility] HospitalIn the event this information is protected by the Federal Confidentiality of Alcohol and Drug Abuse Patient Records regulations: The Federal rules restrict any use of the information to criminally investigate or prosecute any alcohol or drug abuse patient.[facility] HospitalIn the event this information is protected by the Federal Confidentiality of Alcohol and Drug Abuse Patient Records regulations: The Federal rules restrict any use of the information to criminally investigate or prosecute any alcohol or drug abuse patient.[facility] HospitalIn the event this information is protected by the Federal Confidentiality of Alcohol and Drug Abuse Patient Records regulations: The Federal rules restrict any use of the information to criminally investigate or prosecute any alcohol or drug abuse patient.[facility] Hospital[facility] the event this information is protected by the Federal Confidentiality of Alcohol and Drug Abuse Patient Records regulations: The Federal rules restrict any use of the information to criminally investigate or prosecute any alcohol or drug abuse patient.[facility] Hospital[facility] the event this information is protected by the Federal Confidentiality of Alcohol and Drug Abuse Patient Records regulations: The Federal rules restrict any use of the information to criminally investigate or prosecute any alcohol or drug abuse patient.[facility] Reason for Visit (unrecogniz ed section and content) Reason Comments Results Reason Comments PHOTOS TAKEN Reason Comments Post Op Reason Comments Patient Update Reason Comments Breast Cancer Reason Comments Orders Reason Comments Breast Cancer Reason Comments Future Appointment Reason Comments Radio Gen RMP Reason Comments Radiology CT Specialty Diagnoses / Procedures Referred By Contac t Referred To Contact CT IMAGING Diagnoses Malignant neoplasm of female breast, unspecified estrogen receptor status, unspecified laterality, unspecified site of breast (HCC) Procedures CT ABD/PEL W IVCON CT ABD & PELVIS W/CONTRAST Geraldo Bernal MD [address] [place] [address] [place] [address] [place] [address] Referral ID Status Reason Start Date Expiration Date V isits Requested Visits Authorized [id number] Closed Auto-Generate d Referral 03/11/2022 04/10/2023 [address] Specialty Diagnoses / Procedures Referred By Contac t Referred To Contact CT IMAGING Diagnoses Abdominal mass, unspecified abdominal location Interstitial pulmonary disease (HCC) Lung nodules 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, unspecified estrogen receptor status (HCC) BRCA1 positive Procedures CT CHEST W IVCON DIAGNOSTIC COMPUTED TOMOGRAPHY THORAX W/CONTRAST Geraldo Bernal MD [address] [place] [address] [place] [address] Ct Imaging [id number] Referral ID Status Reason Start Date Expiration Date V isits Requested Visits Authorized [id number] Closed Auto-Generate d Referral 03/13/2022 10/10/2022 1 1 Specialty Diagnoses / Procedures Referred By Contac t Referred To Contact CT IMAGING Diagnoses BRCA1 positive Lung nodules Procedures CT CHEST W IVCON CAT SCAN OF CHEST CONTRAST Geraldo Bernal MD [address] [place] [address] [place] [address] Referral ID Status Reason Start Date Expiration Date V isits Requested Visits Authorized [id number] Closed Auto-Generate d Referral 09/12/2021 07/14/2022 1 1 Reason Comments Follow Up Care Teams (unrecognized sec tion and content) Booker Relationship Specialty Start Date End Date Jacuqelyn Villagran MD [address] [place] [address] PCP - General Family Practice 12/18/20 Geraldo Bernal MD [address] [place] [address] Physician Hematology/Oncology 05/20/20 Tino Mcguire APRN.[facility] [address] [place] [address] Nurse Practitioner Hematology/Oncology 05/20/20 Booker Relationship Specialty Start Date End Date Jacquelyn Villagran MD [address] [place] [address] PCP - General Family Practice 12/18/20 Geraldo Bernal MD [address] [address] Physician Hematology/Oncology 05/20/20 Tino Mcguire, LOGISTICS SOLUTION MANAGER.[employer] [address] [place] [address] Nurse Practitioner Hematology/Oncology 05/20/20 Booker Relationship Specialty Start Date End Date Jacquelyn Villagran MD [address] [place] [address] PCP - General Family Practice 12/18/20 Geraldo Bernal MD [address] [place] [address] Physician Hematology/Oncology 05/20/20 Tino Mcguire, LOGISTICS SOLUTION MANAGER.[employer] [address] [place] [address] Nurse Practitioner Hematology/Oncology 05/20/20 Booker Relationship Specialty Start Date End Date Jacquelyn Villagran MD [address] [place] [address] PCP - General Family Practice 12/18/20 Geraldo Bernal MD [address] [place] [address] Physician Hematology/Oncology 05/20/20 Tino Mcguire, LOGISTICS SOLUTION MANAGER.[employer] [address] [place] [address] Nurse Practitioner Hematology/Oncology 05/20/20 Booker Relationship Specialty Start Date End Date Jacquelyn Villagran MD [address] [place] [address] PCP - General Family Medicine 12/18/20 Geraldo Bernal MD [address] [facility] [address] Physician Hematology/Oncology 05/20/20 Tino Mcguire, LOGISTICS SOLUTION MANAGER.[employer] [address] [place] [address] Nurse Practitioner Hematology/Oncology 05/20/20 Booker Relationship Specialty Start Date End Date Jacquelyn Villagran MD [address] [place] [address] PCP - General Family Medicine 12/18/20 Geraldo Bernal MD [address] [place] [address] Physician Hematology/Oncology 05/20/20 Tino Mcguire, LOGISTICS SOLUTION MANAGER.[employer] [address] [place] [address] Nurse Practitioner Hematology/Oncology 05/20/20 Booker Relationship Specialty Start Date End Date Jacquelyn Villagran MD [address] [place] [address] PCP - General Family Medicine 12/18/20 Geraldo Bernal MD [address] [address] Physician Hematology/Oncology 05/20/20 Tino Mcguire, LOGISTICS SOLUTION MANAGER.STEEL CUTTER [address] [address] Nurse Practitioner Hematology/Oncology 05/20/20 Booker Relationship Specialty Start Date End Date Jacquelyn Villagran MD [address] [place] [address] PCP - General Family Medicine 12/18/20 Geraldo Bernal MD [address] [facility] [address] Physician Hematology/Oncology 05/20/20 Tino Mcguire, LOGISTICS SOLUTION MANAGER.STEEL CUTTER [address] [address] Nurse Practitioner Hematology/Oncology 05/20/20 Booker Relationship Specialty Start Date End Date Jacquelyn Villagran MD [address] [place] [address] PCP - General Family Medicine 12/18/20 Geraldo Bernal MD [address] [address] Physician Hematology/Oncology 05/20/20 Tino Mcguire, LOGISTICS SOLUTION MANAGER.STEEL CUTTER [address] [address] Nurse Practitioner Hematology/Oncology 05/20/20 Booker Relationship Specialty Start Date End Date Jacquelyn Villagran MD [address] [place] [address] PCP - General Family Medicine 12/18/20 Geraldo Bernal MD [address] [address] Physician Hematology/Oncology 05/20/20 Tino Mcguire, LOGISTICS SOLUTION MANAGER.STEEL CUTTER [address] [address] Nurse Practitioner Hematology/Oncology 05/20/20 Booker Relationship Specialty Start Date End Date Josue Aguirre MD [address] [place] [address] PCP - General Family Medicine 03/23/23 Geraldo Bernal MD [address] [place] [address] Physician Hematology/Oncology 05/20/20 Tino Mcguire, LOGISTICS SOLUTION MANAGER.STEEL CUTTER [address] [facility] [place] [address] Nurse Practitioner Hematology/Oncology 05/20/20 Booker Relationship Specialty Start Date End Date Josue Aguirre MD [address] [place] [address] PCP - General Family Medicine 03/23/23 Geraldo Bernal MD [address] [facility] [place] [address] Physician Hematology/Oncology 05/20/20 Tino Mcguire, LOGISTICS SOLUTION MANAGER.STEEL CUTTER [address] [place] [address] Nurse Practitioner Hematology/Oncology 05/20/20 Booker Relationship Specialty Start Date End Date Josue Aguirre MD [address] [place] [address] PCP - General Family Medicine 03/23/23 Geraldo Bernal MD [address] [place] [address] Physician Hematology/Oncology 05/20/20 Tino Mcguire, LOGISTICS SOLUTION MANAGER.STEEL CUTTER [address] [place] [address] Nurse Practitioner Hematology/Oncology 05/20/20 Booker Relationship Specialty Start Date End Date Jacquelyn Villagran MD [address] [facility] [place] [address] PCP - General Family Medicine 06/16/11 12/17/20 Booker Relationship Specialty Start Date End Date Josue Aguirre MD [address] [place] [address] PCP - General Family Medicine 03/23/23 Geraldo Bernal MD [address] [facility] [place] [address] Physician Hematology/Oncology 05/20/20 Tino Mcguire, LOGISTICS SOLUTION MANAGER.STEEL CUTTER [address] [facility] [place] [address] Nurse Practitioner Hematology/Oncology 05/20/20 Booker Relationship Specialty Start Date End Date Jacquelyn Villagran MD [address] [place] [address] PCP - General Family Medicine 12/18/20 03/22/23 Geraldo Bernal MD [address] [facility] [place] [address] Physician Hematology/Oncology 05/20/20 Tino Mcguire, LOGISTICS SOLUTION MANAGER.STEEL CUTTER [address] [facility] [place] [address] Nurse Practitioner Hematology/Oncology 05/20/20 Booker Relationship Specialty Start Date End Date Jacquelyn Villagran MD [address] [place] [address] PCP - General Family Medicine 12/18/20 03/22/23 Geraldo Bernal MD [address] [facility] [place] [address] Physician Hematology/Oncology 05/20/20 Tino Mcguire, LOGISTICS SOLUTION MANAGER.STEEL CUTTER [address] [facility] [place] [address] Nurse Practitioner Hematology/Oncology 05/20/20 Booker Relationship Specialty Start Date End Date Jacquelyn Villagran MD [address] [place] [address] PCP - General Family Medicine 12/18/20 03/22/23 Geraldo Bernal MD [address] [facility] [place] [address] Physician Hematology/Oncology 05/20/20 Tino Mcguire, LOGISTICS SOLUTION MANAGER.STEEL CUTTER [address] [facility] [place] [address] Nurse Practitioner Hematology/Oncology 05/20/20 Booker Relationship Specialty Start Date End Date Jacquelyn Villagran MD [address] [place] [address] PCP - General Family Medicine 06/16/11 12/17/20 Booker Relationship Specialty Start Date End Date Josue Aguirre MD [address] [address] PCP - General Family Medicine 03/23/23 Geraldo Bernal MD [address] [facility] [address] Physician Hematology/Oncology 05/20/20 Tino Mcguire, LOGISTICS SOLUTION MANAGER.STEEL CUTTER [address] [facility] [address] Nurse Practitioner Hematology/Oncology 05/20/20 Booker Relationship Specialty Start Date End Date Josue Aguirre MD [address] [place] [address] PCP - General Family Medicine 03/23/23 Geraldo Bernal MD [address] [facility] [address] Physician Hematology/Oncology 05/20/20 Tino Mcguire, LOGISTICS SOLUTION MANAGER.STEEL CUTTER [address] [facility] [facility] [place] [address] Nurse Practitioner Hematology/Oncology 05/20/20 Team Status: Inactive Member Role Status Dates Robert Oshea MD Attending Provider Active Sta rt: November 21, 2024 End: November 21, 2024 Goals (unrecognized section and content) Goals may be documented in a n alternate section FOR RECORDS PERTAINING TO PATIENTS WHO ARE OR HAVE BEEN ENROLLED IN A CHEMICAL DEPENDENCY/SUBSTANCEABUSE PROGRAM, SOME INFORMATION MAY BE OMITTED. This clinical summary was aggregated from multiple sources. Caution should be exercised in using it in the provision of clinical care. This summary normalizes information from multiple sources, and as a consequence, information in this document may materially change the coding, format and clinical context of patient data. In addition, data may be omitted in some cases. CLINICAL DECISIONS SHOULD BE BASED ON THE PRIMARY CLINICAL RECORDS. [employer] provides no warranty or guarantee of the accuracy or completeness of information in this document.
[2025-02-05] MEDS: ALBUTEROL SULFATE 2.5 MG/3 ML VIAL NEB IH (11:52)
--- NOTE | 2025-02-05 12:18 | XR_ITS ---
[address] [address] Patient Name: PRINCESS LOPEZ MRN: [id number] date: 1960 Sex: F Assigned Patient Location: CARD Current Patient Location: CARD Accession/Order Number: [id number] Exam Date: 02/05/2025 13:44 Report Date: 02/05/2025 13:46 At the request of: NUNO FLANAGAN MD Procedure: XR chest 2V Plain film chest 2 view HISTORY: Recheck pneumonia. COMPARISON: CT chest 11/25/2024 FINDINGS: SUPPORT DEVICES: None POSTSURGICAL CHANGES: None HEART: Within normal limits PULMONARY OFE: Within normal limits MEDIASTINUM: Unremarkable LUNGS AND PLEURA: Resolved right pleural-parenchymal changes. No pneumothorax. No pleural effusion. Hyperinflation. BONY STRUCTURES: Degenerative change ADDITIONAL FINDINGS None XR/XR chest 2V IMPRESSION: Resolution of right pleural-parenchymal changes. Impression dictated by: Richard Sheriff M.D. 02/05/2025 1:46 PM Dictation Location[facility] Electronically authenticated by: [id number] Y Date: 02/05/2025 13:46
== END 2025-02-05 10:56 | disposition home or self-care (01) ==
LOC: CARD 10:55
PROVIDERS: PCP Family Medicine; Visit Provider Family Medicine
DX: J44.1 Chronic obstructive pulmonary disease with (acute) exacerbation (principal); J96.21 Acute and chronic respiratory failure with hypoxia
CPT/HCPCS: 36415; 71046; 85018; 94060; 94726; 94729